=== PATIENT | female | born 1940 | race Caucasian/White ===

== ENCOUNTER 2016-07-09 16:21 | Inpatient (IN) | payer OTHER, MEDICAID, MEDICARE ==
[2016-07-09] VITALS (10 sets, daily range): BP systolic 85–102; BP diastolic 47–55; PULSE 48–91; RESP 24–36; TEMP 97.9; O2SAT 91–100
[~2016-07-09] VITALS: Ht 152.4 cm; Wt 65.4 kg
[~2016-07-09 16:21] MED LIST: ALLO100T PO; ALPR.5 PO; ASPI81 PO; AUGM875T PO; CLON.1 PO; CYCL1PAK PO; CYMB30CA PO; FOLI1 PO; FURO8SOL TUBE; KLOR20TA6 PO; LIDO5T TD; LISI-363 PO; MAGN30S PO; METH2.5 PO; METO50TA PO; OXYC5 PO; REQU2TAB3 PO; TAZT300C2 PO; TYLE650T9 PO; [UNRECOGNIZED DRUG - CODE] NASAL
[2016-07-09] MEDS ORDERED: SODIUM CHLORIDE 0.9% FLUSH 5 ML FLUSH IVF PRN (16:30)
[2016-07-09] MEDS ORDERED: FUROSEMIDE 20 MG/2 ML VIAL IVP ONE (16:30)
[2016-07-09] MEDS ORDERED: LISI-515 PO (16:37)
[2016-07-09] MEDS ORDERED: ALLO100T PO (16:37)
[2016-07-09] MEDS ORDERED: PRAV20TA2 PO (16:37)
[2016-07-09] MEDS ORDERED: FURO40TA PO (16:37)
[2016-07-09] MEDS ORDERED: DILT300C3 PO (16:37)
[2016-07-09] MEDS ORDERED: CLON0.1T PO (16:37)
[2016-07-09] MEDS ORDERED: DULO1CAP2 PO (16:37)
[2016-07-09] MEDS ORDERED: METO50TA PO (16:37)
[2016-07-09] MEDS ORDERED: ASPI1TAB73 (16:37)
[2016-07-09] MEDS ORDERED: CLOP75TA PO (16:37)
--- NOTE | 2016-07-09 16:58 | PD ---
HPI Chief Complaint: Respiratory Distress Time Seen by Provider: 16:27 Travel History International Travel<30 days: No Contact w/Intl Traveler<30days: No Traveled to known affect area: No History of Present Illness HPI Patient is a 75-year-old female who presents to emergency room for evaluation of acute respiratory distress. As per EMS, patient has history of CHF, reports an hour before arriving to the emergency room, patient became acutely short of breath. As per EMS, patient was hypoxic with a pulse ox in the 80s, patient with also labile blood pressure with systolic blood pressures in the low 100. No meds were given to patient prior to coming to the emergency room as patient' s blood pressure was low. PFSH Past Medical History Hx Anticoagulant Therapy: Yes (PLAVIX) Arthritis: Yes Asthma: No Autoimmune Disease: Yes (FIBROMYALGIA) Blood Disorders: No Anxiety: Yes Depression: Yes (MILD DEPRESSION) Heart Rhythm Problems: Yes (TACHYCARDIA) Cancer: No Cardiac Catheterization: Yes (1989) Cardiovascular Problems: Yes (CHF, AFIB ) High Cholesterol: Yes Chemotherapy: No Congestive Heart Failure: No COPD: No Cerebrovascular Accident: Yes Diabetes: Yes Patient Takes Glucophage: No Diminished Hearing: Yes (DIMINISHED) Endocrine: Yes Fibromyalgia: Yes Gastrointestinal Disorders: Yes (GERD, HX OF ABDOMINAL PAIN) GERD: Yes (GERD) Genitourinary: No Heparin Induced Thrombocytopen: No Hypertension: Yes Immune Disorder: Yes (fibromyalgia ) Implanted Vascular Access Dvce: No Musculoskeletal: Yes ("TORN MUSCLE L.KNEE", FRACTURED L3 L4 L5 06/15., arthritis,) Neurologic: Yes (FIBROMYALGIA, ENCEPHALOPATHY, CVA) Psychiatric: Yes (PANIC ATTACKS) Reproductive: Yes (HYSTERECTOMY DUE TO BLEEDING INTO PERITONEAL CAVITY) Respiratory: Yes (PNEUMONIA) Immunizations Current: No Pancreatitis: Yes Sleep Apnea: No Thyroid Disease: No Menopausal: Yes : 3 Para: 2 Miscarriage: 1 Past Surgical History Abdominal Surgery: No AICD: No Appendectomy: Yes (1975) Arteriovenous Shunt: No Cardiac Surgery: Yes (L ENDARECTOMY ) Coronary Artery Bypass Graft: No Ear Surgery: No Endocrine Surgery: No Eye Surgery: Yes (BL CATARACT REMOVAL) Genitourinary Surgery: No Gynecologic Surgery: Yes (HYSTERECTOMY 1975) Hysterectomy: Yes Insulin Pump: No Oral Surgery: No Pacemaker: No Thoracic Surgery: No Other Surgery: Yes (HYSTERECTOMY, LEFT & RIG CAROTID ARTERY REPAIR) Family History Family Myocardial Infarction: Yes (DAD) Social History Alcohol Use: Yes (OCCAS.) Tobacco Use: Yes Substance Use: No Allergies-Medications (Allergen,Severity, Reaction): Coded Allergies: Contrast Media (Verified Allergy, Severe, "throat closes up", 07/09/16) states that reaction used to occur but no longer does Keflex (Verified Adverse Reaction, Severe, "burning sensation,body red", ) *MDRO Multi-Drug Resistant Organism (Verified Adverse Reaction, Unknown, ) 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 (urine-01/30/16) Reported Meds & Prescriptions Reported Meds & Active Scripts Active Reported Allopurinol 100 Mg Tab 100 Mg PO DAILY Furosemide 40 Mg Tab 40 Mg PO DAILY Lisinopril 20 Mg Tab 20 Mg PO DAILY Clopidogrel (Clopidogrel Bisulfate) 75 Mg Tab 75 Mg PO DAILY Pravastatin 20 Mg Tab 20 Mg PO DAILY Alexandra Aspirin EC Low Dose (Aspirin) 81 Mg Tabdr Diltiazem CD 24 HR 300 Mg Caper 300 Mg PO DAILY Metoprolol Tartrate 50 Mg Tab 50 Mg PO Q8HR Duloxetine DR (Duloxetine HCl) 30 Mg Capdr 30 Mg PO DAILY Clonidine (Clonidine HCl) 0.1 Mg Tab 0.1 Mg PO Q8HR Review of Systems General / Constitutional: No: Fever, Chills Eyes: No: Visual changes HENT: No: Headaches Cardiovascular: No: Chest Pain or Discomfort Respiratory: Positive: Cough, Shortness of Breath, Wheezing Gastrointestinal: No: Abdominal Pain Genitourinary: No: Dysuria Musculoskeletal: No: Pain Skin: No Rash Neurologic: No: Weakness Psychiatric: No: Depression Endocrine: No: Polydipsia Hematologic/Lymphatic: No: Easy Bruising Physical Exam Narrative GENERAL: Patient in moderate respiratory distress SKIN: Warm and dry. HEAD: Atraumatic. Normocephalic. EYES: Pupils equal and round. No scleral icterus. No injection or drainage. ENT: No nasal bleeding or discharge. Mucous membranes pink and moist. NECK: Trachea midline. No JVD. CARDIOVASCULAR: Regular rate and rhythm. No murmur appreciated. RESPIRATORY: Patient with positive accessory muscle use. Patient with will see bases of lungs GASTROINTESTINAL: Abdomen soft, non-tender, nondistended. Hepatic and splenic margins not palpable. MUSCULOSKELETAL: No obvious deformities. No clubbing. No cyanosis. +2 edema bilaterally NEUROLOGICAL: Awake and alert. No obvious cranial nerve deficits. Motor grossly within normal limits. Normal speech. PSYCHIATRIC: Appropriate mood and affect; insight and judgment normal. Data Data Last Documented VS Vital Signs Date Time Temp Pulse Resp B/P Pulse Ox O2 Delivery O2 Flow Rate FiO2 07/09/16 16:32 91 CPAP 07/09/16 16:29 26 07/09/16 16:26 97.9 91 102/55 Orders Complete Blood Count With Diff (07/09/16 16:27) Comprehensive Metabolic Panel (07/09/16 16:27) B-Type Natriuretic Peptide (07/09/16 16:27) D-Dimer (07/09/16 16:27) Act Partial Throm Time (Ptt) (07/09/16 16:27) Prothrombin Time / Inr (Pt) (07/09/16 16:27) Magnesium (Mg) (07/09/16 16:27) Ckmb (Isoenzyme) Profile (07/09/16 16:27) Troponin I (07/09/16 16:27) Urinalysis - C+S If Indicated (07/09/16 16:27) Influenzae A/B Antigen (07/09/16 16:27) Blood Culture (07/09/16 16:27) Iv Access Insert/Monitor (07/09/16 16:27) Electrocardiogram (07/09/16 16:27) Ecg Monitoring (07/09/16 16:27) Oximetry (07/09/16 16:27) Oxygen Administration (07/09/16 16:27) Chest, Single Ap (07/09/16 16:27) Sodium Chloride 0.9% Flush (Ns Flush) (07/09/16 16:30) Furosemide Inj (Lasix Inj) (07/09/16 16:30) Lactic Acid Sepsis Protocol (07/09/16 16:29) Arterial Blood Gas (Abg) (07/09/16 ) Resp Bipap / Cpap Non Invas Vt (07/09/16 ) Nitroglycerin 2% Oint (Nitroglycerin 2% (07/09/16 17:00) Levofloxacin 750 Mg Premix Inj (Levaquin (07/09/16 17:15) MDM Medical Decision Making Medical Screen Exam Complete: Yes Emergency Medical Condition: Yes Interpretation(s) Vital Signs Date Time Temp Pulse Resp B/P Pulse Ox O2 Delivery O2 Flow Rate FiO2 07/09/16 16:32 91 CPAP 07/09/16 16:32 92 CPAP 07/09/16 16:29 26 07/09/16 16:26 97.9 91 26 102/55 91 Differential Diagnosis CHF exacerbation, acute coronary syndrome, arrhythmia, electrolyte abnormality Narrative Course Patient is a 75-year-old female who presents to emergency room with acute CHF exacerbation. Upon arrival to the emergency room, patient, the patient was placed on BiPAP. Patient given 20mg of iv lasix EKG, cbc, bmp, ce ordered as well as chest xray pt signed out to care of dr reynolds at shift change Sera Morrell DO Jul 09, 2016 16:57
--- NOTE | 2016-07-09 16:59 | RADRPT ---
EXAM DATE/TIME: 07/09/2016 16:34 [facility] COMPARISON: No previous studies available for comparison. INDICATIONS : Shortness of breath. MEDICAL HISTORY : Cardiovascular disease. Hypertension. Diabetes mellitus type 2. SURGICAL HISTORY : Hysterectomy. Appendectomy. ENCOUNTER: Initial ACUITY: 1 day PAIN SCORE: 6/10 LOCATION: Bilateral chest FINDINGS: Mild bibasilar consolidation and/or edema noted. No large effusion. No pneumothorax. Heart size stabl e Upper limits of normal. CONCLUSION: Mild bibasilar consolidation. Barrett Brown MD on July 09, 2016 at 16:57 Board Certified Radiologist. This report was verified electronically.
[2016-07-09] MEDS ORDERED: NITROGLYCERIN 2% OINT 1 GM PACKET TOP ONE (17:00)
[2016-07-09] MEDS ORDERED: LEVOFLOXACIN 750 MG PREMIX INJ 150 ML IV ONE (17:15)
[2016-07-09 17:18] LABS: BASOPHIL # 0.1 TH/MM3 (0-0.2); BASOPHIL % 0.9 % (0.0-2.0); EOSINOPHIL % 0.4 % (0.0-4.0); HEMATOCRIT 37.3 % (35.0-46.0); HEMO FLAGS DIFF FINAL; LYMPH % 28.9 % (9.0-44.0); LYMPHOCYTE # 2.3 TH/MM3 (1.0-4.8); MEAN CORPUSCULAR HEMOGLOBIN 27.8 PG (27.0-34.0); MEAN CORPUSCULAR HGB CONC 33.4 % (32.0-36.0); MONO % 7.2 % (0.0-8.0); NEUT % 62.6 % (16.0-70.0); PLATELET COUNT 292 TH/MM3 (150-450); RED CELL DISTRIBUTION WIDTH 17.1 % (11.6-17.2)
--- NOTE | 2016-07-09 17:33 | PD ---
Physical Exam Narrative Received sign out from previous team to follow up labs and continue treatment and disposition. This is a 75yo F with PMH of CHF here with sob for 2 hours. Pt was placed on BIPAP and given lasix by previous team. Pt evaluated at bedside and states she feels better with the BIPAP. Pt denies any chest pain, fever, cough, n/v, abdominal pain, weakness or numbness. Pt denies being on oxygen at home and does not have BIPAP machine at home. She is AAOx3 and blood pressure is on the lower side so nitro was held. On examination, pt has crackles on bibasilar lungs and edema in lower extremity. CXR showed mild bibasilar consolidation or edema and pt empirically given levaquin. ABG showed pH 7.35 with pCO2 of 49.4 and pO2 293. HCO3 26.8. Labs reviewed, no leukocytosis. BNP 471. Lactic acid 0.7. D-dimer elevated at 9.50. UA showed positive leukocyte and pt had received levaquin which will cover UTI as well. BMP was pending for hours. There was a problem and recollection was done. BMP result was back at 10:25pm. Potassium was found to be 6.8 and it was not hemolyzed. Calcium gluconate, albuterol neb, regular insulin and dextrose as well as kaexylate ordered. Troponin 0.06. BUN/creatinine is 22/1.27. EKG showed TWI V4-V5. Narrow QRS. Sinus bradycardia at 56bpm. Pt's blood pressure improved with NS IVF 500cc. BP is now 94/54. Pt is allergic to contrast media and had what sounds like anaphylactic reaction years ago but had contrast last year that had reaction to. VQ scan was completed instead and showed low probability for PE. Pt was off bipap but became more hypoxic with increased work of breathing so placed back on BIPAP and doing much better. Discussed with ICU attending and accepted to ICU for acute hypoxemic and hypercapnic respiratory failure on BIPAP and hyperkalemia. Data Data Last Documented VS Vital Signs Date Time Temp Pulse Resp B/P Pulse Ox O2 Delivery O2 Flow Rate FiO2 07/09/16 22:53 54 26 94/54 93 BiPAP 07/09/16 22:43 35 07/09/16 19:40 12.00 07/09/16 16:26 97.9 Orders Complete Blood Count With Diff (07/09/16 16:27) Comprehensive Metabolic Panel (07/09/16 16:27) B-Type Natriuretic Peptide (07/09/16 16:27) D-Dimer (07/09/16 16:27) Act Partial Throm Time (Ptt) (07/09/16 16:27) Prothrombin Time / Inr (Pt) (07/09/16 16:27) Magnesium (Mg) (07/09/16 16:27) Ckmb (Isoenzyme) Profile (07/09/16 16:27) Troponin I (07/09/16 16:27) Urinalysis - C+S If Indicated (07/09/16 16:27) Influenzae A/B Antigen (07/09/16 16:27) Blood Culture (07/09/16 16:27) Iv Access Insert/Monitor (07/09/16 16:27) Electrocardiogram (07/09/16 16:27) Ecg Monitoring (07/09/16 16:27) Oximetry (07/09/16 16:27) Oxygen Administration (07/09/16 16:27) Chest, Single Ap (07/09/16 16:27) Furosemide Inj (Lasix Inj) (07/09/16 16:30) Lactic Acid Sepsis Protocol (07/09/16 16:29) Arterial Blood Gas (Abg) (07/09/16 ) Resp Bipap / Cpap Non Invas Vt (07/09/16 ) Nitroglycerin 2% Oint (Nitroglycerin 2% (07/09/16 17:00) Levofloxacin 750 Mg Premix Inj (Levaquin (07/09/16 17:15) Ventilation & Perfusion Scan (07/09/16 ) Urine Culture (07/09/16 19:02) Ed Poc Ultrasound (07/09/16 ) Electrocardiogram (07/09/16 19:30) Calcium Gluconate Inj (Calcium Gluconate (07/09/16 23:00) Insulin Human Regular Inj (Novolin R Inj (07/09/16 23:00) Dextrose 50% In Brant (Vial) Inj (D50w (Vi (07/09/16 23:00) Albuterol Concentrated Neb (Albuterol Co (07/09/16 23:00) Sodium Polysty Sulfate Liq (Kayexalate L (07/09/16 23:00) Us Leg Venous Doppler Bilat (07/09/16 ) Urinary Catheter Management BHAVANA.Q8H (07/09/16 23:11) Admit Order (Ed Use Only) (07/09/16 23:12) Labs Laboratory Tests Test 07/09/16 07/09/16 07/09/16 07/09/16 16:32 16:36 17:50 19:02 White Blood Count 8.0 TH/MM3 Red Blood Count 4.50 MIL/MM3 Hemoglobin 12.5 GM/DL Hematocrit 37.3 % Mean Corpuscular Volume 83.0 FL Mean Corpuscular Hemoglobin 27.8 PG Mean Corpuscular Hemoglobin 33.4 % Concent Red Cell Distribution Width 17.1 % Platelet Count 292 TH/MM3 Mean Platelet Volume 8.4 FL Neutrophils (%) (Auto) 62.6 % Lymphocytes (%) (Auto) 28.9 % Monocytes (%) (Auto) 7.2 % Eosinophils (%) (Auto) 0.4 % Basophils (%) (Auto) 0.9 % Neutrophils # (Auto) 5.0 TH/MM3 Lymphocytes # (Auto) 2.3 TH/MM3 Monocytes # (Auto) 0.6 TH/MM3 Eosinophils # (Auto) 0.0 TH/MM3 Basophils # (Auto) 0.1 TH/MM3 CBC Comment DIFF FINAL Differential Comment Prothrombin Time 10.7 SEC Prothromb Time International 1.0 RATIO Ratio Activated Partial 27.9 SEC Thromboplast Time D-Dimer Quantitative (PE/DVT) 9.50 MG/L FEU B-Type Natriuretic Peptide 471 PG/ML Lactic Acid Level 0.7 mmol/L Blood Gas Puncture Site RT RADIAL Blood Gas Patient Temperature 98.6 Blood Gas HCO3 27 mmol/L Blood Gas Base Excess 1.8 mmol/L Blood Gas Oxygen Saturation 95 % Arterial Blood pH 7.35 Arterial Blood Partial 49 mmHg Pressure CO2 Arterial Blood Partial 293 mmHG Pressure O2 Arterial Blood Oxygen Content 15.7 Vol % Arterial Blood 3.3 % Carboxyhemoglobin Arterial Blood Methemoglobin 1.9 % Blood Gas Hemoglobin 11.3 G/DL Oxygen Delivery Device BIPAP Blood Gas Ventilator Setting CPAP 5/PS 12 Blood Gas Inspired Oxygen 75 % Urine Color YELLOW Urine Turbidity HAZY Urine pH 5.5 Urine Specific Bolton 1.010 Urine Protein TRACE mg/dL Urine Glucose (UA) NEG mg/dL Urine Ketones NEG mg/dL Urine Occult Blood SMALL Urine Nitrite NEG Urine Bilirubin NEG Urine Urobilinogen LESS THAN 2.0 MG/DL Urine Leukocyte Esterase LARGE Urine RBC 5 /hpf Urine WBC 23 /hpf Urine Squamous Epithelial 17 /hpf Cells Urine Bacteria RARE /hpf Urine Hyaline Casts 1 /lpf Urine Mucus FEW /lpf Microscopic Urinalysis Comment CULTURE INDICATED Test 07/09/16 21:30 Sodium Level 127 MEQ/L Potassium Level 6.8 MEQ/L Chloride Level 98 MEQ/L Carbon Dioxide Level 22.2 MEQ/L Anion Gap 7 MEQ/L Blood Urea Nitrogen 22 MG/DL Creatinine 1.27 MG/DL Estimat Glomerular Filtration 41 ML/MIN Rate Random Glucose 122 MG/DL Calcium Level 8.3 MG/DL Magnesium Level 1.8 MG/DL Total Bilirubin 0.4 MG/DL Aspartate Amino Transf 34 U/L (AST/SGOT) Alanine Aminotransferase 13 U/L (ALT/SGPT) Alkaline Phosphatase 128 U/L Total Creatine Kinase 95 U/L Troponin I 0.06 NG/ML Total Protein 7.4 GM/DL Albumin 3.0 GM/DL MDM Supervised Visit with NYDIA: No Interpretation(s) EKG: Sinus bradycardia. Normal axis. TWI V4, V5. Critical Care Narrative Aggregate critical care time was 45 minutes. Time to perform other separately billable procedures was not included in the critical care time. My time did not include minutes spent treating any other patients simultaneously or on activities that did not directly contribute to the patient's treatment. The services I provided to this patient were to treat and/or prevent clinically significant deterioration that could result in: cardiovascular collapse or . I provided critical care services requiring my management, as noted below: Chart data review, documentation time, medication orders and management, vital sign assessments/reviewing monitor data, ordering and reviewing lab tests, ordering and interpreting/reviewing x-rays and diagnostic studies, care of the patient and discussion of the patient with the admitting physicians. Diagnosis Primary Impression: Acute hypoxemic respiratory failure Additional Impression: Hyperkalemia Ilana Reeves DO Jul 09, 2016 17:32
[2016-07-09 17:47] LABS: APTT (PATIENT) 27.9 SEC (24.3-30.1); PROTHROMBIN TIME - PATIENT 10.7 SEC (9.8-11.6)
[2016-07-09 19:14] LABS: BACTERIA, URINE RARE /hpf; BLOOD, URINE SMALL (NEG); COMMENT (UR) CULTURE INDICATED; CULTURE IF INDICATED CULTURE INDICATED; GLUCOSE,URINE NEG (NEG); HYALINE CAST, URINE 1 /lpf (RARE); KETONE, URINE NEG (NEG); MUCUS URINE FEW /lpf (OCC); NITRITE,URINE NEG (NEG); PH, URINE 5.5 (5.0-8.5); SQUAMOUS EPITHELIAL CELL URINE 17 /hpf (0-5); URINE COLOR YELLOW (YELLW/STRAW)
[2016-07-09 20:01] LABS: BLOOD GAS BASE EXCESS 1.8 mmol/L (-2-2); BLOOD GAS CARBOXYHEMOGLOBIN 3.3 % (0-4); BLOOD GAS HCO3 27 mmol/L (22-26); BLOOD GAS METHEMOGLOBIN 1.9 % (0-2); BLOOD GAS O2 HGB SATURATION 95 % (90-100); BLOOD GAS OXYGEN CONTENT 15.7 Vol % (12.0-20.0); BLOOD GAS PCO2 49 mmHg (38-42); BLOOD GAS PO2 293 mmHG (61-120); BLOOD GAS TOTAL HGB 11.3 G/DL (12.0-16.0); CRITICAL VALUE NO; DRAW SITE RT RADIAL; FIO2 75 %; NUMBER OF ARTERIAL PUNCTURES 1; OXYGEN DEVICE BIPAP; STAT YES; TEMP CORR TO 98.6; ULNAR PULSE PRESENT; VENT SETTINGS CPAP 5/PS 12
--- NOTE | 2016-07-09 21:16 | RADRPT ---
EXAM DATE/TIME: 07/09/2016 20:10 [facility] COMPARISON: No previous studies available for comparison. INDICATIONS : Shortness of breath. Pulmonary edema. Congestive heart failure. DOSE: 8.2 mCi Tc99m MAA IV 0.83 mCi Tc99m DTPA aerosol MEDICAL HISTORY : Congestive hearrt failure. Hypercholesterolemia. Hypertension. Cerebrovascular accident, diabetes gavino litus, gastroesophageal reflux and fibromyalgia. SURGICAL HISTORY : Hysterectomy. Bilateral carotid endarterectomy and cataract. ENCOUNTER: Initial ACUITY: 1 day PAIN SCALE: 0/10 LOCATION: upper chest TECHNIQUE: Following five minutes of tidal breathing of DTPA aerosol, planar images of the lungs were performed in eight projections. The patient was then injected with MAA, and eight-view perfusion scan was perf ormed. FINDINGS: The comparison chest radiograph shows mild bibasilar consolidation. Ventilation is mildly heterogeneo us on both sides. Perfusion is homogeneous. CONCLUSION: Homogeneous perfusion. Study is low probability for pulmonary embolus. Barrett Brown MD on July 09, 2016 at 21:13 Board Certified Radiologist. This report was verified electronically.
[2016-07-09 22:10] LABS: ALKALINE PHOSPHATASE 128 U/L (45-117); ALT (GPT) 13 U/L (10-53); ANION GAP 7 MEQ/L (5-15); AST (GOT) 34 U/L (15-37); BICARBONATE 22.2 MEQ/L (21.0-32.0); BLOOD UREA NITROGEN 22 MG/DL (7-18); CHLORIDE 98 MEQ/L (98-107); GLOMERULAR FILTRATION RATE 41 ML/MIN (>89); MAGNESIUM 1.8 MG/DL (1.5-2.5); SODIUM (NA) 127 MEQ/L (136-145); TOTAL BILIRUBIN ADULT 0.4 MG/DL (0.2-1.0)
[2016-07-09 22:18] LABS: CREATINE KINASE 95 U/L (26-192)
[2016-07-09 22:22] LABS: POTASSIUM 6.8 MEQ/L (3.5-5.1)
[2016-07-09] MEDS ORDERED: SODIUM POLYSTYRENE SULFONATE SUSP 15 GM/60 ML CUP PO ONE (23:00)
[2016-07-09] MEDS ORDERED: RESP: ALBUTEROL CONC 2.5 MG/0.5 ML NEB INH ONE (23:00)
[2016-07-09] MEDS ORDERED: CALCIUM GLUCONATE 10% 1 GM/10 ML VIAL SLOW IVP ONE (23:00)
[2016-07-09] MEDS ORDERED: INSULIN HUMAN REGULAR 1,000 UNITS/10 ML VIAL IV PUSH ONE (23:00)
[2016-07-09] MEDS ORDERED: DEXTROSE 50% IN WATER 50 ML VIAL(D50) IV PUSH ONE (23:00)
--- NOTE | 2016-07-09 23:32 | HHI.HP ---
[facility] Service Critical Care Medicine Primary Care Physician Karis Roblero MD Admission Diagnosis SOB Diagnosis: Travel History International Travel<30 Days: No Contact w/Intl Traveler <30 Da: No Traveled to Known Affected Are: No History of Present Illness 75 yo WF with PMH of hypertension, hyperlipidemia, prior stroke, depression, rheumatoid arthritis (previously on methotrexate), chronic pain, tobacco abuse. She previously had prolonged admission to [facility] [place]-12/15/15 following a fall at rehab facility which resulted in right temporal contusion. Her hospital course was complicated by pseudomembranous colitis and recurrent episodes of aspiration pneumonia resulting in respiratory failure, intubation x2 and ultimate trach/PEG. She was discharged to a rehab facility and then eventually has returned to her home following trach decannulation. She states she has been feeling well until today when she was sitting on her couch and developed sudden onset of shortness of breath while at rest. She has chest discomfort which she describes as tightness "like something's sitting there", nonpleuritic , moderate severity, nonradiatting. She states that she has this often and that it "feels like indigestion" and goes away when she drinks water. Today it did not go away so she summoned [facility] and her sats were in the 80s upon their arrival. She is not on home O2. She was placed on Bipap / upon arrival to the ED and was administered NTG and Lasix 20 mg IV. ABG demonstrated pH of 7.35 /PA CO2 of 49/PA O2 of 293 on 75% FiO2. She denies cough/fever/chills/ hemoptysis. Her ddimer was 9.5. She had a VQ scan that is low probability for PE. Denies leg swelling. Denies history of venous thromboembolic disease. No recent travel.She states she has had prior stress test and cardiac cath " several years ago" by Dr. Ornoa that she says were normal. She states she has no pain now and reports she feels "so much better than when she came in". She has been taken off Bipap to receive a neb and her she appears comfortable on 4 L NC with sats 97%. 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 Jackson) Bilateral carotid endarterectomy (right carotid endarterectomy was performed by Dr. Moreau) Hysterectomy Reported Medications Lisinopril 20 mg by mouth daily Duloxetine 30 g by mouth daily Allopurinol 100 g by mouth daily Metoprolol 50 g by mouth every 8 hours Cardizem 30 mg by mouth daily Clonidine 0.1 mill grams by mouth by mouth every 8 hours Pravastatin 20 mill grams by mouth daily Lasix 40 g by mouth daily Aspirin 81 mill grams by mouth daily Plavix 75 mg by mouth daily Family History Father had a myocardial infarction at age 51 She has 4 brothers which had myocardial infarctions in their 50s She had a brother who at age 42. He had a renal transplant for hypertensive nephropathy. Social History She previously smoked about 15 years then quit for about 25 years and then started back again 2 years ago. She smokes 3-4 cigarettes per day Drinks wine occasionally. Denies use of illicit drugs She lives with a female friend of hers Physical Exam Vital Signs Vital Signs Date Time Temp Pulse Resp B/P Pulse Ox O2 Delivery O2 Flow Rate FiO2 07/09/16 22:53 54 26 94/54 93 BiPAP 07/09/16 22:43 93 BiPAP 35 07/09/16 22:00 98 35 07/09/16 19:56 56 24 85/47 99 BiPAP 07/09/16 19:40 98 Non-Rebreather 12.00 07/09/16 19:20 98 60 07/09/16 17:17 48 36 91/52 100 BiPAP 07/09/16 16:41 100 75 07/09/16 16:32 91 CPAP 07/09/16 16:32 92 CPAP 07/09/16 16:29 26 07/09/16 16:26 97.9 91 26 102/55 91 Physical Exam Blood pressure 94/54 pulse 95 with sinus rhythm on the monitor BiPAP 12 over 5 with FiO2 35% GENERAL: Well-nourished, well-developed patient sitting up in ED gurney, conversant getting nebulizer treatment SKIN: Warm and dry. HEAD: Atraumatic. Normocephalic. EYES: Pupils equal and round. No scleral icterus. No injection or drainage. ENT: No nasal bleeding or discharge. Mucous membranes pink and moist. NECK: Trachea midline. No JVD appreciated. CARDIOVASCULAR: Bradycardic, regular. 2/6 systolic murmur left sternal border. RESPIRATORY: Bibasilar Rales, breathing comfortably without accessory muscle use. GASTROINTESTINAL: Abdomen soft, obese, non-tender, nondistended. Bowel sounds present MUSCULOSKELETAL: Extremities without clubbing, cyanosis, or edema. NEUROLOGICAL: Awake and alert. No obvious cranial nerve deficits. Motor grossly within normal limits. Normal speech. Laboratory Laboratory Tests Test 07/09/16 07/09/16 07/09/16 07/09/16 16:32 16:36 17:50 19:02 White Blood Count 8.0 Red Blood Count 4.50 Hemoglobin 12.5 Hematocrit 37.3 Mean Corpuscular Volume 83.0 Mean Corpuscular Hemoglobin 27.8 Mean Corpuscular Hemoglobin 33.4 Concent Red Cell Distribution Width 17.1 Platelet Count 292 Mean Platelet Volume 8.4 Neutrophils (%) (Auto) 62.6 Lymphocytes (%) (Auto) 28.9 Monocytes (%) (Auto) 7.2 Eosinophils (%) (Auto) 0.4 Basophils (%) (Auto) 0.9 Neutrophils # (Auto) 5.0 Lymphocytes # (Auto) 2.3 Monocytes # (Auto) 0.6 Eosinophils # (Auto) 0.0 Basophils # (Auto) 0.1 CBC Comment DIFF FINAL Differential Comment Prothrombin Time 10.7 Prothromb Time International 1.0 Ratio Activated Partial 27.9 Thromboplast Time D-Dimer Quantitative (PE/DVT) 9.50 B-Type Natriuretic Peptide 471 Lactic Acid Level 0.7 Blood Gas Puncture Site RT RADIAL Blood Gas Patient Temperature 98.6 Blood Gas HCO3 27 Blood Gas Base Excess 1.8 Blood Gas Oxygen Saturation 95 Arterial Blood pH 7.35 Arterial Blood Partial 49 Pressure CO2 Arterial Blood Partial 293 Pressure O2 Arterial Blood Oxygen Content 15.7 Arterial Blood 3.3 Carboxyhemoglobin Arterial Blood Methemoglobin 1.9 Blood Gas Hemoglobin 11.3 Oxygen Delivery Device BIPAP Blood Gas Ventilator Setting CPAP 5/PS 12 Blood Gas Inspired Oxygen 75 Urine Color YELLOW Urine Turbidity HAZY Urine pH 5.5 Urine Specific Morton 1.010 Urine Protein TRACE Urine Glucose (UA) NEG Urine Ketones NEG Urine Occult Blood SMALL Urine Nitrite NEG Urine Bilirubin NEG Urine Urobilinogen LESS THAN 2.0 Urine Leukocyte Esterase LARGE Urine RBC 5 Urine WBC 23 Urine Squamous Epithelial 17 Cells Urine Bacteria RARE Urine Hyaline Casts 1 Urine Mucus FEW Microscopic Urinalysis Comment CULTURE INDICATED Test 07/09/16 21:30 Sodium Level 127 Potassium Level 6.8 Chloride Level 98 Carbon Dioxide Level 22.2 Anion Gap 7 Blood Urea Nitrogen 22 Creatinine 1.27 Estimat Glomerular Filtration 41 Rate Random Glucose 122 Calcium Level 8.3 Magnesium Level 1.8 Total Bilirubin 0.4 Aspartate Amino Transf 34 (AST/SGOT) Alanine Aminotransferase 13 (ALT/SGPT) Alkaline Phosphatase 128 Total Creatine Kinase 95 Troponin I 0.06 Total Protein 7.4 Albumin 3.0 Date/Time Procedure Status Source Growth 07/09/16 19:02 Urine Culture Received Urine Random Urine Pending 07/09/16 16:36 Influenza Types A,B Antigen (MATTIE) - Final Complete Nasal Aspirate NEGATIVE FOR FLU A AND B ANTIGEN.... 07/09/16 16:30 Aerobic Blood Culture Received Blood Peripheral Pending 07/09/16 16:30 Anaerobic Blood Culture Received Blood Peripheral Pending Result Diagram: 07/09/16 1632 07/09/16 2130 Assessment and Plan Assessment and Plan NEURO: Fibromyalgia History of stroke History of TBI with right temporal contusion. Frequent falls Depression Continue duloxetine 30 mils grams by mouth daily Continue on aspirin and Plavix as per below for history of stroke RESP: Acute hypercapnic and hypoxemic respiratory failure, on BiPAP Tobacco abuse Now improved following Lasix/NTG/Nebs. Placed on NC, wean as tolerated. Use Bipap prn VQ scan low probability PE 1/ (h/o IV contrast allergy) CXR shows bibasilar opacities. This could be edema versus pneumonia but both presentation and rapid symptomatic improvement would argue for pulmonary edema. COPD component also a possibility given her history, though she is not currently wheezing upon my evaluation. Provided smoking cessation counseling Duoneb q6 hours. Albuterol every 2 hours as needed. CV: Hypertension Hyperlipidemia Sinus bradycardia EKG - sinus bradycardia. T wave inversion V4-V5. Check serial EKGs and cardiac markers. Check 2-D echo. Minimal troponin elevation in setting of renal insufficiency. However, chest discomfort and SOB may represent unstable angina in this patient with multiple risk factors. Will ask cardiology to see on routine basis. Hold lisinopril due to hyperkalemia. Hold cardizem for now due to bradycardia. Hold clonidine. Metoprolol 25 mg po q 8 hours with hold orders for hypotension/heart rate <60. NTG prn chest pain. Continue pravastatin 20 g by mouth daily Continue aspirin 81 mill grams by mouth daily Continue Plavix 75 mill grams by mouth daily Lasix 20 mg IV daily Most recent 2-D echo 11/04/15EF 55-60%. Normal wall motion without all motion abnormality. Mild aortic regurgitation Had Holter monitor 10/16/15inus rhythm Lexiscan 11/03/12no evidence of ischemia. GI: Obesity Heart healthy diet FEN/RENAL: DUC overlying CKD Stage III Acute Hyperkalemia Hyperkalemia without EKG changes. Received calcium gluconate 1 gram IV, kayexalate 15 gram, Insulin 5 units IV, 1/2 amp D50 given in the ED. Unusual to see this degree of hyperkalemia without significant creatinine change from baseline, no EKG changes. No reported hemolysis. Will repeat potassium. Check cortisol per discussion below. Hold lisinopril. ID: [email or web address] She was given Levaquin empirically in the emergency department 07/09/16 for possible pneumonia. Will continue with renal dosing to cover possible CAP and UTI and followup cultures. Calculated creatinine clearance 42 so will dose Levaquin 750 mg po q48 hours. Microbiology: 07/09/16blood culture 2 setspending 07/09/16influenza negative 07/09/16urine culturepending 07/09/16urine Legionella and pneumococcal antigen pending HEME: Elevated d-dimer VQ scanlow probability Ordered Bilateral lower extremity which is negative. Monitor CBC ENDO: Previously diabetes mellitus Now off therapy, glucose 122. Adrenal insufficiency is a consideration give hyponatremia, hyperkalemia, "relative hypoglycemia", transient hypotension. Will check cortisol level and then cosyntropin stim if low. Low dose insulin sliding scale if needed. Check TSH MSK Osteoporosis Rheumatoid arthritis Gout Continue allopurinol 100 g by mouth daily PROPH: SCDs and Lovenox 30 mg subcutaneous for DVT prophylaxis. Protonix 40 mg IV daily for stress ulcer prophylaxis. ACCESS: Peripheral IV providing adequate access at this time. Level III Radha Ramirez MD Jul 09, 2016 23:32
[2016-07-09] MEDS ORDERED: ACETAMINOPHEN 325 MG TAB PO PRN (23:45)
[2016-07-09] MEDS ORDERED: MISCELLANEOUS NURSING INFORMATION XX SCH (23:45)
[2016-07-09] MEDS ORDERED: SODIUM CHLORIDE 0.9% FLUSH 5 ML FLUSH IV FLUSH PRN (23:45)
[2016-07-09] MEDS ORDERED: RESP: ALBUTEROL 2.5 MG/3 ML NEB (PRN) INH (23:45)
[2016-07-09] MEDS ORDERED: ONDANSETRON HCL 4 MG/2 ML VIAL IV PRN (23:45)
[2016-07-09] MEDS ORDERED: CHLORHEXIDINE GLUCONATE 2 % 1 PACK (2 CLOTHS) TOP PRN (23:45)
[2016-07-10] VITALS (12 sets, daily range): BP systolic 104–151; BP diastolic 51–67; PULSE 56–96; RESP 16–20; O2SAT 95–99
--- NOTE | 2016-07-10 00:36 | RADRPT ---
EXAM DATE/TIME: 07/10/2016 00:12 [place] COMPARISON: No previous studies available for comparison. INDICATIONS : Bilateral leg pain. MEDICAL HISTORY : Pancreatitis. Encephalopathy. CVA. Congestive heart failure. Atrial fibrillation. Anticoaugulant th erapy. GERD. SURGICAL HISTORY : Hysterectomy. Carotid endarterectomy. ENCOUNTER: Initial ACUITY: 1 day PAIN SCORE: 1/10 LOCATION: Bilateral legs. TECHNIQUE: Venous ultrasound of the left and right leg was performed from the inguinal ligament to the proximal calf. Real-time, color Doppler and spectral tracing, compression and augmentation techniques were us ed. FINDINGS: RIGHT LEG: There is normal compressibility of the deep venous system from the inguinal region to the proximal ca lf. No echogenic clot is seen in the lumen of the common femoral, femoral, popliteal, and posterior tibial veins. There is a normal response of the venous system to proximal and distal augmentation an d respiration. LEFT LEG: There is normal compressibility of the deep venous system from the inguinal region to the proximal ca lf. No echogenic clot is seen in the lumen of the common femoral, femoral, popliteal, and posterior tibial veins. There is a normal response of the venous system to proximal and distal augmentation an d respiration. CONCLUSION: Normal examination. Loi Richards Jr., MD on July 10, 2016 at 0:34 Board Certified Radiologist. This report was verified electronically.
[2016-07-10] MEDS: ENOXAPARIN SODIUM 30 MG/0.3 ML SYRINGE SQ SCH ×2 (00:41→21:54)
[2016-07-10] MEDS: ASPIRIN 81 MG CHEW TAB CHEW SCH ×2 (01:50→09:40)
[2016-07-10] MEDS ORDERED: DEXTROSE 50% IN WATER 50 ML VIAL(D50) IV PUSH PRN (02:15)
[2016-07-10] MEDS ORDERED: NITROGLYCERIN 0.4 MG SL 25 TABS/BTL SL PRN (02:15)
[2016-07-10] MEDS ORDERED: GLUCAGON 1 MG/ML VIAL OTHER PRN (02:15)
[2016-07-10] MEDS: RESP: ALBUTEROL 2.5 MG/IPRATROPIUM 0.5 MG NEB (SCH) INH ×4 (02:54→20:18)
[2016-07-10 03:31] LABS: BICARBONATE 29.5 MEQ/L (21.0-32.0); MAGNESIUM 1.8 MG/DL (1.5-2.5); POTASSIUM 4.2 MEQ/L (3.5-5.1)
[2016-07-10] MEDS: CHLORHEXIDINE GLUCONATE 2 % 1 PACK (2 CLOTHS) TOP SCH (03:57)
[2016-07-10] MEDS ORDERED: COSYNTROPIN 0.25 MG VIAL IV PUSH ONE (04:15)
[2016-07-10 05:09] LABS: AUTOMATED NEUTROPHIL # 4.3 TH/MM3 (1.8-7.7); BASOPHIL # 0.1 TH/MM3 (0-0.2); BASOPHIL % 0.7 % (0.0-2.0); EOSINOPHIL % 0.2 % (0.0-4.0); HEMO FLAGS DIFF FINAL; LYMPH % 36.2 % (9.0-44.0); LYMPHOCYTE # 2.9 TH/MM3 (1.0-4.8); MEAN CELL VOLUME 82.6 FL (80.0-100.0); MEAN CORPUSCULAR HEMOGLOBIN 26.9 PG (27.0-34.0); MEAN CORPUSCULAR HGB CONC 32.6 % (32.0-36.0); MONO % 9.3 % (0.0-8.0); NEUT % 53.6 % (16.0-70.0); PLATELET COUNT 194 TH/MM3 (150-450); RED BLOOD COUNT 3.87 MIL/MM3 (4.00-5.30); WHITE BLOOD COUNT 8.1 TH/MM3 (4.0-11.0)
[2016-07-10] MEDS: METOPROLOL TARTRATE 25 MG TAB PO SCH ×3 (05:52→21:54)
[2016-07-10] MEDS: INSULIN ASPART SUPPLEMENTAL SCALE SQ SCH ×4 (06:56→22:36)
[2016-07-10] MEDS ORDERED: SODIUM CHLORIDE 0.9% FLUSH 5 ML FLUSH IV FLUSH SCH (09:00)
[2016-07-10] MEDS: CLOPIDOGREL 75 MG TAB PO SCH (09:39)
[2016-07-10] MEDS: PRAVASTATIN SOD 20 MG TAB PO SCH (09:39)
[2016-07-10] MEDS: ALLOPURINOL 100 MG TAB PO SCH (09:39)
[2016-07-10] MEDS: PANTOPRAZOLE SODIUM 40 MG VIAL IV SCH (09:39)
[2016-07-10] MEDS: DULoxetine HCl DR 30 MG CAP PO SCH (09:39)
--- NOTE | 2016-07-10 09:54 | MB ---
cc: KARIS ROBLES. LELAND HERMAN M.D., DO DATE OF CONSULTATION 07/10/2016 PRIMARY CARE PHYSICIAN Karis Robles MD REASON FOR CONSULTATION Chest pain with shortness of breath. HISTORY OF PRESENT ILLNESS Kanchan Roque is a pleasant 75-year-old female who presents to [facility] Emergency Room on July 10, 2016, due to shortness of breath with chest pain. She had a long hospitalization earlier this year and was discharged to a rehab facility. She states that she has been doing all of her physical therapy and has no chest pain or shortness of breath during these times but yesterday she was sitting on the couch and suddenly developed shortness of breath while at rest. She started panicking and then had chest discomfort which she described as a tightness. She has had that feeling of tightness in her chest a few times which she says feels like indigestion and she drinks a glass of water and it goes away. She attempted to drink a glass of water but it did not go away so she called [facility]. Upon their arrival she was found to have sats in the 80s. She was placed on BiPap on 06/11 until arrival at the ED and was given nitroglycerin and Lasix. She had an elevated D-dimer and she was worked up for a PE which showed a VQ scan of low probability and negative ultrasound of the lower extremities. In seeing her this morning she states that she feels so much better and no longer has chest pain or shortness of breath. Of note, she had a prior stress test and cardiac catheterization by Dr. Orona several years ago which, per the patient, were normal. PAST MEDICAL HISTORY 1. Hypertension. 2. Hyperlipidemia. 3. History of stroke. 4. Depression. 5. Rheumatoid arthritis. 6. Osteoporosis. 7. Fibromyalgia. 8. Traumatic brain injury with temporal lobe contusion following a fall. 9. Frequent falls. 10. Obesity. 11. Tobacco abuse. PAST SURGICAL HISTORY 1. Previous cardiac catheterization per the patient a few years ago which was normal. 2. Percutaneous tracheostomy (November 24, 2015). 3. Bilateral carotid endarterectomy (right carotid endarterectomy was performed February 17, 2015). 4. Hysterectomy. ALLERGIES HISTORY OF IV DYE ALLERGY for which she had anaphylaxis but states that the reaction no longer occurs. KEFLEX. FAMILY HISTORY Father had a myocardial infarction at the age of 51. She has four brothers which had myocardial infarctions in their 50s. She had a brother who at the age of 42; he had a renal transplant for hypertensive nephropathy. SOCIAL HISTORY She previously smoked about 15 years and quit for about 25 years and then started back again two years ago. She currently smokes three to four cigarettes per day. She drinks wine occasionally. Denies use of illicit drugs. REVIEW OF SYSTEMS Fourteen systems were reviewed including osteopathic pertinent positives and negatives above, otherwise negative. PHYSICAL EXAMINATION Vital Signs: Temperature 97.9, heart rate 69, blood pressure 107/50, respirations 18, pulse ox 98% on 4 liters. In General: The patient appears well, in no acute distress. Alert, awake and oriented x 3. Extraocular muscles intact. Mucous membranes moist. Neck: Neck is supple. No JVD noted. Carotid upstroke is brisk in nature bilaterally. Heart: Regular rate and rhythm. Positive first and second heart sounds with a 1/6 systolic murmur to the right sternal border. Lungs: Decreased breath sounds bilateral with minimal rales at the bases. Breathing comfortably without accessory muscle use. Abdomen: Soft, nontender, nondistended. No organomegaly noted. Extremities: No clubbing, cyanosis or edema. Skin: Skin is warm, dry and intact. Neurologically: No focal deficits. Osteopathic Exam: Mild kyphoscoliosis. No lordosis or paraspinal tender points. LABORATORY FINDINGS White blood cells 8.1, hemoglobin 10.4, hematocrit 32.0, platelets 194. Potassium 4.2, BUN 23, creatinine 1.53. Troponin 0.06, increasing to 0.07. ELECTROCARDIOGRAM (July 10, 2016 at 02:41) Sinus rhythm at 63 beats per minute, biphasic T-wave with T-wave inversions anterior laterally concerning for ischemia. IMPRESSION 1. Minimally elevated troponin plus possibly Type 2 due to hypoxemia. Cannot rule out underlying coronary artery disease. 2. Hypoxemia, possibly due from pulmonary edema. 3. Elevated D-dimer of unknown cause. 4. History of hypertension. 5. History of hyperlipidemia. 6. History of prior stroke. 7. History of bilateral carotid endarterectomy. 8. History rheumatoid arthritis. 9. History of osteoporosis. 10. History of fibromyalgia. 11. History of traumatic brain injury with temporal lobe contusion following a fall. 12. Tobacco abuse. 13. Acute kidney injury. RECOMMENDATIONS 1. Kanchan Roque came in with acute shortness of breath of unknown cause, possibly due to pulmonary edema. 2. Her troponin elevation may be due to her hypoxemia with a pulse ox in the 80s per [facility]. 3. Although we cannot rule out underlying coronary artery disease with her acute kidney injury and low level of troponins, I think consideration could be made for doing a pharmacologic nuclear stress test. 4. We will check a 2-D echo to for what sounds like mild to moderate aortic stenosis along with her LV function. 5. Continue on aspirin and Plavix. 6. Further recommendations will be made based on hospital course. Thank you for allowing me to see Kanchan Roque. If there are any questions, please do not hesitate to call. Leland Pop DO VGP/SSB /9:16 AM /9:35 AM
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
[2016-07-10] MEDS ORDERED: ONDANSETRON HCL 4 MG/2 ML VIAL IV PRN (13:15)
[2016-07-10] MEDS ORDERED: ACETAMINOPHEN 325 MG TAB PO PRN (13:15)
[2016-07-10] MEDS ORDERED: SODIUM CHLORIDE 0.9% FLUSH 5 ML FLUSH IV FLUSH PRN (13:15)
[2016-07-10] MEDS ORDERED: SENNOSIDES 8.6 MG TAB PO PRN (13:15)
[2016-07-10] MEDS ORDERED: CHLORHEXIDINE GLUCONATE 2 % 1 PACK (2 CLOTHS) TOP PRN (13:15)
[2016-07-10] MEDS: MORPHINE SULFATE 4 MG/ML INJ IV PRN ×2 (13:25→20:51)
[2016-07-10] MEDS ORDERED: MISCELLANEOUS NURSING INFORMATION XX SCH (14:00)
[2016-07-10] MEDS: methylPREDNISolone SOD SUCC 40 MG/1 ML VIAL IV PUSH SCH ×2 (14:15→21:54)
[2016-07-10] MEDS ORDERED: RESP: ALBUTEROL 2.5 MG/IPRATROPIUM 0.5 MG NEB (SCH) INH (16:00)
--- NOTE | 2016-07-10 19:02 | EC ---
Study Study Date:07/10/2016 STUDY CONCLUSIONS SUMMARY - Left ventricle: Systolic function was normal. The estimated ejection fraction was in the range of 55% to 60%. - Aortic valve: There was mild stenosis. Moderate regurgitation. Valve area: 1.67cm^2(VTI). Valve area: 1.67cm^2 (Vmax). - Tricuspid valve: Mild regurgitation. - Pulmonary arteries: PA peak pressure: 51mm Hg (S). If LV function is below 40, please consider prescribing an ACEI or ARB or document rationale for non-use. PROCEDURE DATA STUDY STATUS: Elective. Procedure: Transthoracic echocardiography. Image quality was good. Scanning was performed from the parasternal, apical, and subcostal acoustic windows. Study completion: The patient tolerated the procedure well. Transthoracic echocardiography. M-mode, complete 2D, complete spectral Doppler, and color Doppler. Patient status: Inpatient. CARDIAC ANATOMY LEFT VENTRICLE: Systolic function was normal. The estimated ejection fraction was in the range of 55% to 60%. AORTIC VALVE: Moderately calcified leaflets. Doppler: There was mild stenosis. Moderate regurgitation. Valve area: 1.67cm^2(VTI). Valve area: 1.67cm^2 (Vmax). Mean gradient: 22mm Hg (S). Peak gradient: 43mm Hg (S). MITRAL VALVE: The valve appears to be grossly normal. Doppler: There was no evidence for stenosis. No significant regurgitation. Valve area by pressure half-time: 2.91cm^2. Valve area by continuity equation (using LVOT flow): 2.7cm^2. Mean gradient: 3mm Hg (D). Peak gradient: 5mm Hg (D). LEFT ATRIUM: The atrium was normal in size. PULMONIC VALVE: The valve appears to be grossly normal. Doppler: There was no evidence for stenosis. No significant regurgitation. TRICUSPID VALVE: The valve appears to be grossly normal. Doppler: There was no evidence for stenosis. Mild regurgitation. BASIC MEASUREMENTS ADULT NORMAL Left ventricle LV internal dimension, ED, chordal 51.8 mm 43-52 level, PLAX LV posterior wall thickness, ED 7.72 mm IVS/LVPW ratio, ED *1.31 <1.3 Ventricular septum Septal thickness, ED 10.1 mm Left atrium Anterior-posterior dimension 29 mm Right ventricle RV internal dimension, ED, PLAX 20.7 mm 19-38 DOPPLER MEASUREMENTS ADULT NORMAL Main pulmonary artery Pressure, S *51 mm Hg =30 Aortic valve Peak velocity, S 328 cm/s Mean velocity, S 217 cm/s VTI, S 44 cm Mean gradient, S 22 mm Hg Peak gradient, S 43 mm Hg Valve area, VTI 1.67 cm^2 Valve area, Vmax 1.67 cm^2 Mitral valve Peak E-wave velocity 152.03 cm/s Peak A-wave velocity 112 cm/s Mean velocity, D 75.1 cm/s Deceleration slope 583.46 cm/s^2 Deceleration time *261 ms 150-230 Pressure half-time 76 ms Mean gradient, D 3 mm Hg Peak gradient, D 5 mm Hg Peak E/A ratio 1.36 Valve area, pressure half-time 2.91 cm^2 Valve area, LVOT continuity 2.7 cm^2 Tricuspid valve Regurgitant peak velocity 311 cm/s Peak RV-RA gradient, S 39 mm Hg Maximal regurgitant velocity 311 cm/s Systemic veins Estimated CVP 10 mm Hg Right ventricle RV pressure, S *51 mm Hg <30 LEGEND: Mean values are shown as u=mean value. Asterisk (*) hernandez values outside specified normal range. Prepared and signed by Leland Pop [id number]
[2016-07-10] MEDS: SODIUM CHLORIDE 0.9% FLUSH 5 ML FLUSH IV FLUSH SCH (20:51)
[2016-07-10] MEDS: DOCUSATE SODIUM 100 MG CAP PO SCH (21:54)
--- NOTE | 2016-07-10 23:35 | EKG ---
Date Performed: 07/10/2016 Time Performed: 09:12:37 PTAGE: 75 years EKG: Sinus rhythm MODERATE T-WAVE ABNORMALITY, CONSIDER ANTEROLATERAL ISCHEMIA ABNORMAL ECG PREVIOUS TRACING : 07/10/2016 02.41 DOCTOR: Xenia Charles Interpretating Date/Time 07/10/2016 23:34:30
--- NOTE | 2016-07-10 23:44 | EKG ---
Date Performed: 07/10/2016 Time Performed: 02:41:35 PTAGE: 75 years EKG: Sinus rhythm MODERATE T-WAVE ABNORMALITY, CONSIDER ANTEROLATERAL ISCHEMIA ABNORMAL ECG PREVIOUS TRACING : 07/09/2016 19.30 DOCTOR: Xenia Charles Interpretating Date/Time 07/10/2016 23:41:00
--- NOTE | 2016-07-10 23:52 | EKG ---
Date Performed: 07/09/2016 Time Performed: 19:30:07 PTAGE: 75 years EKG: SINUS BRADYCARDIA NONSPECIFIC T-WAVE ABNORMALITY BORDERLINE ECG INTERPRETATION BASED ON Shereen Hoover EFAULT AGE OF 40 YEARS PREVIOUS TRACING : 07/09/2016 16.38 DOCTOR: Xenia Charles Interpretating Date/Time 07/10/2016 23:46:19
--- NOTE | 2016-07-10 23:56 | EKG ---
Date Performed: 07/09/2016 Time Performed: 16:38:23 PTAGE: 75 years EKG: SINUS BRADYCARDIA MODERATE T-WAVE ABNORMALITY, CONSIDER ANTEROLATERAL ISCHEMIA ABNORMAL ECG PREVIOUS TRACING : 11/13/2015 02.14 DOCTOR: Xenia Charles Interpretating Date/Time 07/10/2016 23:48:46
[2016-07-11] VITALS (13 sets, daily range): BP systolic 122–138; BP diastolic 58–65; PULSE 77–92; RESP 16–21; TEMP 96–98.1; O2SAT 93–99
[2016-07-11] MEDS: MORPHINE SULFATE 4 MG/ML INJ IV PRN ×3 (00:51→16:23)
[2016-07-11] MEDS: CHLORHEXIDINE GLUCONATE 2 % 1 PACK (2 CLOTHS) TOP SCH (03:39)
[2016-07-11] MEDS: ACETAMINOPHEN/HYDROcodone 325 MG/5 MG TAB PO PRN ×3 (03:39→21:15)
[2016-07-11] MEDS ORDERED: CHLORHEXIDINE GLUCONATE 2 % 1 PACK (2 CLOTHS) TOP SCH (04:00)
[2016-07-11] MEDS: INSULIN ASPART SUPPLEMENTAL SCALE SQ SCH ×4 (06:01→21:15)
[2016-07-11 06:07] LABS: AUTOMATED NEUTROPHIL # 8.6 TH/MM3 (1.8-7.7); BASOPHIL % 0.2 % (0.0-2.0); HEMATOCRIT 32.4 % (35.0-46.0); HEMO FLAGS DIFF FINAL; LYMPH % 10.1 % (9.0-44.0); MEAN CELL VOLUME 83.4 FL (80.0-100.0); MEAN CORPUSCULAR HEMOGLOBIN 26.8 PG (27.0-34.0); MEAN CORPUSCULAR HGB CONC 32.2 % (32.0-36.0); MONO % 1.7 % (0.0-8.0); PLATELET COUNT 229 TH/MM3 (150-450); RED BLOOD COUNT 3.89 MIL/MM3 (4.00-5.30); RED CELL DISTRIBUTION WIDTH 17.2 % (11.6-17.2); WHITE BLOOD COUNT 9.8 TH/MM3 (4.0-11.0)
[2016-07-11] MEDS: METOPROLOL TARTRATE 25 MG TAB PO SCH ×3 (06:12→21:15)
[2016-07-11] MEDS: methylPREDNISolone SOD SUCC 40 MG/1 ML VIAL IV PUSH SCH ×3 (06:12→21:16)
[2016-07-11 06:37] LABS: ALKALINE PHOSPHATASE 100 U/L (45-117); ALT (GPT) 10 U/L (10-53); ANION GAP 6 MEQ/L (5-15); AST (GOT) 8 U/L (15-37); BICARBONATE 29.9 MEQ/L (21.0-32.0); BLOOD UREA NITROGEN 23 MG/DL (7-18); CHLORIDE 100 MEQ/L (98-107); GLOMERULAR FILTRATION RATE 53 ML/MIN (>89); MAGNESIUM 1.9 MG/DL (1.5-2.5); SODIUM (NA) 136 MEQ/L (136-145); TOTAL BILIRUBIN ADULT 0.2 MG/DL (0.2-1.0)
[2016-07-11 06:38] LABS: FREE T4 0.85 NG/DL (0.76-1.46); LDL CHOLESTEROL 86 MG/DL (0-99)
--- NOTE | 2016-07-11 06:38 | RADRPT ---
EXAM DATE/TIME: 07/11/2016 06:19 [facility] COMPARISON: CHEST SINGLE AP, July 09, 2016, 16:34. INDICATIONS : Short of breath. MEDICAL HISTORY : CVA. Congestive heart failure. Atrial fibrillation. SURGICAL HISTORY : Carotid endarterectomy. ENCOUNTER: Initial ACUITY: 2 days PAIN SCORE: Non-responsive. LOCATION: Bilateral chest FINDINGS: A single view of the chest demonstrates the lungs to be symmetrically aerated without evidence of mas s, infiltrate or effusion. The cardiomediastinal contours are unremarkable. Osseous structures are intact. CONCLUSION: No acute disease. Loi Richards Jr., MD on July 11, 2016 at 6:36 Board Certified Radiologist. This report was verified electronically.
[2016-07-11 06:45] LABS: CREATINE KINASE 21 U/L (26-192)
[2016-07-11 06:49] LABS: APTT (PATIENT) 28.9 SEC (24.3-30.1); PROTHROMBIN TIME - PATIENT 10.6 SEC (9.8-11.6)
[2016-07-11] MEDS: RESP: ALBUTEROL 2.5 MG/IPRATROPIUM 0.5 MG NEB (SCH) INH ×3 (07:31→23:08)
[2016-07-11] MEDS: PANTOPRAZOLE SODIUM 40 MG VIAL IV SCH (09:00)
[2016-07-11] MEDS: DOCUSATE SODIUM 100 MG CAP PO SCH ×2 (09:00→21:15)
[2016-07-11] MEDS: DULoxetine HCl DR 30 MG CAP PO SCH (09:01)
[2016-07-11] MEDS: PRAVASTATIN SOD 20 MG TAB PO SCH (09:01)
[2016-07-11] MEDS: FAMOTIDINE 20 MG TAB PO SCH (09:01)
[2016-07-11] MEDS: ALLOPURINOL 100 MG TAB PO SCH (09:01)
[2016-07-11] MEDS: SODIUM CHLORIDE 0.9% FLUSH 5 ML FLUSH IV FLUSH SCH ×2 (09:02→21:16)
[2016-07-11] MEDS: ASPIRIN 81 MG CHEW TAB CHEW SCH (09:17)
[2016-07-11] MEDS: CLOPIDOGREL 75 MG TAB PO SCH (09:17)
--- NOTE | 2016-07-11 10:51 | PD.CARD.PN ---
Subjective Subjective Remarks One episode of anxiety this morning with some chest pain associated with it, no SOB Objective Medications Current Medications Medications (Trade) Dose Ordered Sig/Hill Route Start Time Stop Time Status Last Admin (Plavix) 75 mg DAILY PO 07/10/16 09:00 07/11/16 09:17 (Cymbalta Dr) 30 mg DAILY PO 07/10/16 09:00 07/11/16 09:01 (Pravachol) 20 mg DAILY PO 07/10/16 09:00 07/11/16 09:01 (Tylenol) 650 mg Q6H PRN PO 07/09/16 23:45 (Protonix Inj) 40 mg DAILY IV 07/10/16 09:00 07/11/16 09:00 (Zofran Inj) 4 mg Q6H PRN IV 07/09/16 23:45 07/10/16 13:25 (Lovenox Inj) 30 mg DAILY@23 SQ 07/09/16 23:45 07/10/16 21:54 Miscellaneous Information 1 Q361D XX 07/09/16 23:45 (Chlorhexidine 2% Cloth) 3 pack Taper DAILY@04 TOP 07/10/16 04:00 07/06/17 03:59 (Chlorhexidine 2% Cloth) 3 pack UNSCH PRN TOP 07/09/16 23:45 (Aspirin Chew) 81 mg DAILY CHEW 07/10/16 01:15 07/11/16 09:17 (Zyloprim) 100 mg DAILY PO 07/10/16 09:00 07/11/16 09:01 (D50w (Vial) Inj) 25 ml UNSCH PRN IV PUSH 07/10/16 02:15 (Glucagon Inj) 1 mg UNSCH PRN OTHER 07/10/16 02:15 (Nitrostat Sl) 0.4 mg Q5M PRN SL 07/10/16 02:15 (Lopressor) 25 mg Q8HR PO 07/10/16 06:00 07/11/16 06:12 (Levaquin) 750 mg Q48H PO 07/11/16 17:00 (NS Flush) 2 ml UNSCH PRN IV FLUSH 07/10/16 13:15 (NS Flush) 2 ml BID IV FLUSH 07/10/16 21:00 07/11/16 09:02 ([place] 5-325 Mg) 1 tab Q4H PRN PO 07/10/16 13:15 07/11/16 03:39 (Morphine Inj) 2 mg Q2H PRN IV 07/10/16 13:15 07/11/16 08:53 (Pepcid) 20 mg DAILY PO 07/11/16 09:00 07/11/16 09:01 (Colace) 100 mg BID PO 07/10/16 21:00 07/11/16 09:00 (Senokot) 17.2 mg Q12H PRN PO 07/10/16 13:15 (SoluMEDROL INJ) 40 mg Q8HR IV PUSH 07/10/16 14:00 07/11/16 06:12 Vital Signs / I&O Vital Signs Date Time Temp Pulse Resp B/P Pulse Ox O2 Delivery O2 Flow Rate FiO2 07/11/16 08:58 18 07/11/16 08:22 98 Nasal Cannula 2.00 07/11/16 08:00 96.0 89 21 135/64 97 07/11/16 04:00 97.5 88 18 138/63 97 07/11/16 01:25 97 Nasal Cannula 2.00 07/11/16 01:25 97.8 89 17 122/58 97 07/10/16 23:00 94 16 122/58 99 Nasal Cannula 2 07/10/16 21:00 95 16 139/62 98 Nasal Cannula 2 07/10/16 20:20 99 Nasal Cannula 2.00 07/10/16 19:00 96 18 97 Nasal Cannula 3 07/10/16 19:00 96 18 134/63 97 Nasal Cannula 2 07/10/16 14:16 91 20 122/56 07/10/16 13:26 90 20 151/67 07/10/16 12:18 86 20 114/55 I/O 07/10/16 07/10/16 07/10/16 07/11/16 07/11/16 07/11/16 06:59 14:59 22:59 06:59 14:59 22:59 Intake Total 0 ml Output Total 2300 ml Balance -2300 ml Intake Oral 0 ml Output Urine Total 2300 ml # Bowel Movements 0 Physical Exam GENERAL: NAD SKIN: Warm and dry. HEAD: Atraumatic. Normocephalic. EYES: Pupils equal and round. No scleral icterus. No injection or drainage. ENT: No nasal bleeding or discharge. Mucous membranes pink and moist. NECK: Trachea midline. No JVD. CARDIOVASCULAR: Regular rate and rhythm. 2/6 Crescendo-Decrescendo RESPIRATORY: No accessory muscle use. Decreased breath sounds at the bases, no rales noted GASTROINTESTINAL: Abdomen soft, non-tender, nondistended. Hepatic and splenic margins not palpable. MUSCULOSKELETAL: Extremities without clubbing, cyanosis, or edema. No obvious deformities. NEUROLOGICAL: Awake and alert. No obvious cranial nerve deficits. Motor grossly within normal limits. Five out of 5 muscle strength in the arms and legs. Normal speech. PSYCHIATRIC: Appropriate mood and affect; insight and judgment normal. Laboratory Laboratory Tests Test 07/10/16 07/10/16 07/11/16 15:33 18:30 05:50 Uric Acid 3.2 MG/DL Urine Eosinophils NONE SEEN /HPF Urine Random Creatinine 48.0 MG/DL Urine Random Sodium 23 MEQ/L White Blood Count 9.8 TH/MM3 Red Blood Count 3.89 MIL/MM3 Hemoglobin 10.4 GM/DL Hematocrit 32.4 % Mean Corpuscular Volume 83.4 FL Mean Corpuscular Hemoglobin 26.8 PG Mean Corpuscular Hemoglobin 32.2 % Concent Red Cell Distribution Width 17.2 % Platelet Count 229 TH/MM3 Mean Platelet Volume 8.2 FL Neutrophils (%) (Auto) 88.0 % Lymphocytes (%) (Auto) 10.1 % Monocytes (%) (Auto) 1.7 % Eosinophils (%) (Auto) 0.0 % Basophils (%) (Auto) 0.2 % Neutrophils # (Auto) 8.6 TH/MM3 Lymphocytes # (Auto) 1.0 TH/MM3 Monocytes # (Auto) 0.2 TH/MM3 Eosinophils # (Auto) 0.0 TH/MM3 Basophils # (Auto) 0.0 TH/MM3 CBC Comment DIFF FINAL Differential Comment Prothrombin Time 10.6 SEC Prothromb Time International 1.0 RATIO Ratio Activated Partial 28.9 SEC Thromboplast Time Fibrinogen 377 mg/dL Sodium Level 136 MEQ/L Potassium Level 5.0 MEQ/L Chloride Level 100 MEQ/L Carbon Dioxide Level 29.9 MEQ/L Anion Gap 6 MEQ/L Blood Urea Nitrogen 23 MG/DL Creatinine 1.01 MG/DL Estimat Glomerular Filtration 53 ML/MIN Rate Random Glucose 156 MG/DL Lactic Acid Level 1.6 mmol/L Calcium Level 8.4 MG/DL Phosphorus Level 3.5 MG/DL Magnesium Level 1.9 MG/DL Total Bilirubin 0.2 MG/DL Aspartate Amino Transf 8 U/L (AST/SGOT) Alanine Aminotransferase 10 U/L (ALT/SGPT) Alkaline Phosphatase 100 U/L Total Creatine Kinase 21 U/L Troponin I 0.05 NG/ML Total Protein 6.7 GM/DL Albumin 2.8 GM/DL Triglycerides Level 104 MG/DL Cholesterol Level 163 MG/DL LDL Cholesterol 86 MG/DL HDL Cholesterol 56.0 MG/DL Cholesterol/HDL Ratio 2.91 RATIO Free Thyroxine 0.85 NG/DL Assessment and Plan Problem List: (1) Acute hypoxemic respiratory failure (2) DUC (acute kidney injury) (3) HTN (hypertension) (4) Elevated troponin (5) CHF due to valvular disease Assessment and Plan 1) Minimal spill of troponin, possibly due to hypoxemia, can't rule out Type 1 2) Will plan on stress test today, if positive then cardiac cath in the morning , if negative then continue medical management 3) CHF may be due to moderate AI/mild 4) Diuresed well, DUC resolving 5) Continue ASA/Plavix Leland Pop DO Jul 11, 2016 10:51
--- NOTE | 2016-07-11 12:25 | EKG ---
Date Performed: 07/11/2016 Time Performed: 08:54:58 PTAGE: 75 years EKG: Sinus rhythm WITH SINUS ARRHYTHMIA NORMAL ECG NO PREVIOUS TRACING DOCTOR: Víctor Mckeon Interpretating Date/Time 07/11/2016 12:21:31
[2016-07-11] MEDS ORDERED: REGADENOSON INJ 0.4 MG/5 ML SYR ONE (15:15)
[2016-07-11] MEDS: LEVOFLOXACIN 750 MG TAB PO SCH (16:24)
--- NOTE | 2016-07-11 16:39 | RADRPT ---
EXAM DATE/TIME: 07/11/2016 14:47 [facility] COMPARISON: No previous studies available for comparison. INDICATIONS : Substernal chest pain with dyspnea. Angina. DOSE: 26.3 mCi Tc99m Myoview at stress. 8.1 mCi Tc99m Myoview at rest. 0.4 mg Lexiscan STRESS SYMPTOMS: Nausea, chest pain and dyspnea. EJECTION FRACTION: 70% MEDICAL HISTORY : Hypertension. Stroke Rheumatoid arthritis. Traumatic brain injury. SURGICAL HISTORY : Carotid endarterectomy. Hysterectomy. Tracheostomy. ENCOUNTER: Initial ACUITY: 2 days PAIN SCALE: 6/10 LOCATION: Substernal chest TECHNIQUE: The patient underwent pharmacologic stress with infusion of prescribed dose. Continuous ECG tracing was monitored during stress. Gated SPECT imaging was performed after stress and conventional SPECT i maging was performed at rest. The examination was performed on a SPECT/CT scanner, both attenuation and non-corrected datasets were reviewed. FINDINGS: DISTRIBUTION: The maximum perfused segment at stress is in the inferior wall. PERFUSION STUDY: The pattern of perfusion at stress is within normal limits. GATED STUDY: There is intact wall motion and thickening without hypokinetic or dyskinetic segments. CONCLUSION: 1. No significant reversibility to suggest ischemia. 2. Normal wall motion with ejection fraction 70%. RISK CATEGORY: Low (<1% Annual Mortality Rate) Delvin Arauz MD on July 11, 2016 at 16:32 Board Certified Radiologist. This report was verified electronically.
--- NOTE | 2016-07-11 17:36 | HHI.PR ---
Subjective Remarks feels great denies any chest pains or shortness of breath- Objective Vitals Vital Signs Date Time Temp Pulse Resp B/P Pulse Ox O2 Delivery O2 Flow Rate FiO2 07/11/16 16:30 18 07/11/16 16:23 18 07/11/16 16:00 92 07/11/16 16:00 97.4 81 16 130/65 96 07/11/16 14:00 77 07/11/16 14:00 97.3 83 18 131/63 93 07/11/16 13:30 80 07/11/16 12:00 96.8 77 20 124/60 99 07/11/16 08:30 Nasal Cannula 2.00 07/11/16 08:22 98 Nasal Cannula 2.00 07/11/16 08:08 80 07/11/16 08:00 96.0 89 21 135/64 97 07/11/16 04:00 97.5 88 18 138/63 97 07/11/16 01:25 97 Nasal Cannula 2.00 07/11/16 01:25 97.8 89 17 122/58 97 07/10/16 23:00 94 16 122/58 99 Nasal Cannula 2 07/10/16 21:00 95 16 139/62 98 Nasal Cannula 2 07/10/16 20:20 99 Nasal Cannula 2.00 07/10/16 19:00 96 18 97 Nasal Cannula 3 07/10/16 19:00 96 18 134/63 97 Nasal Cannula 2 I/O 07/10/16 07/10/16 07/10/16 07/11/16 07/11/16 07/11/16 07:00 15:00 23:00 07:00 15:00 23:00 Intake Total 0 ml 480 ml Output Total 2300 ml 550 ml Balance -2300 ml -550 ml 480 ml Intake Oral 0 ml 480 ml Output Urine Total 2300 ml 550 ml # Voids 2 # Bowel Movements 0 0 Result Diagram: 07/11/16 0550 07/11/16 0550 Imaging Last Impressions Chest X-Ray 07/11/16 0600 Signed Impressions: Service Date/Time: Monday, July 11, 2016 06:19 - CONCLUSION: No acute disease. Loi Richards Jr., MD Lung Scan- Nuclear Medicine 07/09/16 0000 Signed Impressions: Service Date/Time: Saturday, July 09, 2016 20:10 - CONCLUSION: Homogeneous perfusion. Study is low probability for pulmonary embolus. Barrett Brown MD Lower Extremity Ultrasound 07/09/16 0000 Signed Impressions: Service Date/Time: Sunday, July 10, 2016 00:12 - CONCLUSION: Normal examination. 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 Placed on NC, wean as tolerated. Use Bipap prn VQ scan low probability PE 1/2 (h/o IV contrast allergy) CXR shows bibasilar opacities. This could be edema versus pneumonia but both presentation and rapid symptomatic improvement would argue for pulmonary edema. COPD component also a possibility given her history, though she is not currently wheezing upon my evaluation. Provided smoking cessation counseling Duoneb q6 hours. Albuterol every 2 hours as needed. Noted cosyntropin test completed. Probable dry aldosterone/ACTH and renal levels. Then will start on Solu-Medrol 40 every 8/pulmonary dose. CV: Elevated troponin possibly type II versus hypoxia Hypertension Hyperlipidemia Sinus bradycardia currently normal sinus rhythm History of bilateral carotid endarterectomies CHF- on Echo EKG - sinus bradycardia. T wave inversion V3-V5. Check cardiac markers. Check 2-D echo routine. Evaluated by Dr. Pop/cardiology. Recommended cardiac markers as 2-D echocardiogram. Hold lisinopril 20 mg daily due to hyperkalemia and borderline blood pressures.. Hold diltiazem CD 3 mg daily for now due to bradycardia. Hold clonidine 0.1 mg 3 times a day. Metoprolol 25 mg po q 8 hours with hold orders for hypotension/heart rate <60. Route on 50 mg 3 times a day at home NTG prn chest pain. Continue pravastatin 20 mg by mouth daily for dyslipidemia. Continue aspirin 81 milligrams by mouth daily Continue Plavix 75 milligrams by mouth daily Lasix 20 mg IV daily. Patient is on Lasix 40 mg by mouth daily at home. Most recent 2-D echo 11/04/15EF 55-60%. Normal wall motion without all motion abnormality. Mild aortic regurgitation Had Holter monitor 10/16/15inus rhythm Myocardial perfusion study done today negative for ischemia- medical management Cardiology ff GI: Obesity History of gastroesophageal reflux disease Heart healthy diet Placed on Pepcid for GI prophylaxis Colace/as needed Senokot for bowel regimen RENAL: DUC overlying CKD Stage III Check cortisol per discussion below. Hold lisinopril in light of acute kidney injury. Creatinine is currently 1.5. Recheck in a.m. Accurate I's and O's FEN: Acute Hyperkalemia - resolved Hyponatremia Hyperkalemia without EKG changes. Received calcium gluconate 1 gram IV, kayexalate 15 gram, Insulin 5 units IV, 1/2 amp D50 given in the ED. Potassium currently 4.3. Sodium is normalized. See below for hyponatremia workup ID: UTI Levaquin empirically in the emergency department 07/09/16 for possible pneumonia. Will continue with renal dosing to cover possible CAP and UTI and followup cultures. Renal dose Levaquin 750 mg po q48 hours. Pertinent cultures 07/09/16blood culture 2 setspending 07/09/16influenza negative 07/09/16urine culturepending 07/09/16urine Legionella and pneumococcal antigen pending Mycoplasma/chlamydia pending HEME: Elevated d-dimer Normocytic anemia VQ scanlow probability Bilateral lower extremity which is negative. Monitor CBC ENDO: Previously diabetes mellitus History of prior chronic steroid use for rheumatoid arthritis Now off therapy, glucose 122. Adrenal insufficiency is a consideration give hyponatremia, hyperkalemia, "relative hypoglycemia", transient hypotension. Cortisol level 5.5. Primary adrenal insufficiency and likely is greater than 5 mcg/dL. Cosyntropin testing increased only to 11.9.. We'll check aldosterone, ACTH and renin levels to differentiate adrenal versus pituitary failure.. Low dose insulin sliding scale if needed. Normal TSH MSK Osteoporosis/osteoarthritis Rheumatoid arthritis Gout Continue allopurinol 100 mg by mouth daily for gout. Check uric acid with low sodium. Noted patient on intermittent prednisone in past. ET/OT evaluate and treat PROPH: SCDs and Lovenox 30 mg subcutaneous for DVT prophylaxis. Pepcid 20 mg renally dosed once a day for stress ulcer prophylaxis. ACCESS: Peripheral IV providing adequate access at this time. Level 2 CM for DC planning- home with home health care Andrés Amador MD Jul 11, 2016 17:36
--- NOTE | 2016-07-11 20:11 | EKG ---
Date Performed: 07/11/2016 Time Performed: 16:17:00 PTAGE: 75 years EKG: Sinus rhythm . Normal ECG NO SIGNIFICANT CHANGE FROM PRIOR ELECTROCARDIOGRAM. PREVIOUS TRACING : 07/11/2016 08.54 DOCTOR: Rubén Orona Interpretating Date/Time 07/11/2016 20:10:26
[2016-07-11] MEDS: ENOXAPARIN SODIUM 30 MG/0.3 ML SYRINGE SQ SCH (23:58)
[2016-07-12] VITALS (21 sets, daily range): BP systolic 136–157; BP diastolic 62–81; PULSE 69–97; RESP 14–24; TEMP 98–98.3; O2SAT 96–99
[2016-07-12] MEDS: MORPHINE SULFATE 4 MG/ML INJ IV PRN ×4 (00:19→23:55)
[2016-07-12] MEDS: CHLORHEXIDINE GLUCONATE 2 % 1 PACK (2 CLOTHS) TOP SCH (01:50)
[2016-07-12] MEDS: RESP: ALBUTEROL 2.5 MG/IPRATROPIUM 0.5 MG NEB (SCH) INH ×4 (05:20→22:47)
[2016-07-12 06:19] LABS: POTASSIUM 4.7 MEQ/L (3.5-5.1)
[2016-07-12] MEDS: INSULIN ASPART SUPPLEMENTAL SCALE SQ SCH ×4 (06:25→20:39)
[2016-07-12] MEDS: METOPROLOL TARTRATE 25 MG TAB PO SCH ×3 (06:38→23:15)
[2016-07-12] MEDS: DOCUSATE SODIUM 100 MG CAP PO SCH ×2 (08:10→20:31)
[2016-07-12] MEDS: ASPIRIN 81 MG CHEW TAB CHEW SCH (08:10)
[2016-07-12] MEDS: DULoxetine HCl DR 30 MG CAP PO SCH (08:10)
[2016-07-12] MEDS: PANTOPRAZOLE SODIUM 40 MG VIAL IV SCH (08:10)
[2016-07-12] MEDS: SODIUM CHLORIDE 0.9% FLUSH 5 ML FLUSH IV FLUSH SCH ×2 (08:10→20:32)
[2016-07-12] MEDS: ALLOPURINOL 100 MG TAB PO SCH (08:10)
[2016-07-12] MEDS: FAMOTIDINE 20 MG TAB PO SCH (08:10)
[2016-07-12] MEDS: PRAVASTATIN SOD 20 MG TAB PO SCH (08:10)
[2016-07-12] MEDS: CLOPIDOGREL 75 MG TAB PO SCH (08:11)
[2016-07-12] MEDS: ACETAMINOPHEN/HYDROcodone 325 MG/5 MG TAB PO PRN ×3 (08:11→23:16)
[2016-07-12] MEDS: methylPREDNISolone SOD SUCC 40 MG/1 ML VIAL IV PUSH SCH (08:11)
--- NOTE | 2016-07-12 08:54 | PD.CARD.PN ---
Subjective Subjective Remarks No chest pain, no shortness of breath Objective Medications Current Medications Medications (Trade) Dose Ordered Sig/Hill Route Start Time Stop Time Status Last Admin (Plavix) 75 mg DAILY PO 07/10/16 09:00 07/12/16 08:11 (Cymbalta Dr) 30 mg DAILY PO 07/10/16 09:00 07/12/16 08:10 (Pravachol) 20 mg DAILY PO 07/10/16 09:00 07/12/16 08:10 (Tylenol) 650 mg Q6H PRN PO 07/09/16 23:45 (Protonix Inj) 40 mg DAILY IV 07/10/16 09:00 07/12/16 08:10 (Zofran Inj) 4 mg Q6H PRN IV 07/09/16 23:45 07/10/16 13:25 (Lovenox Inj) 30 mg DAILY@23 SQ 07/09/16 23:45 07/11/16 23:58 Miscellaneous Information 1 Q361D XX 07/09/16 23:45 (Chlorhexidine 2% Cloth) 3 pack Taper DAILY@04 TOP 07/10/16 04:00 07/06/17 03:59 (Chlorhexidine 2% Cloth) 3 pack UNSCH PRN TOP 07/09/16 23:45 (Aspirin Chew) 81 mg DAILY CHEW 07/10/16 01:15 07/12/16 08:10 (Zyloprim) 100 mg DAILY PO 07/10/16 09:00 07/12/16 08:10 (D50w (Vial) Inj) 25 ml UNSCH PRN IV PUSH 07/10/16 02:15 (Glucagon Inj) 1 mg UNSCH PRN OTHER 07/10/16 02:15 (Nitrostat Sl) 0.4 mg Q5M PRN SL 07/10/16 02:15 07/11/16 16:18 (Lopressor) 25 mg Q8HR PO 07/10/16 06:00 07/12/16 06:38 (Levaquin) 750 mg Q48H PO 07/11/16 17:00 07/11/16 16:24 (NS Flush) 2 ml UNSCH PRN IV FLUSH 07/10/16 13:15 (NS Flush) 2 ml BID IV FLUSH 07/10/16 21:00 07/12/16 08:10 ([place] 5-325 Mg) 1 tab Q4H PRN PO 07/10/16 13:15 07/12/16 08:11 (Morphine Inj) 2 mg Q2H PRN IV 07/10/16 13:15 07/12/16 08:17 (Pepcid) 20 mg DAILY PO 07/11/16 09:00 07/12/16 08:10 (Colace) 100 mg BID PO 07/10/16 21:00 07/12/16 08:10 (Senokot) 17.2 mg Q12H PRN PO 07/10/16 13:15 (SoluMEDROL INJ) 40 mg Q12HR IV PUSH 07/11/16 21:00 07/12/16 08:11 Vital Signs / I&O Vital Signs Date Time Temp Pulse Resp B/P Pulse Ox O2 Delivery O2 Flow Rate FiO2 07/12/16 08:25 16 07/12/16 08:00 78 07/12/16 08:00 98.2 69 18 147/69 97 07/12/16 07:18 Nasal Cannula 2.00 35 07/12/16 04:00 79 07/12/16 04:00 98.0 74 24 141/68 99 07/12/16 00:00 98.2 87 22 136/62 98 07/12/16 00:00 87 07/12/16 00:00 87 07/11/16 23:08 97 Nasal Cannula 2.00 07/11/16 20:00 83 07/11/16 20:00 97 Nasal Cannula 2.00 07/11/16 20:00 98.1 83 20 127/58 97 07/11/16 18:00 88 07/11/16 17:24 16 07/11/16 17:00 89 07/11/16 16:23 18 07/11/16 16:00 92 07/11/16 16:00 97.4 81 16 130/65 96 07/11/16 14:00 77 07/11/16 14:00 97.3 83 18 131/63 93 07/11/16 13:30 80 07/11/16 12:00 96.8 77 20 124/60 99 I/O 07/11/16 07/11/16 07/11/16 07/12/16 07/12/16 07/12/16 07:00 15:00 23:00 07:00 15:00 23:00 Intake Total 0 ml 480 ml 240 ml Output Total 2300 ml 550 ml 850 ml Balance -2300 ml -550 ml 480 ml -610 ml Intake Oral 0 ml 480 ml 240 ml IV Total 0 ml Output Urine Total 2300 ml 550 ml 850 ml # Voids 2 # Bowel Movements 0 0 0 Physical Exam GENERAL: NAD SKIN: Warm and dry. HEAD: Atraumatic. Normocephalic. EYES: Pupils equal and round. No scleral icterus. No injection or drainage. ENT: No nasal bleeding or discharge. Mucous membranes pink and moist. NECK: Trachea midline. No JVD. CARDIOVASCULAR: Regular rate and rhythm. / Crescendo-Decrescendo RESPIRATORY: No accessory muscle use. Decreased breath sounds at the bases, no rales noted GASTROINTESTINAL: Abdomen soft, non-tender, nondistended. Hepatic and splenic margins not palpable. MUSCULOSKELETAL: Extremities without clubbing, cyanosis, or edema. No obvious deformities. NEUROLOGICAL: Awake and alert. No obvious cranial nerve deficits. Motor grossly within normal limits. Five out of 5 muscle strength in the arms and legs. Normal speech. PSYCHIATRIC: Appropriate mood and affect; insight and judgment normal. Laboratory Laboratory Tests Test 07/12/16 05:45 Sodium Level 136 MEQ/L Potassium Level 4.7 MEQ/L Chloride Level 101 MEQ/L Carbon Dioxide Level 31.0 MEQ/L Anion Gap 4 MEQ/L Blood Urea Nitrogen 33 MG/DL Creatinine 1.04 MG/DL Estimat Glomerular Filtration 52 ML/MIN Rate Random Glucose 117 MG/DL Calcium Level 8.8 MG/DL Assessment and Plan Problem List: (1) Acute hypoxemic respiratory failure (2) DUC (acute kidney injury) (3) HTN (hypertension) (4) Elevated troponin (5) CHF due to valvular disease Assessment and Plan 1) Minimal spill of troponin, possibly due to hypoxemia, stress test yesterday with no ischemia, TID normal 2) CHF may be due to moderate AI/mild 3) Diuresed well, DUC resolved 4) Continue ASA/Plavix/BB 5) May need low dose Lasix daily at home Leland Pop DO Jul 12, 2016 08:54
--- NOTE | 2016-07-12 18:30 | HHI.PR ---
Subjective Remarks no chest pain or shortness of breath very feisty Objective Vitals Vital Signs Date Time Temp Pulse Resp B/P Pulse Ox O2 Delivery O2 Flow Rate FiO2 07/12/16 16:00 98.0 76 16 137/68 99 07/12/16 16:00 89 07/12/16 15:00 85 07/12/16 14:00 97 07/12/16 13:00 77 07/12/16 12:46 16 07/12/16 12:00 87 07/12/16 12:00 98.1 76 16 142/62 98 07/12/16 11:00 90 07/12/16 10:00 78 07/12/16 09:11 96 Nasal Cannula 2.00 07/12/16 09:00 71 07/12/16 08:25 16 07/12/16 08:00 78 07/12/16 08:00 98.2 69 18 147/69 97 07/12/16 07:18 Nasal Cannula 2.00 35 07/12/16 07:00 72 07/12/16 04:00 79 07/12/16 04:00 98.0 74 24 141/68 99 07/12/16 00:00 98.2 87 22 136/62 98 07/12/16 00:00 87 07/12/16 00:00 87 07/11/16 23:08 97 Nasal Cannula 2.00 07/11/16 20:00 83 07/11/16 20:00 97 Nasal Cannula 2.00 07/11/16 20:00 98.1 83 20 127/58 97 I/O 07/11/16 07/11/16 07/11/16 07/12/16 07/12/16 07/12/16 07:00 15:00 23:00 07:00 15:00 23:00 Intake Total 0 ml 480 ml 240 ml 480 ml Output Total 2300 ml 550 ml 850 ml 600 ml Balance -2300 ml -550 ml 480 ml -610 ml -120 ml Intake Oral 0 ml 480 ml 240 ml 480 ml IV Total 0 ml Output Urine Total 2300 ml 550 ml 850 ml 600 ml # Voids 2 # Bowel Movements 0 0 0 1 Result Diagram: 07/11/16 0550 07/12/16 0545 Imaging Last Impressions Chest X-Ray 07/11/16 0600 Signed Impressions: Service Date/Time: Monday, July 11, 2016 06:19 - CONCLUSION: No acute disease. Loi Richards Jr., MD Myocardial Perfusion Scan Nuc Med 07/11/16 0000 Signed Impressions: Service Date/Time: Monday, July 11, 2016 14:47 - CONCLUSION: 1. No significant reversibility to suggest ischemia. 2. Normal wall motion with ejection fraction 70%%. RISK CATEGORY: Low (<1%% Annual Mortality Rate) Delvin Arauz MD Lung Scan-VQ Nuclear Medicine 07/09/16 0000 Signed Impressions: Service Date/Time: Saturday, July 09, 2016 20:10 - CONCLUSION: Homogeneous perfusion. Study is low probability for pulmonary embolus. Barrett Brown MD Lower Extremity Ultrasound 07/09/16 0000 Signed Impressions: Service Date/Time: Sunday, July 10, 2016 00:12 - CONCLUSION: Normal examination. Loi Richards Jr., MD Objective Remarks awake and alert anicteric bilateral carotid bruit regular rhythm,+ 3/6 systolic murmur left sternal border abdomen soft, nontender extremities no edema Urinary Catheter: Yes Assessment to: Remove Date of Removal: Jul 13, 2016 A/P Assessment and Plan NEURO/PSYCH: Fibromyalgia Prior history of CVA History of TBI with right temporal contusion. Gait/balance disorder Depression/anxiety History of bilateral cataract removal [place] History of upper bridge Continue Cymbalta 30 mg by mouth daily Continue on aspirin 81 mg daily and Plavix 75 mg daily as per below for history of stroke Acetaminophen for fevers [place]/as needed morphine for pain management RESP: Acute hypercapnic and hypoxemic respiratory failure, previously on BiPAP/now on 2 L nasal cannula Tobacco abuse Now improved following Lasix/NTG/Nebs. Placed on NC, wean as tolerated. Use Bipap prn VQ scan low probability PE 1/2 (h/o IV contrast allergy) CXR shows bibasilar opacities. This could be edema versus pneumonia but both presentation and rapid symptomatic improvement would argue for pulmonary edema. COPD component also a possibility given her history, though she is not Provided smoking cessation counseling Duoneb q6 hours. Albuterol every 2 hours as needed. Noted cosyntropin test completed. Probable dry aldosterone/ACTH and renal levels. change to po prednisone CV: Elevated troponin possibly type II versus hypoxia Hypertension Hyperlipidemia Sinus bradycardia currently normal sinus rhythm History of bilateral carotid endarterectomies CHF- on Echo EKG - sinus bradycardia. T wave inversion V3-V5. Check cardiac markers. Check 2-D echo routine. Evaluated by Dr. Pop/cardiology. Recommended cardiac markers as 2-D echocardiogram. Hold lisinopril 20 mg daily due to hyperkalemia and borderline blood pressures.. Hold diltiazem CD 3 mg daily for now due to bradycardia. Hold clonidine 0.1 mg 3 times a day. Metoprolol 25 mg po q 8 hours with hold orders for hypotension/heart rate <60. Route on 50 mg 3 times a day at home NTG prn chest pain. Continue pravastatin 20 mg by mouth daily for dyslipidemia. Continue aspirin 81 milligrams by mouth daily Continue Plavix 75 milligrams by mouth daily Lasix 20 mg IV daily. Patient is on Lasix 40 mg by mouth daily at home. Most recent 2-D echo 11/04/15EF 55-60%. Normal wall motion without all motion abnormality. Mild aortic regurgitation Had Holter monitor 10/16/15inus rhythm Myocardial perfusion study done today negative for ischemia- medical management Cardiology ff GI: Obesity History of gastroesophageal reflux disease Heart healthy diet Placed on Pepcid for GI prophylaxis Colace/as needed Senokot for bowel regimen RENAL: DUC overlying CKD Stage III Check cortisol per discussion below. Hold lisinopril in light of acute kidney injury. Creatinine is currently 1.5. Recheck in a.m. Accurate I's and O's FEN: Acute Hyperkalemia - resolved Hyponatremia Hyperkalemia without EKG changes. Received calcium gluconate 1 gram IV, kayexalate 15 gram, Insulin 5 units IV, 1/2 amp D50 given in the ED. Potassium currently 4.3. Sodium is normalized. See below for hyponatremia workup ID: UTI Levaquin empirically in the emergency department 07/09/16 for possible pneumonia. Will continue with renal dosing to cover possible CAP and UTI and followup cultures. Renal dose Levaquin 750 mg po q48 hours. Pertinent cultures 07/09/16blood culture 2 setspending 07/09/16influenza negative 07/09/16urine culturepending 07/09/16urine Legionella and pneumococcal antigen pending Mycoplasma/chlamydia pending HEME: Elevated d-dimer Normocytic anemia VQ scanlow probability Bilateral lower extremity which is negative. Monitor CBC ENDO: Previously diabetes mellitus History of prior chronic steroid use for rheumatoid arthritis Now off therapy, glucose 122. Adrenal insufficiency is a consideration give hyponatremia, hyperkalemia, "relative hypoglycemia", transient hypotension. Cortisol level 5.5. Primary adrenal insufficiency and likely is greater than 5 mcg/dL. Cosyntropin testing increased only to 11.9.. We'll check aldosterone, ACTH and renin levels to differentiate adrenal versus pituitary failure.. Low dose insulin sliding scale if needed. Normal TSH MSK Osteoporosis/osteoarthritis Rheumatoid arthritis Gout Continue allopurinol 100 mg by mouth daily for gout. Check uric acid with low sodium. Noted patient on intermittent prednisone in past. ET/OT evaluate and treat PROPH: SCDs and Lovenox 30 mg subcutaneous for DVT prophylaxis. Pepcid 20 mg renally dosed once a day for stress ulcer prophylaxis. ACCESS: Peripheral IV providing adequate access at this time. Level 2 CM for DC planning- home with home health care Andrés Amador MD Jul 12, 2016 18:30
[2016-07-12] MEDS ORDERED: PILL SPLITTER OTHER PRN (18:45)
[2016-07-12] MEDS: predniSONE 20 MG TAB PO SCH (20:31)
[2016-07-12] MEDS: ENOXAPARIN SODIUM 30 MG/0.3 ML SYRINGE SQ SCH (23:16)
[2016-07-12] MEDS: ALPRAZolam 0.25 MG TAB PO PRN (23:16)
[2016-07-13] VITALS (26 sets, daily range): BP systolic 153–179; BP diastolic 75–85; PULSE 69–85; RESP 18; TEMP 97.5–98.5; O2SAT 92–98
[2016-07-13] MEDS: CHLORHEXIDINE GLUCONATE 2 % 1 PACK (2 CLOTHS) TOP SCH (04:00)
[2016-07-13] MEDS: METOPROLOL TARTRATE 25 MG TAB PO SCH ×3 (05:12→21:06)
[2016-07-13] MEDS: ACETAMINOPHEN/HYDROcodone 325 MG/5 MG TAB PO PRN ×3 (05:13→16:53)
[2016-07-13] MEDS: RESP: ALBUTEROL 2.5 MG/IPRATROPIUM 0.5 MG NEB (SCH) INH ×4 (05:43→20:17)
[2016-07-13] MEDS: INSULIN ASPART SUPPLEMENTAL SCALE SQ SCH ×4 (06:12→21:00)
[2016-07-13] MEDS: SODIUM CHLORIDE 0.9% FLUSH 5 ML FLUSH IV FLUSH SCH ×2 (09:48→21:07)
[2016-07-13] MEDS: predniSONE 20 MG TAB PO SCH ×2 (09:48→21:06)
[2016-07-13] MEDS: DULoxetine HCl DR 30 MG CAP PO SCH (09:48)
[2016-07-13] MEDS: PANTOPRAZOLE SOD 40 MG DELAYED RELEASE TAB PO SCH (09:48)
[2016-07-13] MEDS: ALLOPURINOL 100 MG TAB PO SCH (09:48)
[2016-07-13] MEDS: PRAVASTATIN SOD 20 MG TAB PO SCH (09:48)
[2016-07-13] MEDS: DOCUSATE SODIUM 100 MG CAP PO SCH ×2 (09:49→21:06)
[2016-07-13] MEDS: CLOPIDOGREL 75 MG TAB PO SCH (09:49)
[2016-07-13] MEDS: ASPIRIN 81 MG CHEW TAB CHEW SCH (09:49)
[2016-07-13] MEDS: FAMOTIDINE 20 MG TAB PO SCH (09:49)
[2016-07-13] MEDS: ALPRAZolam 0.25 MG TAB PO PRN (13:45)
--- NOTE | 2016-07-13 14:39 | PD.CARD.PN ---
Subjective Subjective Remarks No chest pain, decreased shortness of breath Objective Medications Current Medications Medications (Trade) Dose Ordered Sig/Hill Route Start Time Stop Time Status Last Admin (Plavix) 75 mg DAILY PO 07/10/16 09:00 07/13/16 09:49 (Cymbalta Dr) 30 mg DAILY PO 07/10/16 09:00 07/13/16 09:48 (Pravachol) 20 mg DAILY PO 07/10/16 09:00 07/13/16 09:48 (Tylenol) 650 mg Q6H PRN PO 07/09/16 23:45 (Zofran Inj) 4 mg Q6H PRN IV 07/09/16 23:45 07/10/16 13:25 (Lovenox Inj) 30 mg DAILY@23 SQ 07/09/16 23:45 07/12/16 23:16 Miscellaneous Information 1 Q361D XX 07/09/16 23:45 (Chlorhexidine 2% Cloth) 3 pack Taper DAILY@04 TOP 07/10/16 04:00 07/06/17 03:59 (Chlorhexidine 2% Cloth) 3 pack UNSCH PRN TOP 07/09/16 23:45 (Aspirin Chew) 81 mg DAILY CHEW 07/10/16 01:15 07/13/16 09:49 (Zyloprim) 100 mg DAILY PO 07/10/16 09:00 07/13/16 09:48 (D50w (Vial) Inj) 25 ml UNSCH PRN IV PUSH 07/10/16 02:15 (Glucagon Inj) 1 mg UNSCH PRN OTHER 07/10/16 02:15 (Nitrostat Sl) 0.4 mg Q5M PRN SL 07/10/16 02:15 07/11/16 16:18 (Lopressor) 25 mg Q8HR PO 07/10/16 06:00 07/13/16 14:34 (Levaquin) 750 mg Q48H PO 07/11/16 17:00 07/11/16 16:24 ([place] 5-325 Mg) 1 tab Q4H PRN PO 07/10/16 13:15 07/13/16 10:19 (Morphine Inj) 2 mg Q2H PRN IV 07/10/16 13:15 07/12/16 23:55 (Pepcid) 20 mg DAILY PO 07/11/16 09:00 07/13/16 09:49 (Colace) 100 mg BID PO 07/10/16 21:00 07/13/16 09:49 (Senokot) 17.2 mg Q12H PRN PO 07/10/16 13:15 (Protonix) 40 mg DAILY PO 07/13/16 09:00 07/13/16 09:48 (Deltasone) 20 mg BID PO 07/12/16 21:00 07/13/16 09:48 (Xanax) 0.125 mg Q12HR PRN PO 07/12/16 19:00 07/13/16 13:45 (Pill Splitter) 1 ea UNSCH PRN OTHER 07/12/16 18:45 Vital Signs / I&O Vital Signs Date Time Temp Pulse Resp B/P Pulse Ox O2 Delivery O2 Flow Rate FiO2 07/13/16 14:00 81 07/13/16 13:00 75 07/13/16 12:00 75 07/13/16 12:00 98.5 80 18 163/80 95 07/13/16 11:00 76 07/13/16 10:25 96 Nasal Cannula 3.00 07/13/16 10:00 77 07/13/16 09:00 74 07/13/16 08:00 96 Nasal Cannula 3.00 07/13/16 08:00 97.5 75 18 153/80 96 07/13/16 08:00 79 07/13/16 07:00 69 07/13/16 06:00 74 07/13/16 05:00 72 07/13/16 04:00 97.8 69 18 164/77 97 07/13/16 04:00 71 07/13/16 03:00 75 07/13/16 02:00 77 07/13/16 01:00 85 07/13/16 00:00 78 07/13/16 00:00 98.2 82 18 161/75 92 07/12/16 23:00 81 07/12/16 22:47 99 Nasal Cannula 3.00 07/12/16 22:00 80 07/12/16 21:00 82 07/12/16 20:00 83 07/12/16 20:00 98.3 79 14 157/81 98 07/12/16 19:00 98 Nasal Cannula 2.00 07/12/16 19:00 87 07/12/16 18:00 93 07/12/16 17:00 76 07/12/16 16:00 98.0 76 16 137/68 99 07/12/16 16:00 89 07/12/16 15:00 85 I/O 07/12/16 07/12/16 07/12/16 07/13/16 07/13/16 07/13/16 07:00 15:00 23:00 07:00 15:00 23:00 Intake Total 240 ml 480 ml 480 ml Output Total 850 ml 600 ml 1050 ml Balance -610 ml -120 ml -570 ml Intake Oral 240 ml 480 ml 480 ml IV Total 0 ml Output Urine Total 850 ml 600 ml 1050 ml # Bowel Movements 0 1 Physical Exam GENERAL: NAD SKIN: Warm and dry. HEAD: Atraumatic. Normocephalic. EYES: Pupils equal and round. No scleral icterus. No injection or drainage. ENT: No nasal bleeding or discharge. Mucous membranes pink and moist. NECK: Trachea midline. No JVD. CARDIOVASCULAR: Regular rate and rhythm. 08/13 Crescendo-Decrescendo RESPIRATORY: No accessory muscle use. Decreased breath sounds at the bases, no rales noted GASTROINTESTINAL: Abdomen soft, non-tender, nondistended. Hepatic and splenic margins not palpable. MUSCULOSKELETAL: Extremities without clubbing, cyanosis, or edema. No obvious deformities. NEUROLOGICAL: Awake and alert. No obvious cranial nerve deficits. Motor grossly within normal limits. Five out of 5 muscle strength in the arms and legs. Normal speech. PSYCHIATRIC: Appropriate mood and affect; insight and judgment normal. Laboratory Laboratory Tests Test 07/10/16 07/10/16 07/11/16 07/12/16 15:33 18:30 05:50 05:45 Uric Acid 3.2 MG/DL (2.6-6.0) Urine Eosinophils NONE SEEN /HPF (NONE SEEN) Urine Random Creatinine 48.0 MG/DL Urine Random Sodium 23 MEQ/L White Blood Count 9.8 TH/MM3 (4.0-11.0) Red Blood Count 3.89 MIL/MM3 (4.00-5.30) Hemoglobin 10.4 GM/DL (11.6-15.3) Hematocrit 32.4 % (35.0-46.0) Mean Corpuscular Volume 83.4 FL (80.0-100.0) Mean Corpuscular Hemoglobin 26.8 PG (27.0-34.0) Mean Corpuscular Hemoglobin 32.2 % Concent (32.0-36.0) Red Cell Distribution Width 17.2 % (11.6-17.2) Platelet Count 229 TH/MM3 (150-450) Mean Platelet Volume 8.2 FL (7.0-11.0) Neutrophils (%) (Auto) 88.0 % (16.0-70.0) Lymphocytes (%) (Auto) 10.1 % (9.0-44.0) Monocytes (%) (Auto) 1.7 % (0.0-8.0) Eosinophils (%) (Auto) 0.0 % (0.0-4.0) Basophils (%) (Auto) 0.2 % (0.0-2.0) Neutrophils # (Auto) 8.6 TH/MM3 (1.8-7.7) Lymphocytes # (Auto) 1.0 TH/MM3 (1.0-4.8) Monocytes # (Auto) 0.2 TH/MM3 (0-0.9) Eosinophils # (Auto) 0.0 TH/MM3 (0-0.4) Basophils # (Auto) 0.0 TH/MM3 (0-0.2) CBC Comment DIFF FINAL Differential Comment Prothrombin Time 10.6 SEC (9.8-11.6) Prothromb Time International 1.0 RATIO Ratio Activated Partial 28.9 SEC Thromboplast Time (24.3-30.1) Fibrinogen 377 mg/dL (227-377) Sodium Level 136 MEQ/L 136 MEQ/L (136-145) (136-145) Potassium Level 5.0 MEQ/L 4.7 MEQ/L (3.5-5.1) (3.5-5.1) Chloride Level 100 MEQ/L 101 MEQ/L (98-107) (98-107) Carbon Dioxide Level 29.9 MEQ/L 31.0 MEQ/L (21.0-32.0) (21.0-32.0) Anion Gap 6 MEQ/L (5-15) 4 MEQ/L (5-15) Blood Urea Nitrogen 23 MG/DL (7-18) 33 MG/DL (7-18) Creatinine 1.01 MG/DL 1.04 MG/DL (0.50-1.00) (0.50-1.00) Estimat Glomerular Filtration 53 ML/MIN (>89) 52 ML/MIN (>89) Rate Random Glucose 156 MG/DL 117 MG/DL (74-106) (74-106) Lactic Acid Level 1.6 mmol/L (0.4-2.0) Calcium Level 8.4 MG/DL 8.8 MG/DL (8.5-10.1) (8.5-10.1) Phosphorus Level 3.5 MG/DL (2.5-4.9) Magnesium Level 1.9 MG/DL (1.5-2.5) Total Bilirubin 0.2 MG/DL (0.2-1.0) Aspartate Amino Transf 8 U/L (15-37) (AST/SGOT) Alanine Aminotransferase 10 U/L (10-53) (ALT/SGPT) Alkaline Phosphatase 100 U/L (45-117) Total Creatine Kinase 21 U/L (26-192) Troponin I 0.05 NG/ML (0.02-0.05) Total Protein 6.7 GM/DL (6.4-8.2) Albumin 2.8 GM/DL (3.4-5.0) Triglycerides Level 104 MG/DL (42-150) Cholesterol Level 163 MG/DL (120-200) LDL Cholesterol 86 MG/DL (0-99) HDL Cholesterol 56.0 MG/DL (40.0-60.0) Cholesterol/HDL Ratio 2.91 RATIO Free Thyroxine 0.85 NG/DL (0.76-1.46) Assessment and Plan Problem List: (1) Acute hypoxemic respiratory failure (2) DUC (acute kidney injury) (3) HTN (hypertension) (4) Elevated troponin (5) CHF due to valvular disease Assessment and Plan 1) Minimal spill of troponin, possibly due to hypoxemia, stress test no ischemia , TID normal 2) CHF may be due to moderate AI/mild 3) Diuresed well, DUC resolved 4) Continue ASA/Plavix/BB 5) Still on 3L oxygen, home walk test 6) Lasix IV today x1 Leland Pop DO Jul 13, 2016 14:39
[2016-07-13] MEDS ORDERED: FUROSEMIDE 20 MG/2 ML VIAL IV PUSH ONE (15:00)
[2016-07-13 15:04] LABS: MYCOPLASMA PNEUMONIAE S BY IFA Negative (Negative)
[2016-07-13] MEDS: LEVOFLOXACIN 750 MG TAB PO SCH (16:57)
--- NOTE | 2016-07-13 17:08 | HHI.PR ---
Subjective Remarks no complains no leg swelling Objective Vitals Vital Signs Date Time Temp Pulse Resp B/P Pulse Ox O2 Delivery O2 Flow Rate FiO2 07/13/16 14:00 81 07/13/16 13:00 75 07/13/16 12:00 75 07/13/16 12:00 98.5 80 18 163/80 95 07/13/16 11:00 76 07/13/16 10:25 96 Nasal Cannula 3.00 07/13/16 10:00 77 07/13/16 09:00 74 07/13/16 08:00 96 Nasal Cannula 3.00 07/13/16 08:00 97.5 75 18 153/80 96 07/13/16 08:00 79 07/13/16 07:00 69 07/13/16 06:00 74 07/13/16 05:00 72 07/13/16 04:00 97.8 69 18 164/77 97 07/13/16 04:00 71 07/13/16 03:00 75 07/13/16 02:00 77 07/13/16 01:00 85 07/13/16 00:00 78 07/13/16 00:00 98.2 82 18 161/75 92 07/12/16 23:00 81 07/12/16 22:47 99 Nasal Cannula 3.00 07/12/16 22:00 80 07/12/16 21:00 82 07/12/16 20:00 83 07/12/16 20:00 98.3 79 14 157/81 98 07/12/16 19:00 98 Nasal Cannula 2.00 07/12/16 19:00 87 07/12/16 18:00 93 I/O 07/12/16 07/12/16 07/12/16 07/13/16 07/13/16 07/13/16 07:00 15:00 23:00 07:00 15:00 23:00 Intake Total 240 ml 480 ml 480 ml Output Total 850 ml 600 ml 1050 ml Balance -610 ml -120 ml -570 ml Intake Oral 240 ml 480 ml 480 ml IV Total 0 ml Output Urine Total 850 ml 600 ml 1050 ml # Bowel Movements 0 1 Result Diagram: 07/11/16 0550 07/12/16 0545 Imaging Last Impressions Chest X-Ray 07/11/16 0600 Signed Impressions: Service Date/Time: Monday, July 11, 2016 06:19 - CONCLUSION: No acute disease. Loi Richards Jr., MD Myocardial Perfusion Scan Nuc Med 07/11/16 0000 Signed Impressions: Service Date/Time: Monday, July 11, 2016 14:47 - CONCLUSION: 1. No significant reversibility to suggest ischemia. 2. Normal wall motion with ejection fraction 70%%. RISK CATEGORY: Low (<1%% Annual Mortality Rate) Delvin Arauz MD Lung Scan-VQ Nuclear Medicine 07/09/16 0000 Signed Impressions: Service Date/Time: Saturday, July 09, 2016 20:10 - CONCLUSION: Homogeneous perfusion. Study is low probability for pulmonary embolus. Barrett Brown MD Lower Extremity Ultrasound 07/09/16 0000 Signed Impressions: Service Date/Time: Sunday, July 10, 2016 00:12 - CONCLUSION: Normal examination. 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 Placed on NC, wean as tolerated. Use Bipap prn VQ scan low probability PE 1/2 (h/o IV contrast allergy) CXR shows bibasilar opacities. This could be edema versus pneumonia but both presentation and rapid symptomatic improvement would argue for pulmonary edema. COPD component also a possibility given her history, though she is not Provided smoking cessation counseling Duoneb q6 hours. Albuterol every 2 hours as needed. Noted cosyntropin test completed. Probable dry aldosterone/ACTH and renal levels. change to po prednisone CV: Elevated troponin possibly type II versus hypoxia Hypertension Hyperlipidemia Sinus bradycardia currently normal sinus rhythm History of bilateral carotid endarterectomies CHF- on Echo EKG - sinus bradycardia. T wave inversion V3-V5. Evaluated by Dr. Pop/cardiology. Hold lisinopril 20 mg daily due to hyperkalemia and borderline blood pressures.. Hold diltiazem CD 3 mg daily for now due to bradycardia. Hold clonidine 0.1 mg 3 times a day. Metoprolol 25 mg po q 8 hours with hold orders for hypotension/heart rate <60. Route on 50 mg 3 times a day at home NTG prn chest pain. Continue pravastatin 20 mg by mouth daily for dyslipidemia. Continue aspirin 81 milligrams by mouth daily Continue Plavix 75 milligrams by mouth daily Lasix 20 mg IV daily. Patient is on Lasix 40 mg by mouth daily at home. Most recent 2-D echo 11/04/15EF 55-60%. Normal wall motion without all motion abnormality. Mild aortic regurgitation Had Holter monitor 10/16/15inus rhythm Myocardial perfusion study done today negative for ischemia- medical management Cardiology ff- x1 IV Lasix GI: Obesity History of gastroesophageal reflux disease Heart healthy diet Placed on Pepcid for GI prophylaxis Colace/as needed Senokot for bowel regimen RENAL: DUC overlying CKD Stage III Check cortisol per discussion below. Hold lisinopril in light of acute kidney injury. Creatinine is currently 1.5. Recheck in a.m. Accurate I's and O's FEN: Acute Hyperkalemia - resolved Hyponatremia Hyperkalemia without EKG changes. Received calcium gluconate 1 gram IV, kayexalate 15 gram, Insulin 5 units IV, 1/2 amp D50 given in the ED. Potassium currently 4.3. Sodium is normalized. See below for hyponatremia workup ID: UTI Levaquin empirically in the emergency department 07/09/16 for possible pneumonia. Will continue with renal dosing to cover possible CAP and UTI and followup cultures. Renal dose Levaquin 750 mg po q48 hours. Pertinent cultures 07/09/16blood culture 2 setspending 07/09/16influenza negative 07/09/16urine culturepending 07/09/16urine Legionella and pneumococcal antigen pending Mycoplasma/chlamydia pending HEME: Elevated d-dimer Normocytic anemia VQ scanlow probability Bilateral lower extremity which is negative. Monitor CBC ENDO: Previously diabetes mellitus History of prior chronic steroid use for rheumatoid arthritis Now off therapy, glucose 122. Adrenal insufficiency is a consideration give hyponatremia, hyperkalemia, "relative hypoglycemia", transient hypotension. Cortisol level 5.5. Primary adrenal insufficiency and likely is greater than 5 mcg/dL. Cosyntropin testing increased only to 11.9.. We'll check aldosterone, ACTH and renin levels to differentiate adrenal versus pituitary failure.. Low dose insulin sliding scale if needed. Normal TSH MSK Osteoporosis/osteoarthritis Rheumatoid arthritis Gout Continue allopurinol 100 mg by mouth daily for gout. Check uric acid with low sodium. Noted patient on intermittent prednisone in past. ET/OT evaluate and treat PROPH: SCDs and Lovenox 30 mg subcutaneous for DVT prophylaxis. Pepcid 20 mg renally dosed once a day for stress ulcer prophylaxis. ACCESS: Peripheral IV providing adequate access at this time. Level 2 CM for DC planning- home with home health care Andrés Amador MD Jul 13, 2016 17:08 Andrés Amador MD Jul 13, 2016 17:08
[2016-07-13] MEDS: MORPHINE SULFATE 4 MG/ML INJ IV PRN (21:06)
[2016-07-14] VITALS (24 sets, daily range): BP systolic 123–190; BP diastolic 62–92; PULSE 68–110; RESP 14–18; TEMP 97.8–98.1; O2SAT 93–98
[2016-07-14] MEDS: ACETAMINOPHEN/HYDROcodone 325 MG/5 MG TAB PO PRN ×2 (00:17→23:30)
[2016-07-14] MEDS: ALPRAZolam 0.25 MG TAB PO PRN ×2 (00:17→21:12)
[2016-07-14] MEDS: ENOXAPARIN SODIUM 30 MG/0.3 ML SYRINGE SQ SCH ×2 (00:18→23:00)
[2016-07-14] MEDS: cloNIDine HCL 0.1 MG TAB PO PRN ×2 (01:02→23:30)
[2016-07-14] MEDS ORDERED: hydrALAZINE HCL 20 MG/ML VIAL IV PUSH ONE (02:30)
[2016-07-14] MEDS: RESP: ALBUTEROL 2.5 MG/IPRATROPIUM 0.5 MG NEB (SCH) INH (03:34)
[2016-07-14] MEDS: CHLORHEXIDINE GLUCONATE 2 % 1 PACK (2 CLOTHS) TOP SCH (04:00)
[2016-07-14 04:03] LABS: C PNEUMO IGM <1:10 (())
[2016-07-14] MEDS: MORPHINE SULFATE 4 MG/ML INJ IV PRN (05:20)
[2016-07-14] MEDS: METOPROLOL TARTRATE 25 MG TAB PO SCH ×2 (05:34→21:12)
[2016-07-14] MEDS: INSULIN ASPART SUPPLEMENTAL SCALE SQ SCH ×4 (07:00→21:00)
[2016-07-14] MEDS: PANTOPRAZOLE SOD 40 MG DELAYED RELEASE TAB PO SCH (09:52)
[2016-07-14] MEDS: ALLOPURINOL 100 MG TAB PO SCH (09:52)
[2016-07-14] MEDS: FAMOTIDINE 20 MG TAB PO SCH (09:52)
[2016-07-14] MEDS: SODIUM CHLORIDE 0.9% FLUSH 5 ML FLUSH IV FLUSH SCH ×2 (09:52→21:17)
[2016-07-14] MEDS: DULoxetine HCl DR 30 MG CAP PO SCH (09:53)
[2016-07-14] MEDS: DOCUSATE SODIUM 100 MG CAP PO SCH ×2 (09:53→21:10)
[2016-07-14] MEDS: predniSONE 20 MG TAB PO SCH (09:53)
[2016-07-14] MEDS: CLOPIDOGREL 75 MG TAB PO SCH (09:53)
[2016-07-14] MEDS: ASPIRIN 81 MG CHEW TAB CHEW SCH (09:53)
[2016-07-14] MEDS: PRAVASTATIN SOD 20 MG TAB PO SCH (09:53)
--- NOTE | 2016-07-14 09:53 | HHI.PR ---
Subjective Remarks generalized weakness, had a good BM shortness of breath- "slight"- can be near baseline for her BP up last evening- given IV Hydralazine Objective Vitals Vital Signs Date Time Temp Pulse Resp B/P Pulse Ox O2 Delivery O2 Flow Rate FiO2 07/14/16 08:00 82 07/14/16 08:00 98.1 89 18 143/92 96 07/14/16 07:15 84 07/14/16 07:15 96 Nasal Cannula 3.00 07/14/16 06:00 81 07/14/16 05:00 89 07/14/16 04:00 98.0 83 18 123/62 97 07/14/16 04:00 83 07/14/16 03:00 75 07/14/16 02:00 68 07/14/16 02:00 190/91 07/14/16 01:00 79 07/14/16 00:00 97.8 80 14 185/87 98 07/14/16 00:00 82 07/13/16 23:00 80 07/13/16 22:00 83 07/13/16 21:00 81 07/13/16 20:18 98 Nasal Cannula 1.00 07/13/16 20:00 79 07/13/16 20:00 98.0 82 18 159/85 97 07/13/16 19:00 82 07/13/16 19:00 97 Nasal Cannula 2.00 07/13/16 18:00 83 07/13/16 17:00 81 07/13/16 16:00 98.0 83 18 179/84 97 07/13/16 16:00 79 07/13/16 15:00 81 07/13/16 14:00 81 07/13/16 13:00 75 07/13/16 12:00 75 07/13/16 12:00 98.5 80 18 163/80 95 07/13/16 11:00 76 07/13/16 10:25 96 Nasal Cannula 3.00 07/13/16 10:00 77 I/O 07/13/16 07/13/16 07/13/16 07/14/16 07/14/16 07/14/16 07:00 15:00 23:00 07:00 15:00 23:00 Intake Total 480 ml 1200 ml 960 ml Output Total 1050 ml 1150 ml 2130 ml Balance -570 ml 50 ml -1170 ml Intake Oral 480 ml 1200 ml 960 ml Output Urine Total 1050 ml 1150 ml 2130 ml # Bowel Movements 0 Result Diagram: 07/11/16 0550 07/12/16 0545 Imaging Last Impressions Chest X-Ray 07/11/16 0600 Signed Impressions: Service Date/Time: Monday, July 11, 2016 06:19 - CONCLUSION: No acute disease. Loi Richards Jr., MD Myocardial Perfusion Scan Nuc Med 07/11/16 0000 Signed Impressions: Service Date/Time: Monday, July 11, 2016 14:47 - CONCLUSION: 1. No significant reversibility to suggest ischemia. 2. Normal wall motion with ejection fraction 70%%. RISK CATEGORY: Low (<1%% Annual Mortality Rate) Delvin Arauz MD Lung Scan-VQ Nuclear Medicine 07/09/16 0000 Signed Impressions: Service Date/Time: Saturday, July 09, 2016 20:10 - CONCLUSION: Homogeneous perfusion. Study is low probability for pulmonary embolus. Barrett Brown MD Lower Extremity Ultrasound 07/09/16 0000 Signed Impressions: Service Date/Time: Sunday, July 10, 2016 00:12 - CONCLUSION: Normal examination. Loi Richadrs Jr., MD Objective Remarks awake and alert anicteric bilateral carotid bruit regular rhythm,+ 3/6 systolic murmur left sternal border no rales, no wheezes abdomen soft, nontender extremities no edema Date of Removal: Jul 14, 2016 A/P Assessment and Plan NEURO/PSYCH: Fibromyalgia Prior history of CVA History of TBI with right temporal contusion. Gait/balance disorder Depression/anxiety History of bilateral cataract removal Continue Cymbalta 30 mg by mouth daily Continue on aspirin 81 mg daily and Plavix 75 mg daily as per below for history of stroke Acetaminophen for fevers [place]/as needed morphine for pain management RESP: Acute hypercapnic and hypoxemic respiratory failure, previously on BiPAP/now on 2 L nasal cannula Tobacco abuse on NC, wean as tolerated. Use Bipap prn VQ scan low probability PE 1/2 (h/o IV contrast allergy) CXR shows bibasilar opacities. This could be edema versus pneumonia but both presentation and rapid symptomatic improvement would argue for pulmonary edema. COPD component also a possibility given her history, though she is not Provided smoking cessation counseling Duoneb q6 hours. Albuterol every 2 hours as needed. Noted cosyntropin test completed. Probable dry aldosterone/ACTH and renal levels. change to po prednisone- gradual taper to 10 mg po bid 07/14 CV: Elevated troponin possibly type II versus hypoxia Hypertension- elevated readings Hyperlipidemia Sinus bradycardia currently normal sinus rhythm History of bilateral carotid endarterectomies CHF- on Echo EKG - sinus bradycardia. T wave inversion V3-V5. elevated BPs last evening 07/[address] Pop/cardiology. Hold lisinopril 20 mg daily due to hyperkalemia and borderline blood pressures.. Hold diltiazem CD 3 mg daily for now due to bradycardia. Hold clonidine 0.1 mg 3 times a day. NTG prn chest pain. Continue pravastatin 20 mg by mouth daily for dyslipidemia. Continue aspirin 81 milligrams by mouth daily Continue Plavix 75 milligrams by mouth daily Most recent 2-D echo 11/04/15EF 55-60%. Normal wall motion without all motion abnormality. Mild aortic regurgitation Had Holter monitor 10/16/15inus rhythm Myocardial perfusion study done today negative for ischemia- medical management On Metoprolol 25 mg po q 8 hours with hold orders for hypotension/heart rate < 60. (50 mg po q 8 at home) - increase gradually if needed for additional BP control - HR 80 restart her Lasix at 20 mg daily (40 mg home regimen)- Dr. Gonzalez ff GI: Obesity History of gastroesophageal reflux disease Heart healthy diet Placed on Pepcid for GI prophylaxis Colace/as needed Senokot for bowel regimen RENAL: DUC overlying CKD Stage III Hold lisinopril in light of acute kidney injury. Creatinine is currently 1.5. Accurate I's and O's FEN: Acute Hyperkalemia - resolved Hyponatremia Hyperkalemia without EKG changes. Received calcium gluconate 1 gram IV, kayexalate 15 gram, Insulin 5 units IV, 1/2 amp D50 given in the ED. Potassium currently 4.3. Sodium is normalized. See below for hyponatremia workup ID: UTI Levaquin empirically in the emergency department 07/09/16 for possible pneumonia. Will continue with renal dosing to cover possible CAP and UTI and followup cultures. Renal dose Levaquin 750 mg po q48 hours. Pertinent cultures 07/09/16blood culture 2 setspending 07/09/16influenza negative 07/09/16urine culturepending 07/09/16urine Legionella and pneumococcal antigen pending Mycoplasma/chlamydia pending HEME: Elevated d-dimer Normocytic anemia VQ scanlow probability Bilateral lower extremity which is negative. Monitor CBC ENDO: Previously diabetes mellitus History of prior chronic steroid use for rheumatoid arthritis Now off therapy, glucose 122. Adrenal insufficiency is a consideration give hyponatremia, hyperkalemia, "relative hypoglycemia", transient hypotension. Cortisol level 5.5. Primary adrenal insufficiency and likely is greater than 5 mcg/dL. Cosyntropin testing increased only to 11.9.. We'll check aldosterone, ACTH and renin levels to differentiate adrenal versus pituitary failure.. Low dose insulin sliding scale if needed. Normal TSH MSK Osteoporosis/osteoarthritis Rheumatoid arthritis Gout Continue allopurinol 100 mg by mouth daily for gout. Check uric acid with low sodium. Noted patient on intermittent prednisone in past. ET/OT evaluate and treat PROPH: SCDs and Lovenox 30 mg subcutaneous for DVT prophylaxis. Pepcid 20 mg renally dosed once a day for stress ulcer prophylaxis. ACCESS: Peripheral IV providing adequate access at this time. Level 2 CM for DC planning- home with home health care Andrés Amador MD Jul 14, 2016 09:53
--- NOTE | 2016-07-14 10:34 | PD.CARD.PN ---
Subjective Subjective Remarks No chest pain, no shortness of breath, up to the chair Objective Medications Current Medications Medications (Trade) Dose Ordered Sig/Hill Route Start Time Stop Time Status Last Admin (Plavix) 75 mg DAILY PO 07/10/16 09:00 07/14/16 09:53 (Cymbalta Dr) 30 mg DAILY PO 07/10/16 09:00 07/14/16 09:53 (Pravachol) 20 mg DAILY PO 07/10/16 09:00 07/14/16 09:53 (Tylenol) 650 mg Q6H PRN PO 07/09/16 23:45 (Zofran Inj) 4 mg Q6H PRN IV 07/09/16 23:45 07/10/16 13:25 (Lovenox Inj) 30 mg DAILY@23 SQ 07/09/16 23:45 07/14/16 00:18 Miscellaneous Information 1 Q361D XX 07/09/16 23:45 (Chlorhexidine 2% Cloth) 3 pack Taper DAILY@04 TOP 07/10/16 04:00 07/06/17 03:59 (Chlorhexidine 2% Cloth) 3 pack UNSCH PRN TOP 07/09/16 23:45 (Aspirin Chew) 81 mg DAILY CHEW 07/10/16 01:15 07/14/16 09:53 (Zyloprim) 100 mg DAILY PO 07/10/16 09:00 07/14/16 09:52 (D50w (Vial) Inj) 25 ml UNSCH PRN IV PUSH 07/10/16 02:15 (Glucagon Inj) 1 mg UNSCH PRN OTHER 07/10/16 02:15 (Nitrostat Sl) 0.4 mg Q5M PRN SL 07/10/16 02:15 07/11/16 16:18 (Lopressor) 25 mg Q8HR PO 07/10/16 06:00 07/14/16 05:34 (Levaquin) 750 mg Q48H PO 07/11/16 17:00 07/13/16 16:57 ([place] 5-325 Mg) 1 tab Q4H PRN PO 07/10/16 13:15 07/14/16 00:17 (Pepcid) 20 mg DAILY PO 07/11/16 09:00 07/14/16 09:52 (Colace) 100 mg BID PO 07/10/16 21:00 07/14/16 09:53 (Senokot) 17.2 mg Q12H PRN PO 07/10/16 13:15 (Protonix) 40 mg DAILY PO 07/13/16 09:00 07/14/16 09:52 (Xanax) 0.125 mg Q12HR PRN PO 07/12/16 19:00 07/14/16 00:17 (Pill Splitter) 1 ea UNSCH PRN OTHER 07/12/16 18:45 (Catapres) 0.1 mg Q6H PRN PO 07/14/16 01:00 07/14/16 01:02 (Deltasone) 10 mg BID PO 07/14/16 21:00 (Morphine Inj) 1 mg Q4HR PRN IV 07/14/16 12:00 (Lasix) 20 mg DAILY PO 07/14/16 10:00 Vital Signs / I&O Vital Signs Date Time Temp Pulse Resp B/P Pulse Ox O2 Delivery O2 Flow Rate FiO2 07/14/16 08:00 82 07/14/16 08:00 98.1 89 18 143/92 96 07/14/16 07:15 84 07/14/16 07:15 96 Nasal Cannula 3.00 07/14/16 06:00 81 07/14/16 05:00 89 07/14/16 04:00 98.0 83 18 123/62 97 07/14/16 04:00 83 07/14/16 03:00 75 07/14/16 02:00 68 07/14/16 02:00 190/91 07/14/16 01:00 79 07/14/16 00:00 97.8 80 14 185/87 98 07/14/16 00:00 82 07/13/16 23:00 80 07/13/16 22:00 83 07/13/16 21:00 81 07/13/16 20:18 98 Nasal Cannula 1.00 07/13/16 20:00 79 07/13/16 20:00 98.0 82 18 159/85 97 07/13/16 19:00 82 07/13/16 19:00 97 Nasal Cannula 2.00 07/13/16 18:00 83 07/13/16 17:00 81 07/13/16 16:00 98.0 83 18 179/84 97 07/13/16 16:00 79 07/13/16 15:00 81 07/13/16 14:00 81 07/13/16 13:00 75 07/13/16 12:00 75 07/13/16 12:00 98.5 80 18 163/80 95 07/13/16 11:00 76 I/O 07/13/16 07/13/16 07/13/16 07/14/16 07/14/16 07/14/16 07:00 15:00 23:00 07:00 15:00 23:00 Intake Total 480 ml 1200 ml 960 ml Output Total 1050 ml 1150 ml 2130 ml Balance -570 ml 50 ml -1170 ml Intake Oral 480 ml 1200 ml 960 ml Output Urine Total 1050 ml 1150 ml 2130 ml # Bowel Movements 0 Physical Exam GENERAL: NAD SKIN: Warm and dry. HEAD: Atraumatic. Normocephalic. EYES: Pupils equal and round. No scleral icterus. No injection or drainage. ENT: No nasal bleeding or discharge. Mucous membranes pink and moist. NECK: Trachea midline. No JVD. CARDIOVASCULAR: Regular rate and rhythm. 08/13 Crescendo-Decrescendo RESPIRATORY: No accessory muscle use. CTA B/L GASTROINTESTINAL: Abdomen soft, non-tender, nondistended. Hepatic and splenic margins not palpable. MUSCULOSKELETAL: Extremities without clubbing, cyanosis, or edema. No obvious deformities. NEUROLOGICAL: Awake and alert. No obvious cranial nerve deficits. Motor grossly within normal limits. Five out of 5 muscle strength in the arms and legs. Normal speech. PSYCHIATRIC: Appropriate mood and affect; insight and judgment normal. Laboratory Laboratory Tests Test 07/12/16 05:45 Sodium Level 136 MEQ/L (136-145) Potassium Level 4.7 MEQ/L (3.5-5.1) Chloride Level 101 MEQ/L (98-107) Carbon Dioxide Level 31.0 MEQ/L (21.0-32.0) Anion Gap 4 MEQ/L (5-15) Blood Urea Nitrogen 33 MG/DL (7-18) Creatinine 1.04 MG/DL (0.50-1.00) Estimat Glomerular Filtration 52 ML/MIN (>89) Rate Random Glucose 117 MG/DL (74-106) Calcium Level 8.8 MG/DL (8.5-10.1) Assessment and Plan Problem List: (1) Acute hypoxemic respiratory failure (2) DUC (acute kidney injury) (3) HTN (hypertension) (4) Elevated troponin (5) CHF due to valvular disease Assessment and Plan 1) Minimal spill of troponin, possibly due to hypoxemia, stress test no ischemia , TID normal 2) CHF may be due to moderate AI/mild 3) Diuresed well, DUC resolved 4) Continue ASA/Plavix/BB/Lasix at home 5) Increase Lopressor to 50mg BID 6) HTN episode over night, may need CCB like Norvasc if still elevated Leland Pop DO Jul 14, 2016 10:34
[2016-07-14] MEDS ORDERED: MORPHINE SULFATE 4 MG/ML INJ IV PRN (12:00)
[2016-07-14] MEDS: FUROSEMIDE 20 MG TAB PO SCH (12:32)
[2016-07-14] MEDS: predniSONE 10 MG TAB PO SCH (21:11)
[2016-07-15] VITALS (19 sets, daily range): BP systolic 106–184; BP diastolic 59–90; PULSE 72–102; RESP 16–19; TEMP 97.4–98.1; O2SAT 95–97
[2016-07-15] MEDS ORDERED: hydrALAZINE HCL 20 MG/ML VIAL IV PUSH ONE (00:30)
[2016-07-15 04:35] LABS: PROTHROMBIN TIME - PATIENT 10.7 SEC (9.8-11.6)
[2016-07-15 05:01] LABS: BICARBONATE 28.9 MEQ/L (21.0-32.0); POTASSIUM 3.9 MEQ/L (3.5-5.1)
[2016-07-15] MEDS: ACETAMINOPHEN/HYDROcodone 325 MG/5 MG TAB PO PRN (06:11)
[2016-07-15] MEDS: INSULIN ASPART SUPPLEMENTAL SCALE SQ SCH ×2 (06:19→11:00)
[2016-07-15] MEDS: PANTOPRAZOLE SOD 40 MG DELAYED RELEASE TAB PO SCH (09:06)
[2016-07-15] MEDS: PRAVASTATIN SOD 20 MG TAB PO SCH (09:06)
[2016-07-15] MEDS: FAMOTIDINE 20 MG TAB PO SCH (09:06)
[2016-07-15] MEDS: CLOPIDOGREL 75 MG TAB PO SCH (09:06)
[2016-07-15] MEDS: predniSONE 10 MG TAB PO SCH (09:06)
[2016-07-15] MEDS: DULoxetine HCl DR 30 MG CAP PO SCH (09:06)
[2016-07-15] MEDS: METOPROLOL TARTRATE 25 MG TAB PO SCH (09:07)
[2016-07-15] MEDS: ASPIRIN 81 MG CHEW TAB CHEW SCH (09:07)
[2016-07-15] MEDS: DOCUSATE SODIUM 100 MG CAP PO SCH (09:07)
[2016-07-15] MEDS: ALLOPURINOL 100 MG TAB PO SCH (09:07)
[2016-07-15] MEDS: ALPRAZolam 0.25 MG TAB PO PRN (09:08)
[2016-07-15] MEDS: FUROSEMIDE 20 MG TAB PO SCH (09:09)
[2016-07-15] MEDS: SODIUM CHLORIDE 0.9% FLUSH 5 ML FLUSH IV FLUSH SCH (09:09)
--- NOTE | 2016-07-15 09:19 | PD.CARD.PN ---
Subjective Subjective Remarks No CP/SOB Objective Medications Current Medications Medications (Trade) Dose Ordered Sig/Hill Route Start Time Stop Time Status Last Admin (Plavix) 75 mg DAILY PO 07/10/16 09:00 07/15/16 09:06 (Cymbalta Dr) 30 mg DAILY PO 07/10/16 09:00 07/15/16 09:06 (Pravachol) 20 mg DAILY PO 07/10/16 09:00 07/15/16 09:06 (Tylenol) 650 mg Q6H PRN PO 07/09/16 23:45 (Zofran Inj) 4 mg Q6H PRN IV 07/09/16 23:45 07/10/16 13:25 (Lovenox Inj) 30 mg DAILY@23 SQ 07/09/16 23:45 07/14/16 00:18 Miscellaneous Information 1 Q361D XX 07/09/16 23:45 (Chlorhexidine 2% Cloth) Taper DAILY@04 TOP 07/10/16 04:00 07/06/17 03:59 (Chlorhexidine 2% Cloth) 3 pack UNSCH PRN TOP 07/09/16 23:45 (Aspirin Chew) 81 mg DAILY CHEW 07/10/16 01:15 07/15/16 09:07 (Zyloprim) 100 mg DAILY PO 07/10/16 09:00 07/15/16 09:07 (D50w (Vial) Inj) 25 ml UNSCH PRN IV PUSH 07/10/16 02:15 (Glucagon Inj) 1 mg UNSCH PRN OTHER 07/10/16 02:15 (Nitrostat Sl) 0.4 mg Q5M PRN SL 07/10/16 02:15 07/11/16 16:18 (Levaquin) 750 mg Q48H PO 07/11/16 17:00 07/13/16 16:57 (NS Flush) 2 ml UNSCH PRN IV FLUSH 07/10/16 13:15 (NS Flush) 2 ml BID IV FLUSH 07/10/16 21:00 07/15/16 09:09 ([place] 5-325 Mg) 1 tab Q4H PRN PO 07/10/16 13:15 07/15/16 06:11 (Pepcid) 20 mg DAILY PO 07/11/16 09:00 07/15/16 09:06 (Colace) 100 mg BID PO 07/10/16 21:00 07/15/16 09:07 (Senokot) 17.2 mg Q12H PRN PO 07/10/16 13:15 (Protonix) 40 mg DAILY PO 07/13/16 09:00 07/15/16 09:06 (Xanax) 0.125 mg Q12HR PRN PO 07/12/16 19:00 07/15/16 09:08 (Pill Splitter) 1 ea UNSCH PRN OTHER 07/12/16 18:45 (Catapres) 0.1 mg Q6H PRN PO 07/14/16 01:00 07/14/16 23:30 (Deltasone) 10 mg BID PO 07/14/16 21:00 07/15/16 09:06 (Morphine Inj) 1 mg Q4HR PRN IV 07/14/16 12:00 (Lasix) 20 mg DAILY PO 07/14/16 10:00 07/15/16 09:09 (Lopressor) 50 mg Q12HR PO 07/14/16 21:00 07/15/16 09:07 Vital Signs / I&O Vital Signs Date Time Temp Pulse Resp B/P Pulse Ox O2 Delivery O2 Flow Rate FiO2 07/15/16 04:00 97.5 85 16 145/74 96 07/15/16 00:00 98.0 88 18 184/90 95 07/14/16 20:00 98.1 104 16 168/80 96 07/14/16 19:00 96 Room Air 07/14/16 18:00 92 07/14/16 17:00 93 07/14/16 16:00 100 07/14/16 16:00 98.0 92 18 150/75 94 07/14/16 15:00 100 07/14/16 14:00 89 07/14/16 13:00 95 07/14/16 12:00 98.1 75 18 147/77 94 07/14/16 12:00 90 07/14/16 11:00 87 07/14/16 11:00 93 21 07/14/16 10:00 75 I/O 07/14/16 07/14/16 07/14/16 07/15/16 07/15/16 07/15/16 07:00 15:00 23:00 07:00 15:00 23:00 Intake Total 960 ml 720 ml 240 ml Output Total 2130 ml 1600 ml 800 ml Balance -1170 ml -880 ml -560 ml Intake Oral 960 ml 720 ml 240 ml Output Urine Total 2130 ml 1600 ml 800 ml # Bowel Movements 1 1 Physical Exam GENERAL: NAD SKIN: Warm and dry. HEAD: Atraumatic. Normocephalic. EYES: Pupils equal and round. No scleral icterus. No injection or drainage. ENT: No nasal bleeding or discharge. Mucous membranes pink and moist. NECK: Trachea midline. No JVD. CARDIOVASCULAR: Regular rate and rhythm. 08/13 Crescendo-Decrescendo RESPIRATORY: No accessory muscle use. CTA B/L GASTROINTESTINAL: Abdomen soft, non-tender, nondistended. Hepatic and splenic margins not palpable. MUSCULOSKELETAL: Extremities without clubbing, cyanosis, or edema. No obvious deformities. NEUROLOGICAL: Awake and alert. No obvious cranial nerve deficits. Motor grossly within normal limits. Five out of 5 muscle strength in the arms and legs. Normal speech. PSYCHIATRIC: Appropriate mood and affect; insight and judgment normal. Laboratory Laboratory Tests Test 07/15/16 03:55 Prothrombin Time 10.7 SEC Prothromb Time International 1.0 RATIO Ratio Sodium Level 136 MEQ/L Potassium Level 3.9 MEQ/L Chloride Level 97 MEQ/L Carbon Dioxide Level 28.9 MEQ/L Anion Gap 10 MEQ/L Blood Urea Nitrogen 34 MG/DL Creatinine 0.76 MG/DL Estimat Glomerular Filtration 74 ML/MIN Rate Random Glucose 106 MG/DL Calcium Level 8.5 MG/DL Assessment and Plan Problem List: (1) Acute hypoxemic respiratory failure (2) DUC (acute kidney injury) (3) HTN (hypertension) (4) Elevated troponin (5) CHF due to valvular disease Assessment and Plan 1) Minimal spill of troponin, possibly due to hypoxemia, stress test no ischemia , TID normal 2) CHF may be due to moderate AI/mild 3) Diuresed well, DUC resolved 4) Continue ASA/Plavix/BB/Lasix at home 5) Doing well off oxygen 6) Still with episodes of hypertension, will add Norvasc 5mg daily Leland Pop DO Jul 15, 2016 09:19
[2016-07-15] MEDS: amLODIPine BESYLATE 5 MG TAB PO SCH ×2 (10:00→14:57)
--- NOTE | 2016-07-15 15:00 | HHI.PR ---
Subjective Remarks feels great no chest pain or shortness of breath feels stronger Objective Vitals Vital Signs Date Time Temp Pulse Resp B/P Pulse Ox O2 Delivery O2 Flow Rate FiO2 07/15/16 11:15 98.1 83 17 113/59 95 07/15/16 10:30 97 07/15/16 10:00 106/60 07/15/16 07:00 97.4 79 19 151/69 97 07/15/16 07:00 97 Room Air 07/15/16 06:00 91 07/15/16 05:00 90 07/15/16 04:00 97.5 85 16 145/74 96 07/15/16 04:00 83 07/15/16 03:00 88 07/15/16 02:00 90 07/15/16 01:00 89 07/15/16 00:00 89 07/15/16 00:00 98.0 88 18 184/90 95 07/14/16 23:00 89 07/14/16 22:00 94 07/14/16 21:00 105 07/14/16 20:00 98.1 104 16 168/80 96 07/14/16 20:00 110 07/14/16 19:00 109 07/14/16 19:00 96 Room Air 07/14/16 18:00 92 07/14/16 17:00 93 07/14/16 16:00 100 07/14/16 16:00 98.0 92 18 150/75 94 07/14/16 15:00 100 I/O 07/14/16 07/14/16 07/14/16 07/15/16 07/15/16 07/15/16 07:00 15:00 23:00 07:00 15:00 23:00 Intake Total 960 ml 720 ml 240 ml Output Total 2130 ml 1600 ml 800 ml Balance -1170 ml -880 ml -560 ml Intake Oral 960 ml 720 ml 240 ml Output Urine Total 2130 ml 1600 ml 800 ml # Bowel Movements 1 1 Result Diagram: 07/11/16 0550 07/15/16 0355 Imaging Last Impressions Chest X-Ray 07/11/16 0600 Signed Impressions: Service Date/Time: Monday, July 11, 2016 06:19 - CONCLUSION: No acute disease. Loi Richards Jr., MD Myocardial Perfusion Scan Nuc Med 07/11/16 0000 Signed Impressions: Service Date/Time: Monday, July 11, 2016 14:47 - CONCLUSION: 1. No significant reversibility to suggest ischemia. 2. Normal wall motion with ejection fraction 70%%. RISK CATEGORY: Low (<1%% Annual Mortality Rate) Delvin Arauz MD Lung Scan-VQ Nuclear Medicine 07/09/16 0000 Signed Impressions: Service Date/Time: Saturday, July 09, 2016 20:10 - CONCLUSION: Homogeneous perfusion. Study is low probability for pulmonary embolus. Barrett Brown MD Lower Extremity Ultrasound 07/09/16 0000 Signed Impressions: Service Date/Time: Sunday, July 10, 2016 00:12 - CONCLUSION: Normal examination. 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 Use Bipap prn VQ scan low probability PE 1/2 (h/o IV contrast allergy) CXR shows bibasilar opacities. This could be edema versus pneumonia but both presentation and rapid symptomatic improvement would argue for pulmonary edema. COPD component also a possibility given her history, though she is not Provided smoking cessation counseling Duoneb q6 hours. Albuterol every 2 hours as needed. Noted cosyntropin test completed. Probable dry aldosterone/ACTH and renal levels. change to po prednisone- gradual taper to 10 mg po bid 07/14 CV: Elevated troponin possibly type II versus hypoxia Hypertension- elevated readings Hyperlipidemia Sinus bradycardia currently normal sinus rhythm- HR improved 70s History of bilateral carotid endarterectomies CHF- on Echo EKG - sinus bradycardia. T wave inversion V3-V5. elevated BPs last evening 1/[address] Pop/cardiology. Hold lisinopril 20 mg daily due to hyperkalemia and borderline blood pressures.. Hold diltiazem CD 3 mg daily for now due to bradycardia. Hold clonidine 0.1 mg 3 times a day. NTG prn chest pain. Continue pravastatin 20 mg by mouth daily for dyslipidemia. Continue aspirin 81 milligrams by mouth daily Continue Plavix 75 milligrams by mouth daily Most recent 2-D echo 11/04/15EF 55-60%. Normal wall motion without all motion abnormality. Mild aortic regurgitation Had Holter monitor 10/16/15inus rhythm Myocardial perfusion study done today negative for ischemia- medical management On Metoprolol 25 mg po q 8 hours with hold orders for hypotension/heart rate < 60. (50 mg po q 8 at home) - increase gradually if needed for additional BP control - HR 80 restart her Lasix at 20 mg daily (40 mg home regimen)- Norvasc [address] Gonzalez ff GI: Obesity History of gastroesophageal reflux disease Heart healthy diet Placed on Pepcid for GI prophylaxis Colace/as needed Senokot for bowel regimen RENAL: DUC overlying CKD Stage III Hold lisinopril in light of acute kidney injury. Creatinine is currently 1.5. Accurate I's and O's FEN: Acute Hyperkalemia - resolved Hyponatremia Hyperkalemia without EKG changes. Received calcium gluconate 1 gram IV, kayexalate 15 gram, Insulin 5 units IV, 1/2 amp D50 given in the ED. Potassium currently 4.3. Sodium is normalized. See below for hyponatremia workup ID: [id number] Levaquin empirically in the emergency department 07/09/16 for possible pneumonia. Will continue with renal dosing to cover possible CAP and UTI and followup cultures. Renal dose Levaquin 750 mg po q48 hours. Pertinent cultures 07/09/16blood culture 2 setspending 07/09/16influenza negative 07/09/16urine culturepending 07/09/16urine Legionella and pneumococcal antigen pending Mycoplasma/chlamydia pending HEME: Elevated d-dimer Normocytic anemia VQ scanlow probability Bilateral lower extremity which is negative. Monitor CBC ENDO: Previously diabetes mellitus History of prior chronic steroid use for rheumatoid arthritis Now off therapy, glucose 122. Adrenal insufficiency is a consideration give hyponatremia, hyperkalemia, "relative hypoglycemia", transient hypotension. Cortisol level 5.5. Primary adrenal insufficiency and likely is greater than 5 mcg/dL. Cosyntropin testing increased only to 11.9.. We'll check aldosterone, ACTH and renin levels to differentiate adrenal versus pituitary failure.. Low dose insulin sliding scale if needed. Normal TSH MSK Osteoporosis/osteoarthritis Rheumatoid arthritis Gout Continue allopurinol 100 mg by mouth daily for gout. Check uric acid with low sodium. Noted patient on intermittent prednisone in past. ET/OT evaluate and treat PROPH: SCDs and Lovenox 30 mg subcutaneous for DVT prophylaxis. Pepcid 20 mg renally dosed once a day for stress ulcer prophylaxis. ACCESS: Peripheral IV providing adequate access at this time. Level 2 CM for DC planning- home with home health care today if arranged Andrés Amador MD Jul 15, 2016 15:00
[2016-07-15] MEDS ORDERED: ALPR.25 PO (15:15)
[2016-07-15] MEDS ORDERED: LEVA500T PO (15:15)
[2016-07-15] MEDS ORDERED: FURO20TA PO (15:15)
[2016-07-15] MEDS ORDERED: PANT40TA3 PO (15:15)
[2016-07-15] MEDS ORDERED: METO25TA3 PO (15:15)
[2016-07-15] MEDS ORDERED: AMLO5 PO (15:15)
[2016-07-15] MEDS ORDERED: LEVOFLOXACIN 500 MG TAB PO SCH (15:15)
[2016-07-15] MEDS ORDERED: PRED5TAB PO (15:24)
[2016-07-15] MEDS ORDERED: HYDR-3516 PO (15:25)
--- NOTE | 2016-07-15 15:28 | HHI.DS ---
Discharge Summary Admission Date Jul 09, 2016 at 23:14 Discharge Date: Jul 15, 2016 Admitting Diagnosis SOB (1) Hypertension ICD Code: I10 Diagnosis: Principal (2) Acute on chronic kidney disease, stage 3 ICD Code: N18.3 Diagnosis: Principal (3) Hypoxia ICD Code: R09.02 Diagnosis: Secondary (4) DM (diabetes mellitus) ICD Code: E11.9 Diagnosis: Secondary (5) Fibromyalgia ICD Code: M79.7 Diagnosis: Secondary Procedures none Brief History - From Admission 75 yo WF with PMH of hypertension, hyperlipidemia, prior stroke, depression, rheumatoid arthritis (previously on methotrexate), chronic pain, tobacco abuse. She previously had prolonged admission to [facility] 10/30/15-12/15/15 following a fall at rehab facility which resulted in right temporal contusion. Her hospital course was complicated by pseudomembranous colitis and recurrent episodes of aspiration pneumonia resulting in respiratory failure, intubation x2 and ultimate trach/PEG. She was discharged to a rehab facility and then eventually has returned to her home following trach decannulation. She states she has been feeling well until today when she was sitting on her couch and developed sudden onset of shortness of breath while at rest. She has chest discomfort which she describes as tightness "like something's sitting there", nonpleuritic , moderate severity, nonradiatting. She states that she has this often and that it "feels like indigestion" and goes away when she drinks water. Today it did not go away so she summoned [facility] and her sats were in the 80s upon their arrival. She is not on home O2. She was placed on Bipap 12/5 upon arrival to the ED and was administered NTG and Lasix 20 mg IV. ABG demonstrated pH of 7.35 /PA CO2 of 49/PA O2 of 293 on 75% FiO2. She denies cough/fever/chills/ hemoptysis. Her ddimer was 9.5. She had a VQ scan that is low probability for PE. Denies leg swelling. Denies history of venous thromboembolic disease. No recent travel.She states she has had prior stress test and cardiac cath " several years ago" by Dr. Orona that she says were normal. She states she has no pain now and reports she feels "so much better than when she came in". She has been taken off Bipap to receive a neb and her she appears comfortable on 4 L NC with sats 97%. CBC/BMP: 07/11/16 0550 07/15/16 0355 Significant Findings Laboratory Tests Test 07/15/16 03:55 Chloride Level 97 MEQ/L (98-107) Blood Urea Nitrogen 34 MG/DL (7-18) Estimat Glomerular Filtration 74 ML/MIN (>89) Rate Imaging Last Impressions Chest X-Ray 07/11/16 0600 Signed Impressions: Service Date/Time: Monday, July 11, 2016 06:19 - CONCLUSION: No acute disease. Loi Richards Jr., MD Myocardial Perfusion Scan Nuc Med 07/11/16 0000 Signed Impressions: Service Date/Time: Monday, July 11, 2016 14:47 - CONCLUSION: 1. No significant reversibility to suggest ischemia. 2. Normal wall motion with ejection fraction 70%%. RISK CATEGORY: Low (<1%% Annual Mortality Rate) Delvin Arauz MD Lung Scan-VQ Nuclear Medicine 07/09/16 0000 Signed Impressions: Service Date/Time: Saturday, July 09, 2016 20:10 - CONCLUSION: Homogeneous perfusion. Study is low probability for pulmonary embolus. Barrett Brown MD Lower Extremity Ultrasound 07/09/16 0000 Signed Impressions: Service Date/Time: Sunday, July 10, 2016 00:12 - CONCLUSION: Normal examination. Loi Richards Jr., MD PE at Discharge awake and alert anicteric bilateral carotid bruit regular rhythm,+ 3/6 systolic murmur left sternal border no rales, no wheezes abdomen soft, nontender extremities no edema Pt update on day of discharge awake and alert no wheezes, no edema, no rales Hospital Course Fibromyalgia Prior history of CVA History of TBI with right temporal contusion. Gait/balance disorder Depression/anxiety History of bilateral cataract removal Continue Cymbalta 30 mg by mouth daily Continue on aspirin 81 mg daily and Plavix 75 mg daily as per below for history of stroke Acetaminophen for fevers [place]/as needed morphine for pain management RESP: Acute hypercapnic and hypoxemic respiratory failure, previously on BiPAP/now on 2 L nasal cannula Tobacco abuse on NC, wean as tolerated. Use Bipap prn VQ scan low probability PE 1/ (h/o IV contrast allergy) CXR shows bibasilar opacities. This could be edema versus pneumonia but both presentation and rapid symptomatic improvement would argue for pulmonary edema. COPD component also a possibility given her history, though she is not Provided smoking cessation counseling Duoneb q6 hours. Albuterol every 2 hours as needed. Noted cosyntropin test completed. Probable dry aldosterone/ACTH and renal levels. change to po prednisone- gradual taper to 10 mg po bid 07/14 CV: Elevated troponin possibly type II versus hypoxia Hypertension- elevated readings Hyperlipidemia Sinus bradycardia currently normal sinus rhythm- HR improved 70s History of bilateral carotid endarterectomies CHF- on Echo EKG - sinus bradycardia. T wave inversion V3-V5. elevated BPs last evening 07/[address] Pop/cardiology. Hold lisinopril 20 mg daily due to hyperkalemia and borderline blood pressures.. Hold diltiazem CD 3 mg daily for now due to bradycardia. Hold clonidine 0.1 mg 3 times a day. NTG prn chest pain. Continue pravastatin 20 mg by mouth daily for dyslipidemia. Continue aspirin 81 milligrams by mouth daily Continue Plavix 75 milligrams by mouth daily Most recent 2-D echo 11/04/15EF 55-60%. Normal wall motion without all motion abnormality. Mild aortic regurgitation Had Holter monitor 10/16/15inus rhythm Myocardial perfusion study done today negative for ischemia- medical management On Metoprolol 25 mg po q 8 hours with hold orders for hypotension/heart rate < 60. (50 mg po q 8 at home) - increase gradually if needed for additional BP control - HR 80 restart her Lasix at 20 mg daily (40 mg home regimen)- Norvasc [address] Gonzalez ff GI: Obesity History of gastroesophageal reflux disease Heart healthy diet Placed on Pepcid for GI prophylaxis Colace/as needed Senokot for bowel regimen RENAL: DUC overlying CKD Stage III Hold lisinopril in light of acute kidney injury. Creatinine is currently 1.5. Accurate I's and O's FEN: Acute Hyperkalemia - resolved Hyponatremia Hyperkalemia without EKG changes. Received calcium gluconate 1 gram IV, kayexalate 15 gram, Insulin 5 units IV, 1/ amp D50 given in the ED. Potassium currently 4.3. Sodium is normalized. See below for hyponatremia workup ID: UTI Levaquin empirically in the emergency department 07/09/16 for possible pneumonia. Will continue with renal dosing to cover possible CAP and UTI and followup cultures. Renal dose Levaquin 750 mg po q48 hours. Pertinent cultures 07/09/16blood culture 2 setspending 07/09/16influenza negative 07/09/16urine culturepending 07/09/16urine Legionella and pneumococcal antigen pending Mycoplasma/chlamydia pending HEME: Elevated d-dimer Normocytic anemia VQ scanlow probability Bilateral lower extremity which is negative. Monitor CBC ENDO: Previously diabetes mellitus History of prior chronic steroid use for rheumatoid arthritis Now off therapy, glucose 122. Adrenal insufficiency is a consideration give hyponatremia, hyperkalemia, "relative hypoglycemia", transient hypotension. Cortisol level 5.5. Primary adrenal insufficiency and likely is greater than 5 mcg/dL. Cosyntropin testing increased only to 11.9.. We'll check aldosterone, ACTH and renin levels to differentiate adrenal versus pituitary failure.. Low dose insulin sliding scale if needed. Normal TSH MSK Osteoporosis/osteoarthritis Rheumatoid arthritis Gout Continue allopurinol 100 mg by mouth daily for gout. Check uric acid with low sodium. Noted patient on intermittent prednisone in past. ET/OT evaluate and treat PROPH: SCDs and Lovenox 30 mg subcutaneous for DVT prophylaxis. Pepcid 20 mg renally dosed once a day for stress ulcer prophylaxis. ACCESS: Peripheral IV providing adequate access at this time. Level 2 CM for DC planning- home with home health care Pt Condition on Discharge: Stable Discharge Disposition: Disch w/ Home Health Serv Discharge Time: <= 30 minutes Discharge Instructions DIET: Follow Instructions for: Heart Healthy Diet Speech Therapy-Diet Recommends: Regular Activities you can perform: Weight Bearing as Tigist Activities to Avoid: Prolonged Standing, Strenuous Activity Follow up Referrals: Cardiology - 07/19/16 with RINKU PCP Follow-up - 07/18/16 with James New Medications: Prednisone (Prednisone) 5 Mg Tab 5 MG PO BID 2 tabs bid x 2 days, 1 tab po bid x 2 days then 1 tab po daily x 3 days then DC ResFAI #15 Ref 0 TAB Alprazolam (Xanax) 0.25 Mg Tab 0.125 MG PO Q12HR PRN ANXIETY #15 TAB Amlodipine (Norvasc) 5 Mg Tab 5 MG PO DAILY CARd #30 TAB Furosemide (Furosemide) 20 Mg Tab 20 MG PO DAILY CARD #30 TAB Hydrocodone-Acetaminophen (Hydrocodone-Acetaminophen) 5-325 mg Tab 1 TAB PO Q8HR PRN pain #20 TAB Levofloxacin (Levaquin) 500 Mg Tab 500 MG PO DAILY Infection #5 TAB Metoprolol Tartrate (Metoprolol Tartrate) 25 Mg Tab 50 MG PO Q12HR CARD #60 TAB Pantoprazole (Pantoprazole) 40 Mg Tab 40 MG PO DAILY GI #30 TAB Continued Medications: Allopurinol (Allopurinol) 100 Mg Tab 100 MG PO DAILY Gout #[address] (bitmovin Aspirin EC Low Dose) 81 Mg Tabdr Clopidogrel (Clopidogrel) 75 Mg Tab 75 MG PO DAILY Blood Clot Prevention #[address] Ref [address] (Dul[address]etine [address]) 30 Mg Capdr 30 MG PO DAILY #30 Ref 0 CAP Pravastatin (Pravastatin) 20 Mg Tab 20 MG PO DAILY Cholesterol Management #30 Ref 0 TAB Discontinued Medications: Clonidine (Clonidine) 0.1 Mg Tab 0.1 MG PO Q8HR Blood Pressure Management #60 Ref 0 TAB Diltiazem CD 24 HR (Diltiazem CD 24 HR) 300 Mg Caper 300 MG PO DAILY #30 Ref 0 CAP Furosemide (Furosemide) 40 Mg Tab 40 MG PO DAILY #30 Ref 0 TAB Lisinopril (Lisinopril) 20 Mg Tab 20 MG PO DAILY #30 Ref 0 TAB Metoprolol Tartrate (Metoprolol Tartrate) 50 Mg Tab 50 MG PO Q8HR #60 Ref 0 TAB Andrés Amador MD Jul 15, 2016 15:27
== END 2016-07-15 16:55 | disposition home health service (06) | DRG 291 ==
LOC: NEPA 16:21 → NEDA 23:14 → NEDH 07-10 03:39 → HCIS 07-11 13:35
PROVIDERS: ADMIT Internal Medicine; ATTEND Internal Medicine
PROC: 5A09357 Assistance with Respiratory Ventilation, Less than 24 Consecutive Hours, Continuous Positive Airway Pressure (ICD-10-PCS; principal; 2016-07-09)
DX: I13.0 Hypertensive heart and chronic kidney disease with heart failure and stage 1 through stage 4 chronic kidney disease, or unspecified chronic kidney disease (principal); J96.01 Acute respiratory failure with hypoxia; J96.02 Acute respiratory failure with hypercapnia; N17.9 Acute kidney failure, unspecified; E27.1 Primary adrenocortical insufficiency; I50.1 Left ventricular failure, unspecified; N39.0 Urinary tract infection, site not specified; E87.1 Hypo-osmolality and hyponatremia; I50.9 Heart failure, unspecified; R00.1 Bradycardia, unspecified; E87.5 Hyperkalemia; J44.9 Chronic obstructive pulmonary disease, unspecified; E78.5 Hyperlipidemia, unspecified; N18.3 Chronic kidney disease, stage 3 (moderate); M06.9 Rheumatoid arthritis, unspecified; M81.0 Age-related osteoporosis without current pathological fracture; M79.7 Fibromyalgia; E66.9 Obesity, unspecified; D64.9 Anemia, unspecified; R74.8 Abnormal levels of other serum enzymes; M10.9 Gout, unspecified; F32.9 Major depressive disorder, single episode, unspecified; M19.90 Unspecified osteoarthritis, unspecified site; H91.90 Unspecified hearing loss, unspecified ear; K21.9 Gastro-esophageal reflux disease without esophagitis; F17.210 Nicotine dependence, cigarettes, uncomplicated; R29.6 Repeated falls; I35.1 Nonrheumatic aortic (valve) insufficiency; Z68.30 Body mass index [BMI] 30.0-30.9, adult; Z82.49 Family history of ischemic heart disease and other diseases of the circulatory system; Z86.73 Personal history of transient ischemic attack (TIA), and cerebral infarction without residual deficits; Z87.820 Personal history of traumatic brain injury; Z88.1 Allergy status to other antibiotic agents; Z91.041 Radiographic dye allergy status
CPT/HCPCS: 36600; 71010; 76937; 78452; 78582; 80048; 80053; 80061; 81001; 82024; 82088; 82533; 82550; 82570; 82805; 82948; 83605; 83735; 83880; 84100; 84132; 84244; 84300; 84439; 84443; 84484; 84550; 85025; 85379; 85384; 85610; 85730; 86631; 86632; 86738; 87040; 87086; 87205; 87449; 87804; 93005; 93017; 93306; 93970; 94002; 94620; 94640; 94664; 96374; A9502; A9540; A9567; C9113; J0360; J0610; J0834; J1650; J1815; J1940; J1956; J2270; J2405; J2785; J2920; J7512; J7611

== ENCOUNTER 2016-08-23 13:49 | Inpatient (IN) | payer OTHER, MEDICAID, MEDICARE ==
[2016-08-22 20:45] VITALS: O2SAT 100
[~2016-08-23] VITALS: Ht 152.4 cm; Wt 65.9 kg
[2016-08-23] VITALS (22 sets, daily range): BP systolic 86–173; BP diastolic 40–90; PULSE 60–88; RESP 10–16; TEMP 95.7–98.6; O2SAT 0–100
[~2016-08-23 13:49] MED LIST changes: +ALPR.25 PO; -ALPR.5 PO; +AMLO5 PO; +ASPI1TAB73; -ASPI81 PO; -AUGM875T PO; -CLON.1 PO; +CLOP75TA PO; -CYCL1PAK PO; -CYMB30CA PO; +DULO1CAP2 PO; -FOLI1 PO; +FURO20TA PO; -FURO8SOL TUBE; +HYDR-3516 PO; -KLOR20TA6 PO; +LEVA500T PO; -LIDO5T TD; -LISI-363 PO; -MAGN30S PO; -METH2.5 PO; +METO25TA3 PO; -METO50TA PO; -OXYC5 PO; +PANT40TA3 PO; +PRAV20TA2 PO; +PRED5TAB PO; -REQU2TAB3 PO; -TAZT300C2 PO; -TYLE650T9 PO; -[UNRECOGNIZED DRUG - CODE] NASAL
[2016-08-23] MEDS ORDERED: SODIUM CHLORIDE 0.9% FLUSH 5 ML FLUSH IVF PRN (14:00)
--- NOTE | 2016-08-23 14:08 | PD ---
HPI Chief Complaint: altered mental status Time Seen by Provider: 13:58 Travel History International Travel<30 days: No Contact w/Intl Traveler<30days: No Traveled to known affect area: No History of Present Illness HPI 75-year-old female with history of hypertension, diabetes, previous stroke, fibromyalgia, presents to the ER brought in by EMS because patient had fallen yesterday, and had refused to come in by EMS yesterday, but today was found lethargic, unresponsive according to patient's roommate. She was last seen normal at 9 PM last night apparently. She had no complaints prior to that. When EMS got to the scene, they found that she was to, breathing at 40 breaths per minute, and disoriented, not protecting her airway, and she was intubated for airway protection. Modifying Factors: None Associated Signs & Symptoms: Altered mental status, tachypnea, fall last night Risk Factors: None PFSH Past Medical History Hx Anticoagulant Therapy: Yes (PLAVIX) Arthritis: Yes Asthma: No Autoimmune Disease: Yes (FIBROMYALGIA) Blood Disorders: No Anxiety: Yes Depression: Yes (MILD DEPRESSION) Heart Rhythm Problems: Yes (TACHYCARDIA/AFIB) Cancer: No Cardiac Catheterization: Yes (1989) Cardiovascular Problems: Yes (CHF, AFIB ) High Cholesterol: Yes Chemotherapy: No Chest Pain: No Congestive Heart Failure: Yes COPD: No Cerebrovascular Accident: Yes Diabetes: Yes Diminished Hearing: Yes (DIMINISHED) Endocrine: Yes Fibromyalgia: Yes Gastrointestinal Disorders: Yes (GERD, HX OF ABDOMINAL PAIN) GERD: Yes (GERD) Genitourinary: No Hiatal Hernia: No Heparin Induced Thrombocytopen: No Hypertension: Yes Immune Disorder: Yes Implanted Vascular Access Dvce: No Musculoskeletal: Yes ("TORN MUSCLE L.KNEE", FRACTURED L3 L4 L5 06/15., arthritis,) Neurologic: Yes (FIBROMYALGIA, ENCEPHALOPATHY, CVA) Psychiatric: Yes (PANIC ATTACKS) Reproductive: Yes (HYSTERECTOMY DUE TO BLEEDING INTO PERITONEAL CAVITY) Respiratory: Yes (PNEUMONIA) Immunizations Current: No Migraines: No Pancreatitis: Yes Seizures: No Sickle Cell Disease: No Sleep Apnea: No Thyroid Disease: No Ulcer: No Menopausal: Yes : 3 Para: 2 Miscarriage: 1 Past Surgical History Abdominal Surgery: No AICD: No Appendectomy: Yes (1975) Arteriovenous Shunt: No Cardiac Surgery: Yes (L ENDARDECTOMY ) Coronary Artery Bypass Graft: No Ear Surgery: No Endocrine Surgery: No Eye Surgery: Yes (BL CATARACT REMOVAL) Genitourinary Surgery: No Gynecologic Surgery: Yes (HYSTERECTOMY 1975) Hysterectomy: Yes Insulin Pump: No Oral Surgery: No Pacemaker: No Thoracic Surgery: No Other Surgery: Yes (HYSTERECTOMY, LEFT & RIG CAROTID ARTERY REPAIR) Social History Alcohol Use: Yes (OCCAS.) Tobacco Use: Yes Substance Use: No Allergies-Medications (Allergen,Severity, Reaction): Coded Allergies: Contrast Media (Verified Allergy, Severe, "throat closes up", 08/23/16) states that reaction used to occur but no longer does Keflex (Verified Adverse Reaction, Severe, "burning sensation,body red", ) *MDRO Multi-Drug Resistant Organism (Verified Adverse Reaction, Unknown, VRE, ESBL, 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 (urine-01/30/16) Reported Meds & Prescriptions Reported Meds & Active Scripts Active Hydrocodone-Acetaminophen 5-325 mg Tab 1 Tab PO Q8HR PRN Prednisone 5 Mg Tab 5 Mg PO BID 2 tabs bid x 2 days, 1 tab po bid x 2 days then 1 tab po daily x 3 days then DC Pantoprazole (Pantoprazole Sodium) 40 Mg Tab 40 Mg PO DAILY Metoprolol Tartrate 25 Mg Tab 50 Mg PO Q12HR Levaquin (Levofloxacin) 500 Mg Tab 500 Mg PO DAILY Furosemide 20 Mg Tab 20 Mg PO DAILY Norvasc (Amlodipine Besylate) 5 Mg Tab 5 Mg PO DAILY Xanax (Alprazolam) 0.25 Mg Tab 0.125 Mg PO Q12HR PRN Reported Allopurinol 100 Mg Tab 100 Mg PO DAILY Clopidogrel (Clopidogrel Bisulfate) 75 Mg Tab 75 Mg PO DAILY Pravastatin 20 Mg Tab 20 Mg PO DAILY Alexandra Aspirin EC Low Dose (Aspirin) [address] (Duloxetine HCl) 30 Mg Capdr 30 Mg PO DAILY Review of Systems ROS Limitations: Intubated, Altered Mental Status Physical Exam Narrative GENERAL: Well-nourished, well-developed elderly white female patient who is intubated, not responsive. SKIN: Warm and dry. HEAD: Normocephalic. EYES: No scleral icterus. No injection or drainage. NECK: trachea midline. CARDIOVASCULAR: Regular rate and rhythm without murmurs, gallops, or rubs. RESPIRATORY: Breath sounds equal bilaterally, intubated. No accessory muscle use. GASTROINTESTINAL: Abdomen soft, non-tender, nondistended. MUSCULOSKELETAL: No cyanosis, or edema. BACK: Nontender without obvious deformity. No CVA tenderness. NEUROLOGICAL: Intubated, sedated. Able to move all 4 extremities, withdraws to pain. Pupils are equal, round, reactive to light bilaterally. Face is symmetrical. Data Data Last Documented VS Vital Signs Date Time Temp Pulse Resp B/P Pulse Ox O2 Delivery O2 Flow Rate FiO2 08/23/16 15:39 66 14 108/60 100 Ventilator 100 08/23/16 14:44 96.9 Orders Electrocardiogram (08/23/16 13:58) Ammonia (08/23/16 13:58) Complete Blood Count With Diff (08/23/16 13:58) Comprehensive Metabolic Panel (08/23/16 13:58) Creatine Kinase (Cpk) (08/23/16 13:58) Prothrombin Time / Inr (Pt) (08/23/16 13:58) Act Partial Throm Time (Ptt) (08/23/16 13:58) Troponin I (08/23/16 13:58) Thyroid Stimulating Hormone (08/23/16 13:58) Lactic Acid Sepsis Protocol (08/23/16 13:58) Urinalysis - C+S If Indicated (08/23/16 13:58) Arterial Blood Gas (Abg) (08/23/16 13:58) Blood Culture (08/23/16 13:58) Chest, Single Ap (08/23/16 13:58) Ct Brain W/O Iv Contrast(Rout) (08/23/16 13:58) Blood Glucose (08/23/16 13:58) Ecg Monitoring (08/23/16 13:58) Iv Access Insert/Monitor (08/23/16 13:58) Oximetry (08/23/16 13:58) Urinary Catheter Insert/Apply (08/23/16 13:58) Sodium Chloride 0.9% Flush (Ns Flush) (08/23/16 14:00) Propofol 1000 Mg/100 Ml Inj (Diprivan 10 (08/23/16 14:15) Sodium Chlorid 0.9% 500 Ml Inj (Ns 500 M (08/23/16 14:15) Piperacil-Tazo 4.5 Gm Premix (Zosyn 4.5 (08/23/16 14:27) Sodium Chlor 0.9% 1000 Ml Inj (Ns 1000 M (08/23/16 14:30) Urine Culture (08/23/16 14:00) Admit Order (Ed Use Only) (08/23/16 15:38) Potassium, Serum (K) (08/23/16 18:40) Calcium Gluconate Inj (Calcium Gluconate (08/23/16 15:45) Insulin Human Regular Inj (Novolin R Inj (08/23/16 15:45) Sodium Bicarbonate 8.4% Inj (Sodium Bica (08/23/16 15:45) Labs Laboratory Tests Test 08/23/16 08/23/16 08/23/16 14:00 14:05 15:00 Urine Color YELLOW Urine Turbidity HAZY Urine pH 5.0 Urine Specific [place] 1.015 Urine Protein 30 mg/dL Urine Glucose (UA) NEG mg/dL Urine Ketones NEG mg/dL Urine Occult Blood NEG Urine Nitrite NEG Urine Bilirubin NEG Urine Urobilinogen LESS THAN 2.0 MG/DL Urine Leukocyte Esterase LARGE Urine RBC LESS THAN 1 /hpf Urine WBC 52 /hpf Urine WBC Clumps MOD Urine Bacteria FEW /hpf Urine Hyaline Casts 2 /lpf Urine Mucus FEW /lpf Microscopic Urinalysis Comment CATH-CULTURE IND Lactic Acid Level 4.2 mmol/L Ammonia 19 MCMOL/L Sodium Level 134 MEQ/L Potassium Level 6.5 MEQ/L Chloride Level 101 MEQ/L Carbon Dioxide Level 26.6 MEQ/L Anion Gap 6 MEQ/L Blood Urea Nitrogen 42 MG/DL Creatinine 1.91 MG/DL Estimat Glomerular Filtration 26 ML/MIN Rate Random Glucose 145 MG/DL Calcium Level 8.0 MG/DL Total Bilirubin 0.3 MG/DL Aspartate Amino Transf 107 U/L (AST/SGOT) Alanine Aminotransferase 67 U/L (ALT/SGPT) Alkaline Phosphatase 118 U/L Total Creatine Kinase 59 U/L Troponin I 0.03 NG/ML Total Protein 6.5 GM/DL Albumin 2.7 GM/DL Thyroid Stimulating Hormone 1.040 uIU/ML 3rd Gen White Blood Count 13.4 TH/MM3 Red Blood Count 2.95 MIL/MM3 Hemoglobin 7.3 GM/DL Hematocrit 23.8 % Mean Corpuscular Volume 80.7 FL Mean Corpuscular Hemoglobin 24.9 PG Mean Corpuscular Hemoglobin 30.8 % Concent Red Cell Distribution Width 17.5 % Platelet Count 202 TH/MM3 Mean Platelet Volume 8.1 FL Neutrophils (%) (Auto) 81.8 % Lymphocytes (%) (Auto) 10.0 % Monocytes (%) (Auto) 7.9 % Eosinophils (%) (Auto) 0.0 % Basophils (%) (Auto) 0.3 % Neutrophils # (Auto) 10.9 TH/MM3 Lymphocytes # (Auto) 1.3 TH/MM3 Monocytes # (Auto) 1.1 TH/MM3 Eosinophils # (Auto) 0.0 TH/MM3 Basophils # (Auto) 0.0 TH/MM3 CBC Comment AUTO DIFF Differential Comment AUTO DIFF CONFIRMED Platelet Estimate NORMAL Platelet Morphology Comment NORMAL Target Cells 1+ MDM Medical Decision Making Medical Screen Exam Complete: Yes Emergency Medical Condition: Yes Medical Record Reviewed: Yes Interpretation(s) Laboratory Tests Test 08/23/16 08/23/16 08/23/16 14:00 14:05 15:00 Urine Turbidity HAZY (CLEAR) Urine Protein 30 mg/dL (NEG-TRACE) Urine Leukocyte Esterase LARGE (NEG) Urine WBC 52 /hpf (0-5) Urine WBC Clumps MOD (NONE) Urine Bacteria FEW /hpf (NONE) Urine Mucus FEW /lpf (OCC) Lactic Acid Level 4.2 mmol/L (0.4-2.0) Sodium Level 134 MEQ/L (136-145) Potassium Level 6.5 MEQ/L (3.5-5.1) Blood Urea Nitrogen 42 MG/DL (7-18) Creatinine 1.91 MG/DL (0.50-1.00) Estimat Glomerular Filtration 26 ML/MIN (>89) Rate Random Glucose 145 MG/DL (74-106) Calcium Level 8.0 MG/DL (8.5-10.1) Aspartate Amino Transf 107 U/L (15-37) (AST/SGOT) Alanine Aminotransferase 67 U/L (10-53) (ALT/SGPT) Alkaline Phosphatase 118 U/L (45-117) Albumin 2.7 GM/DL (3.4-5.0) White Blood Count 13.4 TH/MM3 (4.0-11.0) Red Blood Count 2.95 MIL/MM3 (4.00-5.30) Hemoglobin 7.3 GM/DL (11.6-15.3) Hematocrit 23.8 % (35.0-46.0) Mean Corpuscular Hemoglobin 24.9 PG (27.0-34.0) Mean Corpuscular Hemoglobin 30.8 % Concent (32.0-36.0) Red Cell Distribution Width 17.5 % (11.6-17.2) Neutrophils (%) (Auto) 81.8 % (16.0-70.0) Neutrophils # (Auto) 10.9 TH/MM3 (1.8-7.7) Monocytes # (Auto) 1.1 TH/MM3 (0-0.9) Target Cells 1+ (NORMAL) Last [address] 08/23/16 1358 Signed Impressions: Service Date/Time: August 16:01 - CONCLUSION: 1. No acute intracranial abnormalities. Delvin Arauz MD Chest X-Ray 08/23/16 [id number] Signed Impressions: Service Date/Time: August 14:47 - CONCLUSION: 1. Chronic appearing interstitial changes. 2. ET tube and NG tube in good position. Roc Lyons MD Differential Diagnosis Altered mental status, intubated, tachypnea fall,pneumonia versus CHF versus COPD versus acute intracranial injuries versus dehydration versus metabolic issues versus sepsis Narrative Course Patient had been intubated by EMS. She is quite hypertensive in the ER and additional IV fluid boluses were given. Considering history, IV antibiotics were given after cultures are drawn. Lab work shows significant dehydration, acute renal failure, severe anemia, and elevated white blood cell count concerning for sepsis. 2 units of blood were given in the ER. Her potassium is fairly elevated although I did not see some concerning EKG changes. She was treated for hyperkalemia with calcium, bicarbonate, insulin and glucose, and Lasix. At this point, case was discussed with residential gas heat technician, Dr. Agarwal, and she would like me to place central line and she will be accepting the case. She states that he may be some time before she is able to see the patient. Aggregate critical care time was 40 minutes. Time to perform other separately billable procedures was not included in the critical care time. My time did not include minutes spent treating any other patients simultaneously or on activities that did not directly contribute to the patient's treatment. The services I provided to this patient were to treat and/or prevent clinically significant deterioration that could result in: Severe sepsis, septic shock, cardiopulmonary arrest, I provided critical care services requiring my management, as noted below: Chart data review, documentation time, medication orders and management, vital sign assessments/reviewing monitor data, ordering and reviewing lab tests, ordering and interpreting/reviewing x-rays and diagnostic studies, care of the patient and discussion of the patient with the admitting physicians. Procedures Procedure Narrative the following procedure was performed with pt in critical condition, d/w residential gas heat technician: CENTRAL VENOUS LINE: The site was prepped with Betadine and sterilely draped. It was infiltrated with 1% lidocaine plain. The deep vein was cannulated using normal Seldinger technique. A central line was placed in the right femoral site and secured with simple interrupted suture. The site was sterilely dressed. The patient tolerated the procedure well. Sepsis Criteria SIRS Criteria (2 or more): RR > 20 or PaCO2 < 32, WBC > 98767, < 4000 or > 10 % bands Sepsis Criteria (SIRS+source): Infect source susp/known Severe Sepsis (+one): Hypotension, Lactate >2 Septic Shock Criteria: Lactic acid >=4 Criteria Outcome: Meets septic shock criteria Diagnosis Primary Impression: UTI (urinary tract infection) Additional Impressions: Endotracheally intubated SEVERE SEPSIS WITH SEPTIC SHOCK Admitting Information Admitting Physician Requests: Admit Chio Bauer MD Aug 23, 2016 14:08
[2016-08-23] MEDS ORDERED: PROPOFOL 1000 MG/100 ML INJ 100 ML IV SCH (14:15)
[2016-08-23] MEDS ORDERED: SODIUM CHLORID 0.9% 500 ML INJ 500 ML IV ONE (14:15)
[2016-08-23] MEDS ORDERED: PIPERACIL-TAZO 4.5 GM PREMIX 100 ML IV STA (14:27)
[2016-08-23] MEDS ORDERED: SODIUM CHLOR 0.9% 1000 ML INJ 1,000 ML IV ONE ×2 (14:30→16:30)
[2016-08-23 14:56] LABS: ALT (GPT) 67 U/L (10-53); ANION GAP 6 MEQ/L (5-15); AST (GOT) 107 U/L (15-37); BICARBONATE 26.6 MEQ/L (21.0-32.0); BLOOD UREA NITROGEN 42 MG/DL (7-18); CHLORIDE 101 MEQ/L (98-107); GLOMERULAR FILTRATION RATE 26 ML/MIN (>89); POTASSIUM 6.5 MEQ/L (3.5-5.1); SODIUM (NA) 134 MEQ/L (136-145)
[2016-08-23 15:05] LABS: ALKALINE PHOSPHATASE 118 U/L (45-117); TOTAL BILIRUBIN ADULT 0.3 MG/DL (0.2-1.0)
[2016-08-23 15:06] LABS: CREATINE KINASE 59 U/L (26-192)
[2016-08-23 15:14] LABS: AUTOMATED NEUTROPHIL # 10.9 TH/MM3 (1.8-7.7); BASOPHIL % 0.3 % (0.0-2.0); HEMATOCRIT 23.8 % (35.0-46.0); LYMPHOCYTE # 1.3 TH/MM3 (1.0-4.8); MEAN CELL VOLUME 80.7 FL (80.0-100.0); MEAN CORPUSCULAR HEMOGLOBIN 24.9 PG (27.0-34.0); MEAN CORPUSCULAR HGB CONC 30.8 % (32.0-36.0); MONO % 7.9 % (0.0-8.0); NEUT % 81.8 % (16.0-70.0); PLATELET COUNT 202 TH/MM3 (150-450); RED BLOOD COUNT 2.95 MIL/MM3 (4.00-5.30); RED CELL DISTRIBUTION WIDTH 17.5 % (11.6-17.2); WHITE BLOOD COUNT 13.4 TH/MM3 (4.0-11.0)
[2016-08-23 15:17] LABS: BACTERIA, URINE FEW /hpf; BLOOD, URINE NEG (NEG); GLUCOSE,URINE NEG (NEG); HYALINE CAST, URINE 2 /lpf (RARE); KETONE, URINE NEG (NEG); MUCUS URINE FEW /lpf (OCC); NITRITE,URINE NEG (NEG); URINE COLOR YELLOW (YELLW/STRAW)
[2016-08-23 15:19] LABS: COMMENT (UR) CATH-CULTURE IND; CULTURE IF INDICATED CATH CULTURE IND
[2016-08-23 15:24] LABS: HEMO FLAGS AUTO DIFF
--- NOTE | 2016-08-23 15:25 | RADRPT ---
EXAM DATE/TIME: 08/23/2016 14:47 [facility] COMPARISON: CHEST SINGLE AP, July 11, 2016, 6:19. INDICATIONS : Post intubation. MEDICAL HISTORY : Pancreatitis. Encephalopathy. CVA. Congestive heart failure. Atrial fibrillation. Anticoaugulant ther apy. GERD. SURGICAL HISTORY : Hysterectomy. Carotid endarterectomy. ENCOUNTER: Initial ACUITY: 1 day PAIN SCORE: Non-responsive. LOCATION: Bilateral chest FINDINGS: The examination demonstrates endotracheal tube and nasogastric tube in good position. The heart is enlarged. There is diffuse interstitial prominence which appears stable compared to prev ious dated 07/11/16. No pleural effusion is evident. The bony structures are intact. CONCLUSION: 1. Chronic appearing interstitial changes. 2. ET tube and NG tube in good position. Roc Lyons MD on August 23, 2016 at 15:23 Board Certified Radiologist. This report was verified electronically.
[2016-08-23] MEDS ORDERED: DEXTROSE 50% IN WATER 50 ML VIAL(D50) IV PUSH ONE (15:45)
[2016-08-23] MEDS ORDERED: SODIUM BICARBONATE 8.4% SOLN 50 MEQ/50 ML VIAL SLOW IVP ONE (15:45)
[2016-08-23] MEDS ORDERED: INSULIN HUMAN REGULAR 1,000 UNITS/10 ML VIAL IV PUSH ONE (15:45)
[2016-08-23] MEDS ORDERED: CALCIUM GLUCONATE 10% 1 GM/10 ML VIAL SLOW IVP ONE (15:45)
[2016-08-23 16:01] LABS: PLATELET ESTIMATE SMEAR NORMAL (NORMAL); PLATELET MORPHOLOGY NORMAL (NORMAL); SCAN/DIFF AUTO DIFF CONFIRMED; TARGET CELLS 1+ (NORMAL)
[2016-08-23 16:30] LABS: LACTIC ACID GHOST NOT REPORTABLE
[2016-08-23] MEDS ORDERED: FUROSEMIDE 20 MG/2 ML VIAL IV PUSH ONE (16:30)
[2016-08-23] MEDS ORDERED: SODIUM CHLOR 0.9% 250 ML INJ 250 ML IV ONE (16:30)
--- NOTE | 2016-08-23 16:41 | RADRPT ---
EXAM DATE/TIME: 08/23/2016 16:01 [facility] COMPARISON: No previous studies available for comparison. INDICATIONS : Altered mental status,fall yesterday. RADIATION DOSE: 56.35 CTDIvol (mGy) MEDICAL HISTORY : Cardiovascular disease. Hypertension. Diabetes mellitus type 2.CVA. Fibromyalgia. SURGICAL HISTORY : Left endarterectomy. ENCOUNTER: Initial ACUITY: 1 day PAIN SCALE: Non-responsive LOCATION: cranial TECHNIQUE: Multiple contiguous axial images were obtained of the head. Using automated exposure control and adj ustment of the mA and/or kV according to patient size, radiation dose was kept as low as reasonably a chievable to obtain optimal diagnostic quality images. FINDINGS: CEREBRUM: The ventricles are normal for age. No evidence of midline shift, mass lesion, hemorrhage or acute in farction. No extra-axial fluid collections are seen. POSTERIOR FOSSA: The cerebellum and brainstem are intact. The 4th ventricle is midline. The cerebellopontine angle i s unremarkable. EXTRACRANIAL: The visualized portion of the orbits is intact. SKULL: The calvaria is intact. No evidence of skull fracture. CONCLUSION: 1. No acute intracranial abnormalities. Delvin Arauz MD on August 23, 2016 at 16:37 Board Certified Radiologist. This report was verified electronically.
[2016-08-23 18:04] LABS: BLOOD GAS BASE EXCESS -0.3 mmol/L (-2-2); BLOOD GAS CARBOXYHEMOGLOBIN 2.2 % (0-4); BLOOD GAS HCO3 24 mmol/L (22-26); BLOOD GAS METHEMOGLOBIN 1.9 % (0-2); BLOOD GAS O2 HGB SATURATION 95 % (90-100); BLOOD GAS OXYGEN CONTENT 11.5 Vol % (12.0-20.0); BLOOD GAS PCO2 40 mmHg (38-42); BLOOD GAS PO2 145 mmHG (61-120); BLOOD GAS TOTAL HGB 8.4 G/DL (12.0-16.0); CRITICAL VALUE NO; DRAW SITE RT FEMORAL; FIO2 80 %; NUMBER OF ARTERIAL PUNCTURES 3; OXYGEN DEVICE VENTILATOR; STAT YES; TEMP CORR TO 98.6; ULNAR PULSE PRESENT; VENT SETTINGS AC/24/500/PEEP10
[2016-08-23] MEDS ORDERED: POTASSIUM PHOSPHATE MONOBASIC 500 MG TAB PO PRN (18:15)
[2016-08-23] MEDS ORDERED: SENNOSIDES SYRUP 8.8 MG/5 ML CUP G-TUBE PRN (18:15)
[2016-08-23] MEDS ORDERED: MAGNESIUM OXIDE 400 MG TAB PO PRN (18:15)
[2016-08-23] MEDS ORDERED: POTASSIUM PHOSPHATE INJ 30 MMOL in SODIUM CHLOR 0.9% 250 ML INJ 250 ML IV PRN (18:15)
[2016-08-23] MEDS ORDERED: ONDANSETRON HCL 4 MG/2 ML VIAL IV PRN (18:15)
[2016-08-23] MEDS ORDERED: MISCELLANEOUS NURSING INFORMATION XX SCH ×2 (18:15→18:30)
[2016-08-23] MEDS ORDERED: POTASSIUM CL 40 MEQ/30 ML LIQ UDC PO/TUBE PRN ×2 (18:15)
[2016-08-23] MEDS ORDERED: POTASSIUM PHOSPHATE MONOBASIC 500 MG TAB PO/TUBE PRN (18:15)
[2016-08-23] MEDS ORDERED: MAGNESIUM SULFATE INJ 4 GM in SODIUM CHLORIDE 0.9% INJ 92 ML IV PRN (18:15)
[2016-08-23] MEDS ORDERED: DEXTROSE 50% IN WATER 50 ML VIAL(D50) IV PUSH PRN (18:15)
[2016-08-23] MEDS ORDERED: CHLORHEXIDINE GLUCONATE 2 % 1 PACK (2 CLOTHS) TOP PRN ×2 (18:15→18:30)
[2016-08-23] MEDS ORDERED: SODIUM CHLORIDE 0.9% FLUSH 5 ML FLUSH IV FLUSH PRN (18:15)
[2016-08-23] MEDS ORDERED: RESP: ALBUTEROL 2.5 MG/IPRATROPIUM 0.5 MG NEB (PRN) INH (18:15)
[2016-08-23] MEDS ORDERED: POTASSIUM CHLOR 40 MEQ PREMIX 100 ML IV PRN ×2 (18:15)
[2016-08-23] MEDS ORDERED: MAGNESIUM SULFATE INJ 2 GM in SODIUM CHLORIDE 0.9% INJ 96 ML IV PRN (18:15)
[2016-08-23] MEDS ORDERED: POTASSIUM CHLOR 20 MEQ PREMIX 100 ML IV PRN ×2 (18:15)
[2016-08-23] MEDS ORDERED: SODIUM PHOSPHATE INJ 30 MMOL in SODIUM CHLOR 0.9% 250 ML INJ 240 ML IV PRN (18:15)
[2016-08-23] MEDS ORDERED: GLUCAGON 1 MG/ML VIAL OTHER PRN (18:15)
[2016-08-23] MEDS ORDERED: Vancomycin Consult Pharmacy 1 EA OTHER SCH (18:45)
[2016-08-23] MEDS ORDERED: VANCOMYCIN 1,000 MG/NS 250 ML IV ONE ×2 (19:00)
[2016-08-23] MEDS: SODIUM CHLOR 0.9% 1000 ML INJ 1,000 ML IV SCH (19:25)
--- NOTE | 2016-08-23 19:38 | HHI.HP ---
HPI Service Critical Care Medicine Primary Care Physician Karis Roblero MD Admission Diagnosis intubated/severe sepsis/UTI Diagnosis: Travel History International Travel<30 Days: No Contact w/Intl Traveler <30 Da: No Traveled to Known Affected Are: No Sepsis Criteria SIRS Criteria (2 or more): RR > 20 or PaCO2 < 32 Severe Sepsis (+one): Lactate >2 Septic Shock Criteria: Lactic acid >=4 History of Present Illness 75-year-old female well-known to [facility] recently discharged in Jul 2016, with a PMH of TBI with right temporal contusion, HTN, S/P CVA, Gout, fibromyalgia,acute hyperkalemia, frequent falls that presented to the ED brought in by EMS because patient had fallen yesterday.The patient was found lethargic, unresponsive according to patient's roommate. She was last seen normal at 9 PM the evening before. When EMS arrived, she was noted to be tachypneic, and disoriented, not protecting her airway, and she was intubated for airway protection. Upon arrival to the ED, the patient's systolic blood pressure was noted to be in the 80's. Laboratory and imaging studies were performed. CT scan revealed no acute abnormality, the patient was noted to be hyperkalemic, with a lactate 4.0. Cultures were obtained suggestive of UTI. Local care medicine was consulted for treatment and management. History PFSH Past Medical History Hx Anticoagulant Therapy: Yes (PLAVIX) Arthritis: Yes Asthma: No Autoimmune Disease: Yes (FIBROMYALGIA) Blood Disorders: No Anxiety: Yes Depression: Yes (MILD DEPRESSION) Heart Rhythm Problems: Yes (TACHYCARDIA/AFIB) Cancer: No Cardiac Catheterization: Yes (1989) Cardiovascular Problems: Yes (CHF, AFIB ) High Cholesterol: Yes Chemotherapy: No Chest Pain: No Congestive Heart Failure: Yes COPD: No Cerebrovascular Accident: Yes Diabetes: Yes Diminished Hearing: Yes (DIMINISHED) Endocrine: Yes Fibromyalgia: Yes Gastrointestinal Disorders: Yes (GERD, HX OF ABDOMINAL PAIN) GERD: Yes (GERD) Genitourinary: No Hiatal Hernia: No Heparin Induced Thrombocytopen: No Hypertension: Yes Immune Disorder: Yes Implanted Vascular Access Dvce: No Musculoskeletal: Yes ("TORN MUSCLE L.KNEE", FRACTURED L3 L4 L5 06/15., arthritis,) Neurologic: Yes (FIBROMYALGIA, ENCEPHALOPATHY, CVA) Psychiatric: Yes (PANIC ATTACKS) Reproductive: Yes (HYSTERECTOMY DUE TO BLEEDING INTO PERITONEAL CAVITY) Respiratory: Yes (PNEUMONIA) Immunizations Current: No Migraines: No Pancreatitis: Yes Seizures: No Sickle Cell Disease: No Sleep Apnea: No Thyroid Disease: No Ulcer: No Menopausal: Yes : 3 Para: 2 Miscarriage: 1 Past Surgical History Abdominal Surgery: No AICD: No Appendectomy: Yes (1975) Arteriovenous Shunt: No Cardiac Surgery: Yes (L ENDARDECTOMY ) Coronary Artery Bypass Graft: No Ear Surgery: No Endocrine Surgery: No Eye Surgery: Yes (BL CATARACT REMOVAL) Genitourinary Surgery: No Gynecologic Surgery: Yes (HYSTERECTOMY 1975) Hysterectomy: Yes Insulin Pump: No Oral Surgery: No Pacemaker: No Thoracic Surgery: No Other Surgery: Yes (HYSTERECTOMY, LEFT & RIG CAROTID ARTERY REPAIR) Social History Alcohol Use: Yes (OCCAS.) Tobacco Use: Yes Substance Use: No Allergies-Medications Allergies-Medications (Allergen,Severity, Reaction): Coded Allergies: Contrast Media (Verified Allergy, Severe, "throat closes up", 08/23/16) states that reaction used to occur but no longer does Keflex (Verified Adverse Reaction, Severe, "burning sensation,body red", ) *MDRO Multi-Drug Resistant Organism (Verified Adverse Reaction, Unknown, VRE, ESBL, 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 (urine-01/30/16) Reported Meds & Prescriptions Reported Meds & Active Scripts Active Hydrocodone-Acetaminophen 5-325 mg Tab 1 Tab PO Q8HR PRN Prednisone 5 Mg Tab 5 Mg PO BID 2 tabs bid x 2 days, 1 tab po bid x 2 days then 1 tab po daily x 3 days then DC Pantoprazole (Pantoprazole Sodium) 40 Mg Tab 40 Mg PO DAILY Metoprolol Tartrate 25 Mg Tab 50 Mg PO Q12HR Levaquin (Levofloxacin) 500 Mg Tab 500 Mg PO DAILY Furosemide 20 Mg Tab 20 Mg PO DAILY Norvasc (Amlodipine Besylate) 5 Mg Tab 5 Mg PO DAILY Xanax (Alprazolam) 0.25 Mg Tab 0.125 Mg PO Q12HR PRN Reported Allopurinol 100 Mg Tab 100 Mg PO DAILY Clopidogrel (Clopidogrel Bisulfate) 75 Mg Tab 75 Mg PO DAILY Pravastatin 20 Mg Tab 20 Mg PO DAILY Alexandra Aspirin EC Low Dose (Aspirin) [address] (Duloxetine HCl) 30 Mg Capdr 30 Mg PO TENZIN Physical Exam Vital Signs Vital Signs Date Time Temp Pulse Resp B/P Pulse Ox O2 Delivery O2 Flow Rate FiO2 08/23/16 18:36 100 50 08/23/16 18:10 97.4 76 14 153/70 99 Ventilator 100 08/23/16 17:11 76 14 154/67 100 Ventilator 100 08/23/16 16:47 76 14 149/66 100 Ventilator 100 08/23/16 16:17 100 100 08/23/16 16:13 69 14 121/60 100 Ventilator 100 08/23/16 15:39 66 14 108/60 100 Ventilator 100 08/23/16 15:18 66 14 112/52 98 Ventilator 100 08/23/16 15:12 65 14 118/51 97 Ventilator 100 08/23/16 14:44 96.9 66 14 98/55 Ventilator 100 08/23/16 14:27 60 14 86/40 08/23/16 14:04 0 100 08/23/16 14:00 68 9 Ventilator 100 08/23/16 13:59 14 Ventilator 100 08/23/16 13:52 100 08/23/16 13:52 95.7 76 10 118/90 Physical Exam GENERAL: Elderly female lying semi-recumbent in bed. GCS11T on propofol infusion, following commands, denies pain. SKIN: Warm and dry. HEAD: Atraumatic. Normocephalic. EYES: Pupils equal and round. No scleral icterus. No injection or drainage. ENT: No nasal bleeding or discharge. Mucous membranes pink and moist. NECK: Trachea midline. No JVD. CARDIOVASCULAR: Normal rate, regular rhythm. RESPIRATORY: Mechanical ventilation Clear to auscultation. Breath sounds equal bilaterally. GASTROINTESTINAL: Abdomen soft, protuberant non-tender, nondistended. No guarding. Normal active bowel sounds MUSCULOSKELETAL: Extremities without clubbing, cyanosis, or edema. No obvious deformities. NEUROLOGICAL: Awake. RASS -1. Follows commands in all 4 extremities. Laboratory Laboratory Tests Test 08/23/16 08/23/16 08/23/16 08/23/16 14:00 14:05 15:00 16:30 Urine Color YELLOW Urine Turbidity HAZY Urine pH 5.0 Urine Specific [place] 1.015 Urine Protein 30 Urine Glucose (UA) NEG Urine Ketones NEG Urine Occult Blood NEG Urine Nitrite NEG Urine Bilirubin NEG Urine Urobilinogen LESS THAN 2.0 Urine Leukocyte Esterase LARGE Urine RBC LESS THAN 1 Urine WBC 52 Urine WBC Clumps MOD Urine Bacteria FEW Urine Hyaline Casts 2 Urine Mucus FEW Microscopic Urinalysis Comment CATH-CULTURE IND Lactic Acid Level 4.2 2.3 Ammonia 19 Sodium Level 134 Potassium Level 6.5 Chloride Level 101 Carbon Dioxide Level 26.6 Anion Gap 6 Blood Urea Nitrogen 42 Creatinine 1.91 Estimat Glomerular Filtration 26 Rate Random Glucose 145 Calcium Level 8.0 Total Bilirubin 0.3 Aspartate Amino Transf 107 (AST/SGOT) Alanine Aminotransferase 67 (ALT/SGPT) Alkaline Phosphatase 118 Total Creatine Kinase 59 Troponin I 0.03 Total Protein 6.5 Albumin 2.7 Thyroid Stimulating Hormone 1.040 3rd Gen White Blood Count 13.4 Red Blood Count 2.95 Hemoglobin 7.3 Hematocrit 23.8 Mean Corpuscular Volume 80.7 Mean Corpuscular Hemoglobin 24.9 Mean Corpuscular Hemoglobin 30.8 Concent Red Cell Distribution Width 17.5 Platelet Count 202 Mean Platelet Volume 8.1 Neutrophils (%) (Auto) 81.8 Lymphocytes (%) (Auto) 10.0 Monocytes (%) (Auto) 7.9 Eosinophils (%) (Auto) 0.0 Basophils (%) (Auto) 0.3 Neutrophils # (Auto) 10.9 Lymphocytes # (Auto) 1.3 Monocytes # (Auto) 1.1 Eosinophils # (Auto) 0.0 Basophils # (Auto) 0.0 CBC Comment AUTO DIFF Differential Comment AUTO DIFF CONFIRMED Platelet Estimate NORMAL Platelet Morphology Comment NORMAL Target Cells 1+ Test 08/23/16 08/23/16 16:40 17:50 Blood Type O POSITIVE Antibody Screen NEGATIVE Crossmatch Leukocyte-Reduced Red Blood Cells Blood Bank Comment Blood Gas Puncture Site RT FEMORAL Blood Gas Patient Temperature 98.6 Blood Gas HCO3 24 Blood Gas Base Excess -0.3 Blood Gas Oxygen Saturation 95 Arterial Blood pH 7.39 Arterial Blood Partial 40 Pressure CO2 Arterial Blood Partial 145 Pressure O2 Arterial Blood Oxygen Content 11.5 Arterial Blood 2.2 Carboxyhemoglobin Arterial Blood Methemoglobin 1.9 Blood Gas Hemoglobin 8.4 Oxygen Delivery Device VENTILATOR Blood Gas Ventilator Setting AC/24/500/PEEP10 Blood Gas Inspired Oxygen 80 Date/Time Procedure Status Source Growth 08/23/16 14:05 Aerobic Blood Culture Received Blood Peripheral Pending 08/23/16 14:05 Anaerobic Blood Culture Received Blood Peripheral Pending 08/23/16 14:00 Urine Culture Received Urine Catheterized Urine Pending Result Diagram: 08/23/16 1500 08/23/16 1405 Imaging Last Impressions Head CT 08/23/16 1358 Signed Impressions: Service Date/Time: August 16:01 - CONCLUSION: 1. No acute intracranial abnormalities. Delvin Arauz MD Chest X-Ray 08/23/16 1358 Signed Impressions: Service Date/Time: August 14:47 - CONCLUSION: 1. Chronic appearing interstitial changes. 2. ET tube and NG tube in good position. Roc Lyons MD Septic Shock Reassessment Heart: Regular rate and rhythm Lungs: Clear Skin: Warm Peripheral Pulses: Bounding Right Radial Bounding Left Radial Bounding Right Dorsalis Pedis Bounding Left Dorsalis Pedis Capillary Refill: Brisk Assessment and Plan Assessment and Plan Neurologic: Metabolic Encephalopathy H/O TBI with right temporal contusion Frequent falls Fibromyalgia Depression S/P CVA Chronic pain syndrome Fibromyalgia -Neurochecks per ICU protocol -Continue ASA and Plavix -Continue Duloxetine -Propofol infusion for ventilator synchrony -Maintain RASS-2 Respiratory: Respiratory insufficiency H/O tobacco abuse -Maintain O2 sat greater than 92% -Bronchodilators every 6 hours, and every 2 hours when necessary -Begin CPAP trials -Daily sedation vacation -CXR 08/23 chronic appearing interstitial changes Cardiovascular: Dyslipidemia Hypertension H/O CHF -Resume home antihypertensive medications, Norvasc, Metoprolol when clinically indicated -Continue pravastatin -ECHO 11/04/15-EF 55-60%, no RWMA, mild aortic regurgitation. Holter monitor -SR Renal: Chronic kidney disease -- Strict I/Os -Maintain Jones -Monitor hourly urine output FEN/GI: Acute hyperkalemia -Received in the ED calcium gluconate 1 g, Lasix 20 mg, 1 amp of D50, insulin 4 units, calcium gluconate 1gm -Repeat BMP pending. Patient recently admitted with hyperkalemia 07/2016 Heme/ID: Anemia of chronic disease Presumed urosepsis Leukocytosis -Bolused with 3 L normal saline in the ED -Transfuse for hemoglobin less than 8, attempted to contact family , but unsuccessful. Patient requires blood transfusion -Follow-up urine blood and sputum cultures -Levaquin and vancomycin initiated -Flu, Pneumococcal, Legionella antigen pending Endocrine: Diabetes mellitus Glucose monitoring per ICU protocol, low dose regimen -TSH 1.040 -- SSI MSK: Osteoporosis Gout Rheumatoid arthritis -Continue allopurinol Prophylaxis: GI Prophylaxis Protonix DVT Prophylaxis -- SCDs Heparin 5000 SQ BID Lines: Peripheral IVs 2 . Central line if indicated Dispo: This patient remains critically ill with one or more organ systems which are or may become a threat to life. I have spent in excess of 55 minutes discontinuously in the care and management of this patient. This time is exclusive of procedures, and includes, but is not limited to, evaluation of the patient, review of the medical record, discussions with family, consultants, nursing staff, or respiratory therapy, and documentation in the medical record. Code Status Full Discussed Condition With ED RN at bedside Divina Agarwal MD Aug 23, 2016 19:38
[2016-08-23] MEDS: RESP: ALBUTEROL 2.5 MG/IPRATROPIUM 0.5 MG NEB (SCH) INH (19:54)
[2016-08-23] MEDS ORDERED: LEVOFLOXACIN 500 MG PREMIX INJ 100 ML IV ONE (20:00)
[2016-08-23 20:21] LABS: BLOOD GAS BASE EXCESS 1.4 mmol/L (-2-2); BLOOD GAS CARBOXYHEMOGLOBIN 2.1 % (0-4); BLOOD GAS HCO3 26 mmol/L (22-26); BLOOD GAS O2 HGB SATURATION 94 % (90-100); BLOOD GAS OXYGEN CONTENT 10.5 Vol % (12.0-20.0); BLOOD GAS PCO2 45 mmHg (38-42); BLOOD GAS PO2 88 mmHG (61-120); BLOOD GAS TOTAL HGB 7.9 G/DL (12.0-16.0); CRITICAL VALUE NO; DRAW SITE RT BRACHIAL; FIO2 50 %; NUMBER OF ARTERIAL PUNCTURES 1; OXYGEN DEVICE VENTILATOR; STAT YES; TEMP CORR TO 98.6; VENT SETTINGS AC12/500/5PEEP
[2016-08-23 20:49] LABS: BICARBONATE 24.5 MEQ/L (21.0-32.0)
[2016-08-23 20:50] LABS: POTASSIUM 4.6 MEQ/L (3.5-5.1)
[2016-08-23] MEDS: DOCUSATE SODIUM 100 MG/10 ML UDC G-TUBE SCH (21:00)
[2016-08-23] MEDS: HEPARIN SODIUM - SQ 10,000 UNITS/ML VIAL SQ SCH (21:00)
[2016-08-23] MEDS: INSULIN NovoLIN REGULAR SUPPLEMENTAL SCALE SQ SCH (21:00)
[2016-08-23] MEDS: CHLORHEXIDINE 0.12% (ORAL KIT) 15 ML CUP MT SCH (21:36)
[2016-08-23] MEDS: SODIUM CHLORIDE 0.9% FLUSH 5 ML FLUSH IV FLUSH SCH (21:37)
[2016-08-24] VITALS (24 sets, daily range): BP systolic 133–175; BP diastolic 58–78; PULSE 77–97; RESP 12–20; TEMP 98.2–99; O2SAT 95–100
[2016-08-24] MEDS: CHLORHEXIDINE GLUCONATE 2 % 1 PACK (2 CLOTHS) TOP SCH (01:00)
[2016-08-24] MEDS: RESP: ALBUTEROL 2.5 MG/IPRATROPIUM 0.5 MG NEB (SCH) INH ×4 (03:36→20:20)
[2016-08-24 03:46] LABS: HEMATOCRIT 30.3 % (35.0-46.0); REVIEW FLAG FINAL
[2016-08-24 03:54] LABS: APTT (PATIENT) 28.3 SEC (24.3-30.1); INTERNATIONAL NORMALIZED RATIO 1.1 RATIO
[2016-08-24] MEDS ORDERED: CHLORHEXIDINE GLUCONATE 2 % 1 PACK (2 CLOTHS) TOP SCH (04:00)
[2016-08-24] MEDS: PROPOFOL 1000 MG/100 ML INJ 100 ML IV SCH ×4 (04:51→22:12)
[2016-08-24] MEDS: INSULIN NovoLIN REGULAR SUPPLEMENTAL SCALE SQ SCH ×3 (06:43→19:00)
[2016-08-24] MEDS: SODIUM CHLOR 0.9% 1000 ML INJ 1,000 ML IV SCH ×2 (07:43→20:59)
[2016-08-24] MEDS: ASPIRIN 81 MG CHEW TAB TUBE SCH (07:44)
[2016-08-24] MEDS: DOCUSATE SODIUM 100 MG/10 ML UDC G-TUBE SCH ×2 (07:44→21:08)
[2016-08-24] MEDS: CLOPIDOGREL 75 MG TAB PO SCH (07:44)
[2016-08-24] MEDS: PANTOPRAZOLE SODIUM 40 MG VIAL IV SCH (07:44)
[2016-08-24] MEDS: HEPARIN SODIUM - SQ 10,000 UNITS/ML VIAL SQ SCH ×2 (07:44→21:09)
[2016-08-24] MEDS: ALLOPURINOL 100 MG TAB PO SCH (07:44)
[2016-08-24] MEDS: CHLORHEXIDINE 0.12% (ORAL KIT) 15 ML CUP MT SCH ×2 (07:45→21:08)
[2016-08-24] MEDS: SODIUM CHLORIDE 0.9% FLUSH 5 ML FLUSH IV FLUSH SCH ×2 (07:45→21:00)
[2016-08-24] MEDS: DULoxetine HCl DR 30 MG CAP PO SCH (07:45)
[2016-08-24] MEDS: PRAVASTATIN SOD 20 MG TAB PO SCH (07:57)
[2016-08-24] MEDS: ARTIFICIAL TEARS OPTH SOLN 15 ML BTL EACH EYE SCH ×3 (09:00→16:57)
--- NOTE | 2016-08-24 09:18 | HHI.CCPN ---
Subjective Remarks/Hospital Course 75-year-old female well-known to [facility] recently discharged in Jul 2016, with a PMH of TBI with right temporal contusion, HTN, S/P CVA, Gout, fibromyalgia,acute hyperkalemia, frequent falls that presented to the ED brought in by EMS because patient had fallen yesterday.The patient was found lethargic, unresponsive according to patient's roommate. She was last seen normal at 9 PM the evening before. When EMS arrived, she was noted to be tachypneic, and disoriented, not protecting her airway, and she was intubated for airway protection. Upon arrival to the ED, the patient's systolic blood pressure was noted to be in the 80's. Laboratory and imaging studies were performed. CT scan revealed no acute abnormality, the patient was noted to be hyperkalemic, with a lactate 4.0. Cultures were obtained suggestive of UTI. Local care medicine was consulted for treatment and management. 08/24 Patient is sedated with Diprivan and intubated. s/p transfusion 2u PRBC with Hgb 10.0 from 7.3. Afebrile. Objective Vital Signs Date Time Temp Pulse Resp B/P Pulse Ox O2 Delivery O2 Flow Rate FiO2 08/24/16 08:00 89 08/24/16 07:59 99 40 08/24/16 07:00 98.3 12 133/58 08/23/16 20:34 Ventilator Intake and Output 08/23/16 08/23/16 08/24/16 08:00 16:00 00:00 Intake Total 968 ml Output Total 1375 ml Balance -407 ml Result Diagram: 08/24/16 0300 08/23/169 Other Results Laboratory Tests Test 08/23/16 08/23/16 08/23/16 08/23/16 14:00 14:05 15:00 16:30 Urine Color YELLOW Urine Turbidity HAZY Urine pH 5.0 Urine Specific [place] 1.015 Urine Protein 30 mg/dL Urine Glucose (UA) NEG mg/dL Urine Ketones NEG mg/dL Urine Occult Blood NEG Urine Nitrite NEG Urine Bilirubin NEG Urine Urobilinogen LESS THAN 2.0 MG/DL Urine Leukocyte Esterase LARGE Urine RBC LESS THAN 1 /hpf Urine WBC 52 /hpf Urine WBC Clumps MOD Urine Bacteria FEW /hpf Urine Hyaline Casts 2 /lpf Urine Mucus FEW /lpf Microscopic Urinalysis Comment CATH-CULTURE IND Lactic Acid Level 4.2 mmol/L 2.3 mmol/L Ammonia 19 MCMOL/L Sodium Level 134 MEQ/L Potassium Level 6.5 MEQ/L Chloride Level 101 MEQ/L Carbon Dioxide Level 26.6 MEQ/L Anion Gap 6 MEQ/L Blood Urea Nitrogen 42 MG/DL Creatinine 1.91 MG/DL Estimat Glomerular Filtration 26 ML/MIN Rate Random Glucose 145 MG/DL Calcium Level 8.0 MG/DL Total Bilirubin 0.3 MG/DL Aspartate Amino Transf 107 U/L (AST/SGOT) Alanine Aminotransferase 67 U/L (ALT/SGPT) Alkaline Phosphatase 118 U/L Total Creatine Kinase 59 U/L Troponin I 0.03 NG/ML Total Protein 6.5 GM/DL Albumin 2.7 GM/DL Thyroid Stimulating Hormone 1.040 uIU/ML 3rd Gen White Blood Count 13.4 TH/MM3 Red Blood Count 2.95 MIL/MM3 Hemoglobin 7.3 GM/DL Hematocrit 23.8 % Mean Corpuscular Volume 80.7 FL Mean Corpuscular Hemoglobin 24.9 PG Mean Corpuscular Hemoglobin 30.8 % Concent Red Cell Distribution Width 17.5 % Platelet Count 202 TH/MM3 Mean Platelet Volume 8.1 FL Neutrophils (%) (Auto) 81.8 % Lymphocytes (%) (Auto) 10.0 % Monocytes (%) (Auto) 7.9 % Eosinophils (%) (Auto) 0.0 % Basophils (%) (Auto) 0.3 % Neutrophils # (Auto) 10.9 TH/MM3 Lymphocytes # (Auto) 1.3 TH/MM3 Monocytes # (Auto) 1.1 TH/MM3 Eosinophils # (Auto) 0.0 TH/MM3 Basophils # (Auto) 0.0 TH/MM3 CBC Comment AUTO DIFF Differential Comment AUTO DIFF CONFIRMED Platelet Estimate NORMAL Platelet Morphology Comment NORMAL Target Cells 1+ Test 08/23/16 08/23/16 08/23/16 08/23/16 16:40 17:50 18:40 19:55 Blood Type O POSITIVE Antibody Screen NEGATIVE Crossmatch Leukocyte-Reduced Red Blood Cells Blood Bank Comment Blood Gas Puncture Site RT FEMORAL RT BRACHIAL Blood Gas Patient Temperature 98.6 98.6 Blood Gas HCO3 24 mmol/L 26 mmol/L Blood Gas Base Excess -0.3 mmol/L 1.4 mmol/L Blood Gas Oxygen Saturation 95 % 94 % Arterial Blood pH 7.39 7.38 Arterial Blood Partial 40 mmHg 45 mmHg Pressure CO2 Arterial Blood Partial 145 mmHG 88 mmHG Pressure O2 Arterial Blood Oxygen Content 11.5 Vol % 10.5 Vol % Arterial Blood 2.2 % 2.1 % Carboxyhemoglobin Arterial Blood Methemoglobin 1.9 % 2.0 % Blood Gas Hemoglobin 8.4 G/DL 7.9 G/DL Oxygen Delivery Device VENTILATOR VENTILATOR Blood Gas Ventilator Setting AC/24/500/PEEP10 AC12/500/5PEEP Blood Gas Inspired Oxygen 80 % 50 % Sodium Level 139 MEQ/L Potassium Level 4.6 MEQ/L Chloride Level 104 MEQ/L Carbon Dioxide Level 24.5 MEQ/L Anion Gap 11 MEQ/L Blood Urea Nitrogen 36 MG/DL Creatinine 1.64 MG/DL Estimat Glomerular Filtration 31 ML/MIN Rate Random Glucose 173 MG/DL Calcium Level 7.6 MG/DL Phosphorus Level 2.8 MG/DL Ammonia 30 MCMOL/L Total Creatine Kinase 60 U/L Test 08/23/16 08/23/16 08/24/16 21:03 21:29 03:00 Nasal Screen MRSA (PCR) NEGATIVE Potassium Level 4.1 MEQ/L Lactic Acid Level 2.4 mmol/L Hemoglobin 10.0 GM/DL Hematocrit 30.3 % Prothrombin Time 12.0 SEC Prothromb Time International 1.1 RATIO Ratio Activated Partial 28.3 SEC Thromboplast Time Imaging Last Impressions Head CT 08/23/16 1351 Signed Impressions: Service Date/Time: August 16:01 - CONCLUSION: 1. No acute intracranial abnormalities. Delvin Arauz MD Chest X-Ray 08/23/16 2602 Signed Impressions: Service Date/Time: August 14:47 - CONCLUSION: 1. Chronic appearing interstitial changes. 2. ET tube and NG tube in good position. Roc Lyons MD Objective Remarks GENERAL: Elderly female lying semi-recumbent in bed. GCS11T on propofol infusion, following commands, denies pain. SKIN: Warm and dry. HEAD: Atraumatic. Normocephalic. EYES: Pupils equal and round. No scleral icterus. No injection or drainage. ENT: No nasal bleeding or discharge. Mucous membranes pink and moist. NECK: Trachea midline. No JVD. CARDIOVASCULAR: Normal rate, regular rhythm. RESPIRATORY: Mechanical ventilation Clear to auscultation. Breath sounds equal bilaterally. GASTROINTESTINAL: Abdomen soft, protuberant non-tender, nondistended. No guarding. Normal active bowel sounds MUSCULOSKELETAL: Extremities without clubbing, cyanosis, or edema. No obvious deformities. NEUROLOGICAL: Awake. RASS -1. Follows commands in all 4 extremities. A/P Assessment and Plan Neurologic: Metabolic Encephalopathy H/O TBI with right temporal contusion Frequent falls Fibromyalgia Depression S/P CVA Chronic pain syndrome Fibromyalgia -Neurochecks per ICU protocol -Continue ASA and Plavix -Continue Duloxetine -Propofol infusion for ventilator synchrony -Maintain RASS-2. Daily sedation vacation Respiratory: Respiratory insufficiency H/O tobacco abuse -Continue with vent support and maintain O2 > 92% -Bronchodilators every 6 hours, and every 2 hours when necessary -CPAP trials as godfrey -CXR 08/23 chronic appearing interstitial changes Cardiovascular: Dyslipidemia Hypertension H/O CHF -Start Lopressor 25mg [id number] HR and BP keep MAP>65mmHg -Continue pravastatin, ASA, Plavix -ECHO 11/04/15-EF 55-60%, no RWMA, mild aortic regurgitation. Renal: Chronic kidney disease -- Monitor renal function, I/O's, electrolytes replacement per protocol. _Renal function improving with Cr: 1.64 on 08/23 from 1.91 -Check BMP. On NS@75ml/hr GI: Start TF-Glucerna 1.5with goal rate 45ml/hr. Protonix for GI prophylaxis Heme Anemia of chronic disease Presumed urosepsis Leukocytosis -s/p transfusion 2u PRBC Hgb 10 from 7.3 -Monitor CBC ID: Leukocytosis UTI -Continue with abx (Levaquin and vancomycin ) monitor for signs of infections ( Fever, WBC) -Follow up on cxs -Pneumococcal, Legionella antigen pending -Negative for influenza Endocrine: Diabetes mellitus Glucose monitoring per ICU protocol, low dose regimen -TSH 1.040 -- SSI MSK: Osteoporosis Gout Rheumatoid arthritis -Continue allopurinol Prophylaxis: GI Prophylaxis Protonix DVT Prophylaxis -- SCDs Heparin 5000 SQ BID Lines: Peripheral IVs 2 . Central line if indicated Check labs today CCT 30 mins Colin Babcock MD Aug 24, 2016 09:18
[2016-08-24 10:12] LABS: AUTOMATED NEUTROPHIL # 6.5 TH/MM3 (1.8-7.7); BASOPHIL # 0.1 TH/MM3 (0-0.2); BASOPHIL % 0.6 % (0.0-2.0); HEMATOCRIT 32.1 % (35.0-46.0); HEMO FLAGS DIFF FINAL; LYMPH % 17.7 % (9.0-44.0); LYMPHOCYTE # 1.6 TH/MM3 (1.0-4.8); MEAN CELL VOLUME 78.1 FL (80.0-100.0); MONO % 8.9 % (0.0-8.0); NEUT % 72.8 % (16.0-70.0); PLATELET COUNT 171 TH/MM3 (150-450); RED CELL DISTRIBUTION WIDTH 16.6 % (11.6-17.2); WHITE BLOOD COUNT 8.9 TH/MM3 (4.0-11.0)
[2016-08-24 10:34] LABS: ANION GAP 8 MEQ/L (5-15); AST (GOT) 194 U/L (15-37); BICARBONATE 26.3 MEQ/L (21.0-32.0); BLOOD UREA NITROGEN 32 MG/DL (7-18); CHLORIDE 108 MEQ/L (98-107); GLOMERULAR FILTRATION RATE 37 ML/MIN (>89); SODIUM (NA) 142 MEQ/L (136-145)
[2016-08-24] MEDS: METOPROLOL TARTRATE 25 MG TAB PO SCH ×2 (10:38→21:08)
[2016-08-24 10:41] LABS: ALKALINE PHOSPHATASE 99 U/L (45-117); ALT (GPT) 187 U/L (10-53); TOTAL BILIRUBIN ADULT 0.3 MG/DL (0.2-1.0)
--- NOTE | 2016-08-24 16:45 | RADRPT ---
EXAM DATE/TIME: 08/24/2016 13:39 [facility] COMPARISON: No previous studies available for comparison. INDICATIONS : Abnormal labs. MEDICAL HISTORY : Methicillin-resistant Staphylococcus aureus. Hypercholesterolemia. Gastroesophageal reflux disease. F ibromyalgia. CHF. Hypertension. Pancreatitis. Arthritis. SURGICAL HISTORY : Carotid endarterectomy. Appendectomy. Hysterectomy. ENCOUNTER: Initial ACUITY: 1 day PAIN SCORE: Nonresponsive. LOCATION: Right upper quadrant MEASUREMENTS: LIVER: 16.3 cm length COMMON DUCT: 3 mm RIGHT KIDNEY: 8.9 x 4.1 x 4.6 cm SPLEEN: 11.8 cm length FINDINGS: The study is suboptimal secondary to overlying bowel gas. The patient could not move and was on a sierra tilator. LIVER: Normal echotexture without focal lesion or ductal dilatation. COMMON DUCT: No intraluminal mass or stone visualized. GALLBLADDER: The gallbladder wall is at the upper limits of normal in size measuring 3-4 mm with no pericholecysti c fluid or evidence of cholelithiasis. There is a small amount of sludge present. PANCREAS: The visualized portions are within normal limits. RIGHT KIDNEY: No hydronephrosis, stone or mass. SPLEEN: No focal lesion. CONCLUSION: 1. The gallbladder wall is at the upper limits of normal in size and there is a small amount of sludg e. 2. Suboptimal study. Mark Chavis MD on August 24, 2016 at 16:41 Board Certified Radiologist. This report was verified electronically.
--- NOTE | 2016-08-24 17:01 | EKG ---
Date Performed: 08/23/2016 Time Performed: 14:09:46 PTAGE: 75 years EKG: Sinus rhythm WITH SINUS ARRHYTHMIA Compared to prior tracing no significant change NORMAL ECG NO PREVIOUS TRACING DOCTOR: Trey Hoffman Interpretating Date/Time 08/24/2016 16:55:58
[2016-08-24] MEDS: LEVOFLOXACIN/DEXTROSE 250 MG/50 ML IV SCH (21:07)
[2016-08-25] VITALS (18 sets, daily range): BP systolic 136–177; BP diastolic 65–82; PULSE 92–118; RESP 18–25; TEMP 98–100.4; O2SAT 95–100
[2016-08-25] MEDS: INSULIN NovoLIN REGULAR SUPPLEMENTAL SCALE SQ SCH ×4 (01:00→18:16)
[2016-08-25] MEDS: RESP: ALBUTEROL 2.5 MG/IPRATROPIUM 0.5 MG NEB (SCH) INH ×4 (03:28→20:47)
[2016-08-25] MEDS: CHLORHEXIDINE GLUCONATE 2 % 1 PACK (2 CLOTHS) TOP SCH (04:00)
[2016-08-25] MEDS ORDERED: LABETALOL HCL 100 MG/20 ML VIAL IV PUSH PRN (04:30)
[2016-08-25] MEDS: amLODIPine BESYLATE 5 MG TAB TUBE SCH ×2 (05:33→08:01)
[2016-08-25] MEDS: PROPOFOL 1000 MG/100 ML INJ 100 ML IV SCH ×2 (06:49→08:07)
[2016-08-25 07:52] LABS: AUTOMATED NEUTROPHIL # 4.3 TH/MM3 (1.8-7.7); BASOPHIL % 0.5 % (0.0-2.0); EOSINOPHIL % 0.1 % (0.0-4.0); HEMATOCRIT 31.6 % (35.0-46.0); HEMO FLAGS DIFF FINAL; LYMPH % 27.4 % (9.0-44.0); LYMPHOCYTE # 1.9 TH/MM3 (1.0-4.8); MEAN CELL VOLUME 78.3 FL (80.0-100.0); MEAN CORPUSCULAR HEMOGLOBIN 25.2 PG (27.0-34.0); MEAN CORPUSCULAR HGB CONC 32.2 % (32.0-36.0); MONO % 11.3 % (0.0-8.0); NEUT % 60.7 % (16.0-70.0); PLATELET COUNT 161 TH/MM3 (150-450); RED BLOOD COUNT 4.04 MIL/MM3 (4.00-5.30); RED CELL DISTRIBUTION WIDTH 16.6 % (11.6-17.2); WHITE BLOOD COUNT 7.1 TH/MM3 (4.0-11.0)
[2016-08-25] MEDS: CHLORHEXIDINE 0.12% (ORAL KIT) 15 ML CUP MT SCH ×2 (07:58→19:15)
[2016-08-25] MEDS: PANTOPRAZOLE SODIUM 40 MG VIAL IV SCH (07:58)
[2016-08-25] MEDS: DOCUSATE SODIUM 100 MG/10 ML UDC G-TUBE SCH ×2 (08:00→19:15)
[2016-08-25] MEDS ORDERED: VANCOMYCIN 1,000 MG/NS 250 ML IV SCH ×2 (08:00)
[2016-08-25] MEDS: METOPROLOL TARTRATE 25 MG TAB PO SCH ×3 (08:00→20:26)
[2016-08-25] MEDS: ARTIFICIAL TEARS OPTH SOLN 15 ML BTL EACH EYE SCH ×3 (08:00→18:00)
[2016-08-25] MEDS: SODIUM CHLORIDE 0.9% FLUSH 5 ML FLUSH IV FLUSH SCH ×2 (08:00→20:27)
[2016-08-25 08:01] LABS: ALKALINE PHOSPHATASE 100 U/L (45-117); ALT (GPT) 207 U/L (10-53); ANION GAP 8 MEQ/L (5-15); AST (GOT) 138 U/L (15-37); BICARBONATE 24.8 MEQ/L (21.0-32.0); BLOOD UREA NITROGEN 21 MG/DL (7-18); CHLORIDE 107 MEQ/L (98-107); GLOMERULAR FILTRATION RATE 60 ML/MIN (>89); MAGNESIUM 2.1 MG/DL (1.5-2.5); POTASSIUM 3.9 MEQ/L (3.5-5.1); SODIUM (NA) 140 MEQ/L (136-145); TOTAL BILIRUBIN ADULT 0.3 MG/DL (0.2-1.0)
[2016-08-25] MEDS: ALLOPURINOL 100 MG TAB PO SCH (08:01)
[2016-08-25] MEDS: ASPIRIN 81 MG CHEW TAB TUBE SCH (08:01)
[2016-08-25] MEDS: PRAVASTATIN SOD 20 MG TAB PO SCH (08:01)
[2016-08-25] MEDS: CLOPIDOGREL 75 MG TAB PO SCH (08:01)
[2016-08-25] MEDS: DULoxetine HCl DR 30 MG CAP PO SCH (08:01)
[2016-08-25] MEDS: HEPARIN SODIUM - SQ 10,000 UNITS/ML VIAL SQ SCH ×2 (08:01→20:27)
--- NOTE | 2016-08-25 08:24 | HHI.CCPN ---
Subjective Remarks/Hospital Course 75-year-old female well-known to [facility] recently discharged in Jul 2016, with a PMH of TBI with right temporal contusion, HTN, S/P CVA, Gout, fibromyalgia,acute hyperkalemia, frequent falls that presented to the ED brought in by EMS because patient had fallen yesterday.The patient was found lethargic, unresponsive according to patient's roommate. She was last seen normal at 9 PM the evening before. When EMS arrived, she was noted to be tachypneic, and disoriented, not protecting her airway, and she was intubated for airway protection. Upon arrival to the ED, the patient's systolic blood pressure was noted to be in the 80's. Laboratory and imaging studies were performed. CT scan revealed no acute abnormality, the patient was noted to be hyperkalemic, with a lactate 4.0. Cultures were obtained suggestive of UTI. Local care medicine was consulted for treatment and management. 08/24 Patient is sedated with Diprivan and intubated. s/p transfusion 2u PRBC with Hgb 10.0 from 7.3. Afebrile. 08/25 No acute events overnight. Sedated and intubated. Patient tolerated CPAP x 3 hrs yesterday then became tachypneic. T:100.4 Objective Vital Signs Date Time Temp Pulse Resp B/P Pulse Ox O2 Delivery O2 Flow Rate FiO2 08/25/16 06:00 101 08/25/16 04:06 100 35 08/25/16 04:00 100.4 18 177/79 08/23/16 20:34 Ventilator Intake and Output 08/24/16 08/24/16 08/25/16 08:00 16:00 00:00 Intake Total 1161 ml 832 ml 990 ml Output Total 1420 ml 425 ml 625 ml Balance -259 ml 407 ml 365 ml Result Diagram: 08/25/16 0716 08/25/16 0716 Other Results Laboratory Tests Test 08/24/16 08/25/16 09:35 07:16 White Blood Count 8.9 TH/MM3 7.1 TH/MM3 Red Blood Count 4.10 MIL/MM3 4.04 MIL/MM3 Hemoglobin 10.3 GM/DL 10.2 GM/DL Hematocrit 32.1 % 31.6 % Mean Corpuscular Volume 78.1 FL 78.3 FL Mean Corpuscular Hemoglobin 25.0 PG 25.2 PG Mean Corpuscular Hemoglobin 32.0 % 32.2 % Concent Red Cell Distribution Width 16.6 % 16.6 % Platelet Count 171 TH/MM3 161 TH/MM3 Mean Platelet Volume 8.3 FL 8.3 FL Neutrophils (%) (Auto) 72.8 % 60.7 % Lymphocytes (%) (Auto) 17.7 % 27.4 % Monocytes (%) (Auto) 8.9 % 11.3 % Eosinophils (%) (Auto) 0.0 % 0.1 % Basophils (%) (Auto) 0.6 % 0.5 % Neutrophils # (Auto) 6.5 TH/MM3 4.3 TH/MM3 Lymphocytes # (Auto) 1.6 TH/MM3 1.9 TH/MM3 Monocytes # (Auto) 0.8 TH/MM3 0.8 TH/MM3 Eosinophils # (Auto) 0.0 TH/MM3 0.0 TH/MM3 Basophils # (Auto) 0.1 TH/MM3 0.0 TH/MM3 CBC Comment DIFF FINAL DIFF FINAL Differential Comment Sodium Level 142 MEQ/L 140 MEQ/L Potassium Level 4.0 MEQ/L 3.9 MEQ/L Chloride Level 108 MEQ/L 107 MEQ/L Carbon Dioxide Level 26.3 MEQ/L 24.8 MEQ/L Anion Gap 8 MEQ/L 8 MEQ/L Blood Urea Nitrogen 32 MG/DL 21 MG/DL Creatinine 1.40 MG/DL 0.91 MG/DL Estimat Glomerular Filtration 37 ML/MIN 60 ML/MIN Rate Random Glucose 96 MG/DL 102 MG/DL Lactic Acid Level 2.4 mmol/L Calcium Level 7.9 MG/DL 7.6 MG/DL Total Bilirubin 0.3 MG/DL 0.3 MG/DL Aspartate Amino Transf 194 U/L 138 U/L (AST/SGOT) Alanine Aminotransferase 187 U/L 207 U/L (ALT/SGPT) Alkaline Phosphatase 99 U/L 100 U/L Total Protein 5.6 GM/DL 5.8 GM/DL Albumin 2.4 GM/DL 2.2 GM/DL Magnesium Level 2.1 MG/DL Imaging Last Impressions Liver Ultrasound 08/24/16 0000 Signed Impressions: Service Date/Time: Wednesday, August 24, 2016 13:39 - CONCLUSION: 1. The gallbladder wall is at the upper limits of normal in size and there is a small amount of sludge. 2. Suboptimal study. Mark Chavis MD Head CT 08/23/16 [id number] Signed Impressions: Service Date/Time: August 16:01 - CONCLUSION: 1. No acute intracranial abnormalities. Delvin Arauz MD Chest X-Ray 08/23/16 1358 Signed Impressions: Service Date/Time: August 14:47 - CONCLUSION: 1. Chronic appearing interstitial changes. 2. ET tube and NG tube in good position. Roc Lyons MD Objective Remarks GENERAL: Patient is 75yo F sedated and intubated SKIN: Warm and dry. HEAD: Normocephalic. EYES: No scleral icterus. No injection or drainage. NECK: Supple, trachea midline. No JVD or lymphadenopathy. CARDIOVASCULAR: Regular rate and rhythm without murmurs, gallops, or rubs. RESPIRATORY: Breath sounds equal bilaterally. No accessory muscle use. GASTROINTESTINAL: Abdomen soft, non-tender, nondistended. MUSCULOSKELETAL: No cyanosis, or edema. Neuro: Sedated. A/P Assessment and Plan Neurologic: Metabolic Encephalopathy H/O TBI with right temporal contusion Frequent falls Fibromyalgia Depression S/P CVA Chronic pain syndrome Fibromyalgia -Neurochecks per ICU protocol -Continue ASA and Plavix -Continue Duloxetine -Propofol/Fentanyl infusion for ventilator synchrony -Maintain RASS-2. Daily sedation vacation Respiratory: Respiratory insufficiency H/O tobacco abuse -Continue with vent support and maintain O2 > 92% -Bronchodilators every 6 hours, and every 2 hours when necessary -CPAP trials as godfrey -CXR 08/23 chronic appearing interstitial changes Cardiovascular: Dyslipidemia Hypertension H/O CHF -Increase Lopressor 50mg Q12, On Norvasc 5mg daily-Monitor HR and BP keep MAP> 65mmHg -Continue pravastatin, ASA, Plavix -ECHO 11/04/15-EF 55-60%, no RWMA, mild aortic regurgitation. Renal: Chronic kidney disease -- Monitor renal function, I/O's, electrolytes replacement per protocol. _Renal function improving with Cr: 0.91 from 1.4 -d/c IVF GI: Elevated LFT;s US liver: The gallbladder wall is at the upper limits of normal in size and there is a small amount of sludge. 2. Suboptimal study. Monitor LFT's, check Hepatitis profile. On TF-Glucerna 1.5@45ml/hr. Protonix for GI prophylaxis Heme Anemia of chronic disease Presumed urosepsis Leukocytosis- Resolved -s/p transfusion 2u PRBC 08/24 -Monitor CBC ID: Leukocytosis UTI- urine cx: GNR -Continue with abx (Levaquin and vancomycin ) monitor for signs of infections ( Fever, WBC) -Follow up on cxs -Pneumococcal, Legionella antigen negative -Negative for influenza Endocrine: Diabetes mellitus Glucose monitoring per ICU protocol, low dose regimen -TSH 1.040 -- SSI MSK: Osteoporosis Gout Rheumatoid arthritis -Continue allopurinol Prophylaxis: GI Prophylaxis Protonix DVT Prophylaxis -- SCDs Heparin 5000 SQ BID Lines: Peripheral IVs 2 . CCT 30 mins Colin Babcock MD Aug 25, 2016 08:24
[2016-08-25 11:44] LABS: BLOOD GAS BASE EXCESS 1.4 mmol/L (-2-2); BLOOD GAS CARBOXYHEMOGLOBIN 1.6 % (0-4); BLOOD GAS HCO3 25 mmol/L (22-26); BLOOD GAS METHEMOGLOBIN 1.2 % (0-2); BLOOD GAS O2 HGB SATURATION 94 % (90-100); BLOOD GAS OXYGEN CONTENT 14.2 Vol % (12.0-20.0); BLOOD GAS PCO2 39 mmHg (38-42); BLOOD GAS PO2 86 mmHg (61-120); BLOOD GAS TOTAL HGB 10.7 G/DL (12.0-16.0); CRITICAL VALUE NO; DRAW SITE RT RADIAL; FIO2 35 %; NUMBER OF ARTERIAL PUNCTURES 1; OXYGEN DEVICE VENTILATOR; STAT NO; TEMP CORR TO 98.6; ULNAR PULSE PRESENT; VENT SETTINGS CPAP+5/PS+10
[2016-08-25] MEDS: VANCOMYCIN INJ 1,250 MG in SODIUM CHLOR 0.9% 250 ML INJ 250 ML IV SCH (13:49)
[2016-08-25] MEDS: hydrALAZINE HCL 20 MG/ML VIAL IV PUSH PRN (18:34)
[2016-08-25] MEDS: ACETAMINOPHEN 325 MG TAB PO PRN (20:26)
[2016-08-25] MEDS: LEVOFLOXACIN/DEXTROSE 250 MG/50 ML IV SCH (20:27)
[2016-08-26] VITALS (14 sets, daily range): BP systolic 122–158; BP diastolic 59–70; PULSE 84–107; RESP 18–22; TEMP 98–98.8; O2SAT 95–99
[2016-08-26] MEDS: INSULIN NovoLIN REGULAR SUPPLEMENTAL SCALE SQ SCH ×4 (01:00→19:00)
[2016-08-26] MEDS: RESP: ALBUTEROL 2.5 MG/IPRATROPIUM 0.5 MG NEB (SCH) INH ×4 (03:48→21:19)
[2016-08-26] MEDS: CHLORHEXIDINE GLUCONATE 2 % 1 PACK (2 CLOTHS) TOP SCH (04:00)
[2016-08-26 07:39] LABS: AUTOMATED NEUTROPHIL # 5.3 TH/MM3 (1.8-7.7); BASOPHIL # 0.1 TH/MM3 (0-0.2); BASOPHIL % 0.7 % (0.0-2.0); EOSINOPHIL % 0.2 % (0.0-4.0); HEMATOCRIT 30.9 % (35.0-46.0); HEMO FLAGS DIFF FINAL; LYMPH % 20.6 % (9.0-44.0); LYMPHOCYTE # 1.6 TH/MM3 (1.0-4.8); MEAN CELL VOLUME 78.1 FL (80.0-100.0); MEAN CORPUSCULAR HEMOGLOBIN 25.1 PG (27.0-34.0); MEAN CORPUSCULAR HGB CONC 32.1 % (32.0-36.0); NEUT % 69.5 % (16.0-70.0); PLATELET COUNT 149 TH/MM3 (150-450); RED BLOOD COUNT 3.95 MIL/MM3 (4.00-5.30); RED CELL DISTRIBUTION WIDTH 16.3 % (11.6-17.2); WHITE BLOOD COUNT 7.7 TH/MM3 (4.0-11.0)
[2016-08-26] MEDS: CHLORHEXIDINE 0.12% (ORAL KIT) 15 ML CUP MT SCH (08:00)
[2016-08-26 08:21] LABS: ALT (GPT) 198 U/L (10-53); ANION GAP 9 MEQ/L (5-15); AST (GOT) 100 U/L (15-37); BICARBONATE 28.8 MEQ/L (21.0-32.0); BLOOD UREA NITROGEN 11 MG/DL (7-18); CHLORIDE 105 MEQ/L (98-107); GLOMERULAR FILTRATION RATE 89 ML/MIN (>89); MAGNESIUM 2.1 MG/DL (1.5-2.5); POTASSIUM 3.3 MEQ/L (3.5-5.1); SODIUM (NA) 143 MEQ/L (136-145)
[2016-08-26 08:23] LABS: ALKALINE PHOSPHATASE 93 U/L (45-117); TOTAL BILIRUBIN ADULT 0.5 MG/DL (0.2-1.0)
[2016-08-26] MEDS: DOCUSATE SODIUM 100 MG/10 ML UDC G-TUBE SCH (09:00)
[2016-08-26] MEDS: METOPROLOL TARTRATE 25 MG TAB PO SCH (10:35)
[2016-08-26] MEDS: DULoxetine HCl DR 30 MG CAP PO SCH (10:35)
[2016-08-26] MEDS: HEPARIN SODIUM - SQ 10,000 UNITS/ML VIAL SQ SCH (10:36)
[2016-08-26] MEDS: amLODIPine BESYLATE 5 MG TAB TUBE SCH (10:36)
[2016-08-26] MEDS: PRAVASTATIN SOD 20 MG TAB PO SCH (10:36)
[2016-08-26] MEDS: ASPIRIN 81 MG CHEW TAB TUBE SCH (10:36)
[2016-08-26] MEDS: CLOPIDOGREL 75 MG TAB PO SCH (10:36)
[2016-08-26] MEDS: PANTOPRAZOLE SODIUM 40 MG VIAL IV SCH (10:36)
[2016-08-26] MEDS: ALLOPURINOL 100 MG TAB PO SCH (10:36)
[2016-08-26] MEDS: ARTIFICIAL TEARS OPTH SOLN 15 ML BTL EACH EYE SCH ×3 (10:37→18:00)
[2016-08-26] MEDS: SODIUM CHLORIDE 0.9% FLUSH 5 ML FLUSH IV FLUSH SCH (10:37)
[2016-08-26] MEDS: VANCOMYCIN INJ 1,250 MG in SODIUM CHLOR 0.9% 250 ML INJ 250 ML IV SCH (14:00)
[2016-08-26] MEDS: LEVOFLOXACIN/DEXTROSE 250 MG/50 ML IV SCH (20:00)
[2016-08-27] VITALS (10 sets, daily range): BP systolic 140–188; BP diastolic 63–80; PULSE 3–121; RESP 18–24; TEMP 98.2–99; O2SAT 93–97
[2016-08-27] MEDS: INSULIN NovoLIN REGULAR SUPPLEMENTAL SCALE SQ SCH ×4 (01:00→18:10)
[2016-08-27] MEDS: RESP: ALBUTEROL 2.5 MG/IPRATROPIUM 0.5 MG NEB (SCH) INH ×4 (03:30→21:06)
[2016-08-27] MEDS: CHLORHEXIDINE GLUCONATE 2 % 1 PACK (2 CLOTHS) TOP SCH (04:00)
[2016-08-27] MEDS: ARTIFICIAL TEARS OPTH SOLN 15 ML BTL EACH EYE SCH ×3 (07:52→18:10)
[2016-08-27] MEDS: METOPROLOL TARTRATE 25 MG TAB PO SCH ×2 (07:54→22:34)
[2016-08-27] MEDS: PRAVASTATIN SOD 20 MG TAB PO SCH (07:54)
[2016-08-27] MEDS: amLODIPine BESYLATE 5 MG TAB TUBE SCH (07:54)
[2016-08-27] MEDS: ALLOPURINOL 100 MG TAB PO SCH (07:54)
[2016-08-27] MEDS: DULoxetine HCl DR 30 MG CAP PO SCH (07:54)
[2016-08-27] MEDS: ASPIRIN 81 MG CHEW TAB TUBE SCH (07:54)
[2016-08-27] MEDS: CLOPIDOGREL 75 MG TAB PO SCH (07:54)
[2016-08-27] MEDS: DOCUSATE SODIUM 100 MG/10 ML UDC G-TUBE SCH ×2 (07:55→21:00)
[2016-08-27] MEDS: CHLORHEXIDINE 0.12% (ORAL KIT) 15 ML CUP MT SCH ×2 (07:56→20:00)
[2016-08-27] MEDS: SODIUM CHLORIDE 0.9% FLUSH 5 ML FLUSH IV FLUSH SCH ×2 (07:57→22:34)
[2016-08-27] MEDS: PANTOPRAZOLE SODIUM 40 MG VIAL IV SCH (07:57)
[2016-08-27] MEDS: HEPARIN SODIUM - SQ 10,000 UNITS/ML VIAL SQ SCH ×2 (09:00→22:35)
--- NOTE | 2016-08-27 10:30 | HHI.CCPN ---
Subjective Remarks/Hospital Course 75-year-old female well-known to [facility] recently discharged in Jul 2016, with a PMH of TBI with right temporal contusion, HTN, S/P CVA, Gout, fibromyalgia,acute hyperkalemia, frequent falls that presented to the ED brought in by EMS because patient had fallen yesterday.The patient was found lethargic, unresponsive according to patient's roommate. She was last seen normal at 9 PM the evening before. When EMS arrived, she was noted to be tachypneic, and disoriented, not protecting her airway, and she was intubated for airway protection. Upon arrival to the ED, the patient's systolic blood pressure was noted to be in the 80's. Laboratory and imaging studies were performed. CT scan revealed no acute abnormality, the patient was noted to be hyperkalemic, with a lactate 4.0. Cultures were obtained suggestive of UTI. Local care medicine was consulted for treatment and management. 08/24 Patient is sedated with Diprivan and intubated. s/p transfusion 2u PRBC with Hgb 10.0 from 7.3. Afebrile. 08/25 No acute events overnight. Sedated and intubated. Patient tolerated CPAP x 3 hrs yesterday then became tachypneic. T:100.4 08/27 No acute events overnight. Patient is lying in be din NAD. Afebrile. Objective Vital Signs Date Time Temp Pulse Resp B/P Pulse Ox O2 Delivery O2 Flow Rate FiO2 08/27/16 09:39 Nasal Cannula 2.00 08/27/16 06:00 93 08/27/16 04:00 98.2 18 172/77 95 08/25/16 12:38 36 Intake and Output 08/26/16 08/26/16 08/27/16 08:00 16:00 00:00 Intake Total 240 ml 450 ml Output Total 650 ml 650 ml 350 ml Balance -650 ml -410 ml 100 ml Result Diagram: 08/26/16 0650 08/26/16 0650 Imaging Last Impressions Liver Ultrasound 08/24/16 0000 Signed Impressions: Service Date/Time: Wednesday, August 24, 2016 13:39 - CONCLUSION: 1. The gallbladder wall is at the upper limits of normal in size and there is a small amount of sludge. 2. Suboptimal study. Mark Chavis MD Head CT 08/23/16 1358 Signed Impressions: Service Date/Time: August 16:01 - CONCLUSION: 1. No acute intracranial abnormalities. Delvin Arauz MD Chest X-Ray 08/23/16 [id number] Signed Impressions: Service Date/Time: , August 23, 2016 14:47 - CONCLUSION: 1. Chronic appearing interstitial changes. 2. ET tube and NG tube in good position. Roc Lyons MD Objective Remarks GENERAL: Patient is lying in bed in NAD SKIN: Warm and dry. HEAD: Normocephalic. EYES: No scleral icterus. No injection or drainage. NECK: Supple, trachea midline. No JVD or lymphadenopathy. CARDIOVASCULAR: Regular rate and rhythm without murmurs, gallops, or rubs. RESPIRATORY: Breath sounds equal bilaterally. No accessory muscle use. GASTROINTESTINAL: Abdomen soft, non-tender, nondistended. MUSCULOSKELETAL: No cyanosis, or edema. Neuro: Awake and alert A/P Assessment and Plan Neurologic: Metabolic Encephalopathy- improved H/O TBI with right temporal contusion Frequent falls Fibromyalgia Depression S/P CVA Chronic pain syndrome Fibromyalgia -Neurochecks per ICU protocol -Continue ASA and Plavix -Continue Duloxetine -Awake and alert Respiratory: Respiratory insufficiency H/O tobacco abuse -Continue with oxygen keep sat > 92% -Bronchodilators every 6 hours, and every 2 hours when necessary -CXR 08/23 chronic appearing interstitial changes Cardiovascular: Dyslipidemia Hypertension H/O CHF -On Lopressor 50mg Q12, Norvasc 5mg daily-Monitor HR and BP keep MAP>65mmHg -Continue pravastatin, ASA, Plavix -ECHO 11/04/15-EF 55-60%, no RWMA, mild aortic regurgitation. Renal: Chronic kidney disease -- Monitor renal function, I/O's, electrolytes replacement per protocol. GI: Elevated LFT;s..trending down US liver: The gallbladder wall is at the upper limits of normal in size and there is a small amount of sludge. 2. Suboptimal study. Monitor LFT's, check Hepatitis profile. On PO diet Protonix for GI prophylaxis Heme Anemia of chronic disease Presumed urosepsis Leukocytosis- Resolved -s/p transfusion 2u PRBC 08/24 -Monitor CBC ID: Leukocytosis UTI- urine cx: Kleb ESBL d/c (Levaquin and vanco, place on Merrem 1 gram IV Q8, ID eval- monitor for signs of infections ( Fever, WBC) -Pneumococcal, Legionella antigen negative -Negative for influenza Endocrine: Diabetes mellitus Glucose monitoring per ICU protocol, low dose regimen -TSH 1.040 -- SSI MSK: Osteoporosis Gout Rheumatoid arthritis -Continue allopurinol Prophylaxis: GI Prophylaxis Protonix DVT Prophylaxis -- SCDs Heparin 5000 SQ BID Lines: Peripheral IVs 2 . Will sign off and transfer care to [facility] Level 3 Colin Babcock MD Aug 27, 2016 10:30
[2016-08-27] MEDS ORDERED: ASP: ID consult, note reason in consult order XX PRN (11:00)
[2016-08-27] MEDS ORDERED: ASP: Documented ESBL, MDR A baumannii or P. aeruginosa XX PRN ×2 (11:00→17:15)
[2016-08-27 11:38] LABS: AUTOMATED NEUTROPHIL # 4.9 TH/MM3 (1.8-7.7); BASOPHIL % 0.4 % (0.0-2.0); EOSINOPHIL % 0.1 % (0.0-4.0); HEMATOCRIT 31.8 % (35.0-46.0); HEMO FLAGS DIFF FINAL; LYMPH % 17.6 % (9.0-44.0); LYMPHOCYTE # 1.2 TH/MM3 (1.0-4.8); MEAN CELL VOLUME 76.5 FL (80.0-100.0); MEAN CORPUSCULAR HEMOGLOBIN 25.2 PG (27.0-34.0); MEAN CORPUSCULAR HGB CONC 32.9 % (32.0-36.0); MONO % 10.8 % (0.0-8.0); NEUT % 71.1 % (16.0-70.0); PLATELET COUNT 146 TH/MM3 (150-450); RED BLOOD COUNT 4.15 MIL/MM3 (4.00-5.30); RED CELL DISTRIBUTION WIDTH 16.5 % (11.6-17.2); WHITE BLOOD COUNT 6.8 TH/MM3 (4.0-11.0)
[2016-08-27 11:54] LABS: ANION GAP 7 MEQ/L (5-15); AST (GOT) 52 U/L (15-37); BICARBONATE 31.9 MEQ/L (21.0-32.0); BLOOD UREA NITROGEN 13 MG/DL (7-18); CHLORIDE 101 MEQ/L (98-107); GLOMERULAR FILTRATION RATE 77 ML/MIN (>89); MAGNESIUM 2.1 MG/DL (1.5-2.5); POTASSIUM 3.6 MEQ/L (3.5-5.1); SODIUM (NA) 140 MEQ/L (136-145)
[2016-08-27 11:58] LABS: ALKALINE PHOSPHATASE 95 U/L (45-117); ALT (GPT) 155 U/L (10-53); TOTAL BILIRUBIN ADULT 0.3 MG/DL (0.2-1.0)
[2016-08-27] MEDS ORDERED: MEROPENEM 1,000 MG/NS 100 ML IV SCH ×2 (12:00)
[2016-08-27] MEDS: ALPRAZolam 0.25 MG TAB PO PRN ×2 (12:15→22:54)
[2016-08-27] MEDS: guaiFENesin/CODEINE SYRUP 200 MG/20 MG/10 ML CUP PO PRN (14:37)
[2016-08-27] MEDS: ACETAMINOPHEN 325 MG TAB PO PRN (17:01)
--- NOTE | 2016-08-27 17:13 | PD.CONS ---
History of Present Illness Service Infectious disease Consult Requested By Dr Shereen Babcock Reason for Consult Evaluate patient with UTI, Klebsiella ESBL positive Primary Care Physician Karis Roblero MD Diagnoses: History of Present Illness Patient seen and examined. Records reviewed. Patient is a 75-year-old female, brought to the hospital, apparently had fallen in her home, and she was found very lethargic and unresponsive. EMS found her to be tachypneic and disoriented, and not protecting her airway. She was intubated for airway protection. Evaluation in the emergency room showed a leukocytosis of 13,000. Chest x-ray showed some chronic interstitial changes. CT of the head did not show any acute abnormality. Lactic acid was elevated. Urinalysis showed UTI. Patient was successfully extubated this weekend. Patient currently is awake and alert. She denies any problem. She was told back in July that she had a bladder infection. Her urinalysis showed some pyuria, urine culture has Klebsiella ESBL positive. Patient has not been febrile. Her WBC is down to normal. Infectious disease consultation is requested to evaluate the patient. Review of Systems Constitutional: DENIES: Fever, Chills Eyes: DENIES: Eye pain Ears, nose, mouth, throat: DENIES: Nasal discharge, Oral lesions, Throat pain, Ear Pain, Toothache Respiratory: DENIES: Cough, Shortness of breath Cardiovascular: DENIES: Chest pain, Palpitations Gastrointestinal: DENIES: Abdominal pain, Diarrhea, Nausea, Vomiting Genitourinary: DENIES: Urinary frequency, Hematuria, Dysuria Musculoskeletal: DENIES: Joint pain, Joint Swelling Integumentary: DENIES: Rash Immunologic/allergic: DENIES: Urticaria Neurologic: DENIES: Headache Psychiatric: DENIES: Anxiety, Hallucinations Past Family Social History Allergies: Coded Allergies: Contrast Media (Verified Allergy, Severe, "throat closes up", 08/23/16) states that reaction used to occur but no longer does Keflex (Verified Adverse Reaction, Severe, "burning sensation,body red", ) *MDRO Multi-Drug Resistant Organism (Verified Adverse Reaction, Unknown, VRE, ESBL, 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 Jackson) Bilateral carotid endarterectomy (right carotid endarterectomy was performed by Dr. Moreau) Hysterectomy Active Ordered Medications Tylenol Albuterol Allopurinol Xanax Norvasc Aspirin Plavix Colace Cymbalta Robitussin-AC Heparin Hydralazine Insulin Labetalol Magnesium Meropenem Lopressor Zofran Protonix Potassium Pravachol Senna Social History Smokes less than 1/2 ppd Occasional wine No drug use Physical Exam Vital Signs Vital Signs Date Time Temp Pulse Resp B/P Pulse Ox O2 Delivery O2 Flow Rate FiO2 08/27/16 09:39 Nasal Cannula 2.00 08/27/16 06:00 93 08/27/16 04:00 95 08/27/16 04:00 98.2 95 18 172/77 95 08/27/16 02:00 3 08/27/16 00:00 98.8 96 22 151/68 97 08/27/16 00:00 92 08/26/16 22:00 107 08/26/16 20:00 97 08/26/16 20:00 98.8 97 18 149/65 96 08/26/16 19:33 96 Nasal Cannula 3.00 08/26/16 18:00 95 Physical Exam GENERAL: This is a well-nourished, well-developed female, awake and alert, not in any respiratory distress. SKIN: Cool and dry. No generalized rash. She has some ecchymosis on her anterior abdominal wall, as well as on her right foot. HEAD: Atraumatic. Normocephalic. No temporal or scalp tenderness. EYES: Slightly pale conjunctivae, no petechia or hemorrhage. Pupils equal round and reactive. Extraocular motions intact. No scleral icterus. No injection or drainage. ENT: Nose without bleeding, or purulent drainage. Moist oral mucosa. Throat without erythema, or exudate. Uvula midline. Airway patent. NECK: Trachea midline. No JVD or lymphadenopathy. Supple, nontender, no meningeal signs. CARDIOVASCULAR: Regular rate and rhythm without murmurs, gallops, or rubs. RESPIRATORY: Clear to auscultation. Breath sounds equal bilaterally. No wheezes , rales, or rhonchi. Decreased breath sounds at the bases. GASTROINTESTINAL: Abdomen soft, slightly globular, non-tender, nondistended. Bowel sounds are present and normoactive. No hepato-splenomegaly, or palpable masses. No guarding. MUSCULOSKELETAL: Extremities without clubbing, cyanosis, or edema. No joint tenderness, or effusion. No calf tenderness. Negative Homans sign bilaterally. Has some ecchymoses on the R ist MTP joint, not swelling or tenderness NEUROLOGICAL: Awake and alert. Cranial nerves II through XII intact. Motor and sensory grossly within normal limits. Five out of 5 muscle strength in all muscle groups. Normal speech. PSYCH: Normal affect, calm and cooperative. LINE: PIV with no evidence of infection Laboratory Laboratory Tests Test 08/27/16 11:03 White Blood Count 6.8 Red Blood Count 4.15 Hemoglobin 10.4 Hematocrit 31.8 Mean Corpuscular Volume 76.5 Mean Corpuscular Hemoglobin 25.2 Mean Corpuscular Hemoglobin 32.9 Concent Red Cell Distribution Width 16.5 Platelet Count 146 Mean Platelet Volume 8.1 Neutrophils (%) (Auto) 71.1 Lymphocytes (%) (Auto) 17.6 Monocytes (%) (Auto) 10.8 Eosinophils (%) (Auto) 0.1 Basophils (%) (Auto) 0.4 Neutrophils # (Auto) 4.9 Lymphocytes # (Auto) 1.2 Monocytes # (Auto) 0.7 Eosinophils # (Auto) 0.0 Basophils # (Auto) 0.0 CBC Comment DIFF FINAL Differential Comment Sodium Level 140 Potassium Level 3.6 Chloride Level 101 Carbon Dioxide Level 31.9 Anion Gap 7 Blood Urea Nitrogen 13 Creatinine 0.74 Estimat Glomerular Filtration 77 Rate Random Glucose 143 Calcium Level 8.5 Phosphorus Level 2.7 Magnesium Level 2.1 Total Bilirubin 0.3 Aspartate Amino Transf 52 (AST/SGOT) Alanine Aminotransferase 155 (ALT/SGPT) Alkaline Phosphatase 95 Total Protein 6.2 Albumin 2.5 Date/Time Procedure Status Source Growth 08/24/16 01:55 Influenza Types A,B Antigen (MATTIE) - Final Complete Nasal Washing NEGATIVE FOR FLU A AND B ANTIGEN.... 08/24/16 01:43 Gram Stain - Final Complete Sputum Endotracheal 08/24/16 01:43 Sputum Culture - Final Complete Sputum Endotracheal HEAVY GROWTH NORMAL RESPIRATORY ANNETTE 08/23/16 21:50 Legionella Antigen - Final Complete Urine Catheterized Urine PRESUMPTIVE NEGATIVE FOR LEGIONELLA P... 08/23/16 21:50 Streptococcus pneumoniae Antigen (M - Final Complete Urine Catheterized Urine PRESUMPTIVE NEGATIVE FOR STREPTOCOCCU... 08/23/16 14:05 Aerobic Blood Culture - Preliminary Resulted Blood Peripheral NO GROWTH IN 4 DAYS 08/23/16 14:05 Anaerobic Blood Culture - Preliminary Resulted Blood Peripheral NO GROWTH IN 4 DAYS 08/23/16 14:00 Urine Culture - Final Complete Urine Catheterized Urine Klebsiella Pneumoniae Esbl Pos Result Diagram: 08/27/16 1103 08/27/16 1103 Imaging RADIOLOGY STUDIES/FILMS REVIEWED Liver Ultrasound 08/24/16 0000 Signed Impressions: Service Date/Time: Wednesday, August 24, 2016 13:39 - CONCLUSION: 1. The gallbladder wall is at the upper limits of normal in size and there is a small amount of sludge. 2. Suboptimal study. Mark Chavis MD Head CT 08/23/16 [id number] Signed Impressions: Service Date/Time: August 16:01 - CONCLUSION: 1. No acute intracranial abnormalities. Delvin Arauz MD Chest X-Ray 08/23/16 [id number] Signed Impressions: Service Date/Time: August 14:47 - CONCLUSION: 1. Chronic appearing interstitial changes. 2. ET tube and NG tube in good position. Roc Lyons MD Assessment and Plan Assessment and Plan IMPRESSION Klebsiella UTI, on admission Respiratory failure, S/P extubation Etiology of initial decreased LOC unclear, better RECOMMENDATION IV Invanz Follow C/S Monitor temps Repeat UA and C/S in few days D/C Meropenem I will follow along with you Thank you for this consultation Discussed Condition With D/W Mariela Del Real MD Aug 27, 2016 17:13
[2016-08-27] MEDS ORDERED: MISCELLANEOUS PHARMACY INFORMATION XX PRN (17:15)
[2016-08-27] MEDS ORDERED: hydrALAZINE HCL 20 MG/ML VIAL IV PUSH PRN (17:45)
[2016-08-27] MEDS: hydrALAZINE HCL 20 MG/ML VIAL IV PUSH PRN ×2 (18:09→22:36)
[2016-08-27] MEDS: ERTAPENEM INJ 1,000 MG in SODIUM CHLORIDE 0.9% INJ 100 ML IV SCH (22:54)
[2016-08-28] VITALS (11 sets, daily range): BP systolic 122–163; BP diastolic 55–74; PULSE 85–110; RESP 20–26; TEMP 98–98.6; O2SAT 93–100
[2016-08-28] MEDS: INSULIN NovoLIN REGULAR SUPPLEMENTAL SCALE SQ SCH ×2 (01:00→06:48)
[2016-08-28] MEDS: CHLORHEXIDINE GLUCONATE 2 % 1 PACK (2 CLOTHS) TOP SCH (04:00)
[2016-08-28 06:24] LABS: AUTOMATED NEUTROPHIL # 4.2 TH/MM3 (1.8-7.7); BASOPHIL % 0.4 % (0.0-2.0); EOSINOPHIL % 0.1 % (0.0-4.0); HEMATOCRIT 34.5 % (35.0-46.0); HEMO FLAGS DIFF FINAL; LYMPH % 19.6 % (9.0-44.0); LYMPHOCYTE # 1.2 TH/MM3 (1.0-4.8); MEAN CELL VOLUME 77.4 FL (80.0-100.0); MEAN CORPUSCULAR HGB CONC 32.3 % (32.0-36.0); MONO % 10.6 % (0.0-8.0); NEUT % 69.3 % (16.0-70.0); PLATELET COUNT 154 TH/MM3 (150-450); RED BLOOD COUNT 4.46 MIL/MM3 (4.00-5.30); RED CELL DISTRIBUTION WIDTH 16.8 % (11.6-17.2); WHITE BLOOD COUNT 6.1 TH/MM3 (4.0-11.0)
[2016-08-28] MEDS: hydrALAZINE HCL 20 MG/ML VIAL IV PUSH PRN ×2 (06:50→22:09)
[2016-08-28 06:54] LABS: ALKALINE PHOSPHATASE 93 U/L (45-117); ALT (GPT) 113 U/L (10-53); ANION GAP 8 MEQ/L (5-15); AST (GOT) 33 U/L (15-37); BLOOD UREA NITROGEN 11 MG/DL (7-18); CHLORIDE 98 MEQ/L (98-107); GLOMERULAR FILTRATION RATE 96 ML/MIN (>89); POTASSIUM 3.5 MEQ/L (3.5-5.1); SODIUM (NA) 138 MEQ/L (136-145); TOTAL BILIRUBIN ADULT 0.4 MG/DL (0.2-1.0)
[2016-08-28] MEDS: CHLORHEXIDINE 0.12% (ORAL KIT) 15 ML CUP MT SCH ×2 (08:00→20:00)
[2016-08-28] MEDS: DOCUSATE SODIUM 100 MG/10 ML UDC G-TUBE SCH ×2 (09:00→20:29)
[2016-08-28] MEDS: HEPARIN SODIUM - SQ 10,000 UNITS/ML VIAL SQ SCH ×2 (09:06→20:31)
[2016-08-28] MEDS: CLOPIDOGREL 75 MG TAB PO SCH (09:06)
[2016-08-28] MEDS: PANTOPRAZOLE SODIUM 40 MG VIAL IV SCH (09:06)
[2016-08-28] MEDS: PRAVASTATIN SOD 20 MG TAB PO SCH (09:06)
[2016-08-28] MEDS: ASPIRIN 81 MG CHEW TAB TUBE SCH (09:06)
[2016-08-28] MEDS: METOPROLOL TARTRATE 25 MG TAB PO SCH ×2 (09:06→20:30)
[2016-08-28] MEDS: amLODIPine BESYLATE 5 MG TAB TUBE SCH (09:06)
[2016-08-28] MEDS: ARTIFICIAL TEARS OPTH SOLN 15 ML BTL EACH EYE SCH ×3 (09:07→18:00)
[2016-08-28] MEDS: SODIUM CHLORIDE 0.9% FLUSH 5 ML FLUSH IV FLUSH SCH ×2 (09:07→20:30)
[2016-08-28] MEDS: ALLOPURINOL 100 MG TAB PO SCH (09:07)
[2016-08-28] MEDS: DULoxetine HCl DR 30 MG CAP PO SCH (09:07)
--- NOTE | 2016-08-28 09:07 | HHI.PR ---
Subjective Remarks f/u; encephalopathy/ UTI resting comfortably with no distress. afebrile. had some diarrhea over night. complaining of palpitations. noted that her BP was on high side over night. d/w the RN and no other acute issues over night. Objective Vitals Vital Signs Date Time Temp Pulse Resp B/P Pulse Ox O2 Delivery O2 Flow Rate FiO2 08/28/16 08:45 100 Nasal Cannula 3.00 08/28/16 06:00 110 08/28/16 04:00 105 08/28/16 04:00 98.6 105 22 163/74 94 08/28/16 02:00 100 08/28/16 00:00 98.4 103 26 157/69 94 08/28/16 00:00 103 08/27/16 22:00 121 08/27/16 21:06 96 Nasal Cannula 2.00 08/27/16 20:00 98.3 107 24 140/63 95 08/27/16 20:00 107 08/27/16 16:00 99.0 101 18 146/64 93 08/27/16 12:00 99.0 93 18 175/77 93 08/27/16 09:39 Nasal Cannula 2.00 I/O 08/27/16 08/27/16 08/27/16 08/28/16 08/28/16 08/28/16 07:00 15:00 23:00 07:00 15:00 23:00 Intake Total 200 ml 720 ml 240 ml 93 ml Output Total 750 ml 1350 ml 650 ml 350 ml Balance -550 ml -630 ml -410 ml -257 ml Intake Oral 200 ml 600 ml 240 ml IV Total 120 ml 93 ml Output Urine Total 750 ml 1350 ml 650 ml 350 ml # Voids 2 1 # Bowel Movements 2 Result Diagram: 08/28/16 0537 08/28/16 0537 Imaging Last Impressions Liver Ultrasound 08/24/16 0000 Signed Impressions: Service Date/Time: Wednesday, August 24, 2016 13:39 - CONCLUSION: 1. The gallbladder wall is at the upper limits of normal in size and there is a small amount of sludge. 2. Suboptimal study. Mark Chavis MD Head CT 08/23/16 1358 Signed Impressions: Service Date/Time: August 16:01 - CONCLUSION: 1. No acute intracranial abnormalities. Delvin Arauz MD Chest X-Ray 08/23/16 2785 Signed Impressions: Service Date/Time: August 14:47 - CONCLUSION: 1. Chronic appearing interstitial changes. 2. ET tube and NG tube in good position. Roc Lyons MD Objective Remarks GENERAL: This is a well-nourished, well-developed patient, in no apparent distress. CARDIOVASCULAR: tachycardic RESPIRATORY: Clear to auscultation. Breath sounds equal bilaterally. No wheezes , rales, or rhonchi. GASTROINTESTINAL: Abdomen soft, non-tender, nondistended. Normal, active bowel sounds MUSCULOSKELETAL: Extremities without clubbing, cyanosis, or edema. NEURO: Alert & Oriented x4 to person, place, time, situation. Moves all ext x4 Procedures endotracheal intubation Medications and IVs Current Medications IV Flush 2 ml 2 ml UNSCH PRN IVF FLUSH AFTER USING IV ACCESS Last administered on 08/23/16 17:50; Start 08/23/16 at 14:00; Stop 08/23/16 at 18:51; Status DC Propofol 100 ml @ 0 mls/hr TITRATE IV Last administered on 08/23/16 14:26; Start 08/23/16 at 14:15; Stop 08/23/16 at 18:51; Status DC Sodium Chloride 500 ml @ 500 mls/hr BOLUS ONCE IV Last administered on 14:26; Start 08/23/16 at 14:15; Stop 08/23/16 at 15:14; Status DC Piperacillin Sod/ Tazobactam Sod 100 ml @ 200 mls/hr ONCE STAT IV Last administered on 08/23/16 14:36; Start 08/23/16 at 14:27; Stop 08/23/16 at 14:56 ; Status DC Sodium Chloride (NS 1000 ml Inj) 1,000 ml @ 999 mls/hr BOLUS ONCE IV Last administered on 08/23/16 14:36; Start 08/23/16 at 14:30; Stop 08/23/16 at 15:30 ; Status DC Calcium Gluconate (Calcium Gluconate Inj) 1 gm ONCE ONCE SLOW IVP Last administered on 08/23/16 15:52; Start 08/23/16 at 15:45; Stop 08/23/16 at 15:46 ; Status DC Insulin Human Regular (NovoLIN R INJ) 4 units ONCE ONCE IV PUSH Last administered on 08/23/16 15:51; Start 08/23/16 at 15:45; Stop 08/23/16 at 15:46 ; Status DC Sodium Bicarbonate (Sodium Bicarbonate 8.4% Inj) 50 meq ONCE ONCE SLOW IVP Last administered on 08/23/16 15:51; Start 08/23/16 at 15:45; Stop 08/23/16 at 15:46; Status DC Dextrose 50 ml 50 ml ONCE ONCE IV PUSH Last administered on 08/23/16 15:51; Start 08/23/16 at 15:45; Stop 08/23/16 at 15:46; Status DC Sodium Chloride 250 ml @ 15 mls/hr ONCE ONCE IV Last administered on 16:30; Start 08/23/16 at 16:30; Stop 08/24/16 at 09:09; Status DC Sodium Chloride (NS 1000 ml Inj) 1,000 ml @ 999 mls/hr BOLUS ONCE IV Last administered on 08/23/16 16:41; Start 08/23/16 at 16:30; Stop 08/23/16 at 17:30 ; Status DC Furosemide (Lasix Inj) 20 mg ONCE ONCE IV PUSH Last administered on 08/23/16 16:41; Start 08/23/16 at 16:30; Stop 08/23/16 at 16:31; Status DC IV Flush (NS Flush) 2 ml UNSCH PRN IV FLUSH FLUSH AFTER USING IV ACCESS; Start 08/23/16 at 18:15 IV Flush (NS Flush) 2 ml BID IV FLUSH Last administered on 08/27/16 22:34; Start 08/23/16 at 21:00 Acetaminophen (Tylenol) 650 mg Q6H PRN PO PAIN 1-10 AND/OR FEVER >101F Last administered on 08/27/16 17:01; Start 08/23/16 at 18:15 Pantoprazole Sodium (Protonix Inj) 40 mg DAILY IV Last administered on 07:57; Start 08/24/16 at 09:00 Artificial Tears (Tears Naturale Opth Soln) 1 drop TID EACH EYE Last administered on 2/20/17at 18:10; Start 08/24/16 at 09:00 Ondansetron HCl (Zofran Inj) 4 mg Q6H PRN IV NAUSEA OR VOMITING; Start at 18:15 Docusate Sodium (Colace Liq) 100 mg Q12H G-TUBE Last administered on 08/25/16t 08:00; Start 08/23/16 at 21:00 Sennosides (Senna Liq) 17.6 mg Q12H PRN G-TUBE CONSTIPATION; Start 08/23/16 at 18:15 Albuterol/ Ipratropium (Duoneb Neb) 1 ampule Q6HR NEB INH Last administered on 08/27/16 21:06; Start 08/23/16 at 22:00; Stop 08/27/16 at 22:00; Status DC Albuterol/ Ipratropium (Duoneb Neb) 1 ampule Q2HR NEB PRN INH WHEEZING Last administered on 08/28/16 08:45; Start 08/23/16 at 18:15 Miscellaneous Information 1 Q361D XX ; Start 08/23/16 at 18:15; Stop 08/23/16 at 18:51; Status DC Chlorhexidine Gluconate (Chlorhexidine 2% Cloth) 3 pack Taper DAILY@04 TOP ; Start 08/24/16 at 04:00; Stop 08/24/16 at 04:00; Status DC Chlorhexidine Gluconate 3 pack 3 pack UNSCH PRN TOP HYGIENIC CARE; Start at 18:15; Stop 08/23/16 at 18:51; Status DC Potassium Chloride 100 ml @ 50 mls/hr Q2H PRN IV For Potassium 2.8 - 3.2 mEq/L ; Start 08/23/16 at 18:15 Potassium Chloride (KCl 20 Meq Premix Inj) 100 ml @ 50 mls/hr Q2H PRN IV For Potassium 2.8 - 3.2 mEq/L; Start 08/23/16 at 18:15 Potassium Chloride 40 meq 40 meq UNSCH PRN PO/TUBE For Potassium 3.3 - 3.5 mEq/ L; Start 08/23/16 at 18:15 Potassium Chloride 100 ml @ 25 mls/hr UNSCH PRN IV For Potassium 3.3 - 3.5 mEq /L; Start 08/23/16 at 18:15 Potassium Chloride 100 ml @ 50 mls/hr Q2H PRN IV For Potassium 3.3 - 3.5 mEq/L ; Start 08/23/16 at 18:15 Magnesium Sulfate/ Sodium Chloride (Magnesium Sulfate Inj/NS Inj) 100 ml @ 50 mls/hr UNSCH PRN IV For Magnesium 0.9 - 1.1 mg/dL; Start 08/23/16 at 18:15 Magnesium Oxide 800 mg 800 mg UNSCH PRN PO For Magnesium 1.2 - 1.6 mg/dL; Start 08/23/16 at 18:15 Magnesium Sulfate/ Sodium Chloride (Magnesium Sulfate Inj/NS Inj) 100 ml @ 50 mls/hr UNSCH PRN IV For Magnesium 1.2 - 1.6 mg/dL; Start 08/23/16 at 18:15 Potassium Phosphate 2000 mg 2,000 mg Q4H PRN PO For Phosphorus < 2.5 mg/dL; Start 08/23/16 at 18:15 Sodium Phosphate/ Sodium Chloride (Sodium Phosphate Inj/NS 250 ml Inj) 250 ml @ 42 mls/hr UNSCH PRN IV For Phosphorus < 2.5 mg/dL; Start 08/23/16 at 18:15 Potassium Chloride (KCl 40 Meq/30 ml Liq) 40 meq UNSCH PRN PO/TUBE SEE LABEL COMMENTS; Start 08/23/16 at 18:15 Potassium Phosphate 2000 mg 2,000 mg UNSCH PRN PO/TUBE SEE LABEL COMMENTS; Start 08/23/16 at 18:15 Potassium Phosphate/Sodium Chloride (Potassium Phosphate Inj/NS 250 ml Inj) 260 ml @ 42 mls/hr UNSCH PRN IV SEE LABEL COMMENTS; Start 08/23/16 at 18:15 Chlorhexidine Gluconate (Peridex 0.12% Liq) 15 ml BID@08,20 MT Last administered on 08/25/16t 07:58; Start 08/23/16 at 20:00 Dextrose (D50w (Vial) Inj) 25 ml UNSCH PRN IV PUSH HYPOGLYCEMIA-SEE COMMENTS; Start 08/23/16 at 18:15 Glucagon (Glucagon Inj) 1 mg UNSCH PRN OTHER HYPOGLYCEMIA-SEE COMMENTS; Start 08/23/16 at 18:15 Insulin Human Regular 1 1 ACHS SLIDING SCALE SQ ; Start 08/23/16 at 21:00; Stop 08/24/16 at 09:18; Status DC Sodium Chloride (NS 1000 ml Inj) 1,000 ml @ 75 mls/hr [id number] IV Last administered on 08/24/16 20:59; Start 08/23/16 at 18:19; Stop 08/25/16 at 08:23 ; Status DC Heparin Sodium (Porcine) (Heparin Inj) 5,000 units Q12H SQ Last administered on 08/27/16 22:35; Start 08/23/16 at 21:00 Miscellaneous Information 1 Q361D XX ; Start 08/23/16 at 18:30 Chlorhexidine Gluconate (Chlorhexidine 2% Cloth) 3 pack Taper DAILY@04 TOP Last administered on 08/28/16 04:00; Start 08/24/16 at 04:00; Stop 08/20/17 at 03:59 Chlorhexidine Gluconate 3 pack 3 pack UNSCH PRN TOP HYGIENIC CARE; Start at 18:30 Propofol 100 ml @ 0 mls/hr TITRATE IV Last administered on 08/25/16 08:07; Start 08/23/16 at 18:30; Stop 08/25/16 at 12:31; Status DC Pharmacy Profile Note 0 ml @ 0 mls/hr UNSCH OTHER ; Start 08/23/16 at 18:45; Stop 08/27/16 at 17:39; Status DC Levofloxacin/ Dextrose 100 ml @ 100 mls/hr ONCE ONCE IV Last administered on 08/23/16 21:36; Start 08/23/16 at 20:00; Stop 08/23/16 at 20:59; Status DC Levofloxacin/ Dextrose 50 ml @ 50 mls/hr Q24H IV Last administered on 20:27; Start 08/24/16 at 20:00; Stop 08/27/16 at 10:32; Status DC Vancomycin HCl/ Sodium Chloride (Vancomycin Inj/ NS 250 ml Inj) 250 ml @ 250 mls/hr NOW ONCE IV Last administered on 08/23/16 19:25; Start 08/23/16 at 19: 00; Stop 08/23/16 at 19:59; Status DC Allopurinol (Zyloprim) 100 mg DAILY PO Last administered on 08/27/16 07:54; Start 08/24/16 at 09:00 Clopidogrel Bisulfate (Plavix) 75 mg DAILY PO Last administered on 08/27/16 07 :54; Start 08/24/16 at 09:00 Duloxetine HCl (Cymbalta Dr) 30 mg DAILY PO Last administered on 08/27/16 07: 54; Start 08/24/16 at 09:00 Pravastatin Sodium (Pravachol) 20 mg DAILY PO Last administered on 08/27/16 07 :54; Start 08/24/16 at 09:00 Aspirin 81 mg 81 mg DAILY TUBE Last administered on 08/27/16 07:54; Start at 09:00 Vancomycin HCl/ Sodium Chloride (Vancomycin Inj/ NS 250 ml Inj) 250 ml @ 250 mls/hr ONCE IV Last administered on 08/25/16 07:58; Start 08/25/16 at 08:00; Stop 08/25/16 at 09:59; Status DC Insulin Human Regular (NovoLIN R SUPPLEMENTAL SCALE) 1 Q6H SQ ; Start 08/24/16 at 13:00 Metoprolol Tartrate (Lopressor) 25 mg Q12HR PO Last administered on 08/25/16 08:00; Start 08/24/16 at 10:00; Stop 08/25/16 at 08:24; Status DC Amlodipine Besylate (Norvasc) 5 mg DAILY TUBE Last administered on 08/27/16 07 :54; Start 08/25/16 at 04:30 Labetalol HCl (Trandate Inj) 10 mg Q6H PRN IV PUSH SBP >165 Last administered on 08/26/16 03:40; Start 08/25/16 at 04:30 Hydralazine HCl (Apresoline Inj) 20 mg Q4H PRN IV PUSH SBP >165 Last administered on 08/28/16 06:50; Start 08/25/16 at 04:30 Metoprolol Tartrate 50 mg 50 mg Q12HR PO Last administered on 08/27/16 22:34; Start 08/25/16 at 09:00 Vancomycin HCl/ Sodium Chloride (Vancomycin Inj/ NS 250 ml Inj) 262.5 ml @ 262.5 mls/ hr Q24H IV Last administered on 08/25/16 13:49; Start 08/25/16 at 14:00; Stop 08/27/16 at 10:32; Status DC Miscellaneous Information SPECIFIC LAB TO BE .. ONCE ONCE XX ; Start at 13:45; Stop 08/28/16 at 13:45; Status DC Alprazolam 0.125 mg 0.125 mg Q12H PRN PO agitation Last administered on 22:54; Start 08/27/16 at 10:45 Meropenem/Sodium Chloride (Merrem Inj/NS Inj) 100 ml @ 200 mls/hr Q8H IV Last administered on 08/27/16 12:15; Start 08/27/16 at 12:00; Stop 08/27/16 at 17:15 ; Status DC Miscellaneous Medication (ASP Crit: Doc ESBL, MDR A baumannii or P aer) 1 UNSCH PRN XX PHARMACY DOCUMENTATION; Start 08/27/16 at 11:00 Miscellaneous Medication (ASP Crit: Infectious disease consult) 1 UNSCH PRN XX PHARMACY DOCUMENTATION; Start 08/27/16 at 11:00 Guaifenesin/ Codeine Phosphate (Robitussin Ac 200-20 Mg/10 ml Liq) 10 ml Q6H PRN PO cough Last administered on 08/27/16 14:37; Start 08/27/16 at 13:15 Miscellaneous Medication (ASP Crit: Doc ESBL, MDR A baumannii or P aer) 1 UNSCH X1 PRN XX PHARMACY DOCUMENTATION; Start 08/27/16 at 17:15; Stop 08/28/16 at 17: 14 Miscellaneous Medication 1 1 UNSCH X1 PRN XX PHARMACY DOCUMENTATION; Start at 17:15; Stop 08/28/16 at 17:14 Ertapenem/Sodium Chloride (INVanz INJ/NS Inj) 100 ml @ 200 mls/hr Q24H IV Last administered on 08/27/16 22:54; Start 08/27/16 at 20:00 Hydralazine HCl (Apresoline Inj) 10 mg Q6H PRN IV PUSH SYS BP GREATER THAN 160 MMHG; Start 08/27/16 at 17:45 A/P Assessment and Plan A/P Metabolic Encephalopathy- improved H/O TBI with right temporal contusion Frequent falls Fibromyalgia Depression S/P CVA Chronic pain syndrome Fibromyalgia -Neurochecks per ICU protocol -Continue ASA and Plavix -Continue Duloxetine acute Respiratory failure- s/p intubation/ extubation H/O tobacco abuse -Continue with oxygen keep sat > 92% -continue alka treatment -CXR 08/23 chronic appearing interstitial changes Dyslipidemia Hypertension tachycardia H/O CHF -increase lopressor to 75 mg po twice daily, Norvasc 5mg daily-Monitor HR and BP -Continue pravastatin, ASA, Plavix -recent ECHO with EF 55% and mild aortic stenosis Chronic kidney disease -- Monitor renal function, I/O's, electrolytes replacement per protocol. Elevated LFT's- trending down diarrhea US liver: The gallbladder wall is at the upper limits of normal in size and there is a small amount of sludge. Suboptimal study. Monitor LFT's, Hepatitis panel negative check the stool for c-diff On PO diet Protonix for GI prophylaxis Anemia of chronic disease Leukocytosis- Resolved -s/p transfusion 2u PRBC 08/24 -Monitor CBC UTI- urine cx: Kleb ESBL - continue Invanz -follow the repeated blood cultures -ID consult appreciated. Diabetes mellitus Glucose monitoring per ICU protocol, low dose regimen -TSH 1.040 -- SSI Osteoporosis Gout Rheumatoid arthritis -Continue allopurinol Prophylaxis: GI Prophylaxis with Protonix DVT Prophylaxis with SCDs/Heparin 5000 SQ BID transfer to telemetry soon if stable. Roger Basilio MD Aug 28, 2016 09:07
[2016-08-28] MEDS ORDERED: METOPROLOL TARTRATE 25 MG TAB PO ONE (11:00)
--- NOTE | 2016-08-28 11:09 | RADRPT ---
EXAM DATE/TIME: 08/28/2016 10:37 [facility] COMPARISON: No previous studies available for comparison. INDICATIONS : Pain on lateral left ankle MEDICAL HISTORY : Cardiovascular disease. Hypertension. Diabetes mellitus type 2.CVA, CHF SURGICAL HISTORY : Hysterectomy. Carotid endarterectomy ENCOUNTER: Subsequent ACUITY: 4 - 6 days PAIN SCORE: 5/10 LOCATION: Left Ankle FINDINGS: Three view exam was performed of the left ankle. No fracture. Soft tissue swelling. Ankle mortise int act. No radiopaque foreign bodies are seen. Bony mineralization is normal. CONCLUSION: Soft tissue swelling without fracture. Zay Carty MD on August 28, 2016 at 11:06 Board Certified Radiologist. This report was verified electronically.
[2016-08-28] MEDS: guaiFENesin/CODEINE SYRUP 200 MG/20 MG/10 ML CUP PO PRN ×2 (13:44→22:08)
[2016-08-28] MEDS ORDERED: PHARMACY ORDERED LAB XX ONE (13:45)
[2016-08-28] MEDS: ERTAPENEM INJ 1,000 MG in SODIUM CHLORIDE 0.9% INJ 100 ML IV SCH (20:26)
[2016-08-28] MEDS: ALPRAZolam 0.25 MG TAB PO PRN (22:08)
[2016-08-28] MEDS: ACETAMINOPHEN 325 MG TAB PO PRN (22:08)
[2016-08-29] VITALS (12 sets, daily range): BP systolic 123–164; BP diastolic 59–71; PULSE 82–94; RESP 17–24; TEMP 97.9–98.5; O2SAT 95–98
[2016-08-29] MEDS: CHLORHEXIDINE GLUCONATE 2 % 1 PACK (2 CLOTHS) TOP SCH (04:00)
[2016-08-29] MEDS: CHLORHEXIDINE 0.12% (ORAL KIT) 15 ML CUP MT SCH ×2 (07:23→19:55)
[2016-08-29] MEDS: PANTOPRAZOLE SODIUM 40 MG VIAL IV SCH (08:58)
[2016-08-29] MEDS: DULoxetine HCl DR 30 MG CAP PO SCH (08:58)
[2016-08-29] MEDS: PRAVASTATIN SOD 20 MG TAB PO SCH (08:58)
[2016-08-29] MEDS: ALLOPURINOL 100 MG TAB PO SCH (08:58)
[2016-08-29] MEDS: METOPROLOL TARTRATE 25 MG TAB PO SCH ×2 (08:58→20:13)
[2016-08-29] MEDS: ASPIRIN 81 MG CHEW TAB TUBE SCH (08:58)
[2016-08-29] MEDS: CLOPIDOGREL 75 MG TAB PO SCH (08:58)
[2016-08-29] MEDS: amLODIPine BESYLATE 5 MG TAB TUBE SCH (08:58)
[2016-08-29] MEDS: ARTIFICIAL TEARS OPTH SOLN 15 ML BTL EACH EYE SCH ×3 (08:59→15:54)
[2016-08-29] MEDS: SODIUM CHLORIDE 0.9% FLUSH 5 ML FLUSH IV FLUSH SCH ×2 (08:59→20:13)
[2016-08-29] MEDS: DOCUSATE SODIUM 100 MG/10 ML UDC G-TUBE SCH ×2 (08:59→20:12)
[2016-08-29] MEDS: HEPARIN SODIUM - SQ 10,000 UNITS/ML VIAL SQ SCH ×2 (08:59→20:13)
--- NOTE | 2016-08-29 09:06 | HHI.IDPN ---
Subjective Subjective Remarks Notes reviewed Temps ok Not SOB Good sats on nasal O2 Good UO WBC normal Voiding ok Antibiotics Invanz Lines PIV Past Medical History Hypertension Hyperlipidemia Prior stroke Depression Rheumatoid arthritis Osteoporosis Fibromyalgia TBI with temporal lobe contusion following a fall Frequent falls Obesity Tobacco abuse Past Surgical History Percutaneous tracheostomy 11/24/15 (Dr. Jackson) Bilateral carotid endarterectomy (right carotid endarterectomy was performed by Dr. 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 Vital Signs Date Time Temp Pulse Resp B/P Pulse Ox O2 Delivery O2 Flow Rate FiO2 08/29/16 08:00 92 08/29/16 08:00 98.0 92 18 131/63 95 08/29/16 06:00 90 08/29/16 04:00 94 08/29/16 04:00 98.3 94 20 164/70 96 08/29/16 02:00 84 08/29/16 00:00 85 08/29/16 00:00 98.3 85 24 123/59 98 08/28/16 23:51 24 08/28/16 22:00 91 08/28/16 21:54 96 Nasal Cannula 2.00 08/28/16 20:00 99 08/28/16 20:00 98.5 101 23 150/66 96 08/28/16 16:00 98.0 95 20 145/63 96 08/28/16 12:00 98.6 85 20 156/70 96 08/28/16 08/28/16 08/29/16 15:00 23:00 07:00 Intake Total 400 ml 223 ml 60 ml Output Total 300 ml 240 ml 640 ml Balance 100 ml -17 ml -580 ml Intake Oral 400 ml 120 ml 60 ml IV Total 103 ml Output Urine Total 300 ml 240 ml 640 ml # Voids 2 1 1 . Laboratory Tests Test 08/27/16 08/28/16 11:03 05:37 White Blood Count 6.8 TH/MM3 6.1 TH/MM3 Red Blood Count 4.15 MIL/MM3 4.46 MIL/MM3 Hemoglobin 10.4 GM/DL 11.2 GM/DL Hematocrit 31.8 % 34.5 % Mean Corpuscular Volume 76.5 FL 77.4 FL Mean Corpuscular Hemoglobin 25.2 PG 25.0 PG Mean Corpuscular Hemoglobin 32.9 % 32.3 % Concent Red Cell Distribution Width 16.5 % 16.8 % Platelet Count 146 TH/MM3 154 TH/MM3 Mean Platelet Volume 8.1 FL 8.4 FL Neutrophils (%) (Auto) 71.1 % 69.3 % Lymphocytes (%) (Auto) 17.6 % 19.6 % Monocytes (%) (Auto) 10.8 % 10.6 % Eosinophils (%) (Auto) 0.1 % 0.1 % Basophils (%) (Auto) 0.4 % 0.4 % Neutrophils # (Auto) 4.9 TH/MM3 4.2 TH/MM3 Lymphocytes # (Auto) 1.2 TH/MM3 1.2 TH/MM3 Monocytes # (Auto) 0.7 TH/MM3 0.6 TH/MM3 Eosinophils # (Auto) 0.0 TH/MM3 0.0 TH/MM3 Basophils # (Auto) 0.0 TH/MM3 0.0 TH/MM3 CBC Comment DIFF FINAL DIFF FINAL Differential Comment Laboratory Tests Test 08/27/16 08/28/16 11:03 05:37 Sodium Level 140 MEQ/L 138 MEQ/L Potassium Level 3.6 MEQ/L 3.5 MEQ/L Chloride Level 101 MEQ/L 98 MEQ/L Carbon Dioxide Level 31.9 MEQ/L 32.0 MEQ/L Anion Gap 7 MEQ/L 8 MEQ/L Blood Urea Nitrogen 13 MG/DL 11 MG/DL Creatinine 0.74 MG/DL 0.61 MG/DL Estimat Glomerular Filtration 77 ML/MIN 96 ML/MIN Rate Random Glucose 143 MG/DL 108 MG/DL Calcium Level 8.5 MG/DL 8.8 MG/DL Phosphorus Level 2.7 MG/DL Magnesium Level 2.1 MG/DL Total Bilirubin 0.3 MG/DL 0.4 MG/DL Aspartate Amino Transf 52 U/L 33 U/L (AST/SGOT) Alanine Aminotransferase 155 U/L 113 U/L (ALT/SGPT) Alkaline Phosphatase 95 U/L 93 U/L Total Protein 6.2 GM/DL 6.4 GM/DL Albumin 2.5 GM/DL 2.5 GM/DL Microbiology Date/Time Procedure Status Source Growth 08/27/16 22:48 Aerobic Blood Culture - Preliminary Resulted Blood Peripheral NO GROWTH IN 1 DAY 08/27/16 22:48 Anaerobic Blood Culture - Preliminary Resulted Blood Peripheral NO GROWTH IN 1 DAY Imaging Ankle X-Ray 08/28/16 0000 Signed Impressions: Service Date/Time: Sunday, August 28, 2016 10:37 - CONCLUSION: Soft tissue swelling without fracture. Zay Carty MD Liver Ultrasound 08/24/16 0000 Signed Impressions: Service Date/Time: Wednesday, August 24, 2016 13:39 - CONCLUSION: 1. The gallbladder wall is at the upper limits of normal in size and there is a small amount of sludge. 2. Suboptimal study. Mark Chavis MD Head CT 08/23/16 1358 Signed Impressions: Service Date/Time: August 16:01 - CONCLUSION: 1. No acute intracranial abnormalities. Delvin Arauz MD Chest X-Ray 08/23/16 1358 Signed Impressions: Service Date/Time: August 14:47 - CONCLUSION: 1. Chronic appearing interstitial changes. 2. ET tube and NG tube in good position. Roc Lyons MD Physical Exam GENERAL: Awakens easily, NAD SKIN: Cool and dry. No generalized rash. HEENT: pale conjunctivae, no petechia or hemorrhage. No scleral icterus. Moist oral mucosa. NECK: Trachea midline. No JVD or lymphadenopathy. Supple, nontender, no meningeal signs. CARDIOVASCULAR: Regular rate and rhythm without murmurs, gallops, or rubs. RESPIRATORY: Clear to auscultation. Breath sounds equal bilaterally. No wheezes , rales, or rhonchi. Decreased breath sounds at the bases. GASTROINTESTINAL: Abdomen soft, slightly globular, non-tender, nondistended. Bowel sounds are present and normoactive. MUSCULOSKELETAL: Extremities without clubbing, cyanosis, or edema. No joint tenderness, or effusion. No calf tenderness. Has some ecchymoses on the R ist MTP joint, not swelling or tenderness NEUROLOGICAL: Non-focal PSYCH: Normal affect, calm and cooperative. LINE: PIV with no evidence of infection Assessment & Plan Remarks IMPRESSION Klebsiella UTI, on admission Respiratory failure, S/P extubation - doing well Etiology of initial decreased LOC unclear, better RECOMMENDATION Continue IV Invanz Monitor temps Repeat UA Will determine course of Abx once repeat UA done Mariela Barragan MD Aug 29, 2016 09:06
[2016-08-29 11:30] LABS: BLOOD, URINE NEG (NEG); GLUCOSE,URINE NEG (NEG); KETONE, URINE NEG (NEG); NITRITE,URINE NEG (NEG); SQUAMOUS EPITHELIAL CELL URINE 5 /hpf (0-5); TRANSITIONAL EPI CELLS, URINE 1 /hpf; URINE COLOR YELLOW (YELLW/STRAW)
[2016-08-29] MEDS ORDERED: COLCHICINE 0.6 MG TAB PO ONE (11:30)
--- NOTE | 2016-08-29 11:33 | HHI.FF ---
Face to Face Verification Diagnosis: (1) Weakness generalized (2) DM (diabetes mellitus) (3) Sepsis due to Klebsiella (4) Urinary tract infection due to ESBL Klebsiella Physical Therapy Order: Evaluate and Treat Home Health Nursing Order: Medical education Diabetic education Nursing assessment with vital signs IV medication administration I have seen patient aKnchan Roque on 08/29/16. My clinical findings support the need for the requested home health care services because: High risk of falls Infection w/ risk of complications I certify that my clinical findings support that this patient is homebound because: Unsteady gait/balance Need for psychosocial assistance Hortencia Buenrostro MD Aug 29, 2016 11:33
--- NOTE | 2016-08-29 11:57 | HHI.PR ---
Subjective Remarks Patient is doing well today. She does complain of left ankle pain. She has a history of gout. She denies any dyspnea. Denies any confusion. She states she plans to go home when discharged. She has 2 sons one of them who is a nurse at [employer]. Her other son lives with her and is supportive. She denies any recent falls. Objective Vitals Vital Signs Date Time Temp Pulse Resp B/P Pulse Ox O2 Delivery O2 Flow Rate FiO2 08/29/16 10:00 82 08/29/16 08:00 92 08/29/16 08:00 98.0 92 18 131/63 95 08/29/16 06:00 90 08/29/16 04:00 94 08/29/16 04:00 98.3 94 20 164/70 96 08/29/16 02:00 84 08/29/16 00:00 85 08/29/16 00:00 98.3 85 24 123/59 98 08/28/16 23:51 24 08/28/16 22:00 91 08/28/16 21:54 96 Nasal Cannula 2.00 08/28/16 20:00 99 08/28/16 20:00 98.5 101 23 150/66 96 08/28/16 16:00 98.0 95 20 145/63 96 08/28/16 12:00 98.6 85 20 156/70 96 I/O 08/28/16 08/28/16 08/28/16 08/29/16 08/29/16 08/29/16 07:00 15:00 23:00 07:00 15:00 23:00 Intake Total 93 ml 400 ml 223 ml 60 ml Output Total 350 ml 300 ml 240 ml 640 ml Balance -257 ml 100 ml -17 ml -580 ml Intake Oral 400 ml 120 ml 60 ml IV Total 93 ml 103 ml Output Urine Total 350 ml 300 ml 240 ml 640 ml # Voids 1 2 1 1 Result Diagram: 08/28/1637 08/28/16536 Objective Remarks GENERAL: Well-nourished, well-developed pleasant female patient. SKIN: Warm and dry. HEAD: Normocephalic. EYES: No scleral icterus. No injection or drainage. NECK: Supple, trachea midline. No JVD or lymphadenopathy. CARDIOVASCULAR: Regular rate and rhythm without murmurs, gallops, or rubs. RESPIRATORY: Breath sounds equal and clear to auscultation bilaterally. No accessory muscle use. GASTROINTESTINAL: Bowel sounds present. Abdomen soft, non-tender, nondistended. EXTREMITIES: She does have some mild swelling of the left ankle and the left medial malleolus is tender to palpation with some erythema. Normal range of motion in the left ankle. Right ankle without edema. She does have a healing ecchymosis around the right hallux. NEUROLOGICAL: Awake, alert, and oriented x 3. Non-focal. Procedures endotracheal intubation A/P Problem List: (1) Sepsis due to Klebsiella ICD Code: A41.4 Status: Acute (2) Urinary tract infection due to ESBL Klebsiella ICD Code: N39.0 Status: Acute (3) Metabolic encephalopathy ICD Code: G93.41 Status: Resolved (4) Acute hypoxemic respiratory failure ICD Code: J96.01 Status: Resolved (5) Gout of left ankle ICD Code: M10.9 Status: Acute (6) Chronic anemia ICD Code: D64.9 Status: Chronic (7) Diarrhea ICD Code: R19.7 Status: Acute (8) HTN (hypertension) ICD Code: I10 Status: Chronic Assessment and Plan 75-year-old female well-known to [facility] recently discharged in Jul 2016, with a PMH of TBI with right temporal contusion, HTN, S/P CVA, Gout, fibromyalgia,acute hyperkalemia, frequent falls that presented to the ED brought in by EMS because patient had fallen yesterday.The patient was found lethargic, unresponsive according to patient's roommate. She was last seen normal at 9 PM the evening before. When EMS arrived, she was noted to be tachypneic, and disoriented, not protecting her airway, and she was intubated for airway protection. Upon arrival to the ED, the patient's systolic blood pressure was noted to be in the 80's. Laboratory and imaging studies were performed. CT scan revealed no acute abnormality, the patient was noted to be hyperkalemic, with a lactate 4.0. Cultures were obtained suggestive of UTI. Critical care medicine was consulted for treatment and management. -Sepsis due to ESBL positive Klebsiella pneumoniae - clinically much improved with stable blood pressure. She is on ertapenem IV per infectious disease/Dr. Barragan. Repeat UA is pending. Course of antibiotics to be determined per ID pending this UA. Blood cultures are negative. -Acute septic/metabolic encephalopathy, resolved. The patient is alert and oriented 3. -Status post intubation on August 25 this admission for protection of airway due to depressed mental status, extubated August 25. 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 difficile colitis with pseudomembranes. Eventually discharged to custodial facility. -History of frequent falls. The patient denies any recent falls. Will obtain PT evaluation today. -Hypertension - continue metoprolol and Norvasc. -Chronic diastolic CHF with preserved ejection fraction seen on echo this admission, mild aortic stenosis. Continue metoprolol. Resume Lasix tomorrow. -Gout with acute involvement of the left medial ankle. X-ray was negative for fracture. Will give colchicine, continue allopurinol. -History of CVA. Continue Plavix and aspirin. -Depression and fibromyalgia - continue duloxetine -Chronic kidney disease stage II. Monitor pending. -Mild elevation of LFTs. Likely due to mild shock liver. Trending down. Gall bladder ultrasound negative other than sludge. -Diarrhea. Mild. Stool for C. difficile was ordered. -Anemia of chronic disease, status post transfusion 2 units packed red blood cells on August 24. Hemoglobin now stable. Monitor CBC. -Osteoporosis. -Prophylaxis: GI Prophylaxis with Protonix DVT Prophylaxis with SCDs/Heparin 5000 SQ BID Discharge Planning Home health care versus neck depending on how she does with PT and pending antibiotic recommendations from ID. Patient prefers home health care. Hortencia Buenrostro MD Aug 29, 2016 11:57
[2016-08-29] MEDS: ACETAMINOPHEN/HYDROcodone 325 MG/5 MG TAB PO PRN ×3 (12:50→20:36)
[2016-08-29] MEDS: ERTAPENEM INJ 1,000 MG in SODIUM CHLORIDE 0.9% INJ 100 ML IV SCH (20:12)
[2016-08-29] MEDS: ALPRAZolam 0.25 MG TAB PO PRN (20:36)
[2016-08-30] VITALS (9 sets, daily range): BP systolic 141–198; BP diastolic 65–86; PULSE 73–100; RESP 17–18; TEMP 96.9–98.3; O2SAT 95–98
[2016-08-30] MEDS: CHLORHEXIDINE GLUCONATE 2 % 1 PACK (2 CLOTHS) TOP SCH (04:00)
[2016-08-30] MEDS: CHLORHEXIDINE 0.12% (ORAL KIT) 15 ML CUP MT SCH ×2 (07:18→20:00)
[2016-08-30] MEDS: ARTIFICIAL TEARS OPTH SOLN 15 ML BTL EACH EYE SCH ×3 (07:21→14:53)
[2016-08-30] MEDS: DULoxetine HCl DR 30 MG CAP PO SCH (08:53)
[2016-08-30] MEDS: COLCHICINE 0.6 MG TAB PO SCH (08:53)
[2016-08-30] MEDS: FUROSEMIDE 20 MG TAB PO SCH (08:53)
[2016-08-30] MEDS: ASPIRIN 81 MG CHEW TAB TUBE SCH (08:53)
[2016-08-30] MEDS: ACETAMINOPHEN/HYDROcodone 325 MG/5 MG TAB PO PRN ×3 (08:53→22:58)
[2016-08-30] MEDS: CLOPIDOGREL 75 MG TAB PO SCH (08:53)
[2016-08-30] MEDS: ALLOPURINOL 100 MG TAB PO SCH (08:53)
[2016-08-30] MEDS: PRAVASTATIN SOD 20 MG TAB PO SCH (08:53)
[2016-08-30] MEDS: amLODIPine BESYLATE 5 MG TAB TUBE SCH (08:53)
[2016-08-30] MEDS: SODIUM CHLORIDE 0.9% FLUSH 5 ML FLUSH IV FLUSH SCH ×2 (08:54→22:59)
[2016-08-30] MEDS: PANTOPRAZOLE SODIUM 40 MG VIAL IV SCH (08:54)
[2016-08-30] MEDS: HEPARIN SODIUM - SQ 10,000 UNITS/ML VIAL SQ SCH ×2 (08:54→22:58)
[2016-08-30] MEDS: DOCUSATE SODIUM 100 MG/10 ML UDC G-TUBE SCH ×2 (08:54→21:00)
[2016-08-30] MEDS: METOPROLOL TARTRATE 25 MG TAB PO SCH ×2 (08:56→22:58)
[2016-08-30 08:58] LABS: INDIRECT BILIRUBIN 0.1 MG/DL (0.0-0.8); TOTAL BILIRUBIN ADULT 0.2 MG/DL (0.2-1.0)
--- NOTE | 2016-08-30 11:53 | HHI.PR ---
Subjective Remarks Patient denies dyspnea or fever. Ankle feels better with less pain. She ambulated improved distance today with physical therapy. Objective Vitals Vital Signs Date Time Temp Pulse Resp B/P Pulse Ox O2 Delivery O2 Flow Rate FiO2 08/30/16 08:02 98.1 95 18 162/72 98 08/30/16 04:00 96.9 87 17 146/66 95 08/30/16 00:00 97.6 73 17 143/67 96 08/29/16 21:36 97.9 92 18 158/71 98 08/29/16 20:00 98.4 90 19 149/67 95 08/29/16 20:00 90 08/29/16 19:42 97 Nasal Cannula 2.00 08/29/16 16:00 98.1 91 17 150/64 97 08/29/16 16:00 91 08/29/16 14:00 92 08/29/16 12:00 98.5 86 24 132/61 96 08/29/16 12:00 91 I/O 08/29/16 08/29/16 08/29/16 08/30/16 08/30/16 08/30/16 07:00 15:00 23:00 07:00 15:00 23:00 Intake Total 60 ml 420 ml 240 ml Output Total 640 ml 400 ml Balance -580 ml 20 ml 240 ml Intake Oral 60 ml 420 ml 240 ml Output Urine Total 640 ml 400 ml # Voids 1 3 Result Diagram: 08/28/1637 08/28/16536 Objective Remarks GENERAL: Well-nourished, well-developed pleasant female patient. SKIN: Warm and dry. HEAD: Normocephalic. EYES: No scleral icterus. No injection or drainage. NECK: Supple, trachea midline. No JVD or lymphadenopathy. CARDIOVASCULAR: Regular rate and rhythm without murmurs, gallops, or rubs. RESPIRATORY: Breath sounds equal and clear to auscultation bilaterally. No accessory muscle use. GASTROINTESTINAL: Bowel sounds present. Abdomen soft, non-tender, nondistended. EXTREMITIES: She does have some mild swelling of the left ankle and the left medial malleolus is tender to palpation with some erythema. Normal range of motion in the left ankle. Right ankle without edema. She does have a healing ecchymosis around the right hallux. NEUROLOGICAL: Awake, alert, and oriented x 3. Non-focal. Procedures endotracheal intubation A/P Problem List: (1) Sepsis due to Klebsiella ICD Code: A41.4 Status: Acute (2) Urinary tract infection due to ESBL Klebsiella ICD Code: N39.0 Status: Acute (3) Metabolic encephalopathy ICD Code: G93.41 Status: Resolved (4) Acute hypoxemic respiratory failure ICD Code: J96.01 Status: Resolved (5) Gout of left ankle ICD Code: M10.9 Status: Acute (6) Chronic anemia ICD Code: D64.9 Status: Chronic (7) Diarrhea ICD Code: R19.7 Status: Acute (8) HTN (hypertension) ICD Code: I10 Status: Chronic Assessment and Plan 75-year-old female well-known to [facility] recently discharged in Jul 2016, with a PMH of TBI with right temporal contusion, HTN, S/P CVA, Gout, fibromyalgia,acute hyperkalemia, frequent falls that presented to the ED brought in by EMS because patient had fallen yesterday.The patient was found lethargic, unresponsive according to patient's roommate. She was last seen normal at 9 PM the evening before. When EMS arrived, she was noted to be tachypneic, and disoriented, not protecting her airway, and she was intubated for airway protection. Upon arrival to the ED, the patient's systolic blood pressure was noted to be in the 80's. Laboratory and imaging studies were performed. CT scan revealed no acute abnormality, the patient was noted to be hyperkalemic, with a lactate 4.0. Cultures were obtained suggestive of UTI. Critical care medicine was consulted for treatment and management. -Sepsis due to ESBL positive Klebsiella pneumoniae - clinically much improved with stable blood pressure. She is on ertapenem IV per infectious disease/Dr. Barragan. Repeat UA is clean. Course of antibiotics to be determined per ID pending this UA. Blood cultures are negative. -Acute septic/metabolic encephalopathy, resolved. The patient is alert and oriented 3. -Status post intubation on August 25 this admission for protection of airway due to depressed mental status, extubated August 25. 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 difficile colitis with pseudomembranes. Eventually discharged to [facility] facility. -History of frequent falls. The patient denies any recent falls. Ambulated 50 feet with walker today. -Hypertension - continue metoprolol and Norvasc. -Chronic diastolic CHF with preserved ejection fraction seen on echo this admission, mild aortic stenosis. Continue metoprolol. Resume Lasix. -Gout with acute involvement of the left medial ankle. X-ray was negative for fracture. sx improved. cont colchicine, continue allopurinol. -History of CVA. Continue Plavix and aspirin. -Depression and fibromyalgia - continue duloxetine -Chronic kidney disease stage II. Monitor. -Mild elevation of LFTs. Likely due to mild shock liver. Trending down. Gall bladder ultrasound negative other than sludge. -Diarrhea. Mild. Stool for C. difficile was ordered. -Anemia of chronic disease, status post transfusion 2 units packed red blood cells on August 24. Hemoglobin now stable. Monitor CBC. -Osteoporosis. -Prophylaxis: GI Prophylaxis with Protonix DVT Prophylaxis with SCDs/Heparin 5000 SQ BID Discharge Planning Home health care and anticipate tomorrow. Hortencia Buenrostro MD Aug 30, 2016 11:53
--- NOTE | 2016-08-30 12:52 | HHI.IDPN ---
Subjective Subjective Remarks Notes reviewed Temps ok Not SOB Voiding ok Repeat UA normal WBC normal Antibiotics Invanz Lines PIV Past Medical History Hypertension Hyperlipidemia Prior stroke Depression Rheumatoid arthritis Osteoporosis Fibromyalgia TBI with temporal lobe contusion following a fall Frequent falls Obesity Tobacco abuse Past Surgical History Percutaneous tracheostomy 11/24/15 (Dr. Jackson) Bilateral carotid endarterectomy (right carotid endarterectomy was performed by Dr. 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 Vital Signs Date Time Temp Pulse Resp B/P Pulse Ox O2 Delivery O2 Flow Rate FiO2 08/30/16 08:02 98.1 95 18 162/72 98 08/30/16 04:00 96.9 87 17 146/66 95 08/30/16 00:00 97.6 73 17 143/67 96 08/29/16 21:36 97.9 92 18 158/71 98 08/29/16 20:00 98.4 90 19 149/67 95 08/29/16 20:00 90 08/29/16 19:42 97 Nasal Cannula 2.00 08/29/16 16:00 98.1 91 17 150/64 97 08/29/16 16:00 91 08/29/16 14:00 92 08/29/16 08/29/16 08/30/16 15:00 23:00 07:00 Intake Total 420 ml 240 ml Output Total 400 ml Balance 20 ml 240 ml Intake Oral 420 ml 240 ml Output Urine Total 400 ml # Voids 3 . Laboratory Tests Test 08/30/16 03:07 Total Bilirubin 0.2 MG/DL Direct Bilirubin 0.1 MG/DL Indirect Bilirubin 0.1 MG/DL Aspartate Amino Transf 14 U/L (AST/SGOT) Alanine Aminotransferase 55 U/L (ALT/SGPT) Alkaline Phosphatase 83 U/L Total Protein 6.0 GM/DL Albumin 2.3 GM/DL Microbiology Date/Time Procedure Status Source Growth 2/20/17 22:48 Aerobic Blood Culture - Preliminary Resulted Blood Peripheral NO GROWTH IN 3 DAYS 08/27/16 22:48 Anaerobic Blood Culture - Preliminary Resulted Blood Peripheral NO GROWTH IN 3 DAYS Imaging Ankle X-Ray 08/28/16 0000 Signed Impressions: Service Date/Time: Sunday, August 28, 2016 10:37 - CONCLUSION: Soft tissue swelling without fracture. Zay Carty MD Liver Ultrasound 08/24/16 0000 Signed Impressions: Service Date/Time: Wednesday, August 24, 2016 13:39 - CONCLUSION: 1. The gallbladder wall is at the upper limits of normal in size and there is a small amount of sludge. 2. Suboptimal study. Mark Chavis MD Head CT 08/23/16 [id number] Signed Impressions: Service Date/Time: August 16:01 - CONCLUSION: 1. No acute intracranial abnormalities. Delvin Arauz MD Chest X-Ray 08/23/16 [id number] Signed Impressions: Service Date/Time: August 14:47 - CONCLUSION: 1. Chronic appearing interstitial changes. 2. ET tube and NG tube in good position. Roc Lyons MD Physical Exam GENERAL: Awake and alert, NAD SKIN: Cool and dry. No generalized rash. HEENT: pale conjunctivae, no petechia or hemorrhage. No scleral icterus. Moist oral mucosa. NECK: Supple, nontender, no meningeal signs. CARDIOVASCULAR: Regular rate and rhythm without murmurs, gallops, or rubs. RESPIRATORY: Clear to auscultation. Breath sounds equal bilaterally. No wheezes , rales, or rhonchi. Decreased breath sounds at the bases. GASTROINTESTINAL: Abdomen soft, slightly globular, non-tender, nondistended. Bowel sounds are present and normoactive. MUSCULOSKELETAL: Extremities without clubbing, cyanosis, or edema. No joint tenderness, or effusion. No calf tenderness. NEUROLOGICAL: Non-focal PSYCH: Normal affect, calm and cooperative. LINE: PIV with no evidence of infection Assessment & Plan Remarks IMPRESSION Klebsiella UTI, on admission Respiratory failure, S/P extubation - doing well Etiology of initial decreased LOC unclear, better RECOMMENDATION Continue IV Invanz while in hospital When D/C give Bactrim DS 1 po bid until September 09 Clinically doing well from ID standpoint I will be available prn D/W Mariela Meza MD Aug 30, 2016 12:52
[2016-08-30] MEDS: ERTAPENEM INJ 1,000 MG in SODIUM CHLORIDE 0.9% INJ 100 ML IV SCH (23:03)
[2016-08-30] MEDS: ALPRAZolam 0.25 MG TAB PO PRN (23:36)
[2016-08-31] VITALS (14 sets, daily range): BP systolic 93–190; BP diastolic 51–84; PULSE 74–91; RESP 16–20; TEMP 97.8–98.9; O2SAT 92–100
[2016-08-31] MEDS: CHLORHEXIDINE GLUCONATE 2 % 1 PACK (2 CLOTHS) TOP SCH (02:13)
[2016-08-31] MEDS: METOPROLOL TARTRATE 25 MG TAB PO SCH ×2 (08:50→20:50)
[2016-08-31] MEDS: FUROSEMIDE 20 MG TAB PO SCH (08:50)
[2016-08-31] MEDS: CLOPIDOGREL 75 MG TAB PO SCH (08:50)
[2016-08-31] MEDS: amLODIPine BESYLATE 5 MG TAB TUBE SCH (08:51)
[2016-08-31] MEDS: ALLOPURINOL 100 MG TAB PO SCH (08:51)
[2016-08-31] MEDS: COLCHICINE 0.6 MG TAB PO SCH (08:51)
[2016-08-31] MEDS: DULoxetine HCl DR 30 MG CAP PO SCH (08:51)
[2016-08-31] MEDS: PRAVASTATIN SOD 20 MG TAB PO SCH (08:51)
[2016-08-31] MEDS: DOCUSATE SODIUM 100 MG/10 ML UDC G-TUBE SCH ×2 (08:52→20:50)
[2016-08-31] MEDS: ARTIFICIAL TEARS OPTH SOLN 15 ML BTL EACH EYE SCH ×3 (08:52→18:13)
[2016-08-31] MEDS: HEPARIN SODIUM - SQ 10,000 UNITS/ML VIAL SQ SCH ×2 (08:53→20:50)
[2016-08-31] MEDS: PANTOPRAZOLE SODIUM 40 MG VIAL IV SCH (08:53)
[2016-08-31] MEDS: ASPIRIN 81 MG CHEW TAB TUBE SCH (08:53)
[2016-08-31] MEDS: SODIUM CHLORIDE 0.9% FLUSH 5 ML FLUSH IV FLUSH SCH ×2 (08:59→20:51)
[2016-08-31] MEDS ORDERED: FUROSEMIDE 40 MG/4 ML VIAL ONE (09:26)
[2016-08-31] MEDS ORDERED: hydrALAZINE HCL 20 MG/ML VIAL ONE (09:30)
[2016-08-31] MEDS ORDERED: LABETALOL HCL 100 MG/20 ML VIAL ONE (09:30)
[2016-08-31] MEDS ORDERED: MIDAZOLAM HCL 5 MG/ML VIAL (1 ML) ONE (09:55)
[2016-08-31] MEDS ORDERED: ROCURONIUM INJ 50 MG/5 ML VIAL ONE (09:55)
[2016-08-31] MEDS ORDERED: ETOMIDATE 20 MG/10 ML VIAL ONE (09:55)
[2016-08-31] MEDS ORDERED: PROPOFOL 500 MG/50 ML INJ 50 ML ONE (10:03)
[2016-08-31] MEDS ORDERED: ASP: Path resistant to other antimicrobials, culture proven XX PRN (10:30)
[2016-08-31] MEDS ORDERED: MISCELLANEOUS PHARMACY INFORMATION XX PRN (10:30)
--- NOTE | 2016-08-31 10:47 | HHI.CCPN ---
Subjective Remarks/Hospital Course Previous history form admit note on 08/23/16: 75-year-old female well-known to [facility] recently discharged in Jul 2016, with a PMH of TBI with right temporal contusion, HTN, S/P CVA, Gout, fibromyalgia,acute hyperkalemia, frequent falls that presented to the ED brought in by EMS because patient had fallen 08/22/16.The patient was found lethargic, unresponsive according to patient's roommate. She was last seen normal at 9 PM the evening before. When EMS arrived, she was noted to be tachypneic, and disoriented, not protecting her airway, and she was intubated for airway protection. Upon arrival to the ED, the patient's systolic blood pressure was noted to be in the 80's. Laboratory and imaging studies were performed. CT scan revealed no acute abnormality, the patient was noted to be hyperkalemic, with a lactate 4.0. Cultures were obtained suggestive of UTI. Local care medicine was consulted for treatment and management. 08/24 Patient is sedated with Diprivan and intubated. s/p transfusion 2u PRBC with Hgb 10.0 from 7.3. Afebrile. 08/25 No acute events overnight. Sedated and intubated. Patient tolerated CPAP x 3 hrs yesterday then became tachypneic. T:100.4 Was extubated on 08/25/1608/27 No acute events overnight. Patient is lying in bed NAD. Afebrile. Transferred to [facility] on 08/28/16 [facility] RECONSULT NOTE 08/31/16: Patient became acutely hypertensive, hypoxemic today on the floor. Apparently patient was fine in the morning got her meds, later on was found to be in acute respiratory distress with hypoxemia diaphoresis and severe hypertension. Patient received hydralazine for blood pressure and was transferred to the ICU where I immediately available evaluated her. Patient is lethargic, in respiratory extremis. On 100% nonrebreather hardly keeping saturation of 90%, tachypneic 36 breaths per minute. Emergently intubated and placed on mechanical ventilation. Chest x-ray postintubation shows right lower lobe infiltrate which is new indicating possible aspiration. Currently on Invanz for ESBL Klebsiella. I have changed it to meropenem to cover for hospital- acquired pneumonia. Objective Vital Signs Date Time Temp Pulse Resp B/P Pulse Ox O2 Delivery O2 Flow Rate FiO2 08/31/16 10:11 96 100 08/31/16 09:29 Non-Rebreather 15.00 08/31/16 08:00 89 20 190/83 08/31/16 04:00 98.2 Intake and Output 08/30/16 08/30/16 08/31/16 08:00 16:00 00:00 Intake Total 240 ml 480 ml 240 ml Balance 240 ml 480 ml 240 ml Result Diagram: 08/28/16 0537 08/28/16 0537 Imaging Last Impressions Liver Ultrasound 08/24/16 0000 Signed Impressions: Service Date/Time: Wednesday, August 24, 2016 13:39 - CONCLUSION: 1. The gallbladder wall is at the upper limits of normal in size and there is a small amount of sludge. 2. Suboptimal study. Mark Chavis MD Head CT 08/23/16 [id number] Signed Impressions: Service Date/Time: August 16:01 - CONCLUSION: 1. No acute intracranial abnormalities. Delvin Arauz MD Chest X-Ray 08/23/16 [id number] Signed Impressions: Service Date/Time: August 14:47 - CONCLUSION: 1. Chronic appearing interstitial changes. 2. ET tube and NG tube in good position. Roc Lyons MD Objective Remarks GENERAL: Patient is lying in bed in severe respiratory distress encephalopathic SKIN: Warm and dry. HEAD: Normocephalic. EYES: No scleral icterus. No injection or drainage. ENT: Gurgling breath sounds Airway patent NECK: Supple, trachea midline. No JVD or lymphadenopathy. CARDIOVASCULAR: Regular rate and rhythm without murmurs, gallops, or rubs. RESPIRATORY: Breath sounds equal bilaterally, with extensive bilateral coarse and fine crackles. Positive accessory muscle use. In severe respiratory distress GASTROINTESTINAL: Abdomen soft, non-tender, nondistended. MUSCULOSKELETAL: No cyanosis, or edema. Neuro: Encephalopathic. Unable to do detailed exam due to respiratory distress Procedures endotracheal intubation Urinary Catheter: Yes Assessment to: Continue A/P Assessment and Plan Neurologic: Acute toxic metabolic encephalopathy H/O TBI with right temporal contusion Frequent falls Fibromyalgia Depression S/P CVA Chronic pain syndrome Fibromyalgia -Propofol for sedation and ventilator synchrony -Neurochecks per ICU protocol -Continue ASA and Plavix -Continue Duloxetine Respiratory: Acute hypoxemic respiratory failure New right lower lobe infiltrate/aspiration pneumonia H/O tobacco abuse -Emergently intubated and placed on mechanical ventilation, ACV 16/550/10 titrate FiO2 to keep saturation more than 90% -Bronchodilators every 6 hours, and every 2 hours when necessary -Discontinue Invanz start meropenem to cover for hospital-acquired pathogens, discussed with ID -CXR 08/23 chronic appearing interstitial changes, CXR 08/31: New Right lower lobe infiltrate Cardiovascular: Uncontrolled hypertension Dyslipidemia Hypertension H/O CHF -Her uncontrolled hypertension is secondary to her respiratory extremis -Continue current antihypertensives, add hydralazine 20 mg IV every 6 hours when necessary if needed -Continue Lopressor 50mg Q12, Norvasc 5mg daily-Monitor HR and BP keep MAP> 65mmHg -Continue pravastatin, ASA, Plavix -ECHO 11/04/15-EF 55-60%, no RWMA, mild aortic regurgitation. Renal: Chronic kidney disease -- Monitor renal function, I/O's, electrolytes replacement per protocol. GI: Elevated LFT;s..trending down Place NG tube, start tube feeds with Jevity US liver: The gallbladder wall is at the upper limits of normal in size and there is a small amount of sludge. 2. Suboptimal study. Monitor LFT's, Protonix for GI prophylaxis Heme Anemia of chronic disease Leukocytosis -s/p transfusion 2u PRBC 08/24 -Monitor CBC ID: Healthcare associated pneumonia Severe sepsis UTI- urine cx: Kleb ESBL -DC Invanz, place on Merrem 1 gram IV Q8, -ID following- monitor for signs of infections ( Fever, WBC) -Pneumococcal, Legionella antigen negative -Negative for influenza Endocrine: Diabetes mellitus Glucose monitoring per ICU protocol, low dose regimen -TSH 1.040 --SSI MSK: Osteoporosis Gout Rheumatoid arthritis -Continue allopurinol Prophylaxis: GI Prophylaxis Protonix DVT Prophylaxis -- SCDs Heparin 5000 SQ BID Lines: Peripheral IVs 2 . Patient acutely ill with acute hypoxemic respiratory failure, severe sepsis, and severe hospital-acquired pneumonia. Critically ill at this time CCT 55 MIN excluding procedures Cliff Hyde MD Aug 31, 2016 10:47 Cliff Hyde MD Aug 31, 2016 10:47
--- NOTE | 2016-08-31 11:05 | RADRPT ---
EXAM DATE/TIME: 08/31/2016 10:12 [facility] COMPARISON: CHEST SINGLE AP, August 23, 2016, 14:47. INDICATIONS : Respiratory disease. MEDICAL HISTORY : Sepsis. Pancreatitis. Encephalopathy. CVA. Congestive heart failure. Atrial-Fib SURGICAL HISTORY : ENCOUNTER: Subsequent ACUITY: 1 week PAIN SCORE: Non-responsive. LOCATION: chest FINDINGS: Endotracheal tube is present with tip 2 cm above the ebony. There is airspace infiltrate in the medi al right lung base and prominent perihilar interstitial infiltrates bilaterally. CONCLUSION: Bilateral infiltrates. Tube in satisfactory position. Barrett Garcia MD on August 31, 2016 at 11:03 Board Certified Radiologist. This report was verified electronically.
[2016-08-31 11:33] LABS: AUTOMATED NEUTROPHIL # 7.9 TH/MM3 (1.8-7.7); BASOPHIL # 0.1 TH/MM3 (0-0.2); BASOPHIL % 0.7 % (0.0-2.0); HEMATOCRIT 36.4 % (35.0-46.0); LYMPH % 10.5 % (9.0-44.0); MEAN CELL VOLUME 78.6 FL (80.0-100.0); MEAN CORPUSCULAR HEMOGLOBIN 24.8 PG (27.0-34.0); MEAN CORPUSCULAR HGB CONC 31.6 % (32.0-36.0); MONO % 7.7 % (0.0-8.0); NEUT % 81.1 % (16.0-70.0); PLATELET COUNT 261 TH/MM3 (150-450); RED BLOOD COUNT 4.64 MIL/MM3 (4.00-5.30); RED CELL DISTRIBUTION WIDTH 16.6 % (11.6-17.2); WHITE BLOOD COUNT 9.8 TH/MM3 (4.0-11.0)
[2016-08-31 11:37] LABS: HEMO FLAGS AUTO DIFF
[2016-08-31 11:38] LABS: BLOOD GAS BASE EXCESS 5.8 mmol/L (-2-2); BLOOD GAS CARBOXYHEMOGLOBIN 1.7 % (0-4); BLOOD GAS HCO3 31 mmol/L (22-26); BLOOD GAS METHEMOGLOBIN 1.2 % (0-2); BLOOD GAS O2 HGB SATURATION 95 % (90-100); BLOOD GAS PCO2 52 mmHg (38-42); BLOOD GAS PO2 99 mmHg (61-120); BLOOD GAS TOTAL HGB 11.2 G/DL (12.0-16.0); TEMP CORR TO 98.6
[2016-08-31 11:39] LABS: CRITICAL VALUE YES; OXYGEN DEVICE VENTILATOR
[2016-08-31 11:40] LABS: DRAW SITE LT RADIAL; FIO2 60 %; NUMBER OF ARTERIAL PUNCTURES 1; STAT NO; ULNAR PULSE PRESENT; VENT SETTINGS AC 16/550/PEEP10
[2016-08-31 11:52] LABS: ALT (GPT) 43 U/L (10-53); ANION GAP 6 MEQ/L (5-15); AST (GOT) 20 U/L (15-37); BICARBONATE 31.7 MEQ/L (21.0-32.0); BLOOD UREA NITROGEN 15 MG/DL (7-18); CHLORIDE 98 MEQ/L (98-107); GLOMERULAR FILTRATION RATE 73 ML/MIN (>89); MAGNESIUM 1.9 MG/DL (1.5-2.5); POTASSIUM 3.7 MEQ/L (3.5-5.1); SODIUM (NA) 136 MEQ/L (136-145)
[2016-08-31 11:54] LABS: ALKALINE PHOSPHATASE 97 U/L (45-117); TOTAL BILIRUBIN ADULT 0.3 MG/DL (0.2-1.0)
[2016-08-31 12:01] LABS: BLOOD, URINE NEG (NEG); GLUCOSE,URINE NEG (NEG); HYALINE CAST, URINE 1 /lpf (RARE); KETONE, URINE NEG (NEG); MUCUS URINE FEW /lpf (OCC); NITRITE,URINE NEG (NEG); URINE COLOR LIGHT-YELLOW (YELLW/STRAW)
[2016-08-31 12:13] LABS: SCAN/DIFF AUTO DIFF CONFIRMED
[2016-08-31] MEDS: MEROPENEM INJ 1,000 MG in SODIUM CHLORIDE 0.9% INJ 100 ML IV SCH ×2 (12:14→20:49)
[2016-08-31] MEDS: RESP: ALBUTEROL 2.5 MG/IPRATROPIUM 0.5 MG NEB (SCH) NEB ×2 (15:20→19:32)
--- NOTE | 2016-08-31 16:24 | HHI.IDPN ---
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 Jackson) Bilateral carotid endarterectomy (right carotid endarterectomy was performed by Dr. 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 Vital Signs Date Time Temp Pulse Resp B/P Pulse Ox O2 Delivery O2 Flow Rate FiO2 08/31/16 15:21 100 40 08/31/16 10:41 96 60 08/31/16 10:11 96 100 08/31/16 09:29 96 Non-Rebreather 15.00 100 08/31/16 08:00 89 20 190/83 92 08/31/16 08:00 84 08/31/16 04:00 98.2 78 18 161/70 96 08/31/16 00:00 97.8 84 18 154/84 96 08/30/16 22:00 97 08/30/16 20:30 178/80 Automatic Cuff 08/30/16 20:00 98.2 100 18 198/86 95 08/30/16 08/30/16 08/31/16 15:00 23:00 07:00 Intake Total 480 ml 240 ml 120 ml Balance 480 ml 240 ml 120 ml Intake Oral 480 ml 240 ml 120 ml # Voids 4 3 2 # Bowel Movements 1 1 0 . Laboratory Tests Test 08/31/16 10:38 White Blood Count 9.8 TH/MM3 Red Blood Count 4.64 MIL/MM3 Hemoglobin 11.5 GM/DL Hematocrit 36.4 % Mean Corpuscular Volume 78.6 FL Mean Corpuscular Hemoglobin 24.8 PG Mean Corpuscular Hemoglobin 31.6 % Concent Red Cell Distribution Width 16.6 % Platelet Count 261 TH/MM3 Mean Platelet Volume 8.8 FL Neutrophils (%) (Auto) 81.1 % Lymphocytes (%) (Auto) 10.5 % Monocytes (%) (Auto) 7.7 % Eosinophils (%) (Auto) 0.0 % Basophils (%) (Auto) 0.7 % Neutrophils # (Auto) 7.9 TH/MM3 Lymphocytes # (Auto) 1.0 TH/MM3 Monocytes # (Auto) 0.7 TH/MM3 Eosinophils # (Auto) 0.0 TH/MM3 Basophils # (Auto) 0.1 TH/MM3 CBC Comment AUTO DIFF Differential Comment AUTO DIFF CONFIRMED Laboratory Tests Test 08/30/16 08/31/16 03:07 10:38 Total Bilirubin 0.2 MG/DL 0.3 MG/DL Direct Bilirubin 0.1 MG/DL Indirect Bilirubin 0.1 MG/DL Aspartate Amino Transf 14 U/L 20 U/L (AST/SGOT) Alanine Aminotransferase 55 U/L 43 U/L (ALT/SGPT) Alkaline Phosphatase 83 U/L 97 U/L Total Protein 6.0 GM/DL 6.4 GM/DL Albumin 2.3 GM/DL 2.5 GM/DL Sodium Level 136 MEQ/L Potassium Level 3.7 MEQ/L Chloride Level 98 MEQ/L Carbon Dioxide Level 31.7 MEQ/L Anion Gap 6 MEQ/L Blood Urea Nitrogen 15 MG/DL Creatinine 0.77 MG/DL Estimat Glomerular Filtration 73 ML/MIN Rate Random Glucose 189 MG/DL Calcium Level 8.7 MG/DL Magnesium Level 1.9 MG/DL B-Type Natriuretic Peptide 315 PG/ML Microbiology Date/Time Procedure Status Source Growth 08/31/16 12:07 Aerobic Blood Culture Received Blood Other Pending 08/31/16 12:07 Anaerobic Blood Culture Received Blood Other Pending 08/31/16 12:16 Aerobic Blood Culture Received Blood Other Pending 08/31/16 12:16 Anaerobic Blood Culture Received Blood Other Pending Imaging Chest X-Ray 08/31/16 0000 Signed Impressions: Service Date/Time: Wednesday, August 31, 2016 10:12 - CONCLUSION: Bilateral infiltrates. Tube in satisfactory position. Barrett Garcia MD Ankle X-Ray 08/28/16 0000 Signed Impressions: Service Date/Time: Sunday, August 28, 2016 10:37 - CONCLUSION: Soft tissue swelling without fracture. Zay Carty MD Liver Ultrasound 08/24/16 0000 Signed Impressions: Service Date/Time: Wednesday, August 24, 2016 13:39 - CONCLUSION: 1. The gallbladder wall is at the upper limits of normal in size and there is a small amount of sludge. 2. Suboptimal study. Mark Chavis MD Head CT 08/23/16 1358 Signed Impressions: Service Date/Time: August 16:01 - CONCLUSION: 1. No acute intracranial abnormalities. Delvin Arauz MD Physical Exam GENERAL: Sedated on the vent, NAD. OPens eyes when stimulated SKIN: Cool and dry. No generalized rash. HEENT: Pale conjunctivae, no petechia or hemorrhage. No scleral icterus. ET in mouth NECK: Supple, nontender, no meningeal signs. CARDIOVASCULAR: Regular rate and rhythm without murmurs, gallops, or rubs. RESPIRATORY: Coarse BS bilaterally GASTROINTESTINAL: Abdomen soft, slightly globular, non-tender, nondistended. Bowel sounds are present and normoactive. MUSCULOSKELETAL: Extremities without clubbing, cyanosis, or edema. No calf tenderness. NEUROLOGICAL: Non-focal PSYCH: Normal affect, calm and cooperative. LINE: PIV with no evidence of infection Assessment & Plan Remarks IMPRESSION Klebsiella UTI, on admission Respiratory failure, recurrent, reintubated today 08/31 - has new R base infiltrate, likely aspiration Etiology of initial decreased LOC unclear, better RECOMMENDATION Continue Meropenem Follow C/S - adjust Abx once C/s available Give one dose of Vancomycin Monitor progress D/W Dr Hyde earlier today D/W Mariela Del Real MD Aug 31, 2016 16:24
[2016-08-31] MEDS ORDERED: VANCOMYCIN INJ 1,000 MG in SODIUM CHLOR 0.9% 250 ML INJ 250 ML IV ONE (16:45)
[2016-08-31] MEDS: PROPOFOL 1000 MG/100 ML INJ 100 ML IV SCH ×2 (18:13→20:50)
[2016-08-31] MEDS: ALPRAZolam 0.25 MG TAB PO PRN (19:17)
[2016-08-31] MEDS: CHLORHEXIDINE 0.12% (ORAL KIT) 15 ML CUP MT SCH (20:49)
[2016-09-01] VITALS (18 sets, daily range): BP systolic 97–128; BP diastolic 53–60; PULSE 74–99; RESP 16–31; TEMP 98.1–99.7; O2SAT 93–97
[2016-09-01] MEDS: PROPOFOL 1000 MG/100 ML INJ 100 ML IV SCH ×3 (00:11→06:19)
[2016-09-01] MEDS: MEROPENEM INJ 1,000 MG in SODIUM CHLORIDE 0.9% INJ 100 ML IV SCH ×3 (03:08→20:24)
[2016-09-01] MEDS: fentaNYL DRIP 250 ML IV SCH (03:09)
[2016-09-01] MEDS: CHLORHEXIDINE GLUCONATE 2 % 1 PACK (2 CLOTHS) TOP SCH (03:10)
[2016-09-01] MEDS: RESP: ALBUTEROL 2.5 MG/IPRATROPIUM 0.5 MG NEB (SCH) NEB ×4 (03:22→21:42)
--- NOTE | 2016-09-01 08:51 | RADRPT ---
EXAM DATE/TIME: 09/01/2016 08:02 [facility] COMPARISON: CHEST SINGLE AP, August 31, 2016, 10:12. INDICATIONS : Evaluate for respiratory disease. MEDICAL HISTORY : Sepsis. Pancreatitis. Encephalopathy. CVA. Congestive heart failure. Atrial-Fib. SURGICAL HISTORY : None. ENCOUNTER: Subsequent ACUITY: 1 week PAIN SCORE: Non-responsive. LOCATION: chest FINDINGS: Single AP view of the chest. Endotracheal tube is in place with the tip at the ebony. Nasogastric tu be is in place with the tip not visualized as it courses below the field of view of the radiograph. M ild confluent opacity at the left lung base, likely representing atelectasis. Right lung base opacity has decreased. No evidence of pleural effusion or pneumothorax. CONCLUSION: 1. Endotracheal tube tip is at the ebony and could be retracted 2-3 cm. 2. Nasogastric tube now in place with the tip below the field of view of the radiograph. 3. Mild left lung base opacity likely representing atelectasis. 4. Decrease in mild right basilar lung opacity. Nixon Cornejo MD on September 01, 2016 at 8:48 Board Certified Radiologist. This report was verified electronically.
[2016-09-01] MEDS: CLOPIDOGREL 75 MG TAB PO SCH (08:54)
[2016-09-01] MEDS: METOPROLOL TARTRATE 25 MG TAB PO SCH ×2 (08:54→20:25)
[2016-09-01] MEDS: amLODIPine BESYLATE 5 MG TAB TUBE SCH (08:54)
[2016-09-01] MEDS: SODIUM CHLORIDE 0.9% FLUSH 5 ML FLUSH IV FLUSH SCH ×2 (08:54→20:25)
[2016-09-01] MEDS: PRAVASTATIN SOD 20 MG TAB PO SCH (08:54)
[2016-09-01] MEDS: DOCUSATE SODIUM 100 MG/10 ML UDC G-TUBE SCH ×2 (08:54→20:25)
[2016-09-01] MEDS: COLCHICINE 0.6 MG TAB PO SCH (08:54)
[2016-09-01] MEDS: ASPIRIN 81 MG CHEW TAB TUBE SCH (08:54)
[2016-09-01] MEDS: ALLOPURINOL 100 MG TAB PO SCH (08:54)
[2016-09-01] MEDS: DULoxetine HCl DR 30 MG CAP PO SCH (08:54)
[2016-09-01] MEDS: HEPARIN SODIUM - SQ 10,000 UNITS/ML VIAL SQ SCH ×2 (08:55→20:25)
[2016-09-01] MEDS: PANTOPRAZOLE SODIUM 40 MG VIAL IV SCH (08:55)
[2016-09-01] MEDS: ARTIFICIAL TEARS OPTH SOLN 15 ML BTL EACH EYE SCH ×3 (08:57→15:44)
[2016-09-01] MEDS: CHLORHEXIDINE 0.12% (ORAL KIT) 15 ML CUP MT SCH ×2 (08:58→20:00)
[2016-09-01] MEDS ORDERED: POTASSIUM CL 40 MEQ/30 ML LIQ UDC PO ONE (09:45)
[2016-09-01] MEDS ORDERED: BUMETANIDE INJ 1 MG/4 ML VIAL IV PUSH ONE (09:45)
--- NOTE | 2016-09-01 09:51 | HHI.CCPN ---
Subjective Remarks/Hospital Course Previous history form admit note on 08/23/16: 75-year-old female well-known to [facility] recently discharged in Jul 2016, with a PMH of TBI with right temporal contusion, HTN, S/P CVA, Gout, fibromyalgia,acute hyperkalemia, frequent falls that presented to the ED brought in by EMS because patient had fallen 08/22/16.The patient was found lethargic, unresponsive according to patient's roommate. She was last seen normal at 9 PM the evening before. When EMS arrived, she was noted to be tachypneic, and disoriented, not protecting her airway, and she was intubated for airway protection. Upon arrival to the ED, the patient's systolic blood pressure was noted to be in the 80's. Laboratory and imaging studies were performed. CT scan revealed no acute abnormality, the patient was noted to be hyperkalemic, with a lactate 4.0. Cultures were obtained suggestive of UTI. Local care medicine was consulted for treatment and management. 08/24 Patient is sedated with Diprivan and intubated. s/p transfusion 2u PRBC with Hgb 10.0 from 7.3. Afebrile. 08/25 No acute events overnight. Sedated and intubated. Patient tolerated CPAP x 3 hrs yesterday then became tachypneic. T:100.4 Was extubated on 08/25/1608/27 No acute events overnight. Patient is lying in bed NAD. Afebrile. Transferred to [facility] on 08/28/16 [facility] RECONSULT NOTE 08/31/16: Patient became acutely hypertensive, hypoxemic today on the floor. Apparently patient was fine in the morning got her meds, later on was found to be in acute respiratory distress with hypoxemia diaphoresis and severe hypertension. Patient received hydralazine for blood pressure and was transferred to the ICU where I immediately available evaluated her. Patient is lethargic, in respiratory extremis. On 100% nonrebreather hardly keeping saturation of 90%, tachypneic 36 breaths per minute. Emergently intubated and placed on mechanical ventilation. Chest x-ray postintubation shows right lower lobe infiltrate which is new indicating possible aspiration. Currently on Invanz for ESBL Klebsiella. I have changed it to meropenem to cover for hospital- acquired pneumonia. SUBJ 09/01: Remains intubated sedated but wakes up easily and follows commands. Chest x-ray showed interval improvement in bilateral infiltrates. Secretions are minimal. Will initiate CPAP trials Objective Vital Signs Date Time Temp Pulse Resp B/P Pulse Ox O2 Delivery O2 Flow Rate FiO2 09/01/16 08:00 99.6 93 16 111/57 96 09/01/16 04:30 40 08/31/16 09:29 Non-Rebreather 15.00 Intake and Output 08/31/16 08/31/16 09/01/16 08:00 16:00 00:00 Intake Total 120 ml 1152 ml 547 ml Output Total 1350 ml 350 ml Balance 120 ml -198 ml 197 ml Result Diagram: 08/31/16 1038 08/31/16 1038 Other Results Laboratory Tests Test 08/31/16 11:30 Blood Gas Puncture Site LT RADIAL Blood Gas Patient Temperature 98.6 Blood Gas HCO3 31 mmol/L (22-26) Blood Gas Base Excess 5.8 mmol/L (-2-2) Blood Gas Oxygen Saturation 95 % (90-100) Arterial Blood pH 7.39 (7.380-7.420) Arterial Blood Partial 52 mmHg (38-42) Pressure CO2 Arterial Blood Partial 99 mmHg Pressure O2 (61-120) Arterial Blood Oxygen Content 15.0 Vol % (12.0-20.0) Arterial Blood 1.7 % (0-4) Carboxyhemoglobin Arterial Blood Methemoglobin 1.2 % (0-2) Blood Gas Hemoglobin 11.2 G/DL (12.0-16.0) Oxygen Delivery Device VENTILATOR Blood Gas Ventilator Setting AC 16/550/PEEP10 Blood Gas Inspired Oxygen 60 % Imaging Last Impressions Liver Ultrasound 08/24/16 0000 Signed Impressions: Service Date/Time: Wednesday, August 24, 2016 13:39 - CONCLUSION: 1. The gallbladder wall is at the upper limits of normal in size and there is a small amount of sludge. 2. Suboptimal study. Mark Chavis MD Head CT 08/23/16 2120 Signed Impressions: Service Date/Time: August 16:01 - CONCLUSION: 1. No acute intracranial abnormalities. Delvin Arauz MD Chest X-Ray 08/23/16 3069 Signed Impressions: Service Date/Time: August 14:47 - CONCLUSION: 1. Chronic appearing interstitial changes. 2. ET tube and NG tube in good position. Roc Lyons MD Objective Remarks GENERAL: Patient is lying in bed intubated sedated SKIN: Warm and dry. HEAD: Normocephalic. EYES: No scleral icterus. No injection or drainage. ENT: Orotracheally intubated NECK: Supple, trachea midline. No JVD or lymphadenopathy. CARDIOVASCULAR: Regular rate and rhythm without murmurs, gallops, or rubs. RESPIRATORY: Breath sounds equal bilaterally, few bilateral coarse crackles. GASTROINTESTINAL: Abdomen soft, non-tender, nondistended. MUSCULOSKELETAL: No cyanosis, or edema. Neuro: Intubated sedated. On lightening sedation patient is awake follows commands all 4 extremities Procedures endotracheal intubation Urinary Catheter: Yes Assessment to: Continue A/P Assessment and Plan Neurologic: Acute toxic metabolic encephalopathy H/O TBI with right temporal contusion Frequent falls Fibromyalgia Depression S/P CVA Chronic pain syndrome Fibromyalgia -Propofol for sedation and ventilator synchrony -Neurochecks per ICU protocol -Continue ASA and Plavix -Start daily sedation vacation Respiratory: Acute hypoxemic respiratory failure New right lower lobe infiltrate/aspiration pneumonia H/O tobacco abuse -Emergently intubated and placed on mechanical ventilation, ACV 16/550/10 -Chest x-ray shows interval improvement, start spontaneous breathing trials -Bronchodilators every 6 hours, and every 2 hours when necessary -Continue Meropenem to cover for hospital-acquired pathogens, discussed with ID -CXR 08/23 chronic appearing interstitial changes, CXR 08/31: New Right lower lobe infiltrate Cardiovascular: Uncontrolled hypertension Probable CHF Dyslipidemia Hypertension H/O CHF -Her uncontrolled hypertension and pulmonary edema might have contributed to respiratory failure -By mouth Lasix is on hold, will give Bumex 1 mg 1 -Hold Lopressor 50mg Q12, Norvasc 5mg daily -Monitor HR and BP keep MAP>65mmHg -Continue pravastatin, ASA, Plavix -ECHO 11/04/15-EF 55-60%, no RWMA, mild aortic regurgitation. Renal: Chronic kidney disease -- Monitor renal function, I/O's, electrolytes replacement per protocol. GI: -NG tube, start tube feeds with Jevity -US liver: The gallbladder wall is at the upper limits of normal in size and there is a small amount of sludge. 2. Suboptimal study. -Monitor LFT's, -Protonix for GI prophylaxis Heme Anemia of chronic disease Leukocytosis -s/p transfusion 2u PRBC 08/24 -Monitor CBC ID: Healthcare associated pneumonia Severe sepsis UTI- urine cx: Kleb ESBL -Continue Merrem 1 gram IV Q8, received a single dose of vancomycin to 08/31/16 -ID following- monitor for signs of infections ( Fever, WBC) -Pneumococcal, Legionella antigen negative -Negative for influenza Endocrine: Diabetes mellitus -Glucose monitoring per ICU protocol, low dose regimen SSI MSK: Osteoporosis Gout Rheumatoid arthritis -Continue allopurinol Prophylaxis: GI Prophylaxis -Protonix DVT Prophylaxis -SCDs -Heparin 5000 SQ BID Lines: Peripheral IVs 2 . Patient acutely ill with acute hypoxemic respiratory failure, severe sepsis, and severe hospital-acquired pneumonia. Critically ill at this time Level 2 Initial CPAP trial for potential extubation Cliff Hyde MD Sep 01, 2016 09:51
--- NOTE | 2016-09-01 09:52 | HHI.IDPN ---
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 Jackson) Bilateral carotid endarterectomy (right carotid endarterectomy was performed by Dr. 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 Vital Signs Date Time Temp Pulse Resp B/P Pulse Ox O2 Delivery O2 Flow Rate FiO2 09/01/16 08:00 99.6 93 16 111/57 96 09/01/16 06:00 94 09/01/16 04:30 96 40 09/01/16 04:00 92 09/01/16 04:00 99.2 92 17 97/54 97 09/01/16 02:00 89 09/01/16 01:27 96 40 09/01/16 00:00 95 09/01/16 00:00 98.8 95 17 128/60 94 08/31/16 22:00 91 08/31/16 22:00 96 40 08/31/16 20:00 90 08/31/16 20:00 98.7 90 16 130/62 96 08/31/16 19:35 98 40 08/31/16 18:00 91 08/31/16 16:00 98.9 91 16 138/63 100 08/31/16 16:00 85 08/31/16 15:21 100 40 08/31/16 14:00 75 08/31/16 12:00 88 08/31/16 12:00 98.6 74 16 93/51 98 Manual Cuff/Auscultation 08/31/16 10:41 96 60 08/31/16 10:11 96 100 08/31/16 08/31/16 09/01/16 15:00 23:00 07:00 Intake Total 1152 ml 547 ml 526 ml Output Total 1350 ml 350 ml 200 ml Balance -198 ml 197 ml 326 ml Intake Oral 0 ml IV Total 1152 ml 503 ml 375 ml Tube Feeding 44 ml 151 ml Output Urine Total 1350 ml 350 ml 200 ml # Bowel Movements 0 . Laboratory Tests Test 08/31/16 10:38 White Blood Count 9.8 TH/MM3 Red Blood Count 4.64 MIL/MM3 Hemoglobin 11.5 GM/DL Hematocrit 36.4 % Mean Corpuscular Volume 78.6 FL Mean Corpuscular Hemoglobin 24.8 PG Mean Corpuscular Hemoglobin 31.6 % Concent Red Cell Distribution Width 16.6 % Platelet Count 261 TH/MM3 Mean Platelet Volume 8.8 FL Neutrophils (%) (Auto) 81.1 % Lymphocytes (%) (Auto) 10.5 % Monocytes (%) (Auto) 7.7 % Eosinophils (%) (Auto) 0.0 % Basophils (%) (Auto) 0.7 % Neutrophils # (Auto) 7.9 TH/MM3 Lymphocytes # (Auto) 1.0 TH/MM3 Monocytes # (Auto) 0.7 TH/MM3 Eosinophils # (Auto) 0.0 TH/MM3 Basophils # (Auto) 0.1 TH/MM3 CBC Comment AUTO DIFF Differential Comment AUTO DIFF CONFIRMED Laboratory Tests Test 08/31/16 10:38 Sodium Level 136 MEQ/L Potassium Level 3.7 MEQ/L Chloride Level 98 MEQ/L Carbon Dioxide Level 31.7 MEQ/L Anion Gap 6 MEQ/L Blood Urea Nitrogen 15 MG/DL Creatinine 0.77 MG/DL Estimat Glomerular Filtration 73 ML/MIN Rate Random Glucose 189 MG/DL Calcium Level 8.7 MG/DL Magnesium Level 1.9 MG/DL Total Bilirubin 0.3 MG/DL Aspartate Amino Transf 20 U/L (AST/SGOT) Alanine Aminotransferase 43 U/L (ALT/SGPT) Alkaline Phosphatase 97 U/L B-Type Natriuretic Peptide 315 PG/ML Total Protein 6.4 GM/DL Albumin 2.5 GM/DL Microbiology Date/Time Procedure Status Source Growth 08/31/16 12:00 Gram Stain - Final Resulted Sputum Endotracheal 08/31/16 12:00 Sputum Culture Resulted Sputum Endotracheal Pending 08/31/16 12:07 Aerobic Blood Culture Received Blood Other Pending 08/31/16 12:07 Anaerobic Blood Culture Received Blood Other Pending 08/31/16 12:16 Aerobic Blood Culture Received Blood Other Pending 08/31/16 12:16 Anaerobic Blood Culture Received Blood Other Pending Imaging Chest X-Ray 09/01/16 0000 Signed Impressions: Service Date/Time: Thursday, September 01, 2016 08:02 - CONCLUSION: 1. Endotracheal tube tip is at the ebony and could be retracted 2-3 cm. 2. Nasogastric tube now in place with the tip below the field of view of the radiograph. 3. Mild left lung base opacity likely representing atelectasis. 4. Decrease in mild right basilar lung opacity. Nixon Cornejo MD Chest X-Ray 08/31/16 0000 Signed Impressions: Service Date/Time: Wednesday, August 31, 2016 10:12 - CONCLUSION: Bilateral infiltrates. Tube in satisfactory position. Barrett Garcia MD Chest X-Ray 08/31/16 0000 Signed Impressions: Service Date/Time: Wednesday, August 31, 2016 10:12 - CONCLUSION: Bilateral infiltrates. Tube in satisfactory position. Barrett Garcia MD Ankle X-Ray 08/28/16 0000 Signed Impressions: Service Date/Time: Sunday, August 28, 2016 10:37 - CONCLUSION: Soft tissue swelling without fracture. Zay Carty MD Liver Ultrasound 08/24/16 0000 Signed Impressions: Service Date/Time: Wednesday, August 24, 2016 13:39 - CONCLUSION: 1. The gallbladder wall is at the upper limits of normal in size and there is a small amount of sludge. 2. Suboptimal study. Mark Chavis MD Head CT 08/23/16 1358 Signed Impressions: Service Date/Time: August 16:01 - CONCLUSION: 1. No acute intracranial abnormalities. Delvin Arauz MD Physical Exam GENERAL: Awake, responding, looks comfortable on the vent SKIN: Cool and dry. No generalized rash. HEENT: Pale conjunctivae, no petechia or hemorrhage. No scleral icterus. ET in mouth NECK: Supple, nontender, no meningeal signs. Has scar on R side, and also has an old tracheostomy scar CARDIOVASCULAR: Regular rate and rhythm without murmurs, gallops, or rubs. RESPIRATORY: Coarse BS bilaterally GASTROINTESTINAL: Abdomen soft, slightly globular, non-tender, nondistended. Bowel sounds are present and normoactive. MUSCULOSKELETAL: Extremities without clubbing, cyanosis, or edema. No calf tenderness. NEUROLOGICAL: Non-focal PSYCH: Normal affect, calm and cooperative. LINE: PIV with no evidence of infection Assessment & Plan Remarks IMPRESSION Klebsiella UTI, on admission Respiratory failure, recurrent, reintubated today 08/31 - has new R base infiltrate, likely aspiration Etiology of initial decreased LOC unclear, better RECOMMENDATION Continue Meropenem Follow C/S - adjust Abx once C/S available Monitor progress Monitor giana D/W Mariela Del Real MD Sep 01, 2016 09:52
[2016-09-01] MEDS ORDERED: RESP: RACEPINEPHRINE 2.25% 0.5 ML NEB ONE (13:01)
[2016-09-01] MEDS: ACETAMINOPHEN 325 MG TAB PO PRN (14:30)
[2016-09-01] MEDS: ALPRAZolam 0.25 MG TAB PO PRN (20:31)
[2016-09-01] MEDS: ACETAMINOPHEN/HYDROcodone 325 MG/5 MG TAB PO PRN (20:31)
[2016-09-02] VITALS (14 sets, daily range): BP systolic 116–165; BP diastolic 56–74; PULSE 70–92; RESP 18–24; TEMP 98–99.2; O2SAT 92–97
[2016-09-02] MEDS: guaiFENesin/CODEINE SYRUP 200 MG/20 MG/10 ML CUP PO PRN ×2 (02:55→23:44)
[2016-09-02] MEDS: ACETAMINOPHEN/HYDROcodone 325 MG/5 MG TAB PO PRN ×3 (02:55→23:45)
[2016-09-02] MEDS: MEROPENEM INJ 1,000 MG in SODIUM CHLORIDE 0.9% INJ 100 ML IV SCH ×3 (03:39→20:03)
[2016-09-02] MEDS: CHLORHEXIDINE GLUCONATE 2 % 1 PACK (2 CLOTHS) TOP SCH (03:39)
[2016-09-02] MEDS: RESP: ALBUTEROL 2.5 MG/IPRATROPIUM 0.5 MG NEB (SCH) NEB ×4 (04:04→20:53)
--- NOTE | 2016-09-02 05:05 | RADRPT ---
EXAM DATE/TIME: 09/02/2016 03:43 [facility] COMPARISON: CHEST SINGLE AP, September 01, 2016, 8:02. INDICATIONS : Shortness of breath, possible pulmonary disease. MEDICAL HISTORY : Sepsis. Pancreatitis. Congestive heart failure. A-Fib SURGICAL HISTORY : None. ENCOUNTER: Subsequent ACUITY: 1 week PAIN SCORE: Non-responsive. LOCATION: Bilateral chest FINDINGS: Cardiomegaly and left basilar airspace disease. Degenerative changes of the spine. CONCLUSION: No significant change has occurred. Camron Sampson MD on September 02, 2016 at 5:03 Board Certified Radiologist. This report was verified electronically.
[2016-09-02 07:46] LABS: AUTOMATED NEUTROPHIL # 3.5 TH/MM3 (1.8-7.7); BASOPHIL # 0.1 TH/MM3 (0-0.2); BASOPHIL % 1.9 % (0.0-2.0); EOSINOPHIL % 0.4 % (0.0-4.0); HEMATOCRIT 31.1 % (35.0-46.0); LYMPH % 28.7 % (9.0-44.0); LYMPHOCYTE # 1.8 TH/MM3 (1.0-4.8); MEAN CELL VOLUME 78.2 FL (80.0-100.0); MEAN CORPUSCULAR HEMOGLOBIN 24.6 PG (27.0-34.0); MEAN CORPUSCULAR HGB CONC 31.4 % (32.0-36.0); MONO % 13.5 % (0.0-8.0); NEUT % 55.5 % (16.0-70.0); PLATELET COUNT 194 TH/MM3 (150-450); RED BLOOD COUNT 3.97 MIL/MM3 (4.00-5.30); RED CELL DISTRIBUTION WIDTH 17.2 % (11.6-17.2); WHITE BLOOD COUNT 6.4 TH/MM3 (4.0-11.0)
[2016-09-02] MEDS: CHLORHEXIDINE 0.12% (ORAL KIT) 15 ML CUP MT SCH ×2 (08:00→20:00)
[2016-09-02 08:04] LABS: ALKALINE PHOSPHATASE 82 U/L (45-117); ALT (GPT) 27 U/L (10-53); ANION GAP 4 MEQ/L (5-15); AST (GOT) 17 U/L (15-37); BICARBONATE 36.6 MEQ/L (21.0-32.0); BLOOD UREA NITROGEN 14 MG/DL (7-18); CHLORIDE 100 MEQ/L (98-107); GLOMERULAR FILTRATION RATE 79 ML/MIN (>89); MAGNESIUM 1.8 MG/DL (1.5-2.5); POTASSIUM 3.2 MEQ/L (3.5-5.1); SODIUM (NA) 141 MEQ/L (136-145); TOTAL BILIRUBIN ADULT 0.4 MG/DL (0.2-1.0)
[2016-09-02 08:10] LABS: HEMO FLAGS AUTO DIFF
--- NOTE | 2016-09-02 08:51 | HHI.CCPN ---
Subjective Remarks/Hospital Course [facility] PN/TRANSFER SUMMARY: Previous history from admission on 08/23/16: 75-year-old female well-known to [facility] recently discharged in Jul 2016, with a PMH of TBI with right temporal contusion, HTN, S/P CVA, Gout, fibromyalgia,acute hyperkalemia, frequent falls that presented to the ED brought in by EMS because patient had fallen 08/22/16.The patient was found lethargic, unresponsive according to patient's roommate. She was last seen normal at 9 PM the evening before. When EMS arrived, she was noted to be tachypneic, and disoriented, not protecting her airway, and she was intubated for airway protection. Upon arrival to the ED, the patient's systolic blood pressure was noted to be in the 80's. Laboratory and imaging studies were performed. CT scan revealed no acute abnormality, the patient was noted to be hyperkalemic, with a lactate 4.0. Cultures were obtained suggestive of UTI. Local care medicine was consulted for treatment and management. 08/24 Patient is sedated with Diprivan and intubated. s/p transfusion 2u PRBC with Hgb 10.0 from 7.3. Afebrile. 08/25 No acute events overnight. Sedated and intubated. Patient tolerated CPAP x 3 hrs yesterday then became tachypneic. T:100.4 Was extubated on 08/25/1608/27 Transferred to [facility] on 08/28/16 [facility] RECONSULT NOTE 08/31/16: Patient became acutely hypertensive, hypoxemic today on the floor. Apparently patient was fine in the morning got her meds, later on was found to be in acute respiratory distress with hypoxemia diaphoresis and severe hypertension. Patient received hydralazine for blood pressure and was transferred to the ICU where I immediately available evaluated her. Patient is lethargic, in respiratory extremis. On 100% nonrebreather hardly keeping saturation of 90%, tachypneic 36 breaths per minute. Emergently intubated and placed on mechanical ventilation. Chest x-ray postintubation shows right lower lobe infiltrate which is new indicating possible aspiration. Currently on Invanz for ESBL Klebsiella. I have changed it to meropenem to cover for hospital- acquired pneumonia. SUBJ 09/01: Remains intubated sedated but wakes up easily and follows commands. Chest x-ray showed interval improvement in bilateral infiltrates. Secretions are minimal. Will initiate CPAP trials 09/02: Patient extubated yesterday. Tolerating well now on nasal cannula with good oxygen saturation. Sputum cultures negative. Objective Vital Signs Date Time Temp Pulse Resp B/P Pulse Ox O2 Delivery O2 Flow Rate FiO2 09/02/16 06:00 92 09/02/16 04:00 98.6 18 128/62 94 09/01/16 21:45 Nasal Cannula 3.00 09/01/16 13:00 50 Intake and Output 09/01/16 09/01/16 09/02/16 08:00 16:00 00:00 Intake Total 526 ml 712 ml 100 ml Output Total 200 ml 1600 ml 300 ml Balance 326 ml -888 ml -200 ml Result Diagram: 09/02/16 0719 09/02/16 0719 Imaging Last Impressions Liver Ultrasound 08/24/16 0000 Signed Impressions: Service Date/Time: Wednesday, August 24, 2016 13:39 - CONCLUSION: 1. The gallbladder wall is at the upper limits of normal in size and there is a small amount of sludge. 2. Suboptimal study. Mark Chavis MD Head CT 08/23/16 1358 Signed Impressions: Service Date/Time: August 16:01 - CONCLUSION: 1. No acute intracranial abnormalities. Delvin Arauz MD Chest X-Ray 08/23/168 Signed Impressions: Service Date/Time: August 14:47 - CONCLUSION: 1. Chronic appearing interstitial changes. 2. ET tube and NG tube in good position. Roc Lyons MD Objective Remarks GENERAL: Patient is lying in bed alert awake SKIN: Warm and dry. HEAD: Normocephalic. EYES: No scleral icterus. No injection or drainage. ENT: Oral cavity is moist NECK: Supple, trachea midline. No JVD or lymphadenopathy. CARDIOVASCULAR: Regular rate and rhythm without murmurs, gallops, or rubs. RESPIRATORY: Breath sounds equal bilaterally, clear to auscultation GASTROINTESTINAL: Abdomen soft, non-tender, nondistended. MUSCULOSKELETAL: No cyanosis, or edema. NEURO: Alert awake and oriented. Follows commands on all 4 extremities Procedures endotracheal intubation A/P Assessment and Plan Neurologic: Acute toxic metabolic encephalopathy-resolved H/O TBI with right temporal contusion Frequent falls Fibromyalgia Depression S/P CVA Chronic pain syndrome -Discontinue all continuous sedation -Neurochecks per ICU protocol -Continue ASA and Plavix Respiratory: Acute hypoxemic respiratory failure-resolved New right lower lobe infiltrate/aspiration pneumonia H/O tobacco abuse -Emergently intubated and placed on mechanical ventilation, 08/31/16 and extubated 09/01/16 -Chest x-ray shows interval improvement -Bronchodilators every 6 hours, and every 2 hours when necessary -Continue Meropenem to cover for hospital-acquired pathogens, discussed with ID -CXR 08/23 chronic appearing interstitial changes, CXR 08/31: New Right lower lobe infiltrate Cardiovascular: Uncontrolled hypertension Probable CHF Dyslipidemia Hypertension H/O CHF -Resume by mouth Lasix -Resume Lopressor 50mg Q12, hold Norvasc 5mg daily -Monitor HR and BP keep MAP>65mmHg -Continue pravastatin, ASA, Plavix -ECHO 11/04/15-EF 55-60%, no RWMA, mild aortic regurgitation. Renal: Chronic kidney disease -- Monitor renal function, I/O's, electrolytes replacement per protocol. GI: -Diet as tolerated -US liver: The gallbladder wall is at the upper limits of normal in size and there is a small amount of sludge. 2. Suboptimal study. -Monitor LFT's, -Protonix for GI prophylaxis Heme Anemia of chronic disease Leukocytosis -s/p transfusion 2u PRBC 08/24 -Monitor CBC ID: Healthcare associated pneumonia UTI- urine cx: Kleb ESBL -Continue Merrem 1 gram IV Q8, received a single dose of vancomycin to 08/31/16 -ID following- monitor for signs of infections ( Fever, WBC) -Pneumococcal, Legionella antigen negative -Negative for influenza Endocrine: Diabetes mellitus -Glucose monitoring per ICU protocol, low dose regimen SSI MSK: Osteoporosis Gout Rheumatoid arthritis -Continue allopurinol Prophylaxis: GI Prophylaxis -Protonix DVT Prophylaxis -SCDs -Heparin 5000 SQ q8 Lines: Peripheral IVs Level 2 Consult [facility] to assume care in am 09/03/16 Cliff Hyde MD Sep 02, 2016 08:51
[2016-09-02] MEDS: DOCUSATE SODIUM 100 MG/10 ML UDC G-TUBE SCH ×2 (09:00→20:03)
[2016-09-02] MEDS: ASPIRIN 81 MG CHEW TAB TUBE SCH (09:00)
[2016-09-02] MEDS: PRAVASTATIN SOD 20 MG TAB PO SCH (09:01)
[2016-09-02] MEDS: DULoxetine HCl DR 30 MG CAP PO SCH (09:01)
[2016-09-02] MEDS: ALLOPURINOL 100 MG TAB PO SCH (09:01)
[2016-09-02] MEDS: COLCHICINE 0.6 MG TAB PO SCH (09:01)
[2016-09-02] MEDS: amLODIPine BESYLATE 5 MG TAB TUBE SCH (09:01)
[2016-09-02] MEDS: METOPROLOL TARTRATE 25 MG TAB PO SCH ×2 (09:01→20:02)
[2016-09-02] MEDS: CLOPIDOGREL 75 MG TAB PO SCH (09:02)
[2016-09-02] MEDS: SODIUM CHLORIDE 0.9% FLUSH 5 ML FLUSH IV FLUSH SCH ×2 (09:03→20:03)
[2016-09-02] MEDS: HEPARIN SODIUM - SQ 10,000 UNITS/ML VIAL SQ SCH ×2 (09:03→20:02)
[2016-09-02] MEDS: PANTOPRAZOLE SODIUM 40 MG VIAL IV SCH (09:03)
[2016-09-02] MEDS: ARTIFICIAL TEARS OPTH SOLN 15 ML BTL EACH EYE SCH ×3 (09:06→16:01)
--- NOTE | 2016-09-02 10:39 | HHI.IDPN ---
Subjective Subjective Remarks Notes reviewed Temps ok Extubated yesterday Doing ok on nasal O2 Not on pressors CXR with some improvement in her infiltrates Sputum G/S is not very impressive for presence of inflammatory cells Sputum prelim, with normal resp morgan Antibiotics Meropenem Vanco x 1 dose 08/31 Lines PIV Past Medical History Hypertension Hyperlipidemia Prior stroke Depression Rheumatoid arthritis Osteoporosis Fibromyalgia TBI with temporal lobe contusion following a fall Frequent falls Obesity Tobacco abuse Past Surgical History Percutaneous tracheostomy 11/24/15 (Dr. Jackson) Bilateral carotid endarterectomy (right carotid endarterectomy was performed by Dr. 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 Vital Signs Date Time Temp Pulse Resp B/P Pulse Ox O2 Delivery O2 Flow Rate FiO2 09/02/16 08:54 92 Nasal Cannula 2.00 09/02/16 06:00 92 09/02/16 04:00 98.6 81 18 128/62 94 09/02/16 04:00 81 09/02/16 02:00 81 09/02/16 00:00 99.2 85 22 118/56 93 09/02/16 00:00 85 09/01/16 22:00 96 09/01/16 21:45 97 Nasal Cannula 3.00 09/01/16 20:00 99 09/01/16 20:00 98.1 99 31 124/58 97 09/01/16 18:00 96 09/01/16 16:00 98.3 89 18 103/53 95 09/01/16 16:00 91 09/01/16 14:00 95 09/01/16 13:00 96 Venturi Mask 6.00 50 09/01/16 12:08 94 40 09/01/16 12:00 99.7 89 22 110/56 93 09/01/16 12:00 93 09/01/16 09/01/16 09/02/16 15:00 23:00 07:00 Intake Total 712 ml 100 ml 100 ml Output Total 1600 ml 300 ml 300 ml Balance -888 ml -200 ml -200 ml IV Total 312 ml 100 ml 100 ml Tube Feeding 160 ml Other 240 ml Output Urine Total 1600 ml 300 ml 300 ml # Bowel Movements 1 1 1 . Laboratory Tests Test 08/31/16 09/02/16 10:38 07:19 White Blood Count 9.8 TH/MM3 6.4 TH/MM3 Red Blood Count 4.64 MIL/MM3 3.97 MIL/MM3 Hemoglobin 11.5 GM/DL 9.8 GM/DL Hematocrit 36.4 % 31.1 % Mean Corpuscular Volume 78.6 FL 78.2 FL Mean Corpuscular Hemoglobin 24.8 PG 24.6 PG Mean Corpuscular Hemoglobin 31.6 % 31.4 % Concent Red Cell Distribution Width 16.6 % 17.2 % Platelet Count 261 TH/MM3 194 TH/MM3 Mean Platelet Volume 8.8 FL 8.9 FL Neutrophils (%) (Auto) 81.1 % 55.5 % Lymphocytes (%) (Auto) 10.5 % 28.7 % Monocytes (%) (Auto) 7.7 % 13.5 % Eosinophils (%) (Auto) 0.0 % 0.4 % Basophils (%) (Auto) 0.7 % 1.9 % Neutrophils # (Auto) 7.9 TH/MM3 3.5 TH/MM3 Lymphocytes # (Auto) 1.0 TH/MM3 1.8 TH/MM3 Monocytes # (Auto) 0.7 TH/MM3 0.9 TH/MM3 Eosinophils # (Auto) 0.0 TH/MM3 0.0 TH/MM3 Basophils # (Auto) 0.1 TH/MM3 0.1 TH/MM3 CBC Comment AUTO DIFF AUTO DIFF Differential Comment AUTO DIFF CONFIRMED Laboratory Tests Test 08/31/16 09/02/16 10:38 07:19 Sodium Level 136 MEQ/L 141 MEQ/L Potassium Level 3.7 MEQ/L 3.2 MEQ/L Chloride Level 98 MEQ/L 100 MEQ/L Carbon Dioxide Level 31.7 MEQ/L 36.6 MEQ/L Anion Gap 6 MEQ/L 4 MEQ/L Blood Urea Nitrogen 15 MG/DL 14 MG/DL Creatinine 0.77 MG/DL 0.72 MG/DL Estimat Glomerular Filtration 73 ML/MIN 79 ML/MIN Rate Random Glucose 189 MG/DL 115 MG/DL Calcium Level 8.7 MG/DL 8.4 MG/DL Magnesium Level 1.9 MG/DL 1.8 MG/DL Total Bilirubin 0.3 MG/DL 0.4 MG/DL Aspartate Amino Transf 20 U/L 17 U/L (AST/SGOT) Alanine Aminotransferase 43 U/L 27 U/L (ALT/SGPT) Alkaline Phosphatase 97 U/L 82 U/L B-Type Natriuretic Peptide 315 PG/ML Total Protein 6.4 GM/DL 6.2 GM/DL Albumin 2.5 GM/DL 2.4 GM/DL Microbiology Date/Time Procedure Status Source Growth 08/31/16 12:00 Gram Stain - Final Resulted Sputum Endotracheal 08/31/16 12:00 Sputum Culture - Preliminary Resulted Sputum Endotracheal LIGHT GROWTH NORMAL RESPIRATORY MORGAN... 08/31/16 12:07 Aerobic Blood Culture - Preliminary Resulted Blood Other NO GROWTH IN 1 DAY 08/31/16 12:07 Anaerobic Blood Culture - Preliminary Resulted Blood Other NO GROWTH IN 1 DAY 08/31/16 12:16 Aerobic Blood Culture - Preliminary Resulted Blood Other NO GROWTH IN 1 DAY 08/31/16 12:16 Anaerobic Blood Culture - Preliminary Resulted Blood Other NO GROWTH IN 1 DAY Imaging Chest X-Ray 09/02/16 0600 Signed Impressions: Service Date/Time: Friday, September 02, 2016 03:43 - CONCLUSION: No significant change has occurred. Camron Sampson MD Ankle X-Ray 08/28/16 0000 Signed Impressions: Service Date/Time: Sunday, August 28, 2016 10:37 - CONCLUSION: Soft tissue swelling without fracture. Zay Carty MD Liver Ultrasound 08/24/16 0000 Signed Impressions: Service Date/Time: Wednesday, August 24, 2016 13:39 - CONCLUSION: 1. The gallbladder wall is at the upper limits of normal in size and there is a small amount of sludge. 2. Suboptimal study. Mark Chavis MD Head CT 08/23/16 3998 Signed Impressions: Service Date/Time: August 16:01 - CONCLUSION: 1. No acute intracranial abnormalities. Delvin Arauz MD Chest X-Ray 09/01/16 0000 Signed Impressions: Service Date/Time: Thursday, September 01, 2016 08:02 - CONCLUSION: 1. Endotracheal tube tip is at the ebony and could be retracted 2-3 cm. 2. Nasogastric tube now in place with the tip below the field of view of the radiograph. 3. Mild left lung base opacity likely representing atelectasis. 4. Decrease in mild right basilar lung opacity. Nixon Cornejo MD Chest X-Ray 08/31/16 0000 Signed Impressions: Service Date/Time: Wednesday, August 31, 2016 10:12 - CONCLUSION: Bilateral infiltrates. Tube in satisfactory position. Barrett Garcia MD Physical Exam GENERAL: Awake, responding, NAD SKIN: Cool and dry. No generalized rash. HEENT: Pale conjunctivae, no petechia or hemorrhage. No scleral icterus. Moist mucosa NECK: Supple, nontender, no meningeal signs. Has scar on R side, and also has an old tracheostomy scar CARDIOVASCULAR: Regular rate and rhythm without murmurs, gallops, or rubs. RESPIRATORY: Coarse BS bilaterally GASTROINTESTINAL: Abdomen soft, slightly globular, non-tender, nondistended. Bowel sounds are present and normoactive. MUSCULOSKELETAL: Extremities without clubbing, cyanosis, or edema. No calf tenderness. NEUROLOGICAL: Non-focal PSYCH: Normal affect, calm and cooperative. LINE: PIV with no evidence of infection Assessment & Plan Remarks IMPRESSION Klebsiella UTI, on admission Respiratory failure, recurrent, reintubated today 08/31 - extubated 09/01 - has new R base infiltrate, likely aspiration, CXR better - has the L base opacity Etiology of initial decreased LOC unclear, better RECOMMENDATION Continue Meropenem Follow C/S - adjust Abx once C/S available Monitor progress Monitor Mariela Robertson MD Sep 02, 2016 10:39
[2016-09-02 11:12] LABS: OVALOCYTES 1+ (NORMAL); SCAN/DIFF AUTO DIFF CONFIRMED
[2016-09-02] MEDS: ACETAMINOPHEN 325 MG TAB PO PRN (16:00)
[2016-09-02] MEDS: ALPRAZolam 0.25 MG TAB PO PRN (16:00)
[2016-09-03] VITALS (16 sets, daily range): BP systolic 129–224; BP diastolic 60–100; PULSE 75–117; RESP 16–36; TEMP 98.1–100.5; O2SAT 87–100
[2016-09-03] MEDS: ALPRAZolam 0.25 MG TAB PO PRN ×2 (02:51→14:54)
[2016-09-03] MEDS: MEROPENEM INJ 1,000 MG in SODIUM CHLORIDE 0.9% INJ 100 ML IV SCH (02:52)
[2016-09-03] MEDS: RESP: ALBUTEROL 2.5 MG/IPRATROPIUM 0.5 MG NEB (SCH) NEB ×4 (03:58→21:23)
[2016-09-03] MEDS: CHLORHEXIDINE GLUCONATE 2 % 1 PACK (2 CLOTHS) TOP SCH (04:00)
[2016-09-03] MEDS: CHLORHEXIDINE 0.12% (ORAL KIT) 15 ML CUP MT SCH ×2 (08:00→21:12)
[2016-09-03] MEDS: DOCUSATE SODIUM 100 MG/10 ML UDC G-TUBE SCH ×2 (09:40→21:00)
[2016-09-03] MEDS: SODIUM CHLORIDE 0.9% FLUSH 5 ML FLUSH IV FLUSH SCH ×2 (09:41→21:12)
[2016-09-03] MEDS: PANTOPRAZOLE SODIUM 40 MG VIAL IV SCH (09:41)
[2016-09-03] MEDS: COLCHICINE 0.6 MG TAB PO SCH (09:41)
[2016-09-03] MEDS: PRAVASTATIN SOD 20 MG TAB PO SCH (09:42)
[2016-09-03] MEDS: amLODIPine BESYLATE 5 MG TAB TUBE SCH (09:42)
[2016-09-03] MEDS: CLOPIDOGREL 75 MG TAB PO SCH (09:42)
[2016-09-03] MEDS: HEPARIN SODIUM - SQ 10,000 UNITS/ML VIAL SQ SCH ×2 (09:42→21:12)
[2016-09-03] MEDS: ASPIRIN 81 MG CHEW TAB TUBE SCH (09:42)
[2016-09-03] MEDS: DULoxetine HCl DR 30 MG CAP PO SCH (09:42)
[2016-09-03] MEDS: METOPROLOL TARTRATE 25 MG TAB PO SCH ×2 (09:42→21:00)
[2016-09-03] MEDS: ALLOPURINOL 100 MG TAB PO SCH (09:42)
[2016-09-03] MEDS ORDERED: POTASSIUM PHOSPHATE MONOBASIC 500 MG TAB PO/TUBE PRN (10:30)
[2016-09-03] MEDS ORDERED: MAGNESIUM SULFATE INJ 4 GM in SODIUM CHLORIDE 0.9% INJ 92 ML IV PRN (10:30)
[2016-09-03] MEDS ORDERED: SODIUM PHOSPHATE INJ 30 MMOL in SODIUM CHLOR 0.9% 250 ML INJ 240 ML IV PRN (10:30)
[2016-09-03] MEDS ORDERED: POTASSIUM PHOSPHATE INJ 30 MMOL in SODIUM CHLOR 0.9% 250 ML INJ 250 ML IV PRN (10:30)
[2016-09-03] MEDS ORDERED: MAGNESIUM SULFATE INJ 2 GM in SODIUM CHLORIDE 0.9% INJ 96 ML IV PRN (10:30)
[2016-09-03] MEDS ORDERED: POTASSIUM PHOSPHATE MONOBASIC 500 MG TAB PO PRN (10:30)
[2016-09-03] MEDS ORDERED: POTASSIUM CL 40 MEQ/30 ML LIQ UDC PO/TUBE PRN ×2 (10:30)
[2016-09-03] MEDS ORDERED: POTASSIUM CHLOR 40 MEQ PREMIX 100 ML IV PRN ×2 (10:30)
[2016-09-03] MEDS ORDERED: MAGNESIUM OXIDE 400 MG TAB PO PRN (10:30)
[2016-09-03] MEDS: POTASSIUM CHLOR 20 MEQ PREMIX 100 ML IV PRN ×3 (10:41→17:05)
--- NOTE | 2016-09-03 10:46 | HHI.PR ---
Subjective Remarks On venti mask overnight. K was noted low. Replaced. patient says she was intubated 2x over the past year. Says she feels somehow improving.. Feels very tired. Feels chest is congested and can't get out. No feevr or chills. No n/v/d/c. Objective Vitals Vital Signs Date Time Temp Pulse Resp B/P Pulse Ox O2 Delivery O2 Flow Rate FiO2 09/03/16 08:23 96 Venturi Mask 50 09/03/16 08:00 82 09/03/16 06:00 79 09/03/16 04:00 77 19 141/64 98 09/03/16 04:00 77 09/03/16 02:00 85 09/03/16 01:20 94 Venturi Mask 6.00 50 09/03/16 00:00 98.1 75 18 129/60 94 09/03/16 00:00 75 09/02/16 22:00 82 09/02/16 20:53 97 Nasal Cannula 4.00 09/02/16 20:00 98.2 91 19 146/65 95 09/02/16 20:00 91 09/02/16 18:00 86 09/02/16 16:00 98.0 90 24 165/74 96 09/02/16 14:00 83 09/02/16 12:00 83 09/02/16 12:00 98.2 70 20 121/58 93 I/O 09/02/16 09/02/16 09/02/16 09/03/16 09/03/16 09/03/16 07:00 15:00 23:00 07:00 15:00 23:00 Intake Total 100 ml 360 ml 340 ml 340 ml Output Total 300 ml 300 ml 250 ml Balance -200 ml 360 ml 40 ml 90 ml Intake Oral 360 ml 240 ml 240 ml IV Total 100 ml 100 ml 100 ml Output Urine Total 300 ml 300 ml 250 ml # Voids 1 # Bowel Movements 1 1 1 Result Diagram: 09/02/1619 09/02/1619 Imaging Last Impressions Chest X-Ray 09/02/16 0600 Signed Impressions: Service Date/Time: Friday, September 02, 2016 03:43 - CONCLUSION: No significant change has occurred. Camron Sampson MD Ankle X-Ray 08/28/16 0000 Signed Impressions: Service Date/Time: Sunday, August 28, 2016 10:37 - CONCLUSION: Soft tissue swelling without fracture. Zay Carty MD Liver Ultrasound 08/24/16 0000 Signed Impressions: Service Date/Time: Wednesday, August 24, 2016 13:39 - CONCLUSION: 1. The gallbladder wall is at the upper limits of normal in size and there is a small amount of sludge. 2. Suboptimal study. Mark Chavis MD Head CT 08/23/16 1358 Signed Impressions: Service Date/Time: August 16:01 - CONCLUSION: 1. No acute intracranial abnormalities. Delvin Arauz MD Objective Remarks GENERAL: Patient is a 75 yo female, lying in bed, alert and awake, doesn't appear in acute distress. SKIN: Warm and dry. HEAD: Normocephalic. EYES: No scleral icterus. No injection or drainage. ENT: Oral cavity is moist NECK: Supple, trachea midline. No JVD or lymphadenopathy. CARDIOVASCULAR: Regular rate and rhythm without murmurs, gallops, or rubs. RESPIRATORY: Breath sounds equal bilaterally,decreased breath sounds bilaterally , scattered wheezing. GASTROINTESTINAL: Abdomen soft, non-tender, nondistended. MUSCULOSKELETAL: No cyanosis, or edema. NEURO: Alert awake and oriented. Follows commands on all 4 extremities. Procedures endotracheal intubation A/P Problem List: (1) Sepsis due to Klebsiella ICD Code: A41.4 Status: Acute (2) Urinary tract infection due to ESBL Klebsiella ICD Code: N39.0 Status: Acute (3) Metabolic encephalopathy ICD Code: G93.41 Status: Resolved (4) Acute hypoxemic respiratory failure ICD Code: J96.01 Status: Resolved (5) Gout of left ankle ICD Code: M10.9 Status: Acute (6) Chronic anemia ICD Code: D64.9 Status: Chronic (7) Diarrhea ICD Code: R19.7 Status: Acute (8) HTN (hypertension) ICD Code: I10 Status: Chronic Assessment and Plan Neurologic: Acute toxic metabolic encephalopathy-resolved H/O TBI with right temporal contusion Frequent falls Fibromyalgia Depression S/P CVA Chronic pain syndrome -Discontinue all continuous sedation -Neurochecks per ICU protocol -Continue ASA and Plavix Respiratory: Acute hypoxemic respiratory failure-resolved. Intubated now extubated 09/01 New right lower lobe infiltrate/aspiration pneumonia H/O tobacco abuse -Emergently intubated and placed on mechanical ventilation, 08/31/16 and extubated 09/01/16 -Chest x-ray shows interval improvement -Bronchodilators every 6 hours, and every 2 hours when necessary -Continue Meropenem to cover for hospital-acquired pathogens, discussed with ID -CXR 08/23 chronic appearing interstitial changes, CXR 08/31: New Right lower lobe infiltrate - Will add accapella and mucinex Cardiovascular: Uncontrolled hypertension Probable CHF Dyslipidemia Hypertension H/O CHF -Resume by mouth Lasix -Resume Lopressor 50mg Q12, hold Norvasc 5mg daily -Monitor HR and BP keep MAP>65mmHg -Continue pravastatin, ASA, Plavix -ECHO 11/04/15-EF 55-60%, no RWMA, mild aortic regurgitation. Renal: Chronic kidney disease -- Monitor renal function, I/O's, electrolytes replacement per protocol. GI: -Diet as tolerated -US liver: The gallbladder wall is at the upper limits of normal in size and there is a small amount of sludge. 2. Suboptimal study. -Monitor LFT's, -Protonix for GI prophylaxis Heme Anemia of chronic disease Leukocytosis -s/p transfusion 2u PRBC 08/24 -Monitor CBC ID: Healthcare associated pneumonia UTI- urine cx: Kleb ESBL -Continue Merrem 1 gram IV Q8, received a single dose of vancomycin to 08/31/16 -ID following- monitor for signs of infections ( Fever, WBC) -Pneumococcal, Legionella antigen negative -Negative for influenza Endocrine: Diabetes mellitus -Glucose monitoring per ICU protocol, low dose regimen SSI MSK: Osteoporosis Gout Rheumatoid arthritis -Continue allopurinol Prophylaxis: GI Prophylaxis -Protonix DVT Prophylaxis -SCDs -Heparin 5000 SQ q8 Discussed with the patient, nurse Can transfer on the med /surg floor later today if remains stable Gladis Soto MD Sep 03, 2016 10:46
--- NOTE | 2016-09-03 12:11 | HHI.IDPN ---
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 Jackson) Bilateral carotid endarterectomy (right carotid endarterectomy was performed by Dr. 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 Vital Signs Date Time Temp Pulse Resp B/P Pulse Ox O2 Delivery O2 Flow Rate FiO2 09/03/16 08:23 96 Venturi Mask 50 09/03/16 08:00 82 09/03/16 06:00 79 09/03/16 04:00 77 19 141/64 98 09/03/16 04:00 77 09/03/16 02:00 85 09/03/16 01:20 94 Venturi Mask 6.00 50 09/03/16 00:00 98.1 75 18 129/60 94 09/03/16 00:00 75 09/02/16 22:00 82 09/02/16 20:53 97 Nasal Cannula 4.00 09/02/16 20:00 98.2 91 19 146/65 95 09/02/16 20:00 91 09/02/16 18:00 86 09/02/16 16:00 98.0 90 24 165/74 96 09/02/16 14:00 83 09/02/16 09/02/16 09/03/16 15:00 23:00 07:00 Intake Total 360 ml 340 ml 340 ml Output Total 300 ml 250 ml Balance 360 ml 40 ml 90 ml Intake Oral 360 ml 240 ml 240 ml IV Total 100 ml 100 ml Output Urine Total 300 ml 250 ml # Voids 1 # Bowel Movements 1 1 . Laboratory Tests Test 09/02/16 07:19 White Blood Count 6.4 TH/MM3 Red Blood Count 3.97 MIL/MM3 Hemoglobin 9.8 GM/DL Hematocrit 31.1 % Mean Corpuscular Volume 78.2 FL Mean Corpuscular Hemoglobin 24.6 PG Mean Corpuscular Hemoglobin 31.4 % Concent Red Cell Distribution Width 17.2 % Platelet Count 194 TH/MM3 Mean Platelet Volume 8.9 FL Neutrophils (%) (Auto) 55.5 % Lymphocytes (%) (Auto) 28.7 % Monocytes (%) (Auto) 13.5 % Eosinophils (%) (Auto) 0.4 % Basophils (%) (Auto) 1.9 % Neutrophils # (Auto) 3.5 TH/MM3 Lymphocytes # (Auto) 1.8 TH/MM3 Monocytes # (Auto) 0.9 TH/MM3 Eosinophils # (Auto) 0.0 TH/MM3 Basophils # (Auto) 0.1 TH/MM3 CBC Comment AUTO DIFF Differential Comment AUTO DIFF CONFIRMED Ovalocytes 1+ Laboratory Tests Test 09/02/16 09/03/16 07:19 11:01 Sodium Level 141 MEQ/L Potassium Level 3.2 MEQ/L Chloride Level 100 MEQ/L Carbon Dioxide Level 36.6 MEQ/L Anion Gap 4 MEQ/L Blood Urea Nitrogen 14 MG/DL Creatinine 0.72 MG/DL Estimat Glomerular Filtration 79 ML/MIN Rate Random Glucose 115 MG/DL Calcium Level 8.4 MG/DL Magnesium Level 1.8 MG/DL Total Bilirubin 0.4 MG/DL Aspartate Amino Transf 17 U/L (AST/SGOT) Alanine Aminotransferase 27 U/L (ALT/SGPT) Alkaline Phosphatase 82 U/L Total Protein 6.2 GM/DL Albumin 2.4 GM/DL Phosphorus Level 2.7 MG/DL Microbiology Date/Time Procedure Status Source Growth 08/31/16 12:07 Aerobic Blood Culture - Preliminary Resulted Blood Other NO GROWTH IN 3 DAYS 08/31/16 12:07 Anaerobic Blood Culture - Preliminary Resulted Blood Other NO GROWTH IN 3 DAYS 08/31/16 12:16 Aerobic Blood Culture - Preliminary Resulted Blood Other NO GROWTH IN 3 DAYS 08/31/16 12:16 Anaerobic Blood Culture - Preliminary Resulted Blood Other NO GROWTH IN 3 DAYS Imaging Chest X-Ray 09/02/16 0600 Signed Impressions: Service Date/Time: Friday, September 02, 2016 03:43 - CONCLUSION: No significant change has occurred. Camron Sampson MD Ankle X-Ray 08/28/16 0000 Signed Impressions: Service Date/Time: Sunday, August 28, 2016 10:37 - CONCLUSION: Soft tissue swelling without fracture. Zay Carty MD Liver Ultrasound 08/24/16 0000 Signed Impressions: Service Date/Time: Wednesday, August 24, 2016 13:39 - CONCLUSION: 1. The gallbladder wall is at the upper limits of normal in size and there is a small amount of sludge. 2. Suboptimal study. Mark Chavis MD Head CT 08/23/16 1358 Signed Impressions: Service Date/Time: August 16:01 - CONCLUSION: 1. No acute intracranial abnormalities. Delvin Arauz MD Chest X-Ray 09/01/16 0000 Signed Impressions: Service Date/Time: Thursday, September 01, 2016 08:02 - CONCLUSION: 1. Endotracheal tube tip is at the ebony and could be retracted 2-3 cm. 2. Nasogastric tube now in place with the tip below the field of view of the radiograph. 3. Mild left lung base opacity likely representing atelectasis. 4. Decrease in mild right basilar lung opacity. Nixon Cornejo MD Chest X-Ray 08/31/16 0000 Signed Impressions: Service Date/Time: Wednesday, August 31, 2016 10:12 - CONCLUSION: Bilateral infiltrates. Tube in satisfactory position. Barrett Garcia MD Physical Exam GENERAL: Awake, responding, NAD SKIN: Cool and dry. No generalized rash. HEENT: Pale conjunctivae, no petechia or hemorrhage. No scleral icterus. Moist mucosa NECK: Supple, nontender, no meningeal signs. Has scar on R side, and also has an old tracheostomy scar CARDIOVASCULAR: Regular rate and rhythm without murmurs, gallops, or rubs. RESPIRATORY: Coarse BS bilaterally GASTROINTESTINAL: Abdomen soft, slightly globular, non-tender, nondistended. MUSCULOSKELETAL: Extremities without clubbing, cyanosis, or edema. No calf tenderness. NEUROLOGICAL: Non-focal PSYCH: Normal affect, calm and cooperative. LINE: PIV with no evidence of infection Assessment & Plan Remarks IMPRESSION Klebsiella UTI, on admission Respiratory failure, recurrent, reintubated today 08/31 - extubated 09/01 - has new R base infiltrate, likely aspiration, CXR better - has the L base opacity Etiology of initial decreased LOC unclear, better RECOMMENDATION Change back to Invanz - should be ok for her PNA - C/S with normal resp morgan - plan till Sep 09 (14 days Rx fro UTI, adequate for PNA) Monitor progress Monitor temps Monitor resp status D/W Mariela Del Real MD Sep 03, 2016 12:10
[2016-09-03] MEDS ORDERED: ASP: Documented ESBL, MDR A baumannii or P. aeruginosa XX PRN (12:15)
[2016-09-03] MEDS ORDERED: MISCELLANEOUS PHARMACY INFORMATION XX PRN (12:15)
[2016-09-03] MEDS: ARTIFICIAL TEARS OPTH SOLN 15 ML BTL EACH EYE SCH ×3 (12:56→18:37)
[2016-09-03] MEDS: guaiFENesin E.R. 600 MG TAB PO SCH ×2 (14:49→21:13)
[2016-09-03] MEDS: ERTAPENEM INJ 1,000 MG in SODIUM CHLORIDE 0.9% INJ 100 ML IV SCH (15:31)
[2016-09-03] MEDS ORDERED: diphenhydrAMINE HCL 50 MG/ML VIAL ONE (16:06)
[2016-09-03] MEDS ORDERED: ETOMIDATE 20 MG/10 ML VIAL ONE (16:10)
[2016-09-03] MEDS ORDERED: BUMETANIDE INJ 1 MG/4 ML VIAL ONE (16:40)
--- NOTE | 2016-09-03 16:58 | RADRPT ---
EXAM DATE/TIME: 09/03/2016 16:28 [facility] COMPARISON: CHEST SINGLE AP, September 02, 2016, 3:43. INDICATIONS : Evaluate intubation MEDICAL HISTORY : Sepsis. Pancreatitis. Congestive heart failure. A-fib SURGICAL HISTORY : None. ENCOUNTER: Subsequent ACUITY: 1 day PAIN SCORE: Non-responsive. LOCATION: Bilateral chest FINDINGS: ET tube and nasogastric tube are in good position. Consolidative changes are seen in both the right and left lung worse on the right than the left. Heart and pulmonary vascularity are normal. CONCLUSION: Consolidative changes as described above. Aditya Lyons MD FACR on September 03, 2016 at 16:51 Board Certified Radiologist. This report was verified electronically.
[2016-09-03] MEDS ORDERED: BUMETANIDE INJ 1 MG/4 ML VIAL IV PUSH STA (17:04)
[2016-09-03] MEDS: PROPOFOL 1000 MG/100 ML INJ 100 ML IV SCH ×2 (17:16→21:11)
[2016-09-03 17:20] LABS: BLOOD GAS BASE EXCESS 3.9 mmol/L (-2-2); BLOOD GAS CARBOXYHEMOGLOBIN 1.9 % (0-4); BLOOD GAS HCO3 29 mmol/L (22-26); BLOOD GAS METHEMOGLOBIN 1.2 % (0-2); BLOOD GAS O2 HGB SATURATION 89 % (90-100); BLOOD GAS OXYGEN CONTENT 13.4 Vol % (12.0-20.0); BLOOD GAS PCO2 56 mmHg (38-42); BLOOD GAS PO2 67 mmHg (61-120); BLOOD GAS TOTAL HGB 10.6 G/DL (12.0-16.0); CRITICAL VALUE YES; DRAW SITE RT RADIAL; FIO2 60 %; NUMBER OF ARTERIAL PUNCTURES 1; OXYGEN DEVICE VENTILATOR; STAT NO; TEMP CORR TO 98.6; ULNAR PULSE PRESENT
[2016-09-03] MEDS ORDERED: ALBUMIN HUMAN 25% 25 GM/100 ML BAGP IV ONE ×2 (17:21→17:30)
--- NOTE | 2016-09-03 17:52 | PD.PROCEDR ---
Procedure Note Procedure INTUBATION NOTE 08/31/15 Emergency intubation for acute hypoxemic respiratory failure INTUBATION: The patient was put in optimal position for the procedure. Rapid sequence intubation was initiated by me using 20 milligrams of etomidate IV and 50 milligrams of rocuronium IV. DL Mac 4 blade Grade 1 view. The patient was intubated with a 7.5 cuffed endotracheal tube. Tube placement was confirmed by visualization of the tube and balloon passing through the cords, capnometry and subsequent chest x-ray. Breath sounds were equal and well aerated bilaterally postintubation. No breath sounds over stomach. Patient tolerated procedure well. Cliff Hyde MD Sep 03, 2016 17:52
--- NOTE | 2016-09-03 17:54 | PD.PROCEDR ---
Procedure Note Procedure Emergently intubated for acute hypoxemic respiratory failure/possible pulmonary edema Date 09/03/16 INTUBATION: The patient was put in optimal position for the procedure. Rapid sequence intubation was initiated by me using 20 milligrams of etomidate IV and 50 milligrams of rocuronium IV. DL Mac 4 blade Grade 1 view. The patient was intubated with a 8 cuffed endotracheal tube. Tube placement was confirmed by visualization of the tube and balloon passing through the cords, capnometry and subsequent chest x-ray. Breath sounds were equal and well aerated bilaterally postintubation. No breath sounds over stomach. Patient tolerated procedure well. Cliff Hyde MD Sep 03, 2016 17:53
--- NOTE | 2016-09-03 18:20 | HHI.CCPN ---
Subjective Remarks/Hospital Course Previous history from admission on 08/23/16: 75-year-old female well-known to [facility] recently discharged in Jul 2016, with a PMH of TBI with right temporal contusion, HTN, S/P CVA, Gout, fibromyalgia,acute hyperkalemia, frequent falls that presented to the ED brought in by EMS because patient had fallen 08/22/16.The patient was found lethargic, unresponsive according to patient's roommate. She was last seen normal at 9 PM the evening before. When EMS arrived, she was noted to be tachypneic, and disoriented, not protecting her airway, and she was intubated for airway protection. Upon arrival to the ED, the patient's systolic blood pressure was noted to be in the 80's. Laboratory and imaging studies were performed. CT scan revealed no acute abnormality, the patient was noted to be hyperkalemic, with a lactate 4.0. Cultures were obtained suggestive of UTI. Local care medicine was consulted for treatment and management. 08/24 Patient is sedated with Diprivan and intubated. s/p transfusion 2u PRBC with Hgb 10.0 from 7.3. Afebrile. 08/25 No acute events overnight. Sedated and intubated. Patient tolerated CPAP x 3 hrs yesterday then became tachypneic. T:100.4 Was extubated on 08/25/1608/27 Transferred to [facility] on 08/28/16 CCM RECONSULT NOTE 08/31/16: Patient became acutely hypertensive, hypoxemic today on the floor. Apparently patient was fine in the morning got her meds, later on was found to be in acute respiratory distress with hypoxemia diaphoresis and severe hypertension. Patient received hydralazine for blood pressure and was transferred to the ICU where I immediately available evaluated her. Patient is lethargic, in respiratory extremis. On 100% nonrebreather hardly keeping saturation of 90%, tachypneic 36 breaths per minute. Emergently intubated and placed on mechanical ventilation. Chest x-ray postintubation shows right lower lobe infiltrate which is new indicating possible aspiration. Currently on Invanz for ESBL Klebsiella. I have changed it to meropenem to cover for hospital- acquired pneumonia. SUBJ 09/01: Remains intubated sedated but wakes up easily and follows commands. Chest x-ray showed interval improvement in bilateral infiltrates. Secretions are minimal. Will initiate CPAP trials 09/02: Patient extubated yesterday. Tolerating well now on nasal cannula with good oxygen saturation. Sputum cultures negative. RECONSULT/PROGRESS NOTE 09/03/16 I had signed off on this patient as of today, as she was doing very well on nasal cannula. I was emergently called to the room at 4:07 PM today as the patient became acutely hypoxemic with saturation dropping to 60%. Blood pressure was in 200s and patient was tachycardic with agonal breathing. According to the charge nurse this presentation was very similar to her presentation previously on 08/31/16, where she developed acute hypoxemic respiratory failure requiring emergency intubation. I intubated and placed on mechanical ventilation. She had bilateral crackles diffusely. Chest x-ray showed bilateral severe pulmonary edema. I believe her flash pulmonary Is cardiogenic in origin. 2-D echo done last month had shown moderate aortic regurgitation and moderate mitral valve regurgitation. I will get a repeat echo , and also consult cardiology. Careful diuresis had been ordered Objective Vital Signs Date Time Temp Pulse Resp B/P Pulse Ox O2 Delivery O2 Flow Rate FiO2 09/03/16 16:15 98 50 09/03/16 14:00 82 09/03/16 12:00 98.9 24 156/70 09/03/16 08:23 Venturi Mask 09/03/16 01:20 6.00 Intake and Output 09/02/16 09/02/16 09/03/16 08:00 16:00 00:00 Intake Total 100 ml 360 ml 340 ml Output Total 300 ml 300 ml Balance -200 ml 360 ml 40 ml Result Diagram: 09/02/16 0719 09/02/16 0719 Other Results Laboratory Tests Test 09/03/16 17:00 Blood Gas Puncture Site RT RADIAL Blood Gas Patient Temperature 98.6 Blood Gas HCO3 29 mmol/L (22-26) Blood Gas Base Excess 3.9 mmol/L (-2-2) Blood Gas Oxygen Saturation 89 % (90-100) Arterial Blood pH 7.34 (7.380-7.420) Arterial Blood Partial 56 mmHg (38-42) Pressure CO2 Arterial Blood Partial 67 mmHg Pressure O2 (61-120) Arterial Blood Oxygen Content 13.4 Vol % (12.0-20.0) Arterial Blood 1.9 % (0-4) Carboxyhemoglobin Arterial Blood Methemoglobin 1.2 % (0-2) Blood Gas Hemoglobin 10.6 G/DL (12.0-16.0) Oxygen Delivery Device VENTILATOR Blood Gas Ventilator Setting 500/15/12PEEP Blood Gas Inspired Oxygen 60 % Imaging Last Impressions Liver Ultrasound 08/24/16 0000 Signed Impressions: Service Date/Time: Wednesday, August 24, 2016 13:39 - CONCLUSION: 1. The gallbladder wall is at the upper limits of normal in size and there is a small amount of sludge. 2. Suboptimal study. Mark Chavis MD Head CT 08/23/16 1358 Signed Impressions: Service Date/Time: August 16:01 - CONCLUSION: 1. No acute intracranial abnormalities. Delvin Arauz MD Chest X-Ray 08/23/16 5698 Signed Impressions: Service Date/Time: August 14:47 - CONCLUSION: 1. Chronic appearing interstitial changes. 2. ET tube and NG tube in good position. Roc Lyons MD Objective Remarks GENERAL: Patient is lying unresponsive agonal breathing with, severe cyanosis SKIN: Warm and diaphoretic cyanotic HEAD: Normocephalic. EYES: No scleral icterus. No injection or drainage. ENT: Oral cavity is moist, airway patent NECK: Supple, trachea midline. CARDIOVASCULAR: Tachycardic rhythm without murmurs, gallops, or rubs. RESPIRATORY: Respiratory extremis, cyanotic with agonal breathing. Bilateral coarse crackles GASTROINTESTINAL: Abdomen soft, non-tender, nondistended. NEURO: Unresponsive and agonal breathing Procedures endotracheal intubation Urinary Catheter: Yes Assessment to: Continue A/P Assessment and Plan Neurologic: Acute toxic metabolic encephalopathyd H/O TBI with right temporal contusion Frequent falls Fibromyalgia Depression S/P CVA Chronic pain syndrome -Post intubation start propofol for sedation, and ventilator synchrony -Neurochecks per ICU protocol -Continue ASA and Plavix Respiratory: Acute hypoxemic respiratory failure Recurrent flash pulmonary edema Aspiration pneumonia H/O tobacco abuse -Emergently intubated and placed on mechanical ventilation, 08/31/16 and extubated 09/01/16 -With a similar presentation with flash pulmonary edema requiring emergency intubation on 09/03/16 -Chest x-ray shows bilateral pulmonary edema -Bronchodilators every 6 hours, and every 2 hours when necessary Cardiovascular: Recurrent flash pulmonary edema Moderateaortic regurgitation Uncontrolled hypertension Dyslipidemia Hypertension H/O CHF -I believe her acute hypoxemic respiratory failure is secondary to cardiogenic flash pulmonary edema -2-D echo to evaluate worsening of her moderate aortic regurgitation. Cardiology consulted, patient may need ischemic work up -IV Bumex 2 mg 1 and 1 mg every 12 -Continue Lopressor 50mg Q12, hold Norvasc 5mg daily -Continue pravastatin, ASA, Plavix -ECHO 07/10/16-EF 55-60%, moderate aortic regurgitation. Renal: Chronic kidney disease -- Monitor renal function, I/O's, electrolytes replacement per protocol. GI: -NPO, start tube feeds in 24 hours -US liver: The gallbladder wall is at the upper limits of normal in size and there is a small amount of sludge. 2. Suboptimal study. -Monitor LFT's, -Protonix for GI prophylaxis Heme Anemia of chronic disease Leukocytosis -s/p transfusion 2u PRBC 08/24 -Monitor CBC ID: Healthcare associated pneumonia UTI- urine cx: Kleb ESBL -Merrem DCd and Invanz restarted by ID, received a single dose of vancomycin to 08/31/16 -ID following- monitor for signs of infections ( Fever, WBC) -Pneumococcal, Legionella antigen negative -Negative for influenza Endocrine: Diabetes mellitus -Glucose monitoring per ICU protocol, low dose regimen SSI MSK: Osteoporosis Gout Rheumatoid arthritis -Continue allopurinol Prophylaxis: GI Prophylaxis -Protonix DVT Prophylaxis -SCDs -Heparin 5000 SQ q8 Lines: Peripheral IVs CCT 40 MIN excluding procedures Cliff Hyde MD Sep 03, 2016 18:20
[2016-09-03] MEDS: BUMETANIDE INJ 1 MG/4 ML VIAL IV PUSH SCH (18:37)
[2016-09-03 19:46] LABS: ALKALINE PHOSPHATASE 83 U/L (45-117); ALT (GPT) 22 U/L (10-53); ANION GAP 7 MEQ/L (5-15); AST (GOT) 25 U/L (15-37); BICARBONATE 28.9 MEQ/L (21.0-32.0); BLOOD UREA NITROGEN 13 MG/DL (7-18); CHLORIDE 100 MEQ/L (98-107); GLOMERULAR FILTRATION RATE 66 ML/MIN (>89); MAGNESIUM 1.9 MG/DL (1.5-2.5); POTASSIUM 4.4 MEQ/L (3.5-5.1); SODIUM (NA) 136 MEQ/L (136-145); TOTAL BILIRUBIN ADULT 0.6 MG/DL (0.2-1.0)
[2016-09-03 21:18] LABS: AUTOMATED NEUTROPHIL # 6.2 TH/MM3 (1.8-7.7); BASOPHIL # 0.1 TH/MM3 (0-0.2); BASOPHIL % 0.6 % (0.0-2.0); EOSINOPHIL % 0.1 % (0.0-4.0); HEMATOCRIT 30.5 % (35.0-46.0); HEMO FLAGS DIFF FINAL; LYMPH % 20.3 % (9.0-44.0); LYMPHOCYTE # 1.8 TH/MM3 (1.0-4.8); MEAN CELL VOLUME 77.7 FL (80.0-100.0); MEAN CORPUSCULAR HEMOGLOBIN 25.2 PG (27.0-34.0); MEAN CORPUSCULAR HGB CONC 32.4 % (32.0-36.0); MONO % 10.2 % (0.0-8.0); NEUT % 68.8 % (16.0-70.0); PLATELET COUNT 275 TH/MM3 (150-450); RED BLOOD COUNT 3.92 MIL/MM3 (4.00-5.30)
--- NOTE | 2016-09-03 21:51 | RADRPT ---
EXAM DATE/TIME: 09/03/2016 18:08 [facility] COMPARISON: CHEST SINGLE AP, September 03, 2016, 16:28. INDICATIONS : Respiratory disease MEDICAL HISTORY : Sepsis. Pancreatitis. Congestive heart failure. A-fib SURGICAL HISTORY : None. ENCOUNTER: Subsequent ACUITY: 1 day PAIN SCORE: Non-responsive. LOCATION: Bilateral chest FINDINGS: Extensive pulmonary filtration remains evident. There is been no significant improvement. Endotrachea l and nasogastric tubes remain in satisfactory position. CONCLUSION: Bilateral pulmonary infiltrate without significant improvement. Sarath Corrigan MD on September 03, 2016 at 21:49 Board Certified Radiologist. This report was verified electronically.
[2016-09-03] MEDS: fentaNYL DRIP 250 ML IV SCH (23:32)
[2016-09-04] VITALS (20 sets, daily range): BP systolic 96–164; BP diastolic 54–72; PULSE 79–91; RESP 14–18; TEMP 98.1–100; O2SAT 91–100
[2016-09-04] MEDS: PROPOFOL 1000 MG/100 ML INJ 100 ML IV SCH ×6 (03:00→21:19)
[2016-09-04] MEDS: CHLORHEXIDINE GLUCONATE 2 % 1 PACK (2 CLOTHS) TOP SCH (03:02)
[2016-09-04] MEDS: RESP: ALBUTEROL 2.5 MG/IPRATROPIUM 0.5 MG NEB (SCH) NEB ×4 (04:41→21:08)
[2016-09-04 06:14] LABS: AUTOMATED NEUTROPHIL # 3.4 TH/MM3 (1.8-7.7); BASOPHIL % 0.6 % (0.0-2.0); EOSINOPHIL % 0.1 % (0.0-4.0); HEMATOCRIT 29.5 % (35.0-46.0); HEMO FLAGS DIFF FINAL; LYMPHOCYTE # 2.4 TH/MM3 (1.0-4.8); MEAN CELL VOLUME 77.1 FL (80.0-100.0); MEAN CORPUSCULAR HGB CONC 32.4 % (32.0-36.0); MONO % 10.4 % (0.0-8.0); NEUT % 51.9 % (16.0-70.0); PLATELET COUNT 265 TH/MM3 (150-450); RED BLOOD COUNT 3.83 MIL/MM3 (4.00-5.30); WHITE BLOOD COUNT 6.5 TH/MM3 (4.0-11.0)
[2016-09-04 07:00] LABS: ALKALINE PHOSPHATASE 78 U/L (45-117); ALT (GPT) 20 U/L (10-53); ANION GAP 8 MEQ/L (5-15); AST (GOT) 17 U/L (15-37); BICARBONATE 35.3 MEQ/L (21.0-32.0); BLOOD UREA NITROGEN 12 MG/DL (7-18); CHLORIDE 96 MEQ/L (98-107); GLOMERULAR FILTRATION RATE 60 ML/MIN (>89); MAGNESIUM 1.6 MG/DL (1.5-2.5); SODIUM (NA) 139 MEQ/L (136-145); TOTAL BILIRUBIN ADULT 0.5 MG/DL (0.2-1.0)
[2016-09-04] MEDS: CHLORHEXIDINE 0.12% (ORAL KIT) 15 ML CUP MT SCH ×2 (07:35→20:00)
[2016-09-04] MEDS: POTASSIUM CHLOR 20 MEQ PREMIX 100 ML IV PRN ×4 (07:35→18:22)
[2016-09-04] MEDS: guaiFENesin E.R. 600 MG TAB PO SCH ×2 (09:00→21:20)
[2016-09-04] MEDS: DOCUSATE SODIUM 100 MG/10 ML UDC G-TUBE SCH ×2 (09:00→21:00)
[2016-09-04] MEDS: SODIUM CHLORIDE 0.9% FLUSH 5 ML FLUSH IV FLUSH SCH ×2 (09:00→21:20)
[2016-09-04] MEDS: ARTIFICIAL TEARS OPTH SOLN 15 ML BTL EACH EYE SCH ×3 (09:45→17:35)
[2016-09-04] MEDS: DULoxetine HCl DR 30 MG CAP PO SCH (09:46)
[2016-09-04] MEDS: PANTOPRAZOLE SODIUM 40 MG VIAL IV SCH (09:46)
[2016-09-04] MEDS: BUMETANIDE INJ 1 MG/4 ML VIAL IV PUSH SCH ×2 (09:46→17:35)
[2016-09-04] MEDS: COLCHICINE 0.6 MG TAB PO SCH (09:46)
[2016-09-04] MEDS: ALLOPURINOL 100 MG TAB PO SCH (09:47)
[2016-09-04] MEDS: CLOPIDOGREL 75 MG TAB PO SCH (09:47)
[2016-09-04] MEDS: ASPIRIN 81 MG CHEW TAB TUBE SCH (09:47)
[2016-09-04] MEDS: PRAVASTATIN SOD 20 MG TAB PO SCH (09:47)
[2016-09-04] MEDS: HEPARIN SODIUM - SQ 10,000 UNITS/ML VIAL SQ SCH ×2 (09:47→21:20)
[2016-09-04] MEDS: METOPROLOL TARTRATE 25 MG TAB PO SCH ×2 (10:09→21:00)
[2016-09-04] MEDS: amLODIPine BESYLATE 5 MG TAB TUBE SCH (10:09)
--- NOTE | 2016-09-04 11:23 | HHI.CCPN ---
Subjective Remarks/Hospital Course Previous history from admission on 08/23/16: 75-year-old female well-known to [facility] recently discharged in Jul 2016, with a PMH of TBI with right temporal contusion, HTN, S/P CVA, Gout, fibromyalgia,acute hyperkalemia, frequent falls that presented to the ED brought in by EMS because patient had fallen 08/22/16.The patient was found lethargic, unresponsive according to patient's roommate. She was last seen normal at 9 PM the evening before. When EMS arrived, she was noted to be tachypneic, and disoriented, not protecting her airway, and she was intubated for airway protection. Upon arrival to the ED, the patient's systolic blood pressure was noted to be in the 80's. Laboratory and imaging studies were performed. CT scan revealed no acute abnormality, the patient was noted to be hyperkalemic, with a lactate 4.0. Cultures were obtained suggestive of UTI. Local care medicine was consulted for treatment and management. 08/24 Patient is sedated with Diprivan and intubated. s/p transfusion 2u PRBC with Hgb 10.0 from 7.3. Afebrile. 08/25 No acute events overnight. Sedated and intubated. Patient tolerated CPAP x 3 hrs yesterday then became tachypneic. T:100.4 Was extubated on 08/25/1608/[address] [facility] on 08/28/16 CCM RECONSULT NOTE 08/31/16: Patient became acutely hypertensive, hypoxemic today on the floor. Apparently patient was fine in the morning got her meds, later on was found to be in acute respiratory distress with hypoxemia diaphoresis and severe hypertension. Patient received hydralazine for blood pressure and was transferred to the ICU where I immediately available evaluated her. Patient is lethargic, in respiratory extremis. On 100% nonrebreather hardly keeping saturation of 90%, tachypneic 36 breaths per minute. Emergently intubated and placed on mechanical ventilation. Chest x-ray postintubation shows right lower lobe infiltrate which is new indicating possible aspiration. Currently on Invanz for ESBL Klebsiella. I have changed it to meropenem to cover for hospital- acquired pneumonia. SUBJ 09/01: Remains intubated sedated but wakes up easily and follows commands. Chest x-ray showed interval improvement in bilateral infiltrates. Secretions are minimal. Will initiate CPAP trials 09/02: Patient extubated yesterday. Tolerating well now on nasal cannula with good oxygen saturation. Sputum cultures negative. RECONSULT/PROGRESS NOTE 09/03/16 I had signed off on this patient as of today, as she was doing very well on nasal cannula. I was emergently called to the room at 4:07 PM today as the patient became acutely hypoxemic with saturation dropping to 60%. Blood pressure was in 200s and patient was tachycardic with agonal breathing. According to the charge nurse this presentation was very similar to her presentation previously on 08/31/16, where she developed acute hypoxemic respiratory failure requiring emergency intubation. I intubated and placed on mechanical ventilation. She had bilateral crackles diffusely. Chest x-ray showed bilateral severe pulmonary edema. I believe her flash pulmonary Is cardiogenic in origin. 2-D echo done last month had shown moderate aortic regurgitation and moderate mitral valve regurgitation. I will get a repeat echo , and also consult cardiology. Careful diuresis had been ordered Afebrile. 09/04 Patient is sedated with Diprivan and Fentanyl. Afebrile. Objective Vital Signs Date Time Temp Pulse Resp B/P Pulse Ox O2 Delivery O2 Flow Rate FiO2 09/04/16 08:32 99 50 09/04/16 08:00 99.2 79 16 157/70 09/03/16 08:23 Venturi Mask 09/03/16 01:20 6.00 Intake and Output 09/03/16 09/03/16 09/04/16 08:00 16:00 00:00 Intake Total 340 ml 416 ml 126 ml Output Total 250 ml 1450 ml Balance 90 ml 416 ml -1324 ml Result Diagram: 09/04/16 0506 09/04/16 0506 Other Results Laboratory Tests Test 09/03/16 09/03/16 09/03/16 09/04/16 17:00 18:15 19:08 05:06 Blood Gas Puncture Site RT RADIAL Blood Gas Patient Temperature 98.6 Blood Gas HCO3 29 mmol/L Blood Gas Base Excess 3.9 mmol/L Blood Gas Oxygen Saturation 89 % Arterial Blood pH 7.34 Arterial Blood Partial 56 mmHg Pressure CO2 Arterial Blood Partial 67 mmHg Pressure O2 Arterial Blood Oxygen Content 13.4 Vol % Arterial Blood 1.9 % Carboxyhemoglobin Arterial Blood Methemoglobin 1.2 % Blood Gas Hemoglobin 10.6 G/DL Oxygen Delivery Device VENTILATOR Blood Gas Ventilator Setting 500/15/12PEEP Blood Gas Inspired Oxygen 60 % Troponin I LESS THAN 0.02 NG/ML White Blood Count 9.0 TH/MM3 6.5 TH/MM3 Red Blood Count 3.92 MIL/MM3 3.83 MIL/MM3 Hemoglobin 9.9 GM/DL 9.6 GM/DL Hematocrit 30.5 % 29.5 % Mean Corpuscular Volume 77.7 FL 77.1 FL Mean Corpuscular Hemoglobin 25.2 PG 25.0 PG Mean Corpuscular Hemoglobin 32.4 % 32.4 % Concent Red Cell Distribution Width 17.0 % 17.0 % Platelet Count 275 TH/MM3 265 TH/MM3 Mean Platelet Volume 8.6 FL 8.9 FL Neutrophils (%) (Auto) 68.8 % 51.9 % Lymphocytes (%) (Auto) 20.3 % 37.0 % Monocytes (%) (Auto) 10.2 % 10.4 % Eosinophils (%) (Auto) 0.1 % 0.1 % Basophils (%) (Auto) 0.6 % 0.6 % Neutrophils # (Auto) 6.2 TH/MM3 3.4 TH/MM3 Lymphocytes # (Auto) 1.8 TH/MM3 2.4 TH/MM3 Monocytes # (Auto) 0.9 TH/MM3 0.7 TH/MM3 Eosinophils # (Auto) 0.0 TH/MM3 0.0 TH/MM3 Basophils # (Auto) 0.1 TH/MM3 0.0 TH/MM3 CBC Comment DIFF FINAL DIFF FINAL Differential Comment Sodium Level 136 MEQ/L 139 MEQ/L Potassium Level 4.4 MEQ/L 3.0 MEQ/L Chloride Level 100 MEQ/L 96 MEQ/L Carbon Dioxide Level 28.9 MEQ/L 35.3 MEQ/L Anion Gap 7 MEQ/L 8 MEQ/L Blood Urea Nitrogen 13 MG/DL 12 MG/DL Creatinine 0.84 MG/DL 0.92 MG/DL Estimat Glomerular Filtration 66 ML/MIN 60 ML/MIN Rate Random Glucose 124 MG/DL 77 MG/DL Calcium Level 8.7 MG/DL 8.7 MG/DL Magnesium Level 1.9 MG/DL 1.6 MG/DL Total Bilirubin 0.6 MG/DL 0.5 MG/DL Aspartate Amino Transf 25 U/L 17 U/L (AST/SGOT) Alanine Aminotransferase 22 U/L 20 U/L (ALT/SGPT) Alkaline Phosphatase 83 U/L 78 U/L B-Type Natriuretic Peptide 346 PG/ML Total Protein 6.8 GM/DL 6.4 GM/DL Albumin 2.9 GM/DL 3.1 GM/DL Imaging Last Impressions Chest X-Ray 09/03/16 0000 Signed Impressions: Service Date/Time: Saturday, September 03, 2016 18:08 - CONCLUSION: Bilateral pulmonary infiltrate without significant improvement. Sarath Corrigan MD Ankle X-Ray 08/28/16 0000 Signed Impressions: Service Date/Time: Sunday, August 28, 2016 10:37 - CONCLUSION: Soft tissue swelling without fracture. aZy Carty MD Liver Ultrasound 08/24/16 0000 Signed Impressions: Service Date/Time: Wednesday, August 24, 2016 13:39 - CONCLUSION: 1. The gallbladder wall is at the upper limits of normal in size and there is a small amount of sludge. 2. Suboptimal study. Mark Chavis MD Head CT 08/23/16 1358 Signed Impressions: Service Date/Time: August 16:01 - CONCLUSION: 1. No acute intracranial abnormalities. Delvin Arauz MD Objective Remarks GENERAL: Patient is 75yo intubated and sedated SKIN: Warm and dry.. HEAD: Normocephalic. EYES: No scleral icterus. No injection or drainage. NECK: Supple, trachea midline. No JVD or lymphadenopathy. CARDIOVASCULAR: Regular rate and rhythm without murmurs, gallops, or rubs. RESPIRATORY: Breath sounds equal bilaterally. No accessory muscle use. GASTROINTESTINAL: Abdomen soft, non-tender, nondistended. MUSCULOSKELETAL: No cyanosis, or edema. Neuro: Sedated and intubated A/P Assessment and Plan Neurologic: Acute toxic metabolic encephalopathy H/O TBI with right temporal contusion Frequent falls Fibromyalgia Depression S/P CVA Chronic pain syndrome On Diprivan/Fentanyl infusion for sedation, and ventilator synchrony -Neurochecks per ICU protocol -Continue ASA and Plavix Respiratory: Acute hypoxemic respiratory failure Recurrent flash pulmonary edema Aspiration pneumonia H/O tobacco abuse -Emergently intubated and placed on mechanical ventilation, 08/31/16 and extubated 09/01/16 -With a similar presentation with flash pulmonary edema requiring emergency intubation on 09/03/16 -Continue with vent support keep sat >92%,. On ACV with RR 16, TV 500, PEEP: 12 , FIO2 40%, decrease PEEP: as godfrey. -Bronchodilators every 6 hours, and every 2 hours when necessary Cardiovascular: Recurrent flash pulmonary edema Moderate Aortic regurgitation Uncontrolled hypertension Dyslipidemia Hypertension H/O CHF -Monitor HR and BP keep MAP>65mmHg -IV Bumex 1 mg every 12 -Continue [id number] Q12, Norvasc 5mg daily -Continue pravastatin, ASA, Pravachol, Plavix -ECHO 07/10/16-EF 55-60%, moderate aortic regurgitation. Renal: Chronic kidney disease -- Monitor renal function, I/O's, electrolytes replacement per protocol. Will need K replacement today -Continue with diuretics- on Bumex 1mg Q12 GI: -Start TF-Glucerna 1.5 with goal rate 45ml/hr -US liver: The gallbladder wall is at the upper limits of normal in size and there is a small amount of sludge. -Protonix for GI prophylaxis Heme Anemia of chronic disease -s/p transfusion 2u PRBC 08/24 -Monitor CBC ID: Healthcare associated pneumonia UTI- urine cx: Kleb ESBL -Continue abx per ID ( Invanz) -ID following- monitor for signs of infections ( Fever, WBC) -Pneumococcal, Legionella antigen negative -Negative for influenza Endocrine: Diabetes mellitus -low dose regimen SSI MSK: Osteoporosis Gout Rheumatoid arthritis -Continue allopurinol Prophylaxis: GI Prophylaxis -Protonix DVT Prophylaxis -SCDs -Heparin 5000 SQ q8 Lines: Peripheral IVs CCT 30 MIN excluding procedures Colin Babcock MD Sep 04, 2016 11:23
--- NOTE | 2016-09-04 11:53 | EC ---
Study Study Date:09/04/2016 STUDY CONCLUSIONS SUMMARY - Left ventricle: The cavity size was normal. Wall thickness was increased in a pattern of mild LVH. Systolic function was normal. The estimated ejection fraction was in the range of 55% to 60%. Wall motion was normal; there were no regional wall motion abnormalities. - Aortic valve: Transvalvular velocity was increased. There was mild to moderate stenosis. Mild to moderate regurgitation. Valve area: 1.42cm^2(VTI). Valve area: 0.97cm^2 (Vmax). - Mitral valve: Mild regurgitation. Valve area by continuity equation (using LVOT flow): 2.35cm^2. If LV function is below 40, please consider prescribing an ACEI or ARB or document rationale for non-use. PROCEDURE DATA STUDY STATUS: Elective. Procedure: Transthoracic echocardiography. Image quality was good. Scanning was performed from the parasternal, apical, and subcostal acoustic windows. Study completion: The patient tolerated the procedure well. Transthoracic echocardiography. M-mode, complete 2D, complete spectral Doppler, and color Doppler. Patient status: Inpatient. CARDIAC ANATOMY LEFT VENTRICLE: The cavity size was normal. Wall thickness was increased in a pattern of mild LVH. Systolic function was normal. The estimated ejection fraction was in the range of 55% to 60%. Wall motion was normal; there were no regional wall motion abnormalities. AORTIC VALVE: Probably trileaflet; mildly thickened, moderately calcified leaflets. Doppler: Transvalvular velocity was increased. There was mild to moderate stenosis. Mild to moderate regurgitation. Valve area: 1.42cm^2(VTI). Valve area: 0.97cm^2 (Vmax). Mean gradient: 21mm Hg (S). Peak gradient: 41mm Hg (S). AORTA: Aortic root: The aortic root was poorly visualized and normal in size. MITRAL VALVE: Structurally normal valve. Doppler: Transvalvular velocity was within the normal range. There was no evidence for stenosis. Mild regurgitation. Valve area by continuity equation (using LVOT flow): 2.35cm^2. Mean gradient: 2mm Hg (D). Peak gradient: 8mm Hg (D). LEFT ATRIUM: The atrium was normal in size. RIGHT VENTRICLE: The cavity size was normal. Wall thickness was normal. PULMONIC VALVE: Doppler: Transvalvular velocity was within the normal range. There was no evidence for stenosis. No regurgitation. TRICUSPID VALVE: Structurally normal valve. Doppler: Transvalvular velocity was within the normal range. Trace to mild regurgitation. PULMONARY ARTERY: The main pulmonary artery was normal-sized. Systolic pressure was within the normal range. RIGHT ATRIUM: The atrium was normal in size. PERICARDIUM: There was no pericardial effusion. SYSTEMIC VEINS: Inferior vena cava: The vessel was normal in size. BASIC MEASUREMENTS ADULT Normal Left ventricle LV internal dimension, ED, chordal level, *40.8 mm 43-52 PLAX LV internal dimension, ES, chordal level, 32.2 mm 23-38 PLAX Fractional shortening, chordal level, PLAX *21 % >29 LV posterior wall thickness, ED 7.67 mm IVS/LVPW ratio, ED 1.16 <1.3 Ventricular septum Septal thickness, ED 8.89 mm Left atrium Anterior-posterior dimension 31 mm Right ventricle RV internal dimension, ED, PLAX 19.7 mm 19-38 DOPPLER MEASUREMENTS ADULT Normal Aortic valve Peak velocity, S 322 cm/s Mean velocity, S 213 cm/s VTI, S 40.7 cm Mean gradient, S 21 mm Hg Peak gradient, S 41 mm Hg Valve area, VTI 1.42 cm^2 Valve area, Vmax 0.97 cm^2 Mitral valve Peak E-wave velocity 105 cm/s Peak A-wave velocity 123 cm/s Mean velocity, D 66.5 cm/s Mean gradient, D 2 mm Hg Peak gradient, D 8 mm Hg Peak E/A ratio 0.9 Valve area, LVOT continuity 2.35 cm^2 Maximal regurgitant velocity 486 cm/s Tricuspid valve Regurgitant peak velocity 265 cm/s Peak RV-RA gradient, S 28 mm Hg Maximal regurgitant velocity 265 cm/s LEGEND: Mean values are shown as u=mean value. Asterisk (*) hernandez values outside specified normal range. Prepared and signed by Víctor Mckeon [id number]
--- NOTE | 2016-09-04 12:16 | HHI.IDPN ---
Subjective Subjective Remarks Notes reviewed D/W RN Had acute onset of SOB, desat while she was getting her Invanz Ended up getting intubated Similar symptoms when she got intubated last week CXR worse infiltrates Temps ok Antibiotics Invanz Lines PIV Past Medical History Hypertension Hyperlipidemia Prior stroke Depression Rheumatoid arthritis Osteoporosis Fibromyalgia TBI with temporal lobe contusion following a fall Frequent falls Obesity Tobacco abuse Past Surgical History Percutaneous tracheostomy 11/24/15 (Dr. Jackson) Bilateral carotid endarterectomy (right carotid endarterectomy was performed by Dr. 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 Vital Signs Date Time Temp Pulse Resp B/P Pulse Ox O2 Delivery O2 Flow Rate FiO2 09/04/16 11:50 96 40 09/04/16 11:41 40 09/04/16 10:00 85 09/04/16 08:32 99 50 09/04/16 08:00 99.2 79 16 157/70 100 09/04/16 08:00 79 09/04/16 06:00 84 09/04/16 04:42 100 50 09/04/16 04:00 99.3 83 16 96/54 98 09/04/16 04:00 83 09/04/16 02:00 88 09/04/16 00:23 99 50 09/04/16 00:00 91 09/04/16 00:00 100.0 91 17 164/72 100 09/03/16 22:00 87 09/03/16 21:24 100 60 09/03/16 20:00 83 09/03/16 20:00 100.5 83 16 147/65 100 09/03/16 18:00 80 09/03/16 16:15 98 50 09/03/16 16:00 98.8 117 36 224/100 87 09/03/16 16:00 117 09/03/16 14:00 82 09/03/16 09/03/16 09/04/16 15:00 23:00 07:00 Intake Total 416 ml 126 ml 217 ml Output Total 1450 ml 575 ml Balance 416 ml -1324 ml -358 ml Intake Oral 222 ml IV Total 194 ml 126 ml 217 ml Output Urine Total 1450 ml 575 ml # Voids 2 # Bowel Movements 1 . Laboratory Tests Test 09/03/16 09/04/16 19:08 05:06 White Blood Count 9.0 TH/MM3 6.5 TH/MM3 Red Blood Count 3.92 MIL/MM3 3.83 MIL/MM3 Hemoglobin 9.9 GM/DL 9.6 GM/DL Hematocrit 30.5 % 29.5 % Mean Corpuscular Volume 77.7 FL 77.1 FL Mean Corpuscular Hemoglobin 25.2 PG 25.0 PG Mean Corpuscular Hemoglobin 32.4 % 32.4 % Concent Red Cell Distribution Width 17.0 % 17.0 % Platelet Count 275 TH/MM3 265 TH/MM3 Mean Platelet Volume 8.6 FL 8.9 FL Neutrophils (%) (Auto) 68.8 % 51.9 % Lymphocytes (%) (Auto) 20.3 % 37.0 % Monocytes (%) (Auto) 10.2 % 10.4 % Eosinophils (%) (Auto) 0.1 % 0.1 % Basophils (%) (Auto) 0.6 % 0.6 % Neutrophils # (Auto) 6.2 TH/MM3 3.4 TH/MM3 Lymphocytes # (Auto) 1.8 TH/MM3 2.4 TH/MM3 Monocytes # (Auto) 0.9 TH/MM3 0.7 TH/MM3 Eosinophils # (Auto) 0.0 TH/MM3 0.0 TH/MM3 Basophils # (Auto) 0.1 TH/MM3 0.0 TH/MM3 CBC Comment DIFF FINAL DIFF FINAL Differential Comment Laboratory Tests Test 09/03/16 09/03/16 09/03/16 09/04/16 11:01 18:15 19:08 05:06 Phosphorus Level 2.7 MG/DL Troponin I LESS THAN 0.02 NG/ML Sodium Level 136 MEQ/L 139 MEQ/L Potassium Level 4.4 MEQ/L 3.0 MEQ/L Chloride Level 100 MEQ/L 96 MEQ/L Carbon Dioxide Level 28.9 MEQ/L 35.3 MEQ/L Anion Gap 7 MEQ/L 8 MEQ/L Blood Urea Nitrogen 13 MG/DL 12 MG/DL Creatinine 0.84 MG/DL 0.92 MG/DL Estimat Glomerular Filtration 66 ML/MIN 60 ML/MIN Rate Random Glucose 124 MG/DL 77 MG/DL Calcium Level 8.7 MG/DL 8.7 MG/DL Magnesium Level 1.9 MG/DL 1.6 MG/DL Total Bilirubin 0.6 MG/DL 0.5 MG/DL Aspartate Amino Transf 25 U/L 17 U/L (AST/SGOT) Alanine Aminotransferase 22 U/L 20 U/L (ALT/SGPT) Alkaline Phosphatase 83 U/L 78 U/L B-Type Natriuretic Peptide 346 PG/ML Total Protein 6.8 GM/DL 6.4 GM/DL Albumin 2.9 GM/DL 3.1 GM/DL Microbiology Date/Time Procedure Status Source Growth 09/03/16 15:29 Aerobic Blood Culture - Preliminary Resulted Blood Peripheral NO GROWTH IN 1 DAY 09/03/16 15:29 Anaerobic Blood Culture - Preliminary Resulted Blood Peripheral NO GROWTH IN 1 DAY 09/04/16 00:25 Gram Stain - Final Resulted Sputum Endotracheal 09/04/16 00:25 Sputum Culture Resulted Sputum Endotracheal Pending Imaging Chest X-Ray 09/02/16 0600 Signed Impressions: Service Date/Time: Friday, September 02, 2016 03:43 - CONCLUSION: No significant change has occurred. Camron Sampson MD Ankle X-Ray 08/28/16 0000 Signed Impressions: Service Date/Time: Sunday, August 28, 2016 10:37 - CONCLUSION: Soft tissue swelling without fracture. Zay Carty MD Liver Ultrasound 08/24/16 0000 Signed Impressions: Service Date/Time: Wednesday, August 24, 2016 13:39 - CONCLUSION: 1. The gallbladder wall is at the upper limits of normal in size and there is a small amount of sludge. 2. Suboptimal study. Mark Chavis MD Head CT 08/23/16 1358 Signed Impressions: Service Date/Time: August 16:01 - CONCLUSION: 1. No acute intracranial abnormalities. Delvin Arauz MD Chest X-Ray 09/01/16 0000 Signed Impressions: Service Date/Time: Thursday, September 01, 2016 08:02 - CONCLUSION: 1. Endotracheal tube tip is at the ebony and could be retracted 2-3 cm. 2. Nasogastric tube now in place with the tip below the field of view of the radiograph. 3. Mild left lung base opacity likely representing atelectasis. 4. Decrease in mild right basilar lung opacity. Nixon Cornejo MD Chest X-Ray 08/31/16 0000 Signed Impressions: Service Date/Time: Wednesday, August 31, 2016 10:12 - CONCLUSION: Bilateral infiltrates. Tube in satisfactory position. Barrett Garcia MD Physical Exam GENERAL: Opens eyes when stimulated, on the vent, NAD SKIN: Cool and dry. No generalized rash. HEENT: Pale conjunctivae, no petechia or hemorrhage. No scleral icterus. Moist mucosa NECK: Supple, nontender, no meningeal signs. Has scar on R side, and also has an old tracheostomy scar CARDIOVASCULAR: Regular rate and rhythm without murmurs, gallops, or rubs. RESPIRATORY: Coarse rales bilaterally GASTROINTESTINAL: Abdomen soft, slightly globular, non-tender, nondistended. MUSCULOSKELETAL: Extremities without clubbing, cyanosis, or edema. No calf tenderness. NEUROLOGICAL: Non-focal PSYCH: Normal affect, calm and cooperative. LINE: PIV with no evidence of infection Assessment & Plan Remarks IMPRESSION Klebsiella UTI, on admission Respiratory failure, recurrent, reintubated today 08/31, extubated and now reintubated - very rapid deterioration more C/W pulmonary edema, fluid shift Etiology of initial decreased LOC unclear, better RECOMMENDATION Continue Invanz - should be ok for her PNA - C/S with normal resp morgan - plan till Sep 09 (14 days Rx fro UTI, adequate for PNA) Cardiology has been consulted, last echo with valvular disease Monitor progress Monitor giana D/W Mariela Del Real MD Sep 04, 2016 12:16
[2016-09-04 12:40] LABS: BLOOD GAS BASE EXCESS 10.6 mmol/L (-2-2); BLOOD GAS CARBOXYHEMOGLOBIN 1.6 % (0-4); BLOOD GAS HCO3 34 mmol/L (22-26); BLOOD GAS O2 HGB SATURATION 93 % (90-100); BLOOD GAS OXYGEN CONTENT 13.8 Vol % (12.0-20.0); BLOOD GAS PCO2 38 mmHg (38-42); BLOOD GAS PO2 69 mmHg (61-120); BLOOD GAS TOTAL HGB 10.5 G/DL (12.0-16.0); TEMP CORR TO 98.6
[2016-09-04 12:41] LABS: CRITICAL VALUE YES; DRAW SITE RT RADIAL; FIO2 50 %; NUMBER OF ARTERIAL PUNCTURES 1; OXYGEN DEVICE VENTILATOR; STAT NO; ULNAR PULSE PRESENT; VENT SETTINGS A/C 500/16/5PEEP
[2016-09-04] MEDS: ERTAPENEM INJ 1,000 MG in SODIUM CHLORIDE 0.9% INJ 100 ML IV SCH (14:16)
--- NOTE | 2016-09-04 19:16 | MB ---
cc: VANITA LIM MD DATE OF CONSULTATION 09/04/16 HISTORY OF PRESENT ILLNESS Ms. Roque is a 75 year old white female with a history of hypertension, cerebrovascular accident, acute hyperkalemia, frequent falls and atrial fibrillation. She was found lethargic, unresponsive and was brought to the emergency room. She was found to be tachypneic and was intubated for airway protection. She was found to have hyperkalemia. She was eventually extubated, but subsequently developed episode of tachycardia and severe hypertension and had to be intubated for acute pulmonary edema. PAST MEDICAL HISTORY 1. Congestive heart failure 2. Atrial fibrillation 3. Hypertension 4. Cerebrovascular accident 5. Right spiritism contusion 6. Gout 7. Fibromyalgia 8. Acute hyperkalemia 9. Frequent falls 10. Diminished hearing 11. Vertebral fractures 12. Arthritis 13. Left knee torn muscle 14. Panic attacks 15. Hysterectomy 16. Pneumonia 17. Left carotid endarterectomy 18. Bilateral cataract removal 19. Appendectomy MEDICATIONS At home, 1. Hydrocodone 2. Prednisone 3. Pantoprazole 4. Metoprolol 5. Levaquin 6. Furosemide 7. Norvasc 8. Xanax 9. Allopurinol 10. Plavix 11. Pravastatin 12. Aspirin 13. Duloxetine ALLERGIES CONTRAST KEFLEX SOCIAL HISTORY The patient is a smoker. She drinks alcohol occasionally. FAMILY HISTORY Negative for heart disease REVIEW OF SYSTEMS Otherwise negative. PHYSICAL EXAMINATION VITAL SIGNS: Blood pressure 115/56, pulse 82 and regular. HEENT: Patent is intubated but awake. LUNGS: Clear. No shortness of breath. HEART: Denies any chest pain regular with no murmurs, rubs or gallops. ABDOMEN: Soft, no bruits. EXTREMITIES: Without edema, 1+ distal pulses. NEUROLOGIC: Grossly nonfocal. CARDIOLOGY STUDIES Electrocardiogram was reviewed and showed normal sinus rhythm with normal axis and intervals, no acute changes. Echocardiogram showed preserved left ventricular systolic function with an ejection fraction of 55-60%. No wall motion abnormalities. Mild to moderate aortic stenosis, mild to moderate aortic insufficiency, mild mitral regurgitation. LABORATORY DATA Hemoglobin 9.6, potassium 3.0, creatinine 0.9, troponin less than 0.02. BNP 346. DIAGNOSES 1. Acute respiratory failure 2. Flash pulmonary edema (recurrent) 3. Severe hypertension 4. Preserved left ventricular systolic function 5. Mild to moderate aortic stenosis 6. Mild to moderate aortic insufficiency 7. Metabolic encephalopathy 8. History of traumatic brain injury with right temporal contusion 9. History of cerebrovascular accident 10. Chronic kidney disease 11. Pneumonia 12. Diabetes mellitus 13. Anemia. DISPOSITION Ms. Roque will be monitored in the Intensive Care Unit. I recommend to wean ventilator and extubate her when ready. I recommend to continue and titrate aggressively her blood pressure control. Her severe hypertension might have contributed to her flash pulmonary edema. Her echocardiogram showed preserved left ventricular systolic function. I will follow her for cardiology during her hospitalization. MD BRYAN Prasad/ /6:27 PM /6:47 PM MTDD
[2016-09-05] VITALS (14 sets, daily range): BP systolic 115–145; BP diastolic 54–66; PULSE 80–92; RESP 14–25; TEMP 98.2–100; O2SAT 92–95
[2016-09-05] MEDS: PROPOFOL 1000 MG/100 ML INJ 100 ML IV SCH (01:05)
[2016-09-05 01:26] LABS: BICARBONATE 34.2 MEQ/L (21.0-32.0); MAGNESIUM 1.8 MG/DL (1.5-2.5); POTASSIUM 3.9 MEQ/L (3.5-5.1)
[2016-09-05] MEDS: RESP: ALBUTEROL 2.5 MG/IPRATROPIUM 0.5 MG NEB (SCH) NEB ×4 (03:33→20:50)
[2016-09-05] MEDS: CHLORHEXIDINE GLUCONATE 2 % 1 PACK (2 CLOTHS) TOP SCH (04:00)
[2016-09-05 05:55] LABS: BASOPHIL # 0.1 TH/MM3 (0-0.2); BASOPHIL % 0.9 % (0.0-2.0); EOSINOPHIL % 0.1 % (0.0-4.0); HEMATOCRIT 30.4 % (35.0-46.0); LYMPH % 30.7 % (9.0-44.0); LYMPHOCYTE # 2.2 TH/MM3 (1.0-4.8); MEAN CELL VOLUME 76.9 FL (80.0-100.0); MEAN CORPUSCULAR HEMOGLOBIN 24.7 PG (27.0-34.0); MEAN CORPUSCULAR HGB CONC 32.1 % (32.0-36.0); MONO % 11.9 % (0.0-8.0); NEUT % 56.4 % (16.0-70.0); PLATELET COUNT 292 TH/MM3 (150-450); RED BLOOD COUNT 3.95 MIL/MM3 (4.00-5.30); RED CELL DISTRIBUTION WIDTH 17.8 % (11.6-17.2); WHITE BLOOD COUNT 7.1 TH/MM3 (4.0-11.0)
[2016-09-05 06:05] LABS: HEMO FLAGS AUTO DIFF
[2016-09-05 06:20] LABS: BICARBONATE 32.7 MEQ/L (21.0-32.0)
[2016-09-05] MEDS: DOCUSATE SODIUM 100 MG/10 ML UDC G-TUBE SCH ×2 (08:11→20:15)
[2016-09-05] MEDS: CHLORHEXIDINE 0.12% (ORAL KIT) 15 ML CUP MT SCH ×2 (08:11→20:00)
[2016-09-05] MEDS: BUMETANIDE INJ 1 MG/4 ML VIAL IV PUSH SCH (08:11)
[2016-09-05] MEDS: ARTIFICIAL TEARS OPTH SOLN 15 ML BTL EACH EYE SCH ×3 (08:11→17:28)
[2016-09-05] MEDS: HEPARIN SODIUM - SQ 10,000 UNITS/ML VIAL SQ SCH ×2 (08:11→20:16)
[2016-09-05] MEDS: PANTOPRAZOLE SODIUM 40 MG VIAL IV SCH (08:11)
[2016-09-05] MEDS: METOPROLOL TARTRATE 25 MG TAB PO SCH ×2 (08:12→20:16)
[2016-09-05] MEDS: ACETAMINOPHEN 325 MG TAB PO PRN (08:12)
[2016-09-05] MEDS: amLODIPine BESYLATE 5 MG TAB TUBE SCH (08:12)
[2016-09-05] MEDS: ASPIRIN 81 MG CHEW TAB TUBE SCH (08:12)
[2016-09-05] MEDS: COLCHICINE 0.6 MG TAB PO SCH (08:12)
[2016-09-05] MEDS: CLOPIDOGREL 75 MG TAB PO SCH (08:12)
[2016-09-05] MEDS: ALLOPURINOL 100 MG TAB PO SCH (08:12)
[2016-09-05] MEDS: SODIUM CHLORIDE 0.9% FLUSH 5 ML FLUSH IV FLUSH SCH ×2 (08:13→20:16)
[2016-09-05] MEDS: PRAVASTATIN SOD 20 MG TAB PO SCH (08:13)
[2016-09-05] MEDS: DULoxetine HCl DR 30 MG CAP PO SCH (08:13)
[2016-09-05] MEDS: guaiFENesin E.R. 600 MG TAB PO SCH ×2 (08:13→20:16)
[2016-09-05 08:24] LABS: SCAN/DIFF AUTO DIFF CONFIRMED
[2016-09-05] MEDS ORDERED: amLODIPine BESYLATE 5 MG TAB TUBE ONE (09:30)
--- NOTE | 2016-09-05 09:39 | HHI.CCPN ---
Subjective Remarks/Hospital Course Previous history from admission on 08/23/16: 75-year-old female well-known to [facility] recently discharged in Jul 2016, with a PMH of TBI with right temporal contusion, HTN, S/P CVA, Gout, fibromyalgia,acute hyperkalemia, frequent falls that presented to the ED brought in by EMS because patient had fallen 08/22/16.The patient was found lethargic, unresponsive according to patient's roommate. She was last seen normal at 9 PM the evening before. When EMS arrived, she was noted to be tachypneic, and disoriented, not protecting her airway, and she was intubated for airway protection. Upon arrival to the ED, the patient's systolic blood pressure was noted to be in the 80's. Laboratory and imaging studies were performed. CT scan revealed no acute abnormality, the patient was noted to be hyperkalemic, with a lactate 4.0. Cultures were obtained suggestive of UTI. Local care medicine was consulted for treatment and management. 08/24 Patient is sedated with Diprivan and intubated. s/p transfusion 2u PRBC with Hgb 10.0 from 7.3. Afebrile. 08/25 No acute events overnight. Sedated and intubated. Patient tolerated CPAP x 3 hrs yesterday then became tachypneic. T:100.4 Was extubated on 08/25/1608/27 Transferred to [facility] on 08/28/16 CCM RECONSULT NOTE 08/31/16: Patient became acutely hypertensive, hypoxemic today on the floor. Apparently patient was fine in the morning got her meds, later on was found to be in acute respiratory distress with hypoxemia diaphoresis and severe hypertension. Patient received hydralazine for blood pressure and was transferred to the ICU where I immediately available evaluated her. Patient is lethargic, in respiratory extremis. On 100% nonrebreather hardly keeping saturation of 90%, tachypneic 36 breaths per minute. Emergently intubated and placed on mechanical ventilation. Chest x-ray postintubation shows right lower lobe infiltrate which is new indicating possible aspiration. Currently on Invanz for ESBL Klebsiella. I have changed it to meropenem to cover for hospital- acquired pneumonia. SUBJ 09/01: Remains intubated sedated but wakes up easily and follows commands. Chest x-ray showed interval improvement in bilateral infiltrates. Secretions are minimal. Will initiate CPAP trials 09/02: Patient extubated yesterday. Tolerating well now on nasal cannula with good oxygen saturation. Sputum cultures negative. RECONSULT/PROGRESS NOTE 09/03/16 I had signed off on this patient as of today, as she was doing very well on nasal cannula. I was emergently called to the room at 4:07 PM today as the patient became acutely hypoxemic with saturation dropping to 60%. Blood pressure was in 200s and patient was tachycardic with agonal breathing. According to the charge nurse this presentation was very similar to her presentation previously on 08/31/16, where she developed acute hypoxemic respiratory failure requiring emergency intubation. I intubated and placed on mechanical ventilation. She had bilateral crackles diffusely. Chest x-ray showed bilateral severe pulmonary edema. I believe her flash pulmonary Is cardiogenic in origin. 2-D echo done last month had shown moderate aortic regurgitation and moderate mitral valve regurgitation. I will get a repeat echo , and also consult cardiology. Careful diuresis had been ordered Afebrile. 09/04 Patient is sedated with Diprivan and Fentanyl. Afebrile. 09/05 Patient remains sedated and intubated. Afebrile. Objective Vital Signs Date Time Temp Pulse Resp B/P Pulse Ox O2 Delivery O2 Flow Rate FiO2 09/05/16 08:50 94 40 09/05/16 06:00 90 09/05/16 04:00 99.0 14 123/61 09/03/16 08:23 Venturi Mask 09/03/16 01:20 6.00 Intake and Output 09/04/16 09/04/16 09/05/16 08:00 16:00 00:00 Intake Total 217 ml 647 ml 1055 ml Output Total 575 ml 1150 ml 925 ml Balance -358 ml -503 ml 130 ml Result Diagram: 09/05/16 0523 09/05/16 0523 Other Results Laboratory Tests Test 09/04/16 09/05/16 09/05/16 12:34 00:43 05:23 Blood Gas Puncture Site RT RADIAL Blood Gas Patient Temperature 98.6 Blood Gas HCO3 34 mmol/L Blood Gas Base Excess 10.6 mmol/L Blood Gas Oxygen Saturation 93 % Arterial Blood pH 7.56 Arterial Blood Partial 38 mmHg Pressure CO2 Arterial Blood Partial 69 mmHg Pressure O2 Arterial Blood Oxygen Content 13.8 Vol % Arterial Blood 1.6 % Carboxyhemoglobin Arterial Blood Methemoglobin 1.0 % Blood Gas Hemoglobin 10.5 G/DL Oxygen Delivery Device VENTILATOR Blood Gas Ventilator Setting A/C 500/16/5PEEP Blood Gas Inspired Oxygen 50 % Sodium Level 142 MEQ/L 140 MEQ/L Potassium Level 3.9 MEQ/L 4.0 MEQ/L Chloride Level 99 MEQ/L 98 MEQ/L Carbon Dioxide Level 34.2 MEQ/L 32.7 MEQ/L Anion Gap 9 MEQ/L 9 MEQ/L Blood Urea Nitrogen 17 MG/DL 21 MG/DL Creatinine 0.93 MG/DL 1.06 MG/DL Estimat Glomerular Filtration 59 ML/MIN 51 ML/MIN Rate Random Glucose 100 MG/DL 103 MG/DL Calcium Level 8.6 MG/DL 8.6 MG/DL Phosphorus Level 2.5 MG/DL 2.8 MG/DL Magnesium Level 1.8 MG/DL 2.0 MG/DL White Blood Count 7.1 TH/MM3 Red Blood Count 3.95 MIL/MM3 Hemoglobin 9.8 GM/DL Hematocrit 30.4 % Mean Corpuscular Volume 76.9 FL Mean Corpuscular Hemoglobin 24.7 PG Mean Corpuscular Hemoglobin 32.1 % Concent Red Cell Distribution Width 17.8 % Platelet Count 292 TH/MM3 Mean Platelet Volume 8.8 FL Neutrophils (%) (Auto) 56.4 % Lymphocytes (%) (Auto) 30.7 % Monocytes (%) (Auto) 11.9 % Eosinophils (%) (Auto) 0.1 % Basophils (%) (Auto) 0.9 % Neutrophils # (Auto) 4.0 TH/MM3 Lymphocytes # (Auto) 2.2 TH/MM3 Monocytes # (Auto) 0.9 TH/MM3 Eosinophils # (Auto) 0.0 TH/MM3 Basophils # (Auto) 0.1 TH/MM3 CBC Comment AUTO DIFF Differential Comment AUTO DIFF CONFIRMED Imaging Last Impressions Chest X-Ray 09/03/16 0000 Signed Impressions: Service Date/Time: Saturday, September 03, 2016 18:08 - CONCLUSION: Bilateral pulmonary infiltrate without significant improvement. Sarath Corrigan MD Ankle X-Ray 08/28/16 0000 Signed Impressions: Service Date/Time: Sunday, August 28, 2016 10:37 - CONCLUSION: Soft tissue swelling without fracture. Zay Carty MD Liver Ultrasound 08/24/16 0000 Signed Impressions: Service Date/Time: Wednesday, August 24, 2016 13:39 - CONCLUSION: 1. The gallbladder wall is at the upper limits of normal in size and there is a small amount of sludge. 2. Suboptimal study. Mark Chavis MD Head CT 08/23/16 1358 Signed Impressions: Service Date/Time: August 16:01 - CONCLUSION: 1. No acute intracranial abnormalities. Delvin Arauz MD Objective Remarks GENERAL: Patient is 75yo intubated and sedated SKIN: Warm and dry.. HEAD: Normocephalic. EYES: No scleral icterus. No injection or drainage. NECK: Supple, trachea midline. No JVD or lymphadenopathy. CARDIOVASCULAR: Regular rate and rhythm without murmurs, gallops, or rubs. RESPIRATORY: Breath sounds equal bilaterally. No accessory muscle use. GASTROINTESTINAL: Abdomen soft, non-tender, nondistended. MUSCULOSKELETAL: No cyanosis, or edema. Neuro: Sedated and intubated A/P Assessment and Plan Neurologic: Acute toxic metabolic encephalopathy H/O TBI with right temporal contusion Frequent falls Fibromyalgia Depression S/P CVA Chronic pain syndrome On Diprivan/Fentanyl infusion for sedation, and ventilator synchrony -Neurochecks per ICU protocol -Continue ASA and Plavix Respiratory: Acute hypoxemic respiratory failure Recurrent flash pulmonary edema Aspiration pneumonia H/O tobacco abuse -Emergently intubated and placed on mechanical ventilation, 08/31/16 and extubated 09/01/16 -With a similar presentation with flash pulmonary edema requiring emergency intubation on 09/03/16 -Continue with vent support keep sat >92%,. On ACV with RR 14, TV 500, PEEP: 5, FIO2 55% -Bronchodilators every 6 hours, and every 2 hours when necessary -CPAP trials as godfrey. check CXR Cardiovascular: Recurrent flash pulmonary edema Moderate Aortic regurgitation Uncontrolled hypertension Dyslipidemia Hypertension H/O CHF -Monitor HR and BP keep MAP>65mmHg -Continue [id number] Q12, Norvasc 5mg daily -Continue pravastatin, ASA, Pravachol, Plavix -ECHO 07/10/16-EF 55-60%, moderate aortic regurgitation. Renal: Chronic kidney disease -- Monitor renal function, I/O's, electrolytes replacement per protocol. -d/c Bumex GI: -TF-Glucerna 1.5 with goal rate 45ml/hr -US liver: The gallbladder wall is at the upper limits of normal in size and there is a small amount of sludge. -Protonix for GI prophylaxis Heme Anemia of chronic disease -s/p transfusion 2u PRBC 08/24 -Monitor CBC ID: Healthcare associated pneumonia UTI- urine cx: Kleb ESBL -Continue abx per ID ( Invanz) -ID following- monitor for signs of infections ( Fever, WBC) -Pneumococcal, Legionella antigen negative -Negative for influenza Endocrine: Diabetes mellitus -low dose regimen SSI MSK: Osteoporosis Gout Rheumatoid arthritis -Continue allopurinol Prophylaxis: GI Prophylaxis -Protonix DVT Prophylaxis -SCDs -Heparin 5000 SQ q8 Lines: Peripheral IVs Level 3 Colin Babcock MD Sep 05, 2016 09:39
--- NOTE | 2016-09-05 10:47 | RADRPT ---
EXAM DATE/TIME: 09/05/2016 09:55 [place] COMPARISON: CHEST SINGLE AP, September 03, 2016, 18:08. INDICATIONS : Difficulty breathing. Vent dependant. MEDICAL HISTORY : Hypertension. Stroke Rheumatoid arthritis. Traumatic brain injury. SURGICAL HISTORY : Carotid endarterectomy. Hysterectomy. Tracheostomy. ENCOUNTER: Subsequent ACUITY: 4 - 6 days PAIN SCORE: Non-responsive. LOCATION: Bilateral chest FINDINGS: The heart is enlarged. There are bilateral effusions. The overall appearance of the parenchyma has sl ightly improved compared to previous study. There is some degree resolving edema. The endotracheal tu bes in good position. The osseous structures are intact. CONCLUSION: 1. Cardiomegaly and bilateral effusions. ET tube in good position. Improved appearance of pulmonary p arenchyma. Roc Lyons MD on September 05, 2016 at 10:44 Board Certified Radiologist. This report was verified electronically.
[2016-09-05] MEDS: ALPRAZolam 0.25 MG TAB PO PRN (12:15)
[2016-09-05 12:44] LABS: BLOOD GAS CARBOXYHEMOGLOBIN 1.9 % (0-4); BLOOD GAS HCO3 31 mmol/L (22-26); BLOOD GAS METHEMOGLOBIN 1.1 % (0-2); BLOOD GAS O2 HGB SATURATION 92 % (90-100); BLOOD GAS OXYGEN CONTENT 12.7 Vol % (12.0-20.0); BLOOD GAS PCO2 48 mmHg (38-42); BLOOD GAS PO2 77 mmHg (61-120); BLOOD GAS TOTAL HGB 9.8 G/DL (12.0-16.0); CRITICAL VALUE NO; OXYGEN DEVICE VENTILATOR; TEMP CORR TO 98.6
[2016-09-05 12:45] LABS: DRAW SITE RT RADIAL; FIO2 40 %; NUMBER OF ARTERIAL PUNCTURES 1; STAT NO; ULNAR PULSE PRESENT; VENT SETTINGS CPAP+5/PS+10
[2016-09-05] MEDS: ERTAPENEM INJ 1,000 MG in SODIUM CHLORIDE 0.9% INJ 100 ML IV SCH (14:00)
--- NOTE | 2016-09-05 14:43 | HHI.IDPN ---
Subjective Subjective Remarks Notes reviewed D/W RN Extubated today On 4L NC Cardiology evaluation reviewed Temps ok Breathing ok CXR better Antibiotics Invanz Lines PIV Past Medical History Hypertension Hyperlipidemia Prior stroke Depression Rheumatoid arthritis Osteoporosis Fibromyalgia TBI with temporal lobe contusion following a fall Frequent falls Obesity Tobacco abuse Past Surgical History Percutaneous tracheostomy 11/24/15 (Dr. Jackson) Bilateral carotid endarterectomy (right carotid endarterectomy was performed by Dr. 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 Vital Signs Date Time Temp Pulse Resp B/P Pulse Ox O2 Delivery O2 Flow Rate FiO2 09/05/16 13:45 94 Nasal Cannula 4 36 09/05/16 12:00 40 09/05/16 09:00 40 09/05/16 08:50 94 40 09/05/16 08:00 50 09/05/16 06:00 90 09/05/16 04:29 92 55 09/05/16 04:00 99.0 90 14 123/61 93 09/05/16 04:00 90 09/05/16 04:00 50 09/05/16 02:00 88 09/05/16 01:10 92 50 09/05/16 00:00 100.0 86 14 138/62 92 09/05/16 00:00 50 09/05/16 00:00 86 09/04/16 22:28 96 45 09/04/16 22:00 86 09/04/16 20:25 93 50 09/04/16 20:00 85 09/04/16 20:00 99.5 85 14 129/60 94 09/04/16 20:00 50 09/04/16 18:00 79 09/04/16 16:00 99.8 82 14 115/56 93 09/04/16 16:00 82 09/04/16 16:00 50 09/04/16 15:32 95 50 09/04/16 09/04/16 09/05/16 15:00 23:00 07:00 Intake Total 647 ml 1055 ml 530 ml Output Total 1150 ml 925 ml 375 ml Balance -503 ml 130 ml 155 ml IV Total 566 ml 773 ml 209 ml Tube Feeding 21 ml 282 ml 321 ml Other 60 ml Output Urine Total 1150 ml 925 ml 375 ml # Bowel Movements 1 . Laboratory Tests Test 09/03/16 09/04/16 09/05/16 19:08 05:06 05:23 White Blood Count 9.0 TH/MM3 6.5 TH/MM3 7.1 TH/MM3 Red Blood Count 3.92 MIL/MM3 3.83 MIL/MM3 3.95 MIL/MM3 Hemoglobin 9.9 GM/DL 9.6 GM/DL 9.8 GM/DL Hematocrit 30.5 % 29.5 % 30.4 % Mean Corpuscular Volume 77.7 FL 77.1 FL 76.9 FL Mean Corpuscular Hemoglobin 25.2 PG 25.0 PG 24.7 PG Mean Corpuscular Hemoglobin 32.4 % 32.4 % 32.1 % Concent Red Cell Distribution Width 17.0 % 17.0 % 17.8 % Platelet Count 275 TH/MM3 265 TH/MM3 292 TH/MM3 Mean Platelet Volume 8.6 FL 8.9 FL 8.8 FL Neutrophils (%) (Auto) 68.8 % 51.9 % 56.4 % Lymphocytes (%) (Auto) 20.3 % 37.0 % 30.7 % Monocytes (%) (Auto) 10.2 % 10.4 % 11.9 % Eosinophils (%) (Auto) 0.1 % 0.1 % 0.1 % Basophils (%) (Auto) 0.6 % 0.6 % 0.9 % Neutrophils # (Auto) 6.2 TH/MM3 3.4 TH/MM3 4.0 TH/MM3 Lymphocytes # (Auto) 1.8 TH/MM3 2.4 TH/MM3 2.2 TH/MM3 Monocytes # (Auto) 0.9 TH/MM3 0.7 TH/MM3 0.9 TH/MM3 Eosinophils # (Auto) 0.0 TH/MM3 0.0 TH/MM3 0.0 TH/MM3 Basophils # (Auto) 0.1 TH/MM3 0.0 TH/MM3 0.1 TH/MM3 CBC Comment DIFF FINAL DIFF FINAL AUTO DIFF Differential Comment AUTO DIFF CONFIRMED Laboratory Tests Test 09/03/16 09/03/16 09/04/16 09/05/16 18:15 19:08 05:06 00:43 Troponin I LESS THAN 0.02 NG/ML Sodium Level 136 MEQ/L 139 MEQ/L 142 MEQ/L Potassium Level 4.4 MEQ/L 3.0 MEQ/L 3.9 MEQ/L Chloride Level 100 MEQ/L 96 MEQ/L 99 MEQ/L Carbon Dioxide Level 28.9 MEQ/L 35.3 MEQ/L 34.2 MEQ/L Anion Gap 7 MEQ/L 8 MEQ/L 9 MEQ/L Blood Urea Nitrogen 13 MG/DL 12 MG/DL 17 MG/DL Creatinine 0.84 MG/DL 0.92 MG/DL 0.93 MG/DL Estimat Glomerular Filtration 66 ML/MIN 60 ML/MIN 59 ML/MIN Rate Random Glucose 124 MG/DL 77 MG/DL 100 MG/DL Calcium Level 8.7 MG/DL 8.7 MG/DL 8.6 MG/DL Magnesium Level 1.9 MG/DL 1.6 MG/DL 1.8 MG/DL Total Bilirubin 0.6 MG/DL 0.5 MG/DL Aspartate Amino Transf 25 U/L 17 U/L (AST/SGOT) Alanine Aminotransferase 22 U/L 20 U/L (ALT/SGPT) Alkaline Phosphatase 83 U/L 78 U/L B-Type Natriuretic Peptide 346 PG/ML Total Protein 6.8 GM/DL 6.4 GM/DL Albumin 2.9 GM/DL 3.1 GM/DL Phosphorus Level 2.5 MG/DL Test 09/05/16 05:23 Sodium Level 140 MEQ/L Potassium Level 4.0 MEQ/L Chloride Level 98 MEQ/L Carbon Dioxide Level 32.7 MEQ/L Anion Gap 9 MEQ/L Blood Urea Nitrogen 21 MG/DL Creatinine 1.06 MG/DL Estimat Glomerular Filtration 51 ML/MIN Rate Random Glucose 103 MG/DL Calcium Level 8.6 MG/DL Phosphorus Level 2.8 MG/DL Magnesium Level 2.0 MG/DL Microbiology Date/Time Procedure Status Source Growth 09/03/16 15:29 Aerobic Blood Culture - Preliminary Resulted Blood Peripheral NO GROWTH IN 2 DAYS 09/03/16 15:29 Anaerobic Blood Culture - Preliminary Resulted Blood Peripheral NO GROWTH IN 2 DAYS 09/04/16 00:25 Gram Stain - Final Resulted Sputum Endotracheal 09/04/16 00:25 Sputum Culture - Preliminary Resulted Sputum Endotracheal NO GROWTH IN 24 HOURS. Imaging Chest X-Ray 09/05/16 0000 Signed Impressions: Service Date/Time: Monday, September 05, 2016 09:55 - CONCLUSION: 1. Cardiomegaly and bilateral effusions. ET tube in good position. Improved appearance of pulmonary parenchyma. Roc Lyons MD Chest X-Ray 09/03/16 0000 Signed Impressions: Service Date/Time: Saturday, September 03, 2016 18:08 - CONCLUSION: Bilateral pulmonary infiltrate without significant improvement. Sarath Corrigan MD Chest X-Ray 09/03/16 0000 Signed Impressions: Service Date/Time: Saturday, September 03, 2016 16:28 - CONCLUSION: Consolidative changes as described above. Aditya Lyons MD FACR Chest X-Ray 09/02/16 0600 Signed Impressions: Service Date/Time: Friday, September 02, 2016 03:43 - CONCLUSION: No significant change has occurred. Camron Sampson MD Ankle X-Ray 08/28/16 0000 Signed Impressions: Service Date/Time: Sunday, August 28, 2016 10:37 - CONCLUSION: Soft tissue swelling without fracture. Zay Carty MD Liver Ultrasound 08/24/16 0000 Signed Impressions: Service Date/Time: Wednesday, August 24, 2016 13:39 - CONCLUSION: 1. The gallbladder wall is at the upper limits of normal in size and there is a small amount of sludge. 2. Suboptimal study. Mark Chavis MD Head CT 08/23/16 1358 Signed Impressions: Service Date/Time: August 16:01 - CONCLUSION: 1. No acute intracranial abnormalities. Delvin Arauz MD Chest X-Ray 09/01/16 0000 Signed Impressions: Service Date/Time: Thursday, September 01, 2016 08:02 - CONCLUSION: 1. Endotracheal tube tip is at the ebony and could be retracted 2-3 cm. 2. Nasogastric tube now in place with the tip below the field of view of the radiograph. 3. Mild left lung base opacity likely representing atelectasis. 4. Decrease in mild right basilar lung opacity. Nixon Cornejo MD Chest X-Ray 08/31/16 0000 Signed Impressions: Service Date/Time: Wednesday, August 31, 2016 10:12 - CONCLUSION: Bilateral infiltrates. Tube in satisfactory position. Barrett Garcia MD Physical Exam GENERAL: Awake,, following, NAD SKIN: Cool and dry. No generalized rash. HEENT: No scleral icterus. Moist mucosa NECK: Supple, nontender, no meningeal signs. Has scar on R side, and also has an old tracheostomy scar CARDIOVASCULAR: Regular rate and rhythm without murmurs, gallops, or rubs. RESPIRATORY: Coarse rales bilaterally, decreased BS at bases GASTROINTESTINAL: Abdomen soft, slightly globular, non-tender, nondistended. MUSCULOSKELETAL: Extremities without clubbing, cyanosis, or edema. No calf tenderness. NEUROLOGICAL: Non-focal PSYCH: Normal affect, calm and cooperative. LINE: PIV with no evidence of infection Assessment & Plan Remarks IMPRESSION Klebsiella UTI, on admission Respiratory failure, recurrent, reintubated today 08/31, extubated and now reintubated - very rapid deterioration more C/W pulmonary edema, fluid shift Etiology of initial decreased LOC unclear, better RECOMMENDATION Continue Invanz - plan till Sep 09 (14 days Rx fro UTI, adequate for PNA) Monitor progress Monitor temps D/W Mariela Del Real MD Sep 05, 2016 14:43
--- NOTE | 2016-09-05 17:39 | PD.CARD.PN ---
Subjective Subjective Remarks intubated, awake Objective Medications Current Medications Medications (Trade) Dose Ordered Sig/Hill Route Start Time Stop Time Status Last Admin (NS Flush) 2 ml UNSCH PRN IV FLUSH 08/23/16 18:15 (NS Flush) 2 ml BID IV FLUSH 08/23/16 21:00 09/05/16 08:13 (Tylenol) 650 mg Q6H PRN PO 08/23/16 18:15 09/05/16 08:12 (Protonix Inj) 40 mg DAILY IV 08/24/16 09:00 09/05/16 08:11 (Tears Naturale Opth Soln) 1 drop TID EACH EYE 08/24/16 09:00 09/05/16 17:28 (Zofran Inj) 4 mg Q6H PRN IV 08/23/16 18:15 09/03/16 13:03 (Colace Liq) 100 mg Q12H G-TUBE 08/23/16 21:00 09/03/16 09:40 (Senna Liq) 17.6 mg Q12H PRN G-TUBE 08/23/16 18:15 (Heparin Inj) 5,000 units Q12H SQ 08/23/16 21:00 09/05/16 08:11 Miscellaneous Information 1 Q361D XX 08/23/16 18:30 (Chlorhexidine 2% Cloth) Taper DAILY@04 TOP 08/24/16 04:00 08/20/17 03:59 09/05/16 04:00 (Chlorhexidine 2% Cloth) 3 pack UNSCH PRN TOP 08/23/16 18:30 (Zyloprim) 100 mg DAILY PO 08/24/16 09:00 09/05/16 08:12 (Plavix) 75 mg DAILY PO 08/24/16 09:00 09/05/16 08:12 (Cymbalta Dr) 30 mg DAILY PO 08/24/16 09:00 09/05/16 08:13 (Pravachol) 20 mg DAILY PO 08/24/16 09:00 09/05/16 08:13 (Aspirin Chew) 81 mg DAILY TUBE 08/24/16 09:00 09/05/16 08:12 (Xanax) 0.125 mg Q12H PRN PO 08/27/16 10:45 09/05/16 12:15 (Robitussin Ac 200-20 Mg/10 ml Liq) 10 ml Q6H PRN PO 08/27/16 13:15 09/02/16 23:44 (Lopressor) 75 mg Q12HR PO 08/28/16 21:00 09/05/16 08:12 (Guthrie 5-325 Mg) 1 tab Q4H PRN PO 08/29/16 10:15 09/02/16 23:45 Colchicine 0.6 mg 0.6 mg DAILY PO 08/30/16 09:00 09/05/16 08:12 Potassium Chloride 100 ml @ 50 mls/hr Q2H PRN IV 09/03/16 10:30 (KCl 20 Meq Premix Inj) 100 ml @ 50 mls/hr Q2H PRN IV 09/03/16 10:30 09/04/16 18:22 Potassium Chloride 40 meq 40 meq UNSCH PRN PO/TUBE 09/03/16 10:30 Potassium Chloride 100 ml @ 25 mls/hr UNSCH PRN IV 09/03/16 10:30 Potassium Chloride 100 ml @ 50 mls/hr Q2H PRN IV 09/03/16 10:30 (Magnesium Sulfate Inj/NS Inj) 100 ml @ 50 mls/hr UNSCH PRN IV 09/03/16 10:30 Magnesium Oxide 800 mg 800 mg UNSCH PRN PO 09/03/16 10:30 (Magnesium Sulfate Inj/NS Inj) 100 ml @ 50 mls/hr UNSCH PRN IV 09/03/16 10:30 Potassium Phosphate 2000 mg 2,000 mg Q4H PRN PO 09/03/16 10:30 (Sodium Phosphate Inj/NS 250 ml Inj) 250 ml @ 42 mls/hr UNSCH PRN IV 09/03/16 10:30 (KCl 40 Meq/30 ml Liq) 40 meq UNSCH PRN PO/TUBE 09/03/16 10:30 Potassium Phosphate 2000 mg 2,000 mg UNSCH PRN PO/TUBE 09/03/16 10:30 Potassium Phosphate 30 mmol/ Sodium Chloride 260 ml @ 42 mls/hr UNSCH PRN IV 09/03/16 10:30 (INVanz INJ/NS Inj) 100 ml @ 200 mls/hr Q24H IV 09/03/16 14:00 09/09/16 13:59 09/05/16 14:00 (Mucinex Er) 600 mg BID PO 09/03/16 14:00 09/05/16 08:13 (Peridex 0.12% Liq) 15 ml BID@08,20 MT 09/03/16 20:00 09/05/16 08:11 (Norvasc) 10 mg DAILY PO 09/06/16 09:00 Vital Signs / I&O Vital Signs Date Time Temp Pulse Resp B/P Pulse Ox O2 Delivery O2 Flow Rate FiO2 09/05/16 16:00 98.2 91 20 145/66 95 09/05/16 13:45 94 Nasal Cannula 4 36 09/05/16 12:00 40 09/05/16 12:00 98.8 87 18 117/60 95 09/05/16 09:00 40 09/05/16 08:50 94 40 09/05/16 08:00 99.6 86 14 115/54 93 09/05/16 08:00 50 09/05/16 06:00 90 09/05/16 04:29 92 55 09/05/16 04:00 99.0 90 14 123/61 93 09/05/16 04:00 90 09/05/16 04:00 50 09/05/16 02:00 88 09/05/16 01:10 92 50 09/05/16 00:00 100.0 86 14 138/62 92 09/05/16 00:00 50 09/05/16 00:00 86 09/04/16 22:28 96 45 09/04/16 22:00 86 09/04/16 20:25 93 50 09/04/16 20:00 85 09/04/16 20:00 99.5 85 14 129/60 94 09/04/16 20:00 50 09/04/16 18:00 79 I/O 09/04/16 09/04/16 09/04/16 09/05/16 09/05/16 09/05/16 07:00 15:00 23:00 07:00 15:00 23:00 Intake Total 217 ml 647 ml 1055 ml 530 ml 420 ml Output Total 575 ml 1150 ml 925 ml 375 ml 1300 ml Balance -358 ml -503 ml 130 ml 155 ml -880 ml IV Total 217 ml 566 ml 773 ml 209 ml 150 ml Tube Feeding 21 ml 282 ml 321 ml 270 ml Other 60 ml Output Urine Total 575 ml 1150 ml 925 ml 375 ml 1300 ml # Bowel Movements 1 2 Physical Exam GENERAL: Intubated, on the vent SKIN: Warm and dry. HEAD: Normocephalic. EYES: No scleral icterus. No injection or drainage. NECK: Supple, trachea midline. No JVD or lymphadenopathy. CARDIOVASCULAR: Regular rate and rhythm without murmurs, gallops, or rubs. RESPIRATORY: Breath sounds equal bilaterally. No accessory muscle use. GASTROINTESTINAL: Abdomen soft, non-tender, nondistended. MUSCULOSKELETAL: No cyanosis, trace edema Laboratory Laboratory Tests Test 09/05/16 09/05/16 09/05/16 00:43 05:23 12:33 Sodium Level 142 MEQ/L 140 MEQ/L Potassium Level 3.9 MEQ/L 4.0 MEQ/L Chloride Level 99 MEQ/L 98 MEQ/L Carbon Dioxide Level 34.2 MEQ/L 32.7 MEQ/L Anion Gap 9 MEQ/L 9 MEQ/L Blood Urea Nitrogen 17 MG/DL 21 MG/DL Creatinine 0.93 MG/DL 1.06 MG/DL Estimat Glomerular Filtration 59 ML/MIN 51 ML/MIN Rate Random Glucose 100 MG/DL 103 MG/DL Calcium Level 8.6 MG/DL 8.6 MG/DL Phosphorus Level 2.5 MG/DL 2.8 MG/DL Magnesium Level 1.8 MG/DL 2.0 MG/DL White Blood Count 7.1 TH/MM3 Red Blood Count 3.95 MIL/MM3 Hemoglobin 9.8 GM/DL Hematocrit 30.4 % Mean Corpuscular Volume 76.9 FL Mean Corpuscular Hemoglobin 24.7 PG Mean Corpuscular Hemoglobin 32.1 % Concent Red Cell Distribution Width 17.8 % Platelet Count 292 TH/MM3 Mean Platelet Volume 8.8 FL Neutrophils (%) (Auto) 56.4 % Lymphocytes (%) (Auto) 30.7 % Monocytes (%) (Auto) 11.9 % Eosinophils (%) (Auto) 0.1 % Basophils (%) (Auto) 0.9 % Neutrophils # (Auto) 4.0 TH/MM3 Lymphocytes # (Auto) 2.2 TH/MM3 Monocytes # (Auto) 0.9 TH/MM3 Eosinophils # (Auto) 0.0 TH/MM3 Basophils # (Auto) 0.1 TH/MM3 CBC Comment AUTO DIFF Differential Comment AUTO DIFF CONFIRMED Blood Gas Puncture Site RT RADIAL Blood Gas Patient Temperature 98.6 Blood Gas HCO3 31 mmol/L Blood Gas Base Excess 7.0 mmol/L Blood Gas Oxygen Saturation 92 % Arterial Blood pH 7.43 Arterial Blood Partial 48 mmHg Pressure CO2 Arterial Blood Partial 77 mmHg Pressure O2 Arterial Blood Oxygen Content 12.7 Vol % Arterial Blood 1.9 % Carboxyhemoglobin Arterial Blood Methemoglobin 1.1 % Blood Gas Hemoglobin 9.8 G/DL Oxygen Delivery Device VENTILATOR Blood Gas Ventilator Setting CPAP+5/PS+10 Blood Gas Inspired Oxygen 40 % Imaging Last Impressions Chest X-Ray 09/05/16 0000 Signed Impressions: Service Date/Time: Monday, September 05, 2016 09:55 - CONCLUSION: 1. Cardiomegaly and bilateral effusions. ET tube in good position. Improved appearance of pulmonary parenchyma. Roc Lyons MD Ankle X-Ray 08/28/16 0000 Signed Impressions: Service Date/Time: Sunday, August 28, 2016 10:37 - CONCLUSION: Soft tissue swelling without fracture. Zay Carty MD Liver Ultrasound 08/24/16 0000 Signed Impressions: Service Date/Time: Wednesday, August 24, 2016 13:39 - CONCLUSION: 1. The gallbladder wall is at the upper limits of normal in size and there is a small amount of sludge. 2. Suboptimal study. Mark Chavis MD Head CT 08/23/16 1358 Signed Impressions: Service Date/Time: August 16:01 - CONCLUSION: 1. No acute intracranial abnormalities. Delvin Arauz MD Assessment and Plan Problem List: (1) CHF (congestive heart failure) (2) Acute hypoxemic respiratory failure (3) Hypertension (4) Endotracheally intubated (5) PNA (pneumonia) Assessment and Plan Continue ICU monitoring. Wean vent as tolerated. Aggressive BP control, suspect acute pulm edema due to diast dysfunction due to severe HTN. Echo shows nl LV systolic fx. Problem Qualifiers (1) CHF (congestive heart failure): Qualified Code: I50.31 - Acute diastolic congestive heart failure (2) Hypertension: Qualified Code: I10 - Essential hypertension Nael Carr MD Sep 05, 2016 17:39 Nael Carr MD Sep 05, 2016 17:39
[2016-09-05] MEDS: guaiFENesin/CODEINE SYRUP 200 MG/20 MG/10 ML CUP PO PRN (22:42)
[2016-09-06] VITALS (11 sets, daily range): BP systolic 125–157; BP diastolic 58–72; PULSE 70–89; RESP 21–25; TEMP 98.7–99.5; O2SAT 86–98
[2016-09-06] MEDS: CHLORHEXIDINE GLUCONATE 2 % 1 PACK (2 CLOTHS) TOP SCH (00:10)
[2016-09-06] MEDS: ALPRAZolam 0.25 MG TAB PO PRN ×2 (00:10→21:34)
[2016-09-06] MEDS: RESP: ALBUTEROL 2.5 MG/IPRATROPIUM 0.5 MG NEB (SCH) NEB ×4 (04:50→21:04)
[2016-09-06 05:42] LABS: AUTOMATED NEUTROPHIL # 3.4 TH/MM3 (1.8-7.7); BASOPHIL # 0.1 TH/MM3 (0-0.2); EOSINOPHIL % 0.2 % (0.0-4.0); HEMATOCRIT 29.6 % (35.0-46.0); LYMPH % 34.9 % (9.0-44.0); LYMPHOCYTE # 2.2 TH/MM3 (1.0-4.8); MEAN CELL VOLUME 77.4 FL (80.0-100.0); MEAN CORPUSCULAR HEMOGLOBIN 24.9 PG (27.0-34.0); MEAN CORPUSCULAR HGB CONC 32.2 % (32.0-36.0); MONO % 11.7 % (0.0-8.0); NEUT % 52.2 % (16.0-70.0); PLATELET COUNT 278 TH/MM3 (150-450); RED BLOOD COUNT 3.82 MIL/MM3 (4.00-5.30); RED CELL DISTRIBUTION WIDTH 17.3 % (11.6-17.2); WHITE BLOOD COUNT 6.4 TH/MM3 (4.0-11.0)
[2016-09-06 05:57] LABS: HEMO FLAGS AUTO DIFF
[2016-09-06 06:14] LABS: BICARBONATE 35.4 MEQ/L (21.0-32.0); POTASSIUM 3.4 MEQ/L (3.5-5.1)
[2016-09-06] MEDS: POTASSIUM CHLOR 20 MEQ PREMIX 100 ML IV PRN ×2 (06:22→08:57)
[2016-09-06 07:56] LABS: SCAN/DIFF AUTO DIFF CONFIRMED
[2016-09-06] MEDS: CHLORHEXIDINE 0.12% (ORAL KIT) 15 ML CUP MT SCH ×2 (08:00→20:00)
[2016-09-06] MEDS: PRAVASTATIN SOD 20 MG TAB PO SCH (08:56)
[2016-09-06] MEDS: DULoxetine HCl DR 30 MG CAP PO SCH (08:56)
[2016-09-06] MEDS: guaiFENesin E.R. 600 MG TAB PO SCH (08:56)
[2016-09-06] MEDS: ASPIRIN 81 MG CHEW TAB TUBE SCH (08:56)
[2016-09-06] MEDS: METOPROLOL TARTRATE 25 MG TAB PO SCH ×2 (08:56→20:10)
[2016-09-06] MEDS: ALLOPURINOL 100 MG TAB PO SCH (08:56)
[2016-09-06] MEDS: COLCHICINE 0.6 MG TAB PO SCH (08:56)
[2016-09-06] MEDS: CLOPIDOGREL 75 MG TAB PO SCH (08:57)
[2016-09-06] MEDS: PANTOPRAZOLE SODIUM 40 MG VIAL IV SCH (08:58)
[2016-09-06] MEDS: ARTIFICIAL TEARS OPTH SOLN 15 ML BTL EACH EYE SCH ×3 (08:58→18:28)
[2016-09-06] MEDS: DOCUSATE SODIUM 100 MG/10 ML UDC G-TUBE SCH ×2 (08:58→20:09)
[2016-09-06] MEDS: HEPARIN SODIUM - SQ 10,000 UNITS/ML VIAL SQ SCH ×2 (08:58→20:10)
[2016-09-06] MEDS: SODIUM CHLORIDE 0.9% FLUSH 5 ML FLUSH IV FLUSH SCH ×2 (09:00→20:10)
--- NOTE | 2016-09-06 10:11 | HHI.CCPN ---
Subjective Remarks/Hospital Course Previous history from admission on 08/23/16: 75-year-old female well-known to [facility] recently discharged in Jul 2016, with a PMH of TBI with right temporal contusion, HTN, S/P CVA, Gout, fibromyalgia,acute hyperkalemia, frequent falls that presented to the ED brought in by EMS because patient had fallen 08/22/16.The patient was found lethargic, unresponsive according to patient's roommate. She was last seen normal at 9 PM the evening before. When EMS arrived, she was noted to be tachypneic, and disoriented, not protecting her airway, and she was intubated for airway protection. Upon arrival to the ED, the patient's systolic blood pressure was noted to be in the 80's. Laboratory and imaging studies were performed. CT scan revealed no acute abnormality, the patient was noted to be hyperkalemic, with a lactate 4.0. Cultures were obtained suggestive of UTI. Local care medicine was consulted for treatment and management. 08/24 Patient is sedated with Diprivan and intubated. s/p transfusion 2u PRBC with Hgb 10.0 from 7.3. Afebrile. 08/25 No acute events overnight. Sedated and intubated. Patient tolerated CPAP x 3 hrs yesterday then became tachypneic. T:100.4 Was extubated on 08/25/1608/27 Transferred to [facility] on 08/28/16 CCM RECONSULT NOTE 08/31/16: Patient became acutely hypertensive, hypoxemic today on the floor. Apparently patient was fine in the morning got her meds, later on was found to be in acute respiratory distress with hypoxemia diaphoresis and severe hypertension. Patient received hydralazine for blood pressure and was transferred to the ICU where I immediately available evaluated her. Patient is lethargic, in respiratory extremis. On 100% nonrebreather hardly keeping saturation of 90%, tachypneic 36 breaths per minute. Emergently intubated and placed on mechanical ventilation. Chest x-ray postintubation shows right lower lobe infiltrate which is new indicating possible aspiration. Currently on Invanz for ESBL Klebsiella. I have changed it to meropenem to cover for hospital- acquired pneumonia. SUBJ 09/01: Remains intubated sedated but wakes up easily and follows commands. Chest x-ray showed interval improvement in bilateral infiltrates. Secretions are minimal. Will initiate CPAP trials 09/02: Patient extubated yesterday. Tolerating well now on nasal cannula with good oxygen saturation. Sputum cultures negative. RECONSULT/PROGRESS NOTE 09/03/16 I had signed off on this patient as of today, as she was doing very well on nasal cannula. I was emergently called to the room at 4:07 PM today as the patient became acutely hypoxemic with saturation dropping to 60%. Blood pressure was in 200s and patient was tachycardic with agonal breathing. According to the charge nurse this presentation was very similar to her presentation previously on 08/31/16, where she developed acute hypoxemic respiratory failure requiring emergency intubation. I intubated and placed on mechanical ventilation. She had bilateral crackles diffusely. Chest x-ray showed bilateral severe pulmonary edema. I believe her flash pulmonary Is cardiogenic in origin. 2-D echo done last month had shown moderate aortic regurgitation and moderate mitral valve regurgitation. I will get a repeat echo , and also consult cardiology. Careful diuresis had been ordered Afebrile. 09/04 Patient is sedated with Diprivan and Fentanyl. Afebrile. 09/05 Patient remains sedated and intubated. Afebrile. 09/06 Patient was extubated yesterday on 6L oxygen with good sats. Objective Vital Signs Date Time Temp Pulse Resp B/P Pulse Ox O2 Delivery O2 Flow Rate FiO2 09/06/16 08:41 97 Simple Mask 6.00 09/06/16 06:00 79 09/06/16 04:00 98.8 23 153/69 09/05/16 13:45 36 Intake and Output 09/05/16 09/05/16 09/06/16 08:00 16:00 00:00 Intake Total 530 ml 420 ml 75 ml Output Total 375 ml 1300 ml 300 ml Balance 155 ml -880 ml -225 ml Result Diagram: 09/06/16 0509 09/06/16 0509 Other Results Laboratory Tests Test 09/05/16 09/06/16 12:33 05:09 Blood Gas Puncture Site RT RADIAL Blood Gas Patient Temperature 98.6 Blood Gas HCO3 31 mmol/L Blood Gas Base Excess 7.0 mmol/L Blood Gas Oxygen Saturation 92 % Arterial Blood pH 7.43 Arterial Blood Partial 48 mmHg Pressure CO2 Arterial Blood Partial 77 mmHg Pressure O2 Arterial Blood Oxygen Content 12.7 Vol % Arterial Blood 1.9 % Carboxyhemoglobin Arterial Blood Methemoglobin 1.1 % Blood Gas Hemoglobin 9.8 G/DL Oxygen Delivery Device VENTILATOR Blood Gas Ventilator Setting CPAP+5/PS+10 Blood Gas Inspired Oxygen 40 % White Blood Count 6.4 TH/MM3 Red Blood Count 3.82 MIL/MM3 Hemoglobin 9.5 GM/DL Hematocrit 29.6 % Mean Corpuscular Volume 77.4 FL Mean Corpuscular Hemoglobin 24.9 PG Mean Corpuscular Hemoglobin 32.2 % Concent Red Cell Distribution Width 17.3 % Platelet Count 278 TH/MM3 Mean Platelet Volume 8.7 FL Neutrophils (%) (Auto) 52.2 % Lymphocytes (%) (Auto) 34.9 % Monocytes (%) (Auto) 11.7 % Eosinophils (%) (Auto) 0.2 % Basophils (%) (Auto) 1.0 % Neutrophils # (Auto) 3.4 TH/MM3 Lymphocytes # (Auto) 2.2 TH/MM3 Monocytes # (Auto) 0.7 TH/MM3 Eosinophils # (Auto) 0.0 TH/MM3 Basophils # (Auto) 0.1 TH/MM3 CBC Comment AUTO DIFF Differential Comment AUTO DIFF CONFIRMED Sodium Level 142 MEQ/L Potassium Level 3.4 MEQ/L Chloride Level 100 MEQ/L Carbon Dioxide Level 35.4 MEQ/L Anion Gap 7 MEQ/L Blood Urea Nitrogen 14 MG/DL Creatinine 0.71 MG/DL Estimat Glomerular Filtration 80 ML/MIN Rate Random Glucose 89 MG/DL Calcium Level 8.9 MG/DL Imaging Last Impressions Chest X-Ray 09/05/16 0000 Signed Impressions: Service Date/Time: Monday, September 05, 2016 09:55 - CONCLUSION: 1. Cardiomegaly and bilateral effusions. ET tube in good position. Improved appearance of pulmonary parenchyma. Roc Lyons MD Ankle X-Ray 08/28/16 0000 Signed Impressions: Service Date/Time: Sunday, August 28, 2016 10:37 - CONCLUSION: Soft tissue swelling without fracture. Zay Carty MD Liver Ultrasound 08/24/16 0000 Signed Impressions: Service Date/Time: Wednesday, August 24, 2016 13:39 - CONCLUSION: 1. The gallbladder wall is at the upper limits of normal in size and there is a small amount of sludge. 2. Suboptimal study. Mark Chavis MD Head CT 08/23/16 1358 Signed Impressions: Service Date/Time: August 16:01 - CONCLUSION: 1. No acute intracranial abnormalities. Delvin Arauz MD Objective Remarks GENERAL: Patient is lying in bed in NAD SKIN: Warm and dry. HEAD: Normocephalic. EYES: No scleral icterus. No injection or drainage. NECK: Supple, trachea midline. No JVD or lymphadenopathy. CARDIOVASCULAR: Regular rate and rhythm without murmurs, gallops, or rubs. RESPIRATORY: Breath sounds equal bilaterally. No accessory muscle use. GASTROINTESTINAL: Abdomen soft, non-tender, nondistended. MUSCULOSKELETAL: No cyanosis, or edema. Neuro: Awake and alert A/P Assessment and Plan Neurologic: Acute toxic metabolic encephalopathy- improving H/O TBI with right temporal contusion Frequent falls Fibromyalgia Depression S/P CVA Chronic pain syndrome -Awake and alert -Continue ASA and Plavix Respiratory: Acute hypoxemic respiratory failure Recurrent flash pulmonary edema Aspiration pneumonia H/O tobacco abuse -Emergently intubated and placed on mechanical ventilation, 08/31/16 and extubated 09/01/16 -With a similar presentation with flash pulmonary edema requiring emergency intubation on 09/03/16, extubated 09/05 -Continue with oxygen keep sat >92% -Bronchodilators , NIPPV PRN for resp distress Cardiovascular: Recurrent flash pulmonary edema Moderate Aortic regurgitation Uncontrolled hypertension Dyslipidemia Hypertension H/O CHF -Monitor HR and BP keep MAP>65mmHg -Continue [id number] Q12, Norvasc 10 mg daily, add Hydralazine 50mg Q8 -Continue pravastatin, ASA, Pravachol, Plavix -ECHO 07/10/16-EF 55-60%, moderate aortic regurgitation. Renal: Chronic kidney disease -- Monitor renal function, I/O's, electrolytes replacement per protocol. --Will need K replacement today GI: -On Po diet -US liver: The gallbladder wall is at the upper limits of normal in size and there is a small amount of sludge. -Protonix for GI prophylaxis Heme Anemia of chronic disease -s/p transfusion 2u PRBC 08/24 -Monitor CBC ID: Healthcare associated pneumonia UTI- urine cx: Kleb ESBL -Continue abx per ID ( Invanz) -ID following- monitor for signs of infections ( Fever, WBC) -Pneumococcal, Legionella antigen negative -Negative for influenza Endocrine: Diabetes mellitus -low dose regimen SSI MSK: Osteoporosis Gout Rheumatoid arthritis -Continue allopurinol Prophylaxis: GI Prophylaxis -Protonix DVT Prophylaxis -SCDs -Heparin 5000 SQ q8 Lines: Peripheral IVs Will sign of and transfer care to [facility] Level 2 Colin Babcock MD Sep 06, 2016 10:10
[2016-09-06] MEDS: hydrALAZINE HCL 50 MG TAB PO SCH ×2 (14:19→21:34)
[2016-09-06] MEDS: ERTAPENEM INJ 1,000 MG in SODIUM CHLORIDE 0.9% INJ 100 ML IV SCH (14:20)
--- NOTE | 2016-09-06 14:50 | HHI.IDPN ---
Subjective Subjective Remarks Notes reviewed D/W RN Doing well post extubation On nasal O2 Not SOB Not coughing, no chest pain Cardiology adjusting BP meds Temps ok Breathing ok CXR better Antibiotics Invanz Lines PIV Past Medical History Hypertension Hyperlipidemia Prior stroke Depression Rheumatoid arthritis Osteoporosis Fibromyalgia TBI with temporal lobe contusion following a fall Frequent falls Obesity Tobacco abuse Past Surgical History Percutaneous tracheostomy 11/24/15 (Dr. Jackson) Bilateral carotid endarterectomy (right carotid endarterectomy was performed by Dr. 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 Vital Signs Date Time Temp Pulse Resp B/P Pulse Ox O2 Delivery O2 Flow Rate FiO2 09/06/16 14:05 95 Nasal Cannula 5.00 09/06/16 08:41 97 Simple Mask 6.00 09/06/16 06:00 79 09/06/16 04:00 98.8 86 23 153/69 95 09/06/16 04:00 86 09/06/16 03:15 Simple Mask 6.00 09/06/16 02:00 70 09/06/16 00:00 98.7 72 21 150/67 93 09/06/16 00:00 72 09/05/16 22:00 80 09/05/16 20:52 95 Nasal Cannula 4.00 09/05/16 20:00 98.5 92 25 119/59 92 09/05/16 20:00 92 09/05/16 16:00 98.2 91 20 145/66 95 09/05/16 09/05/16 09/06/16 15:00 23:00 07:00 Intake Total 420 ml 75 ml 75 ml Output Total 1300 ml 300 ml 400 ml Balance -880 ml -225 ml -325 ml Intake Oral 50 ml 50 ml IV Total 150 ml 25 ml 25 ml Tube Feeding 270 ml Output Urine Total 1300 ml 300 ml 400 ml # Bowel Movements 2 2 0 . Laboratory Tests Test 09/05/16 09/06/16 05:23 05:09 White Blood Count 7.1 TH/MM3 6.4 TH/MM3 Red Blood Count 3.95 MIL/MM3 3.82 MIL/MM3 Hemoglobin 9.8 GM/DL 9.5 GM/DL Hematocrit 30.4 % 29.6 % Mean Corpuscular Volume 76.9 FL 77.4 FL Mean Corpuscular Hemoglobin 24.7 PG 24.9 PG Mean Corpuscular Hemoglobin 32.1 % 32.2 % Concent Red Cell Distribution Width 17.8 % 17.3 % Platelet Count 292 TH/MM3 278 TH/MM3 Mean Platelet Volume 8.8 FL 8.7 FL Neutrophils (%) (Auto) 56.4 % 52.2 % Lymphocytes (%) (Auto) 30.7 % 34.9 % Monocytes (%) (Auto) 11.9 % 11.7 % Eosinophils (%) (Auto) 0.1 % 0.2 % Basophils (%) (Auto) 0.9 % 1.0 % Neutrophils # (Auto) 4.0 TH/MM3 3.4 TH/MM3 Lymphocytes # (Auto) 2.2 TH/MM3 2.2 TH/MM3 Monocytes # (Auto) 0.9 TH/MM3 0.7 TH/MM3 Eosinophils # (Auto) 0.0 TH/MM3 0.0 TH/MM3 Basophils # (Auto) 0.1 TH/MM3 0.1 TH/MM3 CBC Comment AUTO DIFF AUTO DIFF Differential Comment AUTO DIFF AUTO DIFF CONFIRMED CONFIRMED Laboratory Tests Test 09/05/16 09/05/16 09/06/16 00:43 05:23 05:09 Sodium Level 142 MEQ/L 140 MEQ/L 142 MEQ/L Potassium Level 3.9 MEQ/L 4.0 MEQ/L 3.4 MEQ/L Chloride Level 99 MEQ/L 98 MEQ/L 100 MEQ/L Carbon Dioxide Level 34.2 MEQ/L 32.7 MEQ/L 35.4 MEQ/L Anion Gap 9 MEQ/L 9 MEQ/L 7 MEQ/L Blood Urea Nitrogen 17 MG/DL 21 MG/DL 14 MG/DL Creatinine 0.93 MG/DL 1.06 MG/DL 0.71 MG/DL Estimat Glomerular Filtration 59 ML/MIN 51 ML/MIN 80 ML/MIN Rate Random Glucose 100 MG/DL 103 MG/DL 89 MG/DL Calcium Level 8.6 MG/DL 8.6 MG/DL 8.9 MG/DL Phosphorus Level 2.5 MG/DL 2.8 MG/DL Magnesium Level 1.8 MG/DL 2.0 MG/DL Microbiology Date/Time Procedure Status Source Growth 09/03/16 15:29 Aerobic Blood Culture - Preliminary Resulted Blood Peripheral NO GROWTH IN 3 DAYS 09/03/16 15:29 Anaerobic Blood Culture - Preliminary Resulted Blood Peripheral NO GROWTH IN 3 DAYS 09/04/16 00:25 Gram Stain - Final Complete Sputum Endotracheal 09/04/16 00:25 Sputum Culture - Final Complete Sputum Endotracheal NO GROWTH IN 48 HOURS. Imaging Chest X-Ray 09/05/16 0000 Signed Impressions: Service Date/Time: Monday, September 05, 2016 09:55 - CONCLUSION: 1. Cardiomegaly and bilateral effusions. ET tube in good position. Improved appearance of pulmonary parenchyma. Roc Lyons MD Chest X-Ray 09/03/16 0000 Signed Impressions: Service Date/Time: Saturday, September 03, 2016 18:08 - CONCLUSION: Bilateral pulmonary infiltrate without significant improvement. Sarath Corrigan MD Chest X-Ray 09/03/16 0000 Signed Impressions: Service Date/Time: Saturday, September 03, 2016 16:28 - CONCLUSION: Consolidative changes as described above. Aditya Lyons MD FACR Chest X-Ray 09/02/16 0600 Signed Impressions: Service Date/Time: Friday, September 02, 2016 03:43 - CONCLUSION: No significant change has occurred. Camron Sampson MD Ankle X-Ray 08/28/16 0000 Signed Impressions: Service Date/Time: Sunday, August 28, 2016 10:37 - CONCLUSION: Soft tissue swelling without fracture. Zay Carty MD Liver Ultrasound 08/24/16 0000 Signed Impressions: Service Date/Time: Wednesday, August 24, 2016 13:39 - CONCLUSION: 1. The gallbladder wall is at the upper limits of normal in size and there is a small amount of sludge. 2. Suboptimal study. Mark Chavis MD Head CT 08/23/16 1358 Signed Impressions: Service Date/Time: August 16:01 - CONCLUSION: 1. No acute intracranial abnormalities. Delvin Arauz MD Chest X-Ray 09/01/16 0000 Signed Impressions: Service Date/Time: Thursday, September 01, 2016 08:02 - CONCLUSION: 1. Endotracheal tube tip is at the ebony and could be retracted 2-3 cm. 2. Nasogastric tube now in place with the tip below the field of view of the radiograph. 3. Mild left lung base opacity likely representing atelectasis. 4. Decrease in mild right basilar lung opacity. Nixon Cornejo MD Chest X-Ray 08/31/16 0000 Signed Impressions: Service Date/Time: Wednesday, August 31, 2016 10:12 - CONCLUSION: Bilateral infiltrates. Tube in satisfactory position. Barrett Garcia MD Physical Exam GENERAL: Awake,, following, NAD SKIN: Cool and dry. No generalized rash. HEENT: No scleral icterus. Moist mucosa NECK: Supple, nontender, no meningeal signs. CARDIOVASCULAR: Regular rate and rhythm without murmurs, gallops, or rubs. RESPIRATORY: Coarse rales bilaterally, decreased BS at bases, worse on L than R GASTROINTESTINAL: Abdomen soft, slightly globular, non-tender, nondistended. MUSCULOSKELETAL: Extremities without clubbing, cyanosis, or edema. No calf tenderness. NEUROLOGICAL: Non-focal PSYCH: Normal affect, calm and cooperative. LINE: PIV with no evidence of infection Assessment & Plan Remarks IMPRESSION Klebsiella UTI, on admission Respiratory failure, recurrent, reintubated today 08/31, extubated and now reintubated - very rapid deterioration more C/W pulmonary edema, fluid shift Etiology of initial decreased LOC unclear, better RECOMMENDATION Continue Invanz - plan till Sep 09 (14 days Rx fro UTI, adequate for PNA) Monitor progress Monitor temps BP control per cardiology D/W Mariela Del Real MD Sep 06, 2016 14:50
--- NOTE | 2016-09-06 17:58 | PD.CARD.PN ---
Subjective Subjective Remarks Extubated, no CP or SOB Objective Medications Current Medications Medications (Trade) Dose Ordered Sig/Hill Route Start Time Stop Time Status Last Admin (NS Flush) 2 ml UNSCH PRN IV FLUSH 08/23/16 18:15 (NS Flush) 2 ml BID IV FLUSH 08/23/16 21:00 09/06/16 09:00 (Tylenol) 650 mg Q6H PRN PO 08/23/16 18:15 09/05/16 08:12 (Protonix Inj) 40 mg DAILY IV 08/24/16 09:00 09/06/16 08:58 (Tears Naturale Opth Soln) 1 drop TID EACH EYE 08/24/16 09:00 09/06/16 14:20 (Zofran Inj) 4 mg Q6H PRN IV 08/23/16 18:15 09/03/16 13:03 (Colace Liq) 100 mg Q12H G-TUBE 08/23/16 21:00 09/03/16 09:40 (Senna Liq) 17.6 mg Q12H PRN G-TUBE 08/23/16 18:15 (Heparin Inj) 5,000 units Q12H SQ 08/23/16 21:00 09/06/16 08:58 Miscellaneous Information 1 Q361D XX 08/23/16 18:30 (Chlorhexidine 2% Cloth) Taper DAILY@04 TOP 08/24/16 04:00 08/20/17 03:59 09/05/16 04:00 (Chlorhexidine 2% Cloth) 3 pack UNSCH PRN TOP 08/23/16 18:30 (Zyloprim) 100 mg DAILY PO 08/24/16 09:00 09/06/16 08:56 (Plavix) 75 mg DAILY PO 08/24/16 09:00 09/06/16 08:57 (Cymbalta Dr) 30 mg DAILY PO 08/24/16 09:00 09/06/16 08:56 (Pravachol) 20 mg DAILY PO 08/24/16 09:00 09/06/16 08:56 (Aspirin Chew) 81 mg DAILY TUBE 08/24/16 09:00 09/06/16 08:56 (Xanax) 0.125 mg Q12H PRN PO 08/27/16 10:45 09/06/16 00:10 (Robitussin Ac 200-20 Mg/10 ml Liq) 10 ml Q6H PRN PO 08/27/16 13:15 09/05/16 22:42 (Lopressor) 75 mg Q12HR PO 08/28/16 21:00 09/06/16 08:56 ([place] 5-325 Mg) 1 tab Q4H PRN PO 08/29/16 10:15 09/02/16 23:45 Colchicine 0.6 mg 0.6 mg DAILY PO 08/30/16 09:00 09/06/16 08:56 Potassium Chloride 100 ml @ 50 mls/hr Q2H PRN IV 09/03/16 10:30 (KCl 20 Meq Premix Inj) 100 ml @ 50 mls/hr Q2H PRN IV 09/03/16 10:30 09/04/16 18:22 Potassium Chloride 40 meq 40 meq UNSCH PRN PO/TUBE 09/03/16 10:30 Potassium Chloride 100 ml @ 25 mls/hr UNSCH PRN IV 09/03/16 10:30 Potassium Chloride 100 ml @ 50 mls/hr Q2H PRN IV 09/03/16 10:30 09/06/16 08:57 (Magnesium Sulfate Inj/NS Inj) 100 ml @ 50 mls/hr UNSCH PRN IV 09/03/16 10:30 Magnesium Oxide 800 mg 800 mg UNSCH PRN PO 09/03/16 10:30 (Magnesium Sulfate Inj/NS Inj) 100 ml @ 50 mls/hr UNSCH PRN IV 09/03/16 10:30 Potassium Phosphate 2000 mg 2,000 mg Q4H PRN PO 09/03/16 10:30 (Sodium Phosphate Inj/NS 250 ml Inj) 250 ml @ 42 mls/hr UNSCH PRN IV 09/03/16 10:30 (KCl 40 Meq/30 ml Liq) 40 meq UNSCH PRN PO/TUBE 09/03/16 10:30 Potassium Phosphate 2000 mg 2,000 mg UNSCH PRN PO/TUBE 09/03/16 10:30 Potassium Phosphate 30 mmol/ Sodium Chloride 260 ml @ 42 mls/hr UNSCH PRN IV 09/03/16 10:30 (INVanz INJ/NS Inj) 100 ml @ 200 mls/hr Q24H IV 09/03/16 14:00 09/09/16 13:59 09/06/16 14:20 (Peridex 0.12% Liq) 15 ml BID@08,20 MT 09/03/16 20:00 09/05/16 08:11 (Norvasc) 10 mg DAILY PO 09/06/16 09:00 09/06/16 08:56 (Apresoline) 50 mg Q8HR PO 09/06/16 14:00 09/06/16 14:19 Vital Signs / I&O Vital Signs Date Time Temp Pulse Resp B/P Pulse Ox O2 Delivery O2 Flow Rate FiO2 09/06/16 16:00 99.3 89 25 154/67 97 09/06/16 14:05 95 Nasal Cannula 5.00 09/06/16 12:00 99.5 82 22 144/72 86 09/06/16 08:41 97 Simple Mask 6.00 09/06/16 08:00 98.7 79 22 125/58 98 09/06/16 06:00 79 09/06/16 04:00 98.8 86 23 153/69 95 09/06/16 04:00 86 09/06/16 03:15 Simple Mask 6.00 09/06/16 02:00 70 09/06/16 00:00 98.7 72 21 150/67 93 09/06/16 00:00 72 09/05/16 22:00 80 09/05/16 20:52 95 Nasal Cannula 4.00 09/05/16 20:00 98.5 92 25 119/59 92 09/05/16 20:00 92 I/O 09/05/16 09/05/16 09/05/16 09/06/16 09/06/16 09/06/16 07:00 15:00 23:00 07:00 15:00 23:00 Intake Total 530 ml 420 ml 75 ml 75 ml 535 ml Output Total 375 ml 1300 ml 300 ml 400 ml 325 ml Balance 155 ml -880 ml -225 ml -325 ml 210 ml Intake Oral 50 ml 50 ml 300 ml IV Total 209 ml 150 ml 25 ml 25 ml 235 ml Tube Feeding 321 ml 270 ml Output Urine Total 375 ml 1300 ml 300 ml 400 ml 325 ml # Bowel Movements 1 2 2 0 0 Physical Exam GENERAL: Extubated, in NAD SKIN: Warm and dry. HEAD: Normocephalic. EYES: No scleral icterus. No injection or drainage. NECK: Supple, trachea midline. No JVD or lymphadenopathy. CARDIOVASCULAR: Regular rate and rhythm without murmurs, gallops, or rubs. RESPIRATORY: Breath sounds equal bilaterally. No accessory muscle use. GASTROINTESTINAL: Abdomen soft, non-tender, nondistended. MUSCULOSKELETAL: No cyanosis, trace edema Laboratory Laboratory Tests Test 09/06/16 05:09 White Blood Count 6.4 TH/MM3 Red Blood Count 3.82 MIL/MM3 Hemoglobin 9.5 GM/DL Hematocrit 29.6 % Mean Corpuscular Volume 77.4 FL Mean Corpuscular Hemoglobin 24.9 PG Mean Corpuscular Hemoglobin 32.2 % Concent Red Cell Distribution Width 17.3 % Platelet Count 278 TH/MM3 Mean Platelet Volume 8.7 FL Neutrophils (%) (Auto) 52.2 % Lymphocytes (%) (Auto) 34.9 % Monocytes (%) (Auto) 11.7 % Eosinophils (%) (Auto) 0.2 % Basophils (%) (Auto) 1.0 % Neutrophils # (Auto) 3.4 TH/MM3 Lymphocytes # (Auto) 2.2 TH/MM3 Monocytes # (Auto) 0.7 TH/MM3 Eosinophils # (Auto) 0.0 TH/MM3 Basophils # (Auto) 0.1 TH/MM3 CBC Comment AUTO DIFF Differential Comment AUTO DIFF CONFIRMED Sodium Level 142 MEQ/L Potassium Level 3.4 MEQ/L Chloride Level 100 MEQ/L Carbon Dioxide Level 35.4 MEQ/L Anion Gap 7 MEQ/L Blood Urea Nitrogen 14 MG/DL Creatinine 0.71 MG/DL Estimat Glomerular Filtration 80 ML/MIN Rate Random Glucose 89 MG/DL Calcium Level 8.9 MG/DL Imaging Last Impressions Chest X-Ray 09/05/16 0000 Signed Impressions: Service Date/Time: Monday, September 05, 2016 09:55 - CONCLUSION: 1. Cardiomegaly and bilateral effusions. ET tube in good position. Improved appearance of pulmonary parenchyma. Roc Lyons MD Ankle X-Ray 08/28/16 0000 Signed Impressions: Service Date/Time: Sunday, August 28, 2016 10:37 - CONCLUSION: Soft tissue swelling without fracture. Zay Carty MD Liver Ultrasound 08/24/16 0000 Signed Impressions: Service Date/Time: Wednesday, August 24, 2016 13:39 - CONCLUSION: 1. The gallbladder wall is at the upper limits of normal in size and there is a small amount of sludge. 2. Suboptimal study. Mark Chavis MD Head CT 08/23/16 9105 Signed Impressions: Service Date/Time: August 16:01 - CONCLUSION: 1. No acute intracranial abnormalities. Delvin Arauz MD Assessment and Plan Problem List: (1) CHF (congestive heart failure) (2) Acute hypoxemic respiratory failure (3) Hypertension (4) Endotracheally intubated (5) PNA (pneumonia) Assessment and Plan Continue ICU monitoring. BP still elevated. Continue and titrate aggressive BP control, suspect acute pulm edema due to diast dysfunction due to severe HTN. Echo shows nl LV systolic fx. Problem Qualifiers (1) CHF (congestive heart failure): Qualified Code: I50.31 - Acute diastolic congestive heart failure (2) Hypertension: Qualified Code: I10 - Essential hypertension Nael Carr MD Sep 06, 2016 17:58
[2016-09-06] MEDS: ACETAMINOPHEN/HYDROcodone 325 MG/5 MG TAB PO PRN (20:10)
[2016-09-07] VITALS (14 sets, daily range): BP systolic 121–149; BP diastolic 57–73; PULSE 63–86; RESP 12–27; TEMP 98.6–99.2; O2SAT 93–97
[2016-09-07] MEDS: RESP: ALBUTEROL 2.5 MG/IPRATROPIUM 0.5 MG NEB (SCH) NEB ×4 (03:32→20:38)
[2016-09-07] MEDS: CHLORHEXIDINE GLUCONATE 2 % 1 PACK (2 CLOTHS) TOP SCH (04:00)
[2016-09-07] MEDS: hydrALAZINE HCL 50 MG TAB PO SCH ×3 (05:13→21:44)
[2016-09-07 06:06] LABS: AUTOMATED NEUTROPHIL # 3.4 TH/MM3 (1.8-7.7); BASOPHIL # 0.1 TH/MM3 (0-0.2); BASOPHIL % 0.9 % (0.0-2.0); EOSINOPHIL % 0.2 % (0.0-4.0); HEMATOCRIT 28.9 % (35.0-46.0); HEMO FLAGS DIFF FINAL; LYMPH % 30.9 % (9.0-44.0); LYMPHOCYTE # 1.9 TH/MM3 (1.0-4.8); MEAN CELL VOLUME 77.6 FL (80.0-100.0); MEAN CORPUSCULAR HEMOGLOBIN 25.3 PG (27.0-34.0); MEAN CORPUSCULAR HGB CONC 32.6 % (32.0-36.0); MONO % 11.5 % (0.0-8.0); NEUT % 56.5 % (16.0-70.0); PLATELET COUNT 299 TH/MM3 (150-450); RED BLOOD COUNT 3.73 MIL/MM3 (4.00-5.30); RED CELL DISTRIBUTION WIDTH 17.5 % (11.6-17.2); WHITE BLOOD COUNT 6.1 TH/MM3 (4.0-11.0)
[2016-09-07 06:33] LABS: BICARBONATE 32.3 MEQ/L (21.0-32.0); POTASSIUM 3.6 MEQ/L (3.5-5.1)
[2016-09-07] MEDS: CHLORHEXIDINE 0.12% (ORAL KIT) 15 ML CUP MT SCH ×2 (08:00→20:00)
[2016-09-07] MEDS: DOCUSATE SODIUM 100 MG/10 ML UDC G-TUBE SCH ×2 (09:00→20:24)
[2016-09-07] MEDS: ARTIFICIAL TEARS OPTH SOLN 15 ML BTL EACH EYE SCH ×3 (09:00→18:00)
[2016-09-07] MEDS: PANTOPRAZOLE SODIUM 40 MG VIAL IV SCH (10:33)
[2016-09-07] MEDS: ASPIRIN 81 MG CHEW TAB TUBE SCH (10:34)
[2016-09-07] MEDS: PRAVASTATIN SOD 20 MG TAB PO SCH (10:34)
[2016-09-07] MEDS: METOPROLOL TARTRATE 25 MG TAB PO SCH ×2 (10:34→20:23)
[2016-09-07] MEDS: HEPARIN SODIUM - SQ 10,000 UNITS/ML VIAL SQ SCH ×2 (10:34→20:23)
[2016-09-07] MEDS: DULoxetine HCl DR 30 MG CAP PO SCH (10:34)
[2016-09-07] MEDS: COLCHICINE 0.6 MG TAB PO SCH (10:35)
[2016-09-07] MEDS: SODIUM CHLORIDE 0.9% FLUSH 5 ML FLUSH IV FLUSH SCH ×2 (10:35→20:24)
[2016-09-07] MEDS: ALLOPURINOL 100 MG TAB PO SCH (10:35)
[2016-09-07] MEDS: CLOPIDOGREL 75 MG TAB PO SCH (10:36)
--- NOTE | 2016-09-07 13:59 | HHI.IDPN ---
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 Jackson) Bilateral carotid endarterectomy (right carotid endarterectomy was performed by Dr. 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 Vital Signs Date Time Temp Pulse Resp B/P Pulse Ox O2 Delivery O2 Flow Rate FiO2 09/07/16 12:00 63 09/07/16 12:00 98.7 63 20 135/61 96 09/07/16 10:00 84 09/07/16 09:05 95 Nasal Cannula 4.00 09/07/16 08:00 82 09/07/16 08:00 98.6 82 21 121/60 93 09/07/16 06:00 81 09/07/16 04:00 82 09/07/16 04:00 99.2 82 23 149/70 97 09/07/16 02:00 73 09/07/16 00:00 98.8 81 27 146/73 97 09/07/16 00:00 81 09/06/16 22:00 85 09/06/16 21:07 Nasal Cannula 3.00 09/06/16 20:00 86 09/06/16 20:00 98.7 86 25 157/71 97 09/06/16 16:00 99.3 89 25 154/67 97 09/06/16 14:05 95 Nasal Cannula 5.00 09/06/16 09/06/16 09/07/16 15:00 23:00 07:00 Intake Total 535 ml 150 ml 100 ml Output Total 325 ml 500 ml 300 ml Balance 210 ml -350 ml -200 ml Intake Oral 300 ml 150 ml 100 ml IV Total 235 ml 0 ml Output Urine Total 325 ml 500 ml 300 ml # Bowel Movements 0 1 0 . Laboratory Tests Test 09/06/16 09/07/16 05:09 05:09 White Blood Count 6.4 TH/MM3 6.1 TH/MM3 Red Blood Count 3.82 MIL/MM3 3.73 MIL/MM3 Hemoglobin 9.5 GM/DL 9.4 GM/DL Hematocrit 29.6 % 28.9 % Mean Corpuscular Volume 77.4 FL 77.6 FL Mean Corpuscular Hemoglobin 24.9 PG 25.3 PG Mean Corpuscular Hemoglobin 32.2 % 32.6 % Concent Red Cell Distribution Width 17.3 % 17.5 % Platelet Count 278 TH/MM3 299 TH/MM3 Mean Platelet Volume 8.7 FL 8.8 FL Neutrophils (%) (Auto) 52.2 % 56.5 % Lymphocytes (%) (Auto) 34.9 % 30.9 % Monocytes (%) (Auto) 11.7 % 11.5 % Eosinophils (%) (Auto) 0.2 % 0.2 % Basophils (%) (Auto) 1.0 % 0.9 % Neutrophils # (Auto) 3.4 TH/MM3 3.4 TH/MM3 Lymphocytes # (Auto) 2.2 TH/MM3 1.9 TH/MM3 Monocytes # (Auto) 0.7 TH/MM3 0.7 TH/MM3 Eosinophils # (Auto) 0.0 TH/MM3 0.0 TH/MM3 Basophils # (Auto) 0.1 TH/MM3 0.1 TH/MM3 CBC Comment AUTO DIFF DIFF FINAL Differential Comment AUTO DIFF CONFIRMED Laboratory Tests Test 09/06/16 09/07/16 05:09 05:09 Sodium Level 142 MEQ/L 142 MEQ/L Potassium Level 3.4 MEQ/L 3.6 MEQ/L Chloride Level 100 MEQ/L 101 MEQ/L Carbon Dioxide Level 35.4 MEQ/L 32.3 MEQ/L Anion Gap 7 MEQ/L 9 MEQ/L Blood Urea Nitrogen 14 MG/DL 16 MG/DL Creatinine 0.71 MG/DL 0.79 MG/DL Estimat Glomerular Filtration 80 ML/MIN 71 ML/MIN Rate Random Glucose 89 MG/DL 86 MG/DL Calcium Level 8.9 MG/DL 9.1 MG/DL Phosphorus Level 3.4 MG/DL Magnesium Level 2.0 MG/DL Imaging Chest X-Ray 09/05/16 0000 Signed Impressions: Service Date/Time: Monday, September 05, 2016 09:55 - CONCLUSION: 1. Cardiomegaly and bilateral effusions. ET tube in good position. Improved appearance of pulmonary parenchyma. Roc Lyons MD Chest X-Ray 09/03/16 0000 Signed Impressions: Service Date/Time: Saturday, September 03, 2016 18:08 - CONCLUSION: Bilateral pulmonary infiltrate without significant improvement. Sarath Corrigan MD Chest X-Ray 09/03/16 0000 Signed Impressions: Service Date/Time: Saturday, September 03, 2016 16:28 - CONCLUSION: Consolidative changes as described above. Aditya Lyons MD FACR Chest X-Ray 09/02/16 0600 Signed Impressions: Service Date/Time: Friday, September 02, 2016 03:43 - CONCLUSION: No significant change has occurred. Camron Sampson MD Ankle X-Ray 08/28/16 0000 Signed Impressions: Service Date/Time: Sunday, August 28, 2016 10:37 - CONCLUSION: Soft tissue swelling without fracture. Zay Carty MD Liver Ultrasound 08/24/16 0000 Signed Impressions: Service Date/Time: Wednesday, August 24, 2016 13:39 - CONCLUSION: 1. The gallbladder wall is at the upper limits of normal in size and there is a small amount of sludge. 2. Suboptimal study. Mark Chavis MD Head CT 08/23/16 1358 Signed Impressions: Service Date/Time: August 16:01 - CONCLUSION: 1. No acute intracranial abnormalities. Delvin Arauz MD Chest X-Ray 09/01/16 0000 Signed Impressions: Service Date/Time: Thursday, September 01, 2016 08:02 - CONCLUSION: 1. Endotracheal tube tip is at the ebony and could be retracted 2-3 cm. 2. Nasogastric tube now in place with the tip below the field of view of the radiograph. 3. Mild left lung base opacity likely representing atelectasis. 4. Decrease in mild right basilar lung opacity. Nixon Cornejo MD Chest X-Ray 08/31/16 0000 Signed Impressions: Service Date/Time: Wednesday, August 31, 2016 10:12 - CONCLUSION: Bilateral infiltrates. Tube in satisfactory position. Barrett Garcia MD Physical Exam GENERAL: Awake, following, NAD SKIN: Cool and dry. No generalized rash. HEENT: No scleral icterus. Moist mucosa NECK: Supple, nontender CARDIOVASCULAR: Regular rate and rhythm without murmurs, gallops, or rubs. RESPIRATORY: Coarse rales bilaterally, decreased BS at bases GASTROINTESTINAL: Abdomen soft, slightly globular, non-tender, nondistended. MUSCULOSKELETAL: Extremities without clubbing, cyanosis, or edema. No calf tenderness. NEUROLOGICAL: Non-focal PSYCH: Normal affect, calm and cooperative. LINE: PIV with no evidence of infection Assessment & Plan Remarks IMPRESSION Klebsiella UTI, on admission Respiratory failure, recurrent, reintubated today 08/31, extubated and now reintubated - very rapid deterioration more C/W pulmonary edema, fluid shift Etiology of initial decreased LOC unclear, better RECOMMENDATION Continue Invanz - plan till Sep 09 (14 days Rx fro UTI, adequate for PNA) Monitor progress Monitor temps Clinically stable and doing well Mariela Barragan MD Sep 07, 2016 13:59
--- NOTE | 2016-09-07 14:42 | PD.CARD.PN ---
Subjective Subjective Remarks No CP or SOB, feels tired after sitting in the chair Objective Medications Current Medications Medications (Trade) Dose Ordered Sig/Hill Route Start Time Stop Time Status Last Admin (NS Flush) 2 ml UNSCH PRN IV FLUSH 08/23/16 18:15 (NS Flush) 2 ml BID IV FLUSH 08/23/16 21:00 09/07/16 10:35 (Tylenol) 650 mg Q6H PRN PO 08/23/16 18:15 09/05/16 08:12 (Protonix Inj) 40 mg DAILY IV 08/24/16 09:00 09/07/16 10:33 (Tears Naturale Opth Soln) 1 drop TID EACH EYE 08/24/16 09:00 09/06/16 18:28 (Zofran Inj) 4 mg Q6H PRN IV 08/23/16 18:15 09/03/16 13:03 (Colace Liq) 100 mg Q12H G-TUBE 08/23/16 21:00 09/03/16 09:40 (Senna Liq) 17.6 mg Q12H PRN G-TUBE 08/23/16 18:15 (Heparin Inj) 5,000 units Q12H SQ 08/23/16 21:00 09/07/16 10:34 Miscellaneous Information 1 Q361D XX 08/23/16 18:30 (Chlorhexidine 2% Cloth) Taper DAILY@04 TOP 08/24/16 04:00 08/20/17 03:59 09/05/16 04:00 (Chlorhexidine 2% Cloth) 3 pack UNSCH PRN TOP 08/23/16 18:30 (Zyloprim) 100 mg DAILY PO 08/24/16 09:00 09/07/16 10:35 (Plavix) 75 mg DAILY PO 08/24/16 09:00 09/07/16 10:36 (Cymbalta Dr) 30 mg DAILY PO 08/24/16 09:00 09/07/16 10:34 (Pravachol) 20 mg DAILY PO 08/24/16 09:00 09/07/16 10:34 (Aspirin Chew) 81 mg DAILY TUBE 08/24/16 09:00 09/07/16 10:34 (Xanax) 0.125 mg Q12H PRN PO 08/27/16 10:45 09/06/16 21:34 (Robitussin Ac 200-20 Mg/10 ml Liq) 10 ml Q6H PRN PO 08/27/16 13:15 09/05/16 22:42 (Lopressor) 75 mg Q12HR PO 08/28/16 21:00 09/07/16 10:34 ([place] 5-325 Mg) 1 tab Q4H PRN PO 08/29/16 10:15 09/06/16 20:10 Colchicine 0.6 mg 0.6 mg DAILY PO 08/30/16 09:00 09/07/16 10:35 Potassium Chloride 100 ml @ 50 mls/hr Q2H PRN IV 09/03/16 10:30 (KCl 20 Meq Premix Inj) 100 ml @ 50 mls/hr Q2H PRN IV 09/03/16 10:30 09/04/16 18:22 Potassium Chloride 40 meq 40 meq UNSCH PRN PO/TUBE 09/03/16 10:30 Potassium Chloride 100 ml @ 25 mls/hr UNSCH PRN IV 09/03/16 10:30 Potassium Chloride 100 ml @ 50 mls/hr Q2H PRN IV 09/03/16 10:30 09/06/16 08:57 (Magnesium Sulfate Inj/NS Inj) 100 ml @ 50 mls/hr UNSCH PRN IV 09/03/16 10:30 Magnesium Oxide 800 mg 800 mg UNSCH PRN PO 09/03/16 10:30 (Magnesium Sulfate Inj/NS Inj) 100 ml @ 50 mls/hr UNSCH PRN IV 09/03/16 10:30 Potassium Phosphate 2000 mg 2,000 mg Q4H PRN PO 09/03/16 10:30 (Sodium Phosphate Inj/NS 250 ml Inj) 250 ml @ 42 mls/hr UNSCH PRN IV 09/03/16 10:30 (KCl 40 Meq/30 ml Liq) 40 meq UNSCH PRN PO/TUBE 09/03/16 10:30 Potassium Phosphate 2000 mg 2,000 mg UNSCH PRN PO/TUBE 09/03/16 10:30 Potassium Phosphate 30 mmol/ Sodium Chloride 260 ml @ 42 mls/hr UNSCH PRN IV 09/03/16 10:30 (INVanz INJ/NS Inj) 100 ml @ 200 mls/hr Q24H IV 09/03/16 14:00 09/09/16 13:59 09/06/16 14:20 (Peridex 0.12% Liq) 15 ml BID@08,20 MT 09/03/16 20:00 09/05/16 08:11 (Norvasc) 10 mg DAILY PO 09/06/16 09:00 09/07/16 10:34 (Apresoline) 50 mg Q8HR PO 09/06/16 14:00 09/07/16 05:13 Vital Signs / I&O Vital Signs Date Time Temp Pulse Resp B/P Pulse Ox O2 Delivery O2 Flow Rate FiO2 09/07/16 14:00 85 09/07/16 12:00 63 09/07/16 12:00 98.7 63 20 135/61 96 09/07/16 10:00 84 09/07/16 09:05 95 Nasal Cannula 4.00 09/07/16 08:00 82 09/07/16 08:00 98.6 82 21 121/60 93 09/07/16 06:00 81 09/07/16 04:00 82 09/07/16 04:00 99.2 82 23 149/70 97 09/07/16 02:00 73 09/07/16 00:00 98.8 81 27 146/73 97 09/07/16 00:00 81 09/06/16 22:00 85 09/06/16 21:07 Nasal Cannula 3.00 09/06/16 20:00 86 09/06/16 20:00 98.7 86 25 157/71 97 09/06/16 16:00 99.3 89 25 154/67 97 I/O 09/06/16 09/06/16 09/06/16 09/07/16 09/07/16 09/07/16 07:00 15:00 23:00 07:00 15:00 23:00 Intake Total 75 ml 535 ml 150 ml 100 ml 400 ml Output Total 400 ml 325 ml 500 ml 300 ml 500 ml Balance -325 ml 210 ml -350 ml -200 ml -100 ml Intake Oral 50 ml 300 ml 150 ml 100 ml 400 ml IV Total 25 ml 235 ml 0 ml 0 ml Output Urine Total 400 ml 325 ml 500 ml 300 ml 500 ml # Bowel Movements 0 0 1 0 1 Physical Exam GENERAL: Resting, in NAD SKIN: Warm and dry. HEAD: Normocephalic. EYES: No scleral icterus. No injection or drainage. NECK: Supple, trachea midline. No JVD or lymphadenopathy. CARDIOVASCULAR: Regular rate and rhythm without murmurs, gallops, or rubs. RESPIRATORY: Breath sounds equal bilaterally. No accessory muscle use. GASTROINTESTINAL: Abdomen soft, non-tender, nondistended. MUSCULOSKELETAL: No cyanosis, trace edema Laboratory Laboratory Tests Test 09/07/16 05:09 White Blood Count 6.1 TH/MM3 Red Blood Count 3.73 MIL/MM3 Hemoglobin 9.4 GM/DL Hematocrit 28.9 % Mean Corpuscular Volume 77.6 FL Mean Corpuscular Hemoglobin 25.3 PG Mean Corpuscular Hemoglobin 32.6 % Concent Red Cell Distribution Width 17.5 % Platelet Count 299 TH/MM3 Mean Platelet Volume 8.8 FL Neutrophils (%) (Auto) 56.5 % Lymphocytes (%) (Auto) 30.9 % Monocytes (%) (Auto) 11.5 % Eosinophils (%) (Auto) 0.2 % Basophils (%) (Auto) 0.9 % Neutrophils # (Auto) 3.4 TH/MM3 Lymphocytes # (Auto) 1.9 TH/MM3 Monocytes # (Auto) 0.7 TH/MM3 Eosinophils # (Auto) 0.0 TH/MM3 Basophils # (Auto) 0.1 TH/MM3 CBC Comment DIFF FINAL Differential Comment Sodium Level 142 MEQ/L Potassium Level 3.6 MEQ/L Chloride Level 101 MEQ/L Carbon Dioxide Level 32.3 MEQ/L Anion Gap 9 MEQ/L Blood Urea Nitrogen 16 MG/DL Creatinine 0.79 MG/DL Estimat Glomerular Filtration 71 ML/MIN Rate Random Glucose 86 MG/DL Calcium Level 9.1 MG/DL Phosphorus Level 3.4 MG/DL Magnesium Level 2.0 MG/DL Imaging Last Impressions Chest X-Ray 09/05/16 0000 Signed Impressions: Service Date/Time: Monday, September 05, 2016 09:55 - CONCLUSION: 1. Cardiomegaly and bilateral effusions. ET tube in good position. Improved appearance of pulmonary parenchyma. Roc Lyons MD Ankle X-Ray 08/28/16 0000 Signed Impressions: Service Date/Time: Sunday, August 28, 2016 10:37 - CONCLUSION: Soft tissue swelling without fracture. Zay Carty MD Liver Ultrasound 08/24/16 0000 Signed Impressions: Service Date/Time: Wednesday, August 24, 2016 13:39 - CONCLUSION: 1. The gallbladder wall is at the upper limits of normal in size and there is a small amount of sludge. 2. Suboptimal study. Mark Chavis MD Head CT 08/23/16 1358 Signed Impressions: Service Date/Time: August 16:01 - CONCLUSION: 1. No acute intracranial abnormalities. Delvin Arauz MD Assessment and Plan Problem List: (1) CHF (congestive heart failure) (2) Acute hypoxemic respiratory failure (3) Hypertension (4) Endotracheally intubated (5) PNA (pneumonia) Assessment and Plan Continue ICU monitoring. BP much better. Continue and titrate aggressive BP control, suspect acute pulm edema was due to diast dysfunction due to severe HTN. Echo shows nl LV systolic fx, c/w diastolic dysfunction. Much improved. Increase activities. Problem Qualifiers (1) CHF (congestive heart failure): Qualified Code: I50.31 - Acute diastolic congestive heart failure (2) Hypertension: Qualified Code: I10 - Essential hypertension Nael Carr MD Sep 07, 2016 14:42
--- NOTE | 2016-09-07 14:57 | HHI.PR ---
Subjective Remarks No shortness of breath. Doing okay. Objective Vitals Vital Signs Date Time Temp Pulse Resp B/P Pulse Ox O2 Delivery O2 Flow Rate FiO2 09/07/16 14:00 85 09/07/16 12:00 63 09/07/16 12:00 98.7 63 20 135/61 96 09/07/16 10:00 84 09/07/16 09:05 95 Nasal Cannula 4.00 09/07/16 08:00 82 09/07/16 08:00 98.6 82 21 121/60 93 09/07/16 06:00 81 09/07/16 04:00 82 09/07/16 04:00 99.2 82 23 149/70 97 09/07/16 02:00 73 09/07/16 00:00 98.8 81 27 146/73 97 09/07/16 00:00 81 09/06/16 22:00 85 09/06/16 21:07 Nasal Cannula 3.00 09/06/16 20:00 86 09/06/16 20:00 98.7 86 25 157/71 97 09/06/16 16:00 99.3 89 25 154/67 97 I/O 09/06/16 09/06/16 09/06/16 09/07/16 09/07/16 09/07/16 07:00 15:00 23:00 07:00 15:00 23:00 Intake Total 75 ml 535 ml 150 ml 100 ml 400 ml Output Total 400 ml 325 ml 500 ml 300 ml 500 ml Balance -325 ml 210 ml -350 ml -200 ml -100 ml Intake Oral 50 ml 300 ml 150 ml 100 ml 400 ml IV Total 25 ml 235 ml 0 ml 0 ml Output Urine Total 400 ml 325 ml 500 ml 300 ml 500 ml # Bowel Movements 0 0 1 0 1 Result Diagram: 09/07/16 0509 09/07/16 0509 Other Results Microbiology Date/Time Procedure Status Source Growth 09/04/16 00:25 Gram Stain - Final Complete Sputum Endotracheal 09/04/16 00:25 Sputum Culture - Final Complete Sputum Endotracheal NO GROWTH IN 48 HOURS. 09/03/16 15:29 Aerobic Blood Culture - Preliminary Resulted Blood Peripheral NO GROWTH IN 4 DAYS 09/03/16 15:29 Anaerobic Blood Culture - Preliminary Resulted Blood Peripheral NO GROWTH IN 4 DAYS Objective Remarks GENERAL: This is a well-nourished, well-developed patient, in no apparent distress. CARDIOVASCULAR: Regular rate and rhythm Lungs, relatively clear with diminished breath sounds at the bases GASTROINTESTINAL: Abdomen soft, non-tender, nondistended. Normal active bowel sounds MUSCULOSKELETAL: Extremities without clubbing, cyanosis, or edema with bilateral SCDs. NEURO: Alert & Oriented x 3 to person, place, time. Moves all ext x4 A/P Problem List: (1) Sepsis due to Klebsiella ICD Code: A41.4 Status: Acute (2) Urinary tract infection due to ESBL Klebsiella ICD Code: N39.0 Status: Acute (3) Metabolic encephalopathy ICD Code: G93.41 Status: Resolved (4) Acute hypoxemic respiratory failure ICD Code: J96.01 Status: Resolved (5) Gout of left ankle ICD Code: M10.9 Status: Acute (6) Chronic anemia ICD Code: D64.9 Status: Chronic (7) Diarrhea ICD Code: R19.7 Status: Acute (8) HTN (hypertension) ICD Code: I10 Status: Chronic Assessment and Plan Acute toxic metabolic encephalopathy- improving H/O TBI with right temporal contusion Frequent falls Fibromyalgia Depression S/P CVAcontinue aspirin and Plavix Chronic pain syndrome Acute hypoxemic respiratory failure Recurrent flash pulmonary edema Aspiration pneumonia with a history of tobacco abusecontinue IV Invanz through September 09 per ID -Emergently intubated and placed on mechanical ventilation, 08/31/16 and extubated 09/01/16 -With a similar presentation with flash pulmonary edema requiring emergency intubation on 09/03/16, extubated 09/05 by intensive care service -Continue with oxygen keep sat >92%, currently on 4 L and will continue to wean as tolerated. -Bronchodilators , NIPPV PRN for respiatory distress Moderate Aortic regurgitation - maximum medication Uncontrolled hypertension, essential Dyslipidemia Previous acute on chronic diastolic CHF exacerbation -Monitor HR and BP keep MAP>65mmHg -Continue [id number] Q12, Norvasc 10 mg daily, add Hydralazine 50mg Q8 -Continue pravastatin, ASA, Pravachol, Plavix -ECHO 07/10/16-EF 55-60%, moderate aortic regurgitation. Chronic kidney disease stage II -- Monitor renal function, I/O's, electrolytes replacement per protocol. Avoid nephrotoxin Anemia of chronic disease -s/p transfusion 2u PRBC 08/24 -Monitor CBC, hemoglobin has remained stable. ID: Healthcare associated pneumonia UTI- urine cx: Kleb ESBL -Continue abx per ID ( Invanz) through September 09 -ID following- monitor for signs of infections ( Fever, WBC) -Pneumococcal, Legionella antigen negative -Negative for influenza Discontinue Jones catheter in a.m. the patient's respiratory status and fluid balance continues to maintain stable Diabetes mellitus2 -low dose regimen SSI Osteoporosis Gout Rheumatoid arthritis -Continue allopurinol GI ProphylaxisProtonix: DVT Prophylaxis -SCDs Heparin 5000 SQ q8 Discharge Planning Will need rehabilitation placement. Marta Calvillo MD Sep 07, 2016 14:57
[2016-09-07] MEDS: ERTAPENEM INJ 1,000 MG in SODIUM CHLORIDE 0.9% INJ 100 ML IV SCH (17:21)
[2016-09-07] MEDS: ACETAMINOPHEN/HYDROcodone 325 MG/5 MG TAB PO PRN (17:35)
[2016-09-07] MEDS: ALPRAZolam 0.25 MG TAB PO PRN (21:44)
[2016-09-08] VITALS (14 sets, daily range): BP systolic 115–143; BP diastolic 58–64; PULSE 77–89; RESP 12–21; TEMP 98.3–98.9; O2SAT 92–97
[2016-09-08] MEDS: RESP: ALBUTEROL 2.5 MG/IPRATROPIUM 0.5 MG NEB (SCH) NEB ×4 (03:43→20:38)
[2016-09-08] MEDS: CHLORHEXIDINE GLUCONATE 2 % 1 PACK (2 CLOTHS) TOP SCH (04:00)
[2016-09-08] MEDS: hydrALAZINE HCL 50 MG TAB PO SCH ×3 (05:42→19:50)
[2016-09-08] MEDS: PANTOPRAZOLE SODIUM 40 MG VIAL IV SCH (08:27)
[2016-09-08] MEDS: DOCUSATE SODIUM 100 MG/10 ML UDC G-TUBE SCH ×2 (08:27→19:48)
[2016-09-08] MEDS: METOPROLOL TARTRATE 25 MG TAB PO SCH ×2 (08:28→19:48)
[2016-09-08] MEDS: ASPIRIN 81 MG CHEW TAB TUBE SCH (08:28)
[2016-09-08] MEDS: DULoxetine HCl DR 30 MG CAP PO SCH (08:28)
[2016-09-08] MEDS: COLCHICINE 0.6 MG TAB PO SCH (08:28)
[2016-09-08] MEDS: HEPARIN SODIUM - SQ 10,000 UNITS/ML VIAL SQ SCH ×2 (08:28→19:47)
[2016-09-08] MEDS: ALLOPURINOL 100 MG TAB PO SCH (08:28)
[2016-09-08] MEDS: CLOPIDOGREL 75 MG TAB PO SCH (08:28)
[2016-09-08] MEDS: PRAVASTATIN SOD 20 MG TAB PO SCH (08:30)
[2016-09-08] MEDS: SODIUM CHLORIDE 0.9% FLUSH 5 ML FLUSH IV FLUSH SCH ×2 (09:00→19:49)
[2016-09-08] MEDS: ARTIFICIAL TEARS OPTH SOLN 15 ML BTL EACH EYE SCH ×3 (09:00→18:00)
[2016-09-08] MEDS: ERTAPENEM INJ 1,000 MG in SODIUM CHLORIDE 0.9% INJ 100 ML IV SCH (14:00)
[2016-09-08] MEDS: CHLORHEXIDINE 0.12% (ORAL KIT) 15 ML CUP MT SCH (19:48)
[2016-09-08] MEDS: ACETAMINOPHEN/HYDROcodone 325 MG/5 MG TAB PO PRN (19:49)
[2016-09-08] MEDS: ALPRAZolam 0.25 MG TAB PO PRN (19:50)
[2016-09-08] MEDS ORDERED: LOSARTAN 25 MG TAB PO ONE (22:00)
--- NOTE | 2016-09-08 22:00 | HHI.PR ---
Subjective Remarks Patient seen today around noon. She reports feeling much better than admission , however still weak. Denies any chest pain or shortness of breath. Objective Vital Signs Date Time Temp Pulse Resp B/P Pulse Ox O2 Delivery O2 Flow Rate FiO2 09/08/16 20:38 95 Nasal Cannula 5.00 09/08/16 20:00 89 09/08/16 20:00 98.9 89 21 143/64 92 09/08/16 18:00 83 09/08/16 16:00 98.8 84 20 130/61 97 09/08/16 16:00 83 09/08/16 14:00 83 09/08/16 12:00 98.4 80 18 115/58 94 09/08/16 12:00 85 09/08/16 10:00 85 09/08/16 08:53 95 Nasal Cannula 2.00 09/08/16 08:00 85 09/08/16 08:00 98.4 85 18 127/60 94 09/08/16 06:00 84 09/08/16 04:00 78 09/08/16 04:00 78 12 132/60 94 09/08/16 02:00 77 09/08/16 00:00 98.3 82 16 136/62 93 09/08/16 00:00 82 09/07/16 22:00 86 I/O 09/07/16 09/07/16 09/07/16 09/08/16 09/08/16 09/08/16 07:00 15:00 23:00 07:00 15:00 23:00 Intake Total 100 ml 400 ml 346 ml 10 ml 330 ml Output Total 300 ml 500 ml 300 ml 300 ml 425 ml Balance -200 ml -100 ml 46 ml -290 ml -95 ml Intake Oral 100 ml 400 ml 200 ml 320 ml IV Total 0 ml 146 ml 10 ml 10 ml Output Urine Total 300 ml 500 ml 300 ml 300 ml 425 ml # Voids 2 # Bowel Movements 0 1 0 0 1 Result Diagram: 09/07/16 0509 09/07/16 0509 Objective Remarks GENERAL: Lying in bed. Appears comfortable. SKIN: Warm and dry. HEAD: Normocephalic. EYES: No scleral icterus. No injection or drainage. NECK: Supple, trachea midline. No JVD. CARDIOVASCULAR: Regular rate and rhythm without murmurs, gallops, or rubs. RESPIRATORY: Breath sounds equal bilaterally. No accessory muscle use. GASTROINTESTINAL: Abdomen soft, non-tender, nondistended. MUSCULOSKELETAL: No cyanosis, or edema. BACK: Nontender without obvious deformity. No CVA tenderness. A/P Assessment and Plan =====09/08/16 Add losartan for better afterload control. //Acute toxic metabolic encephalopathy- improving //H/O TBI with right temporal contusion //Frequent falls //Fibromyalgia //Depression //S/P CVAcontinue aspirin and Plavix //Chronic pain syndrome //Acute hypoxemic respiratory failure //Recurrent flash pulmonary edema //Aspiration pneumonia with a history of tobacco abusecontinue IV Invanz through September 09 per ID -Emergently intubated and placed on mechanical ventilation, 08/31/16 and extubated 09/01/16 -With a similar presentation with flash pulmonary edema requiring emergency intubation on 09/03/16, extubated 09/05 by intensive care service -Continue with oxygen keep sat >92%, currently on 4 L and will continue to wean as tolerated. -Bronchodilators , NIPPV PRN for respiatory distress Moderate Aortic regurgitation - maximum medication Uncontrolled hypertension, essential Dyslipidemia Previous acute on chronic diastolic CHF exacerbation -Monitor HR and BP keep MAP>65mmHg -Continue [id number] Q12, Norvasc 10 mg daily, add Hydralazine 50mg Q8 -Continue pravastatin, ASA, Pravachol, Plavix -ECHO 07/10/16-EF 55-60%, moderate aortic regurgitation. -3/4. Add losartan for afterload reduction in the setting of aortic regurgitation. Continue to monitor. //Chronic kidney disease stage II -- Monitor renal function, I/O's, electrolytes replacement per protocol. Avoid nephrotoxin //Anemia of chronic disease -s/p transfusion 2u PRBC 08/24 -Monitor CBC, hemoglobin has remained stable. //Healthcare associated pneumonia //UTI- urine cx: Kleb ESBL -Continue abx per ID ( Invanz) through September 09 -ID following- monitor for signs of infections ( Fever, WBC) -Pneumococcal, Legionella antigen negative -Negative for influenza Discontinue Jones catheter in a.m. the patient's respiratory status and fluid balance continues to maintain stable -Continue ertapenem until 09/10 (08/27-09/09). //Diabetes mellitus2 -Recent A1c's acceptable. Diet-controlled. No need for insulin. //Osteoporosis //Gout //Rheumatoid arthritis -Continue allopurinol //GI ProphylaxisProtonix: //DVT Prophylaxis -SCDs Heparin 5000 SQ q8 Discharge Planning -Finishes IV ertapenem 09/09. -Continuing to adjust BP meds in the setting of aortic regurgitation. -Will need rehabilitation placement. Ladarius Bravo MD Sep 08, 2016 22:00
[2016-09-09] VITALS (15 sets, daily range): BP systolic 112–140; BP diastolic 56–80; PULSE 60–88; RESP 20–35; TEMP 98–98.7; O2SAT 92–97
[2016-09-09] MEDS: RESP: ALBUTEROL 2.5 MG/IPRATROPIUM 0.5 MG NEB (SCH) NEB ×4 (03:32→20:57)
[2016-09-09] MEDS: CHLORHEXIDINE GLUCONATE 2 % 1 PACK (2 CLOTHS) TOP SCH (04:00)
[2016-09-09] MEDS: hydrALAZINE HCL 50 MG TAB PO SCH ×3 (05:22→19:51)
[2016-09-09] MEDS: CHLORHEXIDINE 0.12% (ORAL KIT) 15 ML CUP MT SCH ×2 (08:00→19:54)
[2016-09-09] MEDS: DULoxetine HCl DR 30 MG CAP PO SCH (08:51)
[2016-09-09] MEDS: METOPROLOL TARTRATE 25 MG TAB PO SCH ×2 (08:51→19:52)
[2016-09-09] MEDS: COLCHICINE 0.6 MG TAB PO SCH (08:51)
[2016-09-09] MEDS: ALLOPURINOL 100 MG TAB PO SCH (08:52)
[2016-09-09] MEDS: LOSARTAN 25 MG TAB PO SCH (08:52)
[2016-09-09] MEDS: PRAVASTATIN SOD 20 MG TAB PO SCH (08:52)
[2016-09-09] MEDS: CLOPIDOGREL 75 MG TAB PO SCH (08:52)
[2016-09-09] MEDS: HEPARIN SODIUM - SQ 10,000 UNITS/ML VIAL SQ SCH ×2 (08:52→19:54)
[2016-09-09] MEDS: PANTOPRAZOLE SODIUM 40 MG VIAL IV SCH (08:52)
[2016-09-09] MEDS: DOCUSATE SODIUM 100 MG/10 ML UDC G-TUBE SCH ×2 (08:52→19:52)
[2016-09-09] MEDS: ASPIRIN 81 MG CHEW TAB TUBE SCH (08:52)
[2016-09-09] MEDS: ARTIFICIAL TEARS OPTH SOLN 15 ML BTL EACH EYE SCH ×3 (09:00→18:00)
[2016-09-09] MEDS: SODIUM CHLORIDE 0.9% FLUSH 5 ML FLUSH IV FLUSH SCH ×2 (09:00→19:53)
[2016-09-09 09:14] LABS: BASOPHIL # 0.1 TH/MM3 (0-0.2); BASOPHIL % 1.3 % (0.0-2.0); EOSINOPHIL % 0.1 % (0.0-4.0); HEMATOCRIT 30.4 % (35.0-46.0); LYMPH % 32.4 % (9.0-44.0); LYMPHOCYTE # 1.8 TH/MM3 (1.0-4.8); MEAN CELL VOLUME 78.2 FL (80.0-100.0); MEAN CORPUSCULAR HEMOGLOBIN 24.8 PG (27.0-34.0); MEAN CORPUSCULAR HGB CONC 31.7 % (32.0-36.0); MONO % 10.7 % (0.0-8.0); NEUT % 55.5 % (16.0-70.0); PLATELET COUNT 321 TH/MM3 (150-450); RED BLOOD COUNT 3.89 MIL/MM3 (4.00-5.30); RED CELL DISTRIBUTION WIDTH 17.7 % (11.6-17.2); WHITE BLOOD COUNT 5.4 TH/MM3 (4.0-11.0)
[2016-09-09 09:22] LABS: HEMO FLAGS AUTO DIFF
[2016-09-09 09:27] LABS: BICARBONATE 27.4 MEQ/L (21.0-32.0); POTASSIUM 3.8 MEQ/L (3.5-5.1)
[2016-09-09 10:07] LABS: PLATELET ESTIMATE SMEAR NORMAL (NORMAL); PLATELET MORPHOLOGY ENLARGED (NORMAL); SCAN/DIFF AUTO DIFF CONFIRMED
[2016-09-09] MEDS: ACETAMINOPHEN/HYDROcodone 325 MG/5 MG TAB PO PRN (19:52)
[2016-09-09] MEDS: ALPRAZolam 0.25 MG TAB PO PRN (19:52)
--- NOTE | 2016-09-09 23:51 | HHI.PR ---
Subjective Remarks patient seen today around noon. Lying in bed. Says she feels well. Denies any shortness of breath. Objective Vital Signs Date Time Temp Pulse Resp B/P Pulse Ox O2 Delivery O2 Flow Rate FiO2 09/09/16 22:00 85 09/09/16 20:57 95 Nasal Cannula 3.00 09/09/16 20:00 98.2 85 35 140/80 93 09/09/16 20:00 85 09/09/16 18:00 60 09/09/16 16:00 98.3 87 20 134/64 97 09/09/16 16:00 60 09/09/16 14:00 60 09/09/16 12:00 98.3 87 20 112/56 97 09/09/16 12:00 60 09/09/16 10:00 88 09/09/16 08:36 96 Nasal Cannula 3.00 09/09/16 08:01 98.2 84 21 126/58 92 09/09/16 08:00 88 09/09/16 06:00 88 09/09/16 04:00 80 09/09/16 04:00 98.0 80 29 138/63 94 09/09/16 02:00 78 09/09/16 00:00 75 09/09/16 00:00 98.7 75 21 125/59 95 I/O 09/08/16 09/08/16 09/08/16 09/09/16 09/09/16 09/09/16 07:00 15:00 23:00 07:00 15:00 23:00 Intake Total 10 ml 330 ml 120 ml 330 ml 120 ml Output Total 300 ml 425 ml 400 ml 400 ml 450 ml 175 ml Balance -290 ml -95 ml -280 ml -400 ml -120 ml -55 ml Intake Oral 320 ml 120 ml 320 ml 120 ml IV Total 10 ml 10 ml 10 ml Output Urine Total 300 ml 425 ml 400 ml 400 ml 450 ml 175 ml # Voids 2 2 # Bowel Movements 0 1 1 1 Result Diagram: 09/09/16 0850 09/09/16 0850 Objective Remarks GENERAL: Lying in bed. Appears comfortable.no changes on exam. SKIN: Warm and dry. HEAD: Normocephalic. EYES: No scleral icterus. No injection or drainage. NECK: Supple, trachea midline. No JVD. CARDIOVASCULAR: Regular rate and rhythm without murmurs, gallops, or rubs. RESPIRATORY: Breath sounds equal bilaterally. No accessory muscle use. GASTROINTESTINAL: Abdomen soft, non-tender, nondistended. MUSCULOSKELETAL: No cyanosis, or edema. BACK: Nontender without obvious deformity. No CVA tenderness. A/P Assessment and Plan ===== 09/09/16 Blood pressure control improved with addition of losartan -finish IV ertapenem. //Acute toxic metabolic encephalopathy- improving //H/O TBI with right temporal contusion //Frequent falls //Fibromyalgia //Depression //S/P CVAcontinue aspirin and Plavix //Chronic pain syndrome //Acute hypoxemic respiratory failure //Recurrent flash pulmonary edema //Aspiration pneumonia with a history of tobacco abusecontinue IV Invanz through September 09 per ID -Emergently intubated and placed on mechanical ventilation, 08/31/16 and extubated 09/01/16 -With a similar presentation with flash pulmonary edema requiring emergency intubation on 09/03/16, extubated 09/05 by intensive care service -Continue with oxygen keep sat >92%, currently on 4 L and will continue to wean as tolerated. -Bronchodilators , NIPPV PRN for respiatory distress Moderate Aortic regurgitation - maximum medication Uncontrolled hypertension, essential Dyslipidemia Previous acute on chronic diastolic CHF exacerbation -Monitor HR and BP keep MAP>65mmHg -Continue [id number] Q12, Norvasc 10 mg daily, add Hydralazine 50mg Q8 -Continue pravastatin, ASA, Pravachol, Plavix -ECHO 07/10/16-EF 55-60%, moderate aortic regurgitation. -09/08. Add losartan for afterload reduction in the setting of aortic regurgitation. Continue to monitor. //Chronic kidney disease stage II -- Monitor renal function, I/O's, electrolytes replacement per protocol. Avoid nephrotoxin //Anemia of chronic disease -s/p transfusion 2u PRBC 08/24 -Monitor CBC, hemoglobin has remained stable. //Healthcare associated pneumonia //UTI- urine cx: Kleb ESBL -Continue abx per ID ( Invanz) through September 09 -ID following- monitor for signs of infections ( Fever, WBC) -Pneumococcal, Legionella antigen negative -Negative for influenza Discontinue Jones catheter in a.m. the patient's respiratory status and fluid balance continues to maintain stable -Continue ertapenem until 09/10 (08/27-09/09). //Diabetes mellitus2 -Recent A1c's acceptable. Diet-controlled. No need for insulin. //Osteoporosis //Gout //Rheumatoid arthritis -Continue allopurinol //GI ProphylaxisProtonix: //DVT Prophylaxis -SCDs Heparin 5000 SQ q8 Discharge Planning -Finished IV ertapenem 09/09. -Continuing to adjust BP meds in the setting of aortic regurgitation. -Will need rehabilitation placement. Ladarius Bravo MD Sep 09, 2016 23:51
[2016-09-10] VITALS (15 sets, daily range): BP systolic 94–139; BP diastolic 56–65; PULSE 57–96; RESP 19–24; TEMP 98–98.6; O2SAT 93–96
[2016-09-10] MEDS: CHLORHEXIDINE GLUCONATE 2 % 1 PACK (2 CLOTHS) TOP SCH (03:08)
[2016-09-10] MEDS: RESP: ALBUTEROL 2.5 MG/IPRATROPIUM 0.5 MG NEB (SCH) NEB ×3 (03:26→16:12)
[2016-09-10] MEDS: hydrALAZINE HCL 50 MG TAB PO SCH ×2 (04:27→14:00)
[2016-09-10 06:25] LABS: AUTOMATED NEUTROPHIL # 2.3 TH/MM3 (1.8-7.7); BASOPHIL % 0.9 % (0.0-2.0); EOSINOPHIL % 0.5 % (0.0-4.0); HEMO FLAGS DIFF FINAL; LYMPH % 38.3 % (9.0-44.0); LYMPHOCYTE # 1.9 TH/MM3 (1.0-4.8); MEAN CELL VOLUME 76.8 FL (80.0-100.0); MEAN CORPUSCULAR HEMOGLOBIN 25.2 PG (27.0-34.0); MEAN CORPUSCULAR HGB CONC 32.8 % (32.0-36.0); MONO % 14.2 % (0.0-8.0); NEUT % 46.1 % (16.0-70.0); PLATELET COUNT 331 TH/MM3 (150-450); RED CELL DISTRIBUTION WIDTH 17.5 % (11.6-17.2)
[2016-09-10 06:39] LABS: BICARBONATE 31.1 MEQ/L (21.0-32.0); MAGNESIUM 1.9 MG/DL (1.5-2.5); POTASSIUM 3.6 MEQ/L (3.5-5.1)
[2016-09-10] MEDS: CHLORHEXIDINE 0.12% (ORAL KIT) 15 ML CUP MT SCH (08:00)
[2016-09-10] MEDS: ARTIFICIAL TEARS OPTH SOLN 15 ML BTL EACH EYE SCH (09:00)
[2016-09-10] MEDS: CLOPIDOGREL 75 MG TAB PO SCH (09:31)
[2016-09-10] MEDS: DOCUSATE SODIUM 100 MG/10 ML UDC G-TUBE SCH (09:31)
[2016-09-10] MEDS: ALPRAZolam 0.25 MG TAB PO PRN (09:31)
[2016-09-10] MEDS: PRAVASTATIN SOD 20 MG TAB PO SCH (09:31)
[2016-09-10] MEDS: METOPROLOL TARTRATE 25 MG TAB PO SCH (09:31)
[2016-09-10] MEDS: ALLOPURINOL 100 MG TAB PO SCH (09:31)
[2016-09-10] MEDS: DULoxetine HCl DR 30 MG CAP PO SCH (09:31)
[2016-09-10] MEDS: PANTOPRAZOLE SODIUM 40 MG VIAL IV SCH (09:32)
[2016-09-10] MEDS: ASPIRIN 81 MG CHEW TAB TUBE SCH (09:32)
[2016-09-10] MEDS: COLCHICINE 0.6 MG TAB PO SCH (09:32)
[2016-09-10] MEDS: LOSARTAN 25 MG TAB PO SCH (09:32)
[2016-09-10] MEDS: ACETAMINOPHEN/HYDROcodone 325 MG/5 MG TAB PO PRN (09:32)
[2016-09-10] MEDS: HEPARIN SODIUM - SQ 10,000 UNITS/ML VIAL SQ SCH (09:34)
[2016-09-10] MEDS: SODIUM CHLORIDE 0.9% FLUSH 5 ML FLUSH IV FLUSH SCH (09:36)
--- NOTE | 2016-09-10 10:05 | HHI.IDPN ---
Subjective Subjective Remarks Notes reviewed Doing well post extubation On nasal O2 Not SOB BP better controlled Temps ok Finished course of INvanz Up in chair Antibiotics Invanz - finished 3/5 Lines PIV Past Medical History Hypertension Hyperlipidemia Prior stroke Depression Rheumatoid arthritis Osteoporosis Fibromyalgia TBI with temporal lobe contusion following a fall Frequent falls Obesity Tobacco abuse Past Surgical History Percutaneous tracheostomy 11/24/15 (Dr. Jackson) Bilateral carotid endarterectomy (right carotid endarterectomy was performed by Dr. 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 Vital Signs Date Time Temp Pulse Resp B/P Pulse Ox O2 Delivery O2 Flow Rate FiO2 09/10/16 08:14 96 Nasal Cannula 3.00 09/10/16 08:00 75 24 139/65 96 09/10/16 06:00 81 09/10/16 04:00 98.0 75 19 130/61 94 09/10/16 04:00 75 09/10/16 02:00 77 09/10/16 00:00 98.2 77 23 136/62 94 09/10/16 00:00 77 09/09/16 22:00 85 09/09/16 20:57 95 Nasal Cannula 3.00 09/09/16 20:00 98.2 85 35 140/80 93 09/09/16 20:00 85 09/09/16 18:00 60 09/09/16 16:00 98.3 87 20 134/64 97 09/09/16 16:00 60 09/09/16 14:00 60 09/09/16 12:00 98.3 87 20 112/56 97 09/09/16 12:00 60 09/09/16 09/09/16 09/10/16 15:00 23:00 07:00 Intake Total 330 ml 120 ml 240 ml Output Total 450 ml 175 ml 700 ml Balance -120 ml -55 ml -460 ml Intake Oral 320 ml 120 ml 240 ml IV Total 10 ml Output Urine Total 450 ml 175 ml 700 ml # Voids 2 # Bowel Movements 1 1 . Laboratory Tests Test 09/09/16 09/10/16 08:50 05:54 White Blood Count 5.4 TH/MM3 5.0 TH/MM3 Red Blood Count 3.89 MIL/MM3 3.90 MIL/MM3 Hemoglobin 9.7 GM/DL 9.8 GM/DL Hematocrit 30.4 % 30.0 % Mean Corpuscular Volume 78.2 FL 76.8 FL Mean Corpuscular Hemoglobin 24.8 PG 25.2 PG Mean Corpuscular Hemoglobin 31.7 % 32.8 % Concent Red Cell Distribution Width 17.7 % 17.5 % Platelet Count 321 TH/MM3 331 TH/MM3 Mean Platelet Volume 8.6 FL 8.7 FL Neutrophils (%) (Auto) 55.5 % 46.1 % Lymphocytes (%) (Auto) 32.4 % 38.3 % Monocytes (%) (Auto) 10.7 % 14.2 % Eosinophils (%) (Auto) 0.1 % 0.5 % Basophils (%) (Auto) 1.3 % 0.9 % Neutrophils # (Auto) 3.0 TH/MM3 2.3 TH/MM3 Lymphocytes # (Auto) 1.8 TH/MM3 1.9 TH/MM3 Monocytes # (Auto) 0.6 TH/MM3 0.7 TH/MM3 Eosinophils # (Auto) 0.0 TH/MM3 0.0 TH/MM3 Basophils # (Auto) 0.1 TH/MM3 0.0 TH/MM3 CBC Comment AUTO DIFF DIFF FINAL Differential Comment AUTO DIFF CONFIRMED Platelet Estimate NORMAL Platelet Morphology Comment ENLARGED Laboratory Tests Test 09/09/16 09/10/16 08:50 05:04 Sodium Level 139 MEQ/L 139 MEQ/L Potassium Level 3.8 MEQ/L 3.6 MEQ/L Chloride Level 100 MEQ/L 101 MEQ/L Carbon Dioxide Level 27.4 MEQ/L 31.1 MEQ/L Anion Gap 12 MEQ/L 7 MEQ/L Blood Urea Nitrogen 13 MG/DL 13 MG/DL Creatinine 0.72 MG/DL 0.61 MG/DL Estimat Glomerular Filtration 79 ML/MIN 96 ML/MIN Rate Random Glucose 99 MG/DL 87 MG/DL Calcium Level 8.8 MG/DL 9.0 MG/DL Phosphorus Level 3.6 MG/DL 3.1 MG/DL Magnesium Level 2.0 MG/DL 1.9 MG/DL Albumin 2.8 GM/DL 3.0 GM/DL Imaging Chest X-Ray 09/05/16 0000 Signed Impressions: Service Date/Time: Monday, September 05, 2016 09:55 - CONCLUSION: 1. Cardiomegaly and bilateral effusions. ET tube in good position. Improved appearance of pulmonary parenchyma. Roc Lyons MD Chest X-Ray 09/03/16 0000 Signed Impressions: Service Date/Time: Saturday, September 03, 2016 18:08 - CONCLUSION: Bilateral pulmonary infiltrate without significant improvement. Sarath Corrigan MD Chest X-Ray 09/03/16 0000 Signed Impressions: Service Date/Time: Saturday, September 03, 2016 16:28 - CONCLUSION: Consolidative changes as described above. Aditya Lyons MD FACR Chest X-Ray 09/02/16 0600 Signed Impressions: Service Date/Time: Friday, September 02, 2016 03:43 - CONCLUSION: No significant change has occurred. Camron Sampson MD Ankle X-Ray 08/28/16 0000 Signed Impressions: Service Date/Time: Sunday, August 28, 2016 10:37 - CONCLUSION: Soft tissue swelling without fracture. Zay Carty MD Liver Ultrasound 08/24/16 0000 Signed Impressions: Service Date/Time: Wednesday, August 24, 2016 13:39 - CONCLUSION: 1. The gallbladder wall is at the upper limits of normal in size and there is a small amount of sludge. 2. Suboptimal study. Mark Cahvis MD Head CT 08/23/16 1358 Signed Impressions: Service Date/Time: August 16:01 - CONCLUSION: 1. No acute intracranial abnormalities. Delvin Arauz MD Chest X-Ray 09/01/16 0000 Signed Impressions: Service Date/Time: Thursday, September 01, 2016 08:02 - CONCLUSION: 1. Endotracheal tube tip is at the ebony and could be retracted 2-3 cm. 2. Nasogastric tube now in place with the tip below the field of view of the radiograph. 3. Mild left lung base opacity likely representing atelectasis. 4. Decrease in mild right basilar lung opacity. Nixon Cornejo MD Chest X-Ray 08/31/16 0000 Signed Impressions: Service Date/Time: Wednesday, August 31, 2016 10:12 - CONCLUSION: Bilateral infiltrates. Tube in satisfactory position. Barrett Garcia MD Physical Exam GENERAL: Awake, following, NAD SKIN: Cool and dry. No generalized rash. HEENT: No scleral icterus. Moist mucosa NECK: Supple, nontender CARDIOVASCULAR: Regular rate and rhythm without murmurs, gallops, or rubs. RESPIRATORY: decreased BS at bases GASTROINTESTINAL: Abdomen soft, slightly globular, non-tender, nondistended. MUSCULOSKELETAL: Extremities without clubbing, cyanosis, or edema. No calf tenderness. NEUROLOGICAL: Non-focal PSYCH: Normal affect, calm and cooperative. LINE: PIV with no evidence of infection Assessment & Plan Remarks IMPRESSION Klebsiella UTI, on admission Respiratory failure, recurrent, reintubated today 08/31, extubated and now reintubated - very rapid deterioration more C/W pulmonary edema, fluid shift Etiology of initial decreased LOC unclear, better RECOMMENDATION Monitor progress Monitor temps Monitor off Abx Clinically stable and doing well Mariela Barragan MD Sep 10, 2016 10:05
[2016-09-10] MEDS ORDERED: COZA25TA PO (11:16)
[2016-09-10] MEDS ORDERED: COLC1TAB15 PO (11:16)
[2016-09-10] MEDS ORDERED: IPRASOL INH (11:16)
[2016-09-10] MEDS ORDERED: METO25TA3 PO (11:16)
[2016-09-10] MEDS ORDERED: AMLO10 PO (11:16)
[2016-09-10] MEDS ORDERED: HYDR-3516 PO (11:16)
[2016-09-10] MEDS ORDERED: HYDR50TA15 PO (11:22)
[2016-09-10] MEDS ORDERED: POTA-163 PO (11:22)
[2016-09-10] MEDS ORDERED: HYDROCHLOROTHIAZIDE 25 MG TAB PO ONE (11:30)
[2016-09-10] MEDS ORDERED: POTASSIUM CHLORIDE 10 MEQ CONTROLLED RELEASE TAB PO ONE (11:30)
[2016-09-10] MEDS ORDERED: ALPR.25 PO (15:50)
[2016-09-11] MEDS ORDERED: POTASSIUM CHLORIDE 20 MEQ CONTROLLED RELEASE TAB PO SCH (09:00)
[2016-09-11] MEDS ORDERED: HYDROCHLOROTHIAZIDE 25 MG TAB PO SCH (09:00)
--- NOTE | 2016-09-17 10:26 | PQ ---
Physician Query Response Document PATIENT: VIVI SMITH : 1940 ADMIT DATE: 08/23/2016 3:41 PM DISCH DATE: 09/10/2016 4:20 PM RESPONDING PROVIDER #: tiffani QUERY TEXT: Clarification of Clinical Diagnostic Findings Please clarify documentation or clinical relevance for the clinical / diagnostic findings or whether those are insignificant or unable to be further specified. Based on your medical judgment, can you further clarify which, if any, of the following condition( s) is/are responsible for these findings: ?Chronic Respiratory Failure ?Acute Respiratory Failure ?Acute on Chronic Respiratory Failure ?Chronic COPD ?Acute exacerbation COPD ?Hypoxia ?Other Specify ?Unable to determine (*please explain) The patient's Clinical Indicators include: PER H When EMS arrived, she was noted to be tachypneic, and disoriented, not protecting her airway, and she was intubated for airway protection. Assessment and Plan Respiratory insufficiency PATIENT INTUBATED IN THE FIELD PER EMS ON 08/22/16 AND REMAINS ON VENTILATOR 08/24/16 Query created by: Abbey Crandall on 08/24/2016 11:47 AM RESPONSE TEXT: Acute on Chronic Renal Failure QUERY TEXT: Sepsis Query Based on your medical judgment, can you further clarify the followin. Sepsis (SIRS due to an infection) 2. Severe sepsis with Septic Shock 3. Severe sepsis without Septic Shock 4. Another condition - please specify 5. Unable to determine - please explain. The patient's Clinical Indicators include: PER ER NOTE: SEVERE SEPSIS WITH SEPTIC SHOCK PER H Sepsis Criteria SIRS Criteria (2 or more): RR > 20 or PaCO2 < 32 Severe Sepsis (+one): Lactate >2 Septic Shock Criteria: Lactic acid >=4 CLINICAL FINDINGS:ON ADMISSION WBCs=13.4, LACTIC ACID =4.2, TEMP =95.7 , PULSE =76, RR=10, B/P=118/91-86/40 U/A INDICATES UTI Query created by: Abbey Crandall on 08/24/2016 11:59 AM RESPONSE TEXT: Sepsis QUERY TEXT: CHF Acuity and Type Congestive Heart Failure is documented in the Medical Record. Please document the type and acuity (in cludes probable or suspected) Such as: Type: -- Systolic -- Diastolic -- Combined -- Other, please specify Acuity: -- Acute -- Chronic -- Acute on chronic -- Other, please specify The patient's Clinical Indicators include: PER H H/O CHF -Resume home antihypertensive medications, Norvasc, Metoprolol when clinically indicated -Continue pravastatin -ECHO 11/04/15-EF 55-60%, no RWMA, mild aortic regurgitation. NO BNP AVAILABLE IN MEDICAL RECORD Query created by: Abbey Crandall on 08/24/2016 12:33 PM RESPONSE TEXT: Chronic Systolic CHF Electronically signed by: Divina Agarwal MD 09/17/2016 10:22 AM
--- NOTE | 2016-09-21 16:12 | HHI.PR ---
Subjective Remarks date of service 09/10/16. Patient says she is feeling well. Denies any chest pain or shortness of breath. Objective Objective Remarks GENERAL: Lying in bed. Appears comfortable.no change on exam from day prior. SKIN: Warm and dry. HEAD: Normocephalic. EYES: No scleral icterus. No injection or drainage. NECK: Supple, trachea midline. No JVD. CARDIOVASCULAR: Regular rate and rhythm without murmurs, gallops, or rubs. RESPIRATORY: Breath sounds equal bilaterally. No accessory muscle use. GASTROINTESTINAL: Abdomen soft, non-tender, nondistended. MUSCULOSKELETAL: No cyanosis, or edema. BACK: Nontender without obvious deformity. No CVA tenderness. A/P Assessment and Plan ===== 09/10/16 Replace potassium. Add hydrochlorothiazide for blood pressure control. Add daily potassium replacement. //Acute toxic metabolic encephalopathy- improving //H/O TBI with right temporal contusion //Frequent falls //Fibromyalgia //Depression //S/P CVAcontinue aspirin and Plavix //Chronic pain syndrome //Acute hypoxemic respiratory failure //Recurrent flash pulmonary edema //Aspiration pneumonia with a history of tobacco abusecontinue IV Invanz through September 09 per ID -Emergently intubated and placed on mechanical ventilation, 08/31/16 and extubated 09/01/16 -With a similar presentation with flash pulmonary edema requiring emergency intubation on 09/03/16, extubated 09/05 by intensive care service -Continue with oxygen keep sat >92%, currently on 4 L and will continue to wean as tolerated. -Bronchodilators , NIPPV PRN for respiatory distress Moderate Aortic regurgitation - maximum medication Uncontrolled hypertension, essential Dyslipidemia Previous acute on chronic diastolic CHF exacerbation -Monitor HR and BP keep MAP>65mmHg -Continue [id number] Q12, Norvasc 10 mg daily, add Hydralazine 50mg Q8 -Continue pravastatin, ASA, Pravachol, Plavix -ECHO 07/10/16-EF 55-60%, moderate aortic regurgitation. -3/4. Add losartan for afterload reduction in the setting of aortic regurgitation. Continue to monitor. -09/10. Add daily hydrochlorothiazide for blood pressure control. //Chronic kidney disease stage II -- Monitor renal function, I/O's, electrolytes replacement per protocol. Avoid nephrotoxin //Anemia of chronic disease -s/p transfusion 2u PRBC 08/24 -Monitor CBC, hemoglobin has remained stable. //Healthcare associated pneumonia //UTI- urine cx: Kleb ESBL -Continue abx per ID ( Invanz) through September 09 -ID following- monitor for signs of infections ( Fever, WBC) -Pneumococcal, Legionella antigen negative -Negative for influenza Discontinue Jones catheter in a.m. the patient's respiratory status and fluid balance continues to maintain stable -Continue ertapenem until 09/10 (08/27-09/09). //Diabetes mellitus2 -Recent A1c's acceptable. Diet-controlled. No need for insulin. //Osteoporosis //Gout //Rheumatoid arthritis -Continue allopurinol //GI ProphylaxisProtonix: //DVT Prophylaxis -SCDs Heparin 5000 SQ q8 Discharge Planning -Discharged to SNF. Ladarius Bravo MD Sep 21, 2016 16:12
--- NOTE | 2016-09-21 16:14 | HHI.DS ---
Discharge Summary Admission Date Aug 23, 2016 at 15:41 Discharge Date: Sep 10, 2016 Admitting Diagnosis intubated/severe sepsis/UTI (1) Sepsis due to Klebsiella ICD Code: A41.4 (2) Urinary tract infection due to ESBL Klebsiella ICD Code: N39.0 (3) Metabolic encephalopathy ICD Code: G93.41 (4) Acute hypoxemic respiratory failure ICD Code: J96.01 (5) Gout of left ankle ICD Code: M10.9 (6) Chronic anemia ICD Code: D64.9 (7) Diarrhea ICD Code: R19.7 (8) HTN (hypertension) ICD Code: I10 Procedures Intubated, extubated. Brief History - From Admission 75-year-old female well-known to [facility] recently discharged in Jul 2016, with a PMH of TBI with right temporal contusion, HTN, S/P CVA, Gout, fibromyalgia,acute hyperkalemia, frequent falls that presented to the ED brought in by EMS because patient had fallen yesterday.The patient was found lethargic, unresponsive according to patient's roommate. She was last seen normal at 9 PM the evening before. When EMS arrived, she was noted to be tachypneic, and disoriented, not protecting her airway, and she was intubated for airway protection. Upon arrival to the ED, the patient's systolic blood pressure was noted to be in the 80's. Laboratory and imaging studies were performed. CT scan revealed no acute abnormality, the patient was noted to be hyperkalemic, with a lactate 4.0. Cultures were obtained suggestive of UTI. Local care medicine was consulted for treatment and management. History PFSH Past Medical History Hx Anticoagulant Therapy: Yes (PLAVIX) Arthritis: Yes Asthma: No Autoimmune Disease: Yes (FIBROMYALGIA) Blood Disorders: No Anxiety: Yes Depression: Yes (MILD DEPRESSION) Heart Rhythm Problems: Yes (TACHYCARDIA/AFIB) Cancer: No Cardiac Catheterization: Yes (1989) Cardiovascular Problems: Yes (CHF, AFIB ) High Cholesterol: Yes Chemotherapy: No Chest Pain: No Congestive Heart Failure: Yes COPD: No Cerebrovascular Accident: Yes Diabetes: Yes Diminished Hearing: Yes (DIMINISHED) Endocrine: Yes Fibromyalgia: Yes Gastrointestinal Disorders: Yes (GERD, HX OF ABDOMINAL PAIN) GERD: Yes (GERD) Genitourinary: No Hiatal Hernia: No Heparin Induced Thrombocytopen: No Hypertension: Yes Immune Disorder: Yes Implanted Vascular Access Dvce: No Musculoskeletal: Yes ("TORN MUSCLE L.KNEE", FRACTURED L3 L4 L5 06/15., arthritis,) Neurologic: Yes (FIBROMYALGIA, ENCEPHALOPATHY, CVA) Psychiatric: Yes (PANIC ATTACKS) Reproductive: Yes (HYSTERECTOMY DUE TO BLEEDING INTO PERITONEAL CAVITY) Respiratory: Yes (PNEUMONIA) Immunizations Current: No Migraines: No Pancreatitis: Yes Seizures: No Sickle Cell Disease: No Sleep Apnea: No Thyroid Disease: No Ulcer: No Menopausal: Yes : 3 Para: 2 Miscarriage: 1 Past Surgical History Abdominal Surgery: No AICD: No Appendectomy: Yes (1975) Arteriovenous Shunt: No Cardiac Surgery: Yes (L ENDARDECTOMY ) Coronary Artery Bypass Graft: No Ear Surgery: No Endocrine Surgery: No Eye Surgery: Yes (BL CATARACT REMOVAL) Genitourinary Surgery: No Gynecologic Surgery: Yes (HYSTERECTOMY 1975) Hysterectomy: Yes Insulin Pump: No Oral Surgery: No Pacemaker: No Thoracic Surgery: No Other Surgery: Yes (HYSTERECTOMY, LEFT & RIG CAROTID ARTERY REPAIR) Social History Alcohol Use: Yes (OCCAS.) Tobacco Use: Yes Substance Use: No Allergies-Medications Allergies-Medications (Allergen,Severity, Reaction): Coded Allergies: Contrast Media (Verified Allergy, Severe, "throat closes up", 08/23/16) states that reaction used to occur but no longer does Keflex (Verified Adverse Reaction, Severe, "burning sensation,body red", ) *MDRO Multi-Drug Resistant Organism (Verified Adverse Reaction, Unknown, VRE, ESBL, 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 (urine-01/30/16) Reported Meds & Prescriptions Reported Meds & Active Scripts Active Hydrocodone-Acetaminophen 5-325 mg Tab 1 Tab PO Q8HR PRN Prednisone 5 Mg Tab 5 Mg PO BID 2 tabs bid x 2 days, 1 tab po bid x 2 days then 1 tab po daily x 3 days then DC Pantoprazole (Pantoprazole Sodium) 40 Mg Tab 40 Mg PO DAILY Metoprolol Tartrate 25 Mg Tab 50 Mg PO Q12HR Levaquin (Levofloxacin) 500 Mg Tab 500 Mg PO DAILY Furosemide 20 Mg Tab 20 Mg PO DAILY Norvasc (Amlodipine Besylate) 5 Mg Tab 5 Mg PO DAILY Xanax (Alprazolam) 0.25 Mg Tab 0.125 Mg PO Q12HR PRN Reported Allopurinol 100 Mg Tab 100 Mg PO DAILY Clopidogrel (Clopidogrel Bisulfate) 75 Mg Tab 75 Mg PO DAILY Pravastatin 20 Mg Tab 20 Mg PO DAILY Alexandra Aspirin EC Low Dose (Aspirin) [address] (Duloxetine HCl) 30 Mg Capdr 30 Mg PO TENZIN Imaging Last Impressions Chest X-Ray 09/05/16 0000 Signed Impressions: Service Date/Time: Monday, September 05, 2016 09:55 - CONCLUSION: 1. Cardiomegaly and bilateral effusions. ET tube in good position. Improved appearance of pulmonary parenchyma. Roc Lyons MD Ankle X-Ray 08/28/16 0000 Signed Impressions: Service Date/Time: Sunday, August 28, 2016 10:37 - CONCLUSION: Soft tissue swelling without fracture. Zay Carty MD Liver Ultrasound 08/24/16 0000 Signed Impressions: Service Date/Time: Wednesday, August 24, 2016 13:39 - CONCLUSION: 1. The gallbladder wall is at the upper limits of normal in size and there is a small amount of sludge. 2. Suboptimal study. Mark Chavis MD Head CT 08/23/16 1358 Signed Impressions: Service Date/Time: August 16:01 - CONCLUSION: 1. No acute intracranial abnormalities. Delvin Arauz MD PE at Discharge GENERAL: This is a well-nourished, well-developed patient, in no apparent distress. CARDIOVASCULAR: Regular rate and rhythm Lungs, relatively clear with diminished breath sounds at the bases GASTROINTESTINAL: Abdomen soft, non-tender, nondistended. Normal active bowel sounds MUSCULOSKELETAL: Extremities without clubbing, cyanosis, or edema with bilateral SCDs. NEURO: Alert & Oriented x 3 to person, place, time. Moves all ext x4 Hospital Course Patient was intubated for respiratory failure, sepsis, however subsequently extubated after improvement with treatment. Patient was treated for UTI with broad-spectrum antibiotics for healthcare associated pneumonia due to recent admissions. Infectious disease was consuled, and patient received ertapenem until 09/10. She was discharged to SNF in good condition. Blood pressure was found to be elevated, and medications were adjusted. For problem-based summary from most recent progress note, please see below. //Acute toxic metabolic encephalopathy- improving //H/O TBI with right temporal contusion //Frequent falls //Fibromyalgia //Depression //S/P CVAcontinue aspirin and Plavix //Chronic pain syndrome //Acute hypoxemic respiratory failure //Recurrent flash pulmonary edema //Aspiration pneumonia with a history of tobacco abusecontinue IV Invanz through September 09 per ID -Emergently intubated and placed on mechanical ventilation, 08/31/16 and extubated 09/01/16 -With a similar presentation with flash pulmonary edema requiring emergency intubation on 09/03/16, extubated 09/05 by intensive care service -Continue with oxygen keep sat >92%, currently on 4 L and will continue to wean as tolerated. -Bronchodilators , NIPPV PRN for respiatory distress Moderate Aortic regurgitation - maximum medication Uncontrolled hypertension, essential Dyslipidemia Previous acute on chronic diastolic CHF exacerbation -Monitor HR and BP keep MAP>65mmHg -Continue [id number] Q12, Norvasc 10 mg daily, add Hydralazine 50mg Q8 -Continue pravastatin, ASA, Pravachol, Plavix -ECHO 07/10/16-EF 55-60%, moderate aortic regurgitation. -09/08. Add losartan for afterload reduction in the setting of aortic regurgitation. Continue to monitor. -09/10. Add daily hydrochlorothiazide for blood pressure control. //Chronic kidney disease stage II -- Monitor renal function, I/O's, electrolytes replacement per protocol. Avoid nephrotoxin //Anemia of chronic disease -s/p transfusion 2u PRBC 08/24 -Monitor CBC, hemoglobin has remained stable. //Healthcare associated pneumonia //UTI- urine cx: Kleb ESBL -Continue abx per ID ( Invanz) through September 09 -ID following- monitor for signs of infections ( Fever, WBC) -Pneumococcal, Legionella antigen negative -Negative for influenza Discontinue Jones catheter in a.m. the patient's respiratory status and fluid balance continues to maintain stable -Continue ertapenem until 09/10 (08/27-09/09). //Diabetes mellitus2 -Recent A1c's acceptable. Diet-controlled. No need for insulin. //Osteoporosis //Gout //Rheumatoid arthritis -Continue allopurinol //GI ProphylaxisProtonix: //DVT Prophylaxis -SCDs Heparin 5000 SQ q8 Discharge Planning -Discharged to SNF. Pt Condition on Discharge: Good Discharge Disposition: Discharge to SNF Discharge Time: <= 30 minutes Discharge Instructions DIET: Follow Instructions for: Diabetic Diet Activities you can perform: Regular-No Restrictions Follow up Referrals: Cardiology - 1 Week with Nael Carr MD PCP Follow-up - 2-3 Days New Medications: Potassium Chloride ER (Potassium Chloride ER) 20 Meq Tab 20 MEQ PO DAILY Electrolyte Replacement #30 Ref 0 TAB Amlodipine (Norvasc) 10 Mg Tab 10 MG PO DAILY Blood Pressure Management Days 30 TAB Colchicine (Colchicine) 0.6 Mg Tab 0.4 MG PO DAILY gout Days 30 TAB Hydralazine (Hydralazine) 50 Mg Tab 50 MG PO Q8HR Blood Pressure Management Days 30 TAB Ipratropium-Albuterol Neb (Duoneb) 0.5-2.5 Mg/3 Ml Neb 1 AMPULE INH Q2HR NEB PRN WHEEZING Days 30 ML Losartan (Cozaar) 25 Mg Tab 25 MG PO DAILY Blood Pressure Management Days 30 TAB Metoprolol Tartrate (Metoprolol Tartrate) 25 Mg Tab 75 MG PO Q12HR Blood Pressure Management Days 30 TAB Continued Medications: Allopurinol (Allopurinol) 100 Mg Tab 100 MG PO DAILY Gout #30 Ref 0 TAB Alprazolam (Xanax) 0.25 Mg Tab 0.125 MG PO Q12HR PRN ANXIETY #10 TAB (This prescription has been renewed) Aspirin DR (Alexandra Aspirin EC Low Dose) 81 Mg Tabdr Clopidogrel (Clopidogrel) 75 Mg Tab 75 MG PO DAILY Blood Clot Prevention #[address] Ref [address] (Duloxetine [address]) 30 Mg Capdr 30 MG PO DAILY #30 Ref 0 CAP Furosemide (Furosemide) 20 Mg Tab 20 MG PO DAILY CARD #30 TAB Hydrocodone-Acetaminophen (Hydrocodone-Acetaminophen) 5-325 mg Tab 1 TAB PO Q8HR PRN pain #20 TAB (This prescription has been renewed) Pantoprazole (Pantoprazole) 40 Mg Tab 40 MG PO DAILY GI #30 TAB Pravastatin (Pravastatin) 20 Mg Tab 20 MG PO DAILY Cholesterol Management #30 Ref 0 TAB Discontinued Medications: Amlodipine (Norvasc) 5 Mg Tab 5 MG PO DAILY CARd #30 TAB Levofloxacin (Levaquin) 500 Mg Tab 500 MG PO DAILY Infection #5 TAB Metoprolol Tartrate (Metoprolol Tartrate) 25 Mg Tab 50 MG PO Q12HR CARD #60 TAB Prednisone (Prednisone) 5 Mg Tab 5 MG PO BID 2 tabs bid x 2 days, 1 tab po bid x 2 days then 1 tab po daily x 3 days then DC ResFAI #15 Ref 0 TAB Ladarius Bravo MD Sep 21, 2016 16:14
== END 2016-09-10 16:20 | DRG 871 ==
LOC: NEPE 13:49 → NEDH 15:41 → HIME 20:45 → N04A 08-29 21:15 → HIMN 08-31 09:35
PROVIDERS: ADMIT Anesthesiology; ATTEND Internal Medicine
PROC: 06HM33Z Insertion of Infusion Device into Right Femoral Vein, Percutaneous Approach (ICD-10-PCS; principal; 2016-08-23)
PROC: 5A1945Z Respiratory Ventilation, 24-96 Consecutive Hours (ICD-10-PCS; 2016-08-23)
PROC: 30233N1 Transfusion of Nonautologous Red Blood Cells into Peripheral Vein, Percutaneous Approach (ICD-10-PCS; 2016-08-23)
PROC: 0BH17EZ Insertion of Endotracheal Airway into Trachea, Via Natural or Artificial Opening (ICD-10-PCS; 2016-08-31)
PROC: 0BH17EZ Insertion of Endotracheal Airway into Trachea, Via Natural or Artificial Opening (ICD-10-PCS; 2016-09-03)
PROC: 5A1945Z Respiratory Ventilation, 24-96 Consecutive Hours (ICD-10-PCS; 2016-09-03)
DX: A41.59 Other Gram-negative sepsis (principal); G92 Toxic encephalopathy; J96.01 Acute respiratory failure with hypoxia; K72.00 Acute and subacute hepatic failure without coma; J69.0 Pneumonitis due to inhalation of food and vomit; I50.33 Acute on chronic diastolic (congestive) heart failure; N39.0 Urinary tract infection, site not specified; I13.0 Hypertensive heart and chronic kidney disease with heart failure and stage 1 through stage 4 chronic kidney disease, or unspecified chronic kidney disease; E11.22 Type 2 diabetes mellitus with diabetic chronic kidney disease; B96.1 Klebsiella pneumoniae [K. pneumoniae] as the cause of diseases classified elsewhere; M06.9 Rheumatoid arthritis, unspecified; M10.9 Gout, unspecified; M81.0 Age-related osteoporosis without current pathological fracture; I12.9 Hypertensive chronic kidney disease with stage 1 through stage 4 chronic kidney disease, or unspecified chronic kidney disease; N18.2 Chronic kidney disease, stage 2 (mild); M79.7 Fibromyalgia; R29.6 Repeated falls; Z16.12 Extended spectrum beta lactamase (ESBL) resistance; G89.4 Chronic pain syndrome; I08.0 Rheumatic disorders of both mitral and aortic valves; E87.5 Hyperkalemia; R19.7 Diarrhea, unspecified; D63.8 Anemia in other chronic diseases classified elsewhere; E78.5 Hyperlipidemia, unspecified; E86.0 Dehydration; F32.9 Major depressive disorder, single episode, unspecified; F17.210 Nicotine dependence, cigarettes, uncomplicated; K21.9 Gastro-esophageal reflux disease without esophagitis; Z91.81 History of falling; Z87.820 Personal history of traumatic brain injury; Z86.73 Personal history of transient ischemic attack (TIA), and cerebral infarction without residual deficits; Z88.1 Allergy status to other antibiotic agents; Z91.041 Radiographic dye allergy status; Y95 Nosocomial condition
CPT/HCPCS: 31500; 36430; 36556; 36600; 51702; 70450; 71010; 73610; 76705; 76937; 80048; 80053; 80069; 80074; 80076; 81001; 82140; 82550; 82805; 82948; 83605; 83735; 83880; 84100; 84132; 84443; 84484; 85014; 85018; 85025; 85610; 85730; 86850; 86900; 86901; 86920; 87040; 87070; 87077; 87086; 87186; 87205; 87449; 87641; 87804; 93005; 93306; 94002; 94003; 94150; 94640; 94664; 94667; 96365; C9113; J0360; J0610; J1200; J1335; J1644; J1815; J1940; J1956; J2185; J2250; J2405; J2543; J3010; J3370; J3480; J7030; J7040; J7050; P9016; P9047

== ENCOUNTER 2016-09-25 15:58 | Observation (INO) | payer MEDICAID, MEDICARE, OTHER ==
[~2016-09-25] VITALS: Ht 162.6 cm; Wt 66.9 kg
[~2016-09-25 15:58] MED LIST changes: +AMLO10 PO; -AMLO5 PO; +COLC1TAB15 PO; +COZA25TA PO; +HYDR50TA15 PO; +IPRASOL INH; -LEVA500T PO; +POTA-163 PO; -PRED5TAB PO
[2016-09-25 16:08] VITALS: BP 95/45; PULSE 63; RESP 16; TEMP 98.3; O2SAT 90
[2016-09-25 16:10] VITALS: BP 116/54; PULSE 70; RESP 16; O2SAT 98
--- NOTE | 2016-09-25 17:13 | PD ---
HPI Chief Complaint: Fall Time Seen by Provider: 17:09 Travel History International Travel<30 days: No Contact w/Intl Traveler<30days: No Traveled to known affect area: No PFSH Past Medical History Hx Anticoagulant Therapy: Yes (PLAVIX) Arthritis: Yes Asthma: No Autoimmune Disease: Yes (FIBROMYALGIA) Blood Disorders: No Anxiety: Yes Depression: Yes (MILD DEPRESSION) Heart Rhythm Problems: Yes (TACHYCARDIA/AFIB) Cancer: No Cardiac Catheterization: Yes (1989) Cardiovascular Problems: Yes High Cholesterol: Yes Chemotherapy: No Chest Pain: No Congestive Heart Failure: Yes COPD: No Cerebrovascular Accident: Yes Diabetes: Yes Patient Takes Glucophage: No Diminished Hearing: Yes (DIMINISHED) Endocrine: Yes Fibromyalgia: Yes Gastrointestinal Disorders: Yes (GERD, ABDOMINAL PAIN) GERD: Yes (GERD) Genitourinary: No Headaches: No Hiatal Hernia: No Heparin Induced Thrombocytopen: No Hypertension: Yes Immune Disorder: Yes Implanted Vascular Access Dvce: No Musculoskeletal: Yes ("TORN MUSCLE L.KNEE", FRACTURED L3 L4 L5 06/15., arthritis,) Neurologic: Yes (FIBROMYALGIA, ENCEPHALOPATHY, CVA) Psychiatric: Yes (PANIC ATTACKS) Reproductive: Yes (HYSTERECTOMY DUE TO BLEEDING INTO PERITONEAL CAVITY) Respiratory: Yes (PNEUMONIA) Immunizations Current: No Migraines: No Pancreatitis: Yes Seizures: No Sickle Cell Disease: No Sleep Apnea: No Thyroid Disease: No Ulcer: No ?: Not Menopausal: Yes : 3 Para: 2 Miscarriage: 1 Past Surgical History Abdominal Surgery: No AICD: No Appendectomy: Yes (1975) Arteriovenous Shunt: No Cardiac Surgery: Yes (L ENDARDECTOMY ) Coronary Artery Bypass Graft: No Ear Surgery: No Endocrine Surgery: No Eye Surgery: Yes (BL CATARACT REMOVAL) Genitourinary Surgery: No Gynecologic Surgery: Yes (HYSTERECTOMY 1975) Hysterectomy: Yes Insulin Pump: No Neurologic Surgery: No Oral Surgery: No Pacemaker: No Thoracic Surgery: No Other Surgery: Yes (HYSTERECTOMY, LEFT & RIGHT CAROTID ARTERY REPAIR) Family History Family Myocardial Infarction: Yes (DAD) Social History Alcohol Use: Yes (OCCAS.) Tobacco Use: No Substance Use: No Allergies-Medications (Allergen,Severity, Reaction): Coded Allergies: Contrast Media (Verified Allergy, Severe, "throat closes up", 09/25/16) states that reaction used to occur but no longer does Keflex (Verified Adverse Reaction, Severe, "burning sensation,body red", ) *MDRO Multi-Drug Resistant Organism (Verified Adverse Reaction, Unknown, VRE, ESBL, 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 (urine-01/30/16) Reported Meds & Prescriptions Reported Meds & Active Scripts Active Xanax (Alprazolam) 0.25 Mg Tab 0.125 Mg PO Q12HR PRN Potassium Chloride ER (Potassium Chloride) 20 Meq Tab 20 Meq PO DAILY Hydralazine (Hydralazine HCl) 50 Mg Tab 50 Mg PO Q8HR 30 Days Cozaar (Losartan Potassium) 25 Mg Tab 25 Mg PO DAILY 30 Days Colchicine 0.6 Mg Tab 0.4 Mg PO DAILY 30 Days Norvasc (Amlodipine Besylate) 10 Mg Tab 10 Mg PO DAILY 30 Days Metoprolol Tartrate 25 Mg Tab 75 Mg PO Q12HR 30 Days Hydrocodone-Acetaminophen 5-325 mg Tab 1 Tab PO Q8HR PRN Pantoprazole (Pantoprazole Sodium) 40 Mg Tab 40 Mg PO DAILY Furosemide 20 Mg Tab 20 Mg PO DAILY Reported Allopurinol 100 Mg Tab 100 Mg PO DAILY Clopidogrel (Clopidogrel Bisulfate) 75 Mg Tab 75 Mg PO DAILY Pravastatin 20 Mg Tab 20 Mg PO DAILY Alexandra Aspirin EC Low Dose (Aspirin) [address] (Duloxetine HCl) 30 Mg Capdr 30 Mg PO DAILY Data Data Last Documented VS Vital Signs Date Time Temp Pulse Resp B/P Pulse Ox O2 Delivery O2 Flow Rate FiO2 09/25/16 16:10 70 16 116/54 98 Room Air 09/25/16 16:08 98.3 Janette Cannon Sep 25, 2016 17:12
--- NOTE | 2016-09-25 18:14 | PD ---
HPI Chief Complaint: Fall Time Seen by Provider: 17:13 Travel History International Travel<30 days: No Contact w/Intl Traveler<30days: No Traveled to known affect area: No History of Present Illness HPI 75-year-old female with history of COPD, hypertension, high cholesterol, gouty arthritis, with recent history of pneumonia for which she had been admitted to the hospital and had been released to rehabilitation, got out of rehabilitation on , presents to the ER today brought in by her sister because overnight , patient states that she lost balance and fell. She admits that she has been weak, but denies any loss of consciousness, head injury, or other serious injuries. She denies any fevers, chest pains, shortness of breath, or other symptoms. She apparently was initially evaluated by EMS but had refused to come to the hospital earlier at this morning. She was told by them that she could be having a TIA. She reports no numbness or weakness in the leg or and arm. She remembers the events. Her sister states that she thinks she may be a little disoriented. Modifying Factors: None Associated Signs & Symptoms: Fall, general weakness, disorientation Risk Factors: Elderly with multiple medical issues, recently released from rehabilitation [facility] Past Medical History Hx Anticoagulant Therapy: Yes (PLAVIX) Arthritis: Yes Asthma: No Autoimmune Disease: Yes (FIBROMYALGIA) Blood Disorders: No Anxiety: Yes Depression: Yes (MILD DEPRESSION) Heart Rhythm Problems: Yes (TACHYCARDIA/AFIB) Cancer: No Cardiac Catheterization: Yes (1989) Cardiovascular Problems: Yes High Cholesterol: Yes Chemotherapy: No Chest Pain: No Congestive Heart Failure: Yes COPD: No Cerebrovascular Accident: Yes Diabetes: Yes Patient Takes Glucophage: No Diminished Hearing: Yes (DIMINISHED) Endocrine: Yes Fibromyalgia: Yes Gastrointestinal Disorders: Yes (GERD, ABDOMINAL PAIN) GERD: Yes (GERD) Genitourinary: No Headaches: No Hiatal Hernia: No Heparin Induced Thrombocytopen: No Hypertension: Yes Immune Disorder: Yes Implanted Vascular Access Dvce: No Musculoskeletal: Yes ("TORN MUSCLE L.KNEE", FRACTURED L3 L4 L5 06/15., arthritis,) Neurologic: Yes (FIBROMYALGIA, ENCEPHALOPATHY, CVA) Psychiatric: Yes (PANIC ATTACKS) Reproductive: Yes (HYSTERECTOMY DUE TO BLEEDING INTO PERITONEAL CAVITY) Respiratory: Yes (PNEUMONIA) Immunizations Current: No Migraines: No Pancreatitis: Yes Seizures: No Sickle Cell Disease: No Sleep Apnea: No Thyroid Disease: No Ulcer: No ?: Not Menopausal: Yes : 3 Para: 2 Miscarriage: 1 Past Surgical History Abdominal Surgery: No AICD: No Appendectomy: Yes (1975) Arteriovenous Shunt: No Cardiac Surgery: Yes (L ENDARDECTOMY ) Coronary Artery Bypass Graft: No Ear Surgery: No Endocrine Surgery: No Eye Surgery: Yes (BL CATARACT REMOVAL) Genitourinary Surgery: No Gynecologic Surgery: Yes (HYSTERECTOMY 1975) Hysterectomy: Yes Insulin Pump: No Neurologic Surgery: No Oral Surgery: No Pacemaker: No Thoracic Surgery: No Other Surgery: Yes (HYSTERECTOMY, LEFT & RIGHT CAROTID ARTERY REPAIR) Family History Family Myocardial Infarction: Yes (DAD) Social History Alcohol Use: Yes (OCCAS.) Tobacco Use: No Substance Use: No Allergies-Medications (Allergen,Severity, Reaction): Coded Allergies: Contrast Media (Verified Allergy, Severe, "throat closes up", 09/25/16) states that reaction used to occur but no longer does Keflex (Verified Adverse Reaction, Severe, "burning sensation,body red", ) *MDRO Multi-Drug Resistant Organism (Verified Adverse Reaction, Unknown, VRE, ESBL, 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 (urine-01/30/16) Reported Meds & Prescriptions Reported Meds & Active Scripts Active Xanax (Alprazolam) 0.25 Mg Tab 0.125 Mg PO Q12HR PRN Potassium Chloride ER (Potassium Chloride) 20 Meq Tab 20 Meq PO DAILY Hydralazine (Hydralazine HCl) 50 Mg Tab 50 Mg PO Q8HR 30 Days Cozaar (Losartan Potassium) 25 Mg Tab 25 Mg PO DAILY 30 Days Colchicine 0.6 Mg Tab 0.4 Mg PO DAILY 30 Days Norvasc (Amlodipine Besylate) 10 Mg Tab 10 Mg PO DAILY 30 Days Metoprolol Tartrate 25 Mg Tab 75 Mg PO Q12HR 30 Days Hydrocodone-Acetaminophen 5-325 mg Tab 1 Tab PO Q8HR PRN Pantoprazole (Pantoprazole Sodium) 40 Mg Tab 40 Mg PO DAILY Furosemide 20 Mg Tab 20 Mg PO DAILY Reported Allopurinol 100 Mg Tab 100 Mg PO DAILY Clopidogrel (Clopidogrel Bisulfate) 75 Mg Tab 75 Mg PO DAILY Pravastatin 20 Mg Tab 20 Mg PO DAILY Alexandra Aspirin EC Low Dose (Aspirin) [address] (Duloxetine HCl) 30 Mg Capdr 30 Mg PO DAILY Review of Systems Except as stated in HPI: all other systems reviewed are Neg Physical Exam Narrative GENERAL: Well-developed elderly white female patient currently awake, alert, oriented 3, 9 acute distress. SKIN: Warm and dry. She has small ecchymotic patches on both arms and legs as well as different parts of her trunk. Nontender to palpation in these areas. HEAD: Atraumatic. Normocephalic. EYES: Pupils equal and round. No scleral icterus. No injection or drainage. ENT: No nasal bleeding or discharge. Mucous membranes pink and moist. NECK: Trachea midline. No JVD. CARDIOVASCULAR: Regular rate and rhythm. No murmur appreciated. RESPIRATORY: No accessory muscle use. Clear to auscultation. Breath sounds equal bilaterally. GASTROINTESTINAL: Abdomen soft, non-tender, nondistended. Hepatic and splenic margins not palpable. MUSCULOSKELETAL: No obvious deformities. No clubbing. No cyanosis. No edema. NEUROLOGICAL: Awake and alert. No obvious cranial nerve deficits. Motor grossly within normal limits. Normal speech. No pronator drift. PSYCHIATRIC: Appropriate mood and affect; insight and judgment normal. Data Data Last Documented VS Vital Signs Date Time Temp Pulse Resp B/P Pulse Ox O2 Delivery O2 Flow Rate FiO2 09/25/16 16:10 70 16 116/54 98 Room Air 09/25/16 16:08 98.3 Orders Electrocardiogram (09/25/16 18:08) Complete Blood Count With Diff (09/25/16 18:08) Comprehensive Metabolic Panel (09/25/16 18:08) Magnesium (Mg) (09/25/16 18:08) Ckmb (Isoenzyme) Profile (09/25/16 18:08) Troponin I (09/25/16 18:08) Act Partial Throm Time (Ptt) (09/25/16 18:08) Prothrombin Time / Inr (Pt) (09/25/16 18:08) Urinalysis - C+S If Indicated (09/25/16 18:08) Chest, Single Ap (09/25/16 18:08) Ct Brain W/O Iv Contrast(Rout) (09/25/16 18:08) Ecg Monitoring (09/25/16 18:08) Iv Access Insert/Monitor (09/25/16 18:08) Oximetry (09/25/16 18:08) Sodium Chloride 0.9% Flush (Ns Flush) (09/25/16 18:15) Sodium Chlorid 0.9% 500 Ml Inj (Ns 500 M (09/25/16 18:15) Pelvis, Ap Only (Routine) (09/25/16 ) Urine Culture (09/25/16 18:10) CKMB (09/25/16 18:40) CKMB% (09/25/16 18:40) Blood Culture (09/25/16 19:23) Lactic Acid Sepsis Protocol (09/25/16 19:23) Piperacil-Tazo 4.5 Gm Premix (Zosyn 4.5 (09/25/16 19:23) Potassium, Serum (K) (09/25/16 19:23) Labs Laboratory Tests Test 09/25/16 09/25/16 18:10 18:40 Urine Color YELLOW Urine Turbidity CLEAR Urine pH 6.0 Urine Specific [place] 1.007 Urine Protein NEG mg/dL Urine Glucose (UA) NEG mg/dL Urine Ketones NEG mg/dL Urine Occult Blood TRACE Urine Nitrite NEG Urine Bilirubin NEG Urine Leukocyte Esterase MOD Urine RBC 0-3 /hpf Urine WBC 25-49 /hpf Urine Squamous Epithelial 0-5 /hpf Cells Urine Bacteria MOD /hpf Microscopic Urinalysis Comment CULTURE INDICATED White Blood Count 7.8 TH/MM3 Red Blood Count 3.91 MIL/MM3 Hemoglobin 9.7 GM/DL Hematocrit 30.5 % Mean Corpuscular Volume 78.0 FL Mean Corpuscular Hemoglobin 24.8 PG Mean Corpuscular Hemoglobin 31.8 % Concent Red Cell Distribution Width 18.4 % Platelet Count 176 TH/MM3 Mean Platelet Volume 9.2 FL Neutrophils (%) (Auto) 72.6 % Lymphocytes (%) (Auto) 17.6 % Monocytes (%) (Auto) 8.4 % Eosinophils (%) (Auto) 0.6 % Basophils (%) (Auto) 0.8 % Neutrophils # (Auto) 5.6 TH/MM3 Lymphocytes # (Auto) 1.4 TH/MM3 Monocytes # (Auto) 0.7 TH/MM3 Eosinophils # (Auto) 0.0 TH/MM3 Basophils # (Auto) 0.1 TH/MM3 CBC Comment AUTO DIFF Prothrombin Time 10.4 SEC Prothromb Time International 0.9 RATIO Ratio Activated Partial 24.0 SEC Thromboplast Time Sodium Level 135 MEQ/L Potassium Level 6.3 MEQ/L Chloride Level 101 MEQ/L Carbon Dioxide Level 25.4 MEQ/L Anion Gap 9 MEQ/L Blood Urea Nitrogen 46 MG/DL Creatinine 1.60 MG/DL Estimat Glomerular Filtration 31 ML/MIN Rate Random Glucose 118 MG/DL Calcium Level 8.6 MG/DL Magnesium Level 2.2 MG/DL Total Bilirubin 0.4 MG/DL Aspartate Amino Transf 47 U/L (AST/SGOT) Alanine Aminotransferase 17 U/L (ALT/SGPT) Alkaline Phosphatase 79 U/L Total Creatine Kinase 112 U/L Creatine Kinase MB 1.0 NG/ML Troponin I LESS THAN 0.02 NG/ML Total Protein 6.9 GM/DL Albumin 3.0 GM/DL MDM Medical Decision Making Medical Screen Exam Complete: Yes Emergency Medical Condition: Yes Medical Record Reviewed: Yes Interpretation(s) EKG shows NSR, no ST elevation or depression, and no arrhythmias. No significant T-wave inversions. Laboratory Tests Test 09/25/16 09/25/16 18:10 18:40 Urine Occult Blood TRACE (NEG) Urine Leukocyte Esterase MOD (NEG) Urine WBC 25-49 /hpf (0-5) Urine Bacteria MOD /hpf (NONE) Red Blood Count 3.91 MIL/MM3 (4.00-5.30) Hemoglobin 9.7 GM/DL (11.6-15.3) Hematocrit 30.5 % (35.0-46.0) Mean Corpuscular Volume 78.0 FL (80.0-100.0) Mean Corpuscular Hemoglobin 24.8 PG (27.0-34.0) Mean Corpuscular Hemoglobin 31.8 % Concent (32.0-36.0) Red Cell Distribution Width 18.4 % (11.6-17.2) Neutrophils (%) (Auto) 72.6 % (16.0-70.0) Monocytes (%) (Auto) 8.4 % (0.0-8.0) Activated Partial 24.0 SEC Thromboplast Time (24.3-30.1) Sodium Level 135 MEQ/L (136-145) Potassium Level 6.3 MEQ/L (3.5-5.1) Blood Urea Nitrogen 46 MG/DL (7-18) Creatinine 1.60 MG/DL (0.50-1.00) Estimat Glomerular Filtration 31 ML/MIN (>89) Rate Random Glucose 118 MG/DL (74-106) Aspartate Amino Transf 47 U/L (15-37) (AST/SGOT) Troponin I LESS THAN 0.02 NG/ML (0.02-0.05) Albumin 3.0 GM/DL (3.4-5.0) Differential Diagnosis Fall, general weakness, mild disorientationdehydration versus metabolic issues versus sepsis versus acute intracranial injuries Narrative Course Lab work significant for UTI and her pressure is low. IV fluids, IV antibiotics , were initiated in the ER after cultures were drawn. CAT scan did not reveal any signs of acute cranial processes. I do not see any focal neurological deficits. However, I suspect that she has underlying sepsis and will need to be admitted to the hospital. Lab work shows hypokalemia and repeat potassium was done due to the fact that her potassium was hemolyzed on lab work. Physician Communication Physician Communication Case is signed out at 7:30 PM pending repeat potassium and admission to Dr. Monique. Diagnosis Primary Impression: UTI (urinary tract infection) Additional Impressions: Altered mental status Sepsis Admitting Information Admitting Physician Requests: Admit Chio Bauer MD Sep 25, 2016 18:14
[2016-09-25] MEDS ORDERED: SODIUM CHLORIDE 0.9% FLUSH 10 ML FLUSH IVF PRN (18:15)
[2016-09-25] MEDS ORDERED: SODIUM CHLORID 0.9% 500 ML INJ 500 ML IV ONE ×2 (18:15→23:45)
[2016-09-25 18:48] LABS: BLOOD, URINE TRACE (NEG); GLUCOSE,URINE NEG (NEG); KETONE, URINE NEG (NEG); NITRITE,URINE NEG (NEG)
[2016-09-25 18:51] LABS: AUTOMATED NEUTROPHIL # 5.6 TH/MM3 (1.8-7.7); BASOPHIL # 0.1 TH/MM3 (0-0.2); BASOPHIL % 0.8 % (0.0-2.0); EOSINOPHIL % 0.6 % (0.0-4.0); HEMATOCRIT 30.5 % (35.0-46.0); LYMPH % 17.6 % (9.0-44.0); LYMPHOCYTE # 1.4 TH/MM3 (1.0-4.8); MEAN CORPUSCULAR HEMOGLOBIN 24.8 PG (27.0-34.0); MEAN CORPUSCULAR HGB CONC 31.8 % (32.0-36.0); MONO % 8.4 % (0.0-8.0); NEUT % 72.6 % (16.0-70.0); PLATELET COUNT 176 TH/MM3 (150-450); RED BLOOD COUNT 3.91 MIL/MM3 (4.00-5.30); RED CELL DISTRIBUTION WIDTH 18.4 % (11.6-17.2); WHITE BLOOD COUNT 7.8 TH/MM3 (4.0-11.0)
[2016-09-25 18:54] LABS: URINE COLOR YELLOW (YELLW/STRAW)
[2016-09-25 18:55] LABS: BACTERIA, URINE MOD /hpf; RBC, URINE 0-3 /hpf (0-3); SQUAMOUS EPITHELIAL CELL URINE 0-5 /hpf (0-5)
[2016-09-25 18:56] LABS: COMMENT (UR) CULTURE INDICATED; CULTURE IF INDICATED CULTURE INDICATED
[2016-09-25 19:03] LABS: CHLORIDE 101 MEQ/L (98-107); SODIUM (NA) 135 MEQ/L (136-145)
[2016-09-25 19:04] LABS: HEMO FLAGS AUTO DIFF
[2016-09-25 19:07] LABS: ANION GAP 9 MEQ/L (5-15); BICARBONATE 25.4 MEQ/L (21.0-32.0); BLOOD UREA NITROGEN 46 MG/DL (7-18); MAGNESIUM 2.2 MG/DL (1.5-2.5)
[2016-09-25 19:09] LABS: INTERNATIONAL NORMALIZED RATIO 0.9 RATIO; PROTHROMBIN TIME - PATIENT 10.4 SEC (9.8-11.6)
[2016-09-25 19:10] LABS: ALT (GPT) 17 U/L (10-53); AST (GOT) 47 U/L (15-37); GLOMERULAR FILTRATION RATE 31 ML/MIN (>89)
[2016-09-25 19:11] LABS: TOTAL BILIRUBIN ADULT 0.4 MG/DL (0.2-1.0)
[2016-09-25 19:13] LABS: ALKALINE PHOSPHATASE 79 U/L (45-117); CREATINE KINASE 112 U/L (26-192)
--- NOTE | 2016-09-25 19:14 | RADHPO ---
EXAM DATE/TIME: 09/25/2016 18:49 [facility] COMPARISON: CT BRAIN W/O CONTRAST, August 23, 2016, 16:01. INDICATIONS : Dizziness. Fall. RADIATION DOSE: 61.85 CTDIvol (mGy) MEDICAL HISTORY : Cerebrovascular disease. Diabetes mellitus type 2. Hypertension. SURGICAL HISTORY : Carotid endarterectomy. ENCOUNTER: Initial ACUITY: 1 day PAIN SCALE: 9/10 LOCATION: cranial TECHNIQUE: Multiple contiguous axial images were obtained of the head. Using automated exposure control and adj ustment of the mA and/or kV according to patient size, radiation dose was kept as low as reasonably a chievable to obtain optimal diagnostic quality images. FINDINGS: There is no evidence for intracranial hemorrhage, mass effect, mass lesions, or edema. The visualize d bony structures appear intact. Slight degree of brain atrophy is seen. Slight periventricular whit e matter changes are seen nonspecific mostly consistent with chronic small vessel ischemic changes. There are no signs of acute infarction for technique. CONCLUSION: Slight atrophic and small vessel ischemic changes without any evidence for acute hemorrhage or mass effect. Olvin Krishna MD on September 25, 2016 at 19:11 Board Certified Radiologist. This report was verified electronically.
[2016-09-25 19:18] LABS: POTASSIUM 6.3 MEQ/L (3.5-5.1)
[2016-09-25] MEDS ORDERED: PIPERACIL-TAZO 4.5 GM PREMIX 100 ML IV STA (19:23)
--- NOTE | 2016-09-25 19:38 | RADHPO ---
EXAM DATE/TIME: 09/25/2016 19:01 [facility] COMPARISON: CT ABDOMEN & PELVIS W/O CONTRAST, January 30, 2016, 13:03. PELVIS AP ONLY, October 30, 2015, 12:53. PELV IS AP ONLY, March 26, 2015, 16:42. ABDOMEN SINGLE VIEW, November 22, 2015, 15:00. INDICATIONS : Fall, complains of left hip pain. MEDICAL HISTORY : Stroke. Hypertension SURGICAL HISTORY : Tracheostomy, hysterectomy ENCOUNTER: Initial ACUITY: 1 day PAIN SCORE: 8/10 LOCATION: Left pelvis FINDINGS: There is diffuse osteopenia an old healed fracture of left inferior pubic ramus identified on the edith or CT from 01/2016. No definite acute fracture is seen for technique. CONCLUSION: No evidence of acute fracture for technique. Olvin Krishna MD on September 25, 2016 at 19:33 Board Certified Radiologist. This report was verified electronically.
--- NOTE | 2016-09-25 19:42 | RADHPO ---
EXAM DATE/TIME: 09/25/2016 19:04 [facility] COMPARISON: CHEST SINGLE AP, September 05, 2016, 9:55. INDICATIONS : Fall, complains of back pain. MEDICAL HISTORY : Stroke. Hypertension SURGICAL HISTORY : Hysterectomy, tracheostomy ENCOUNTER: Initial ACUITY: 1 day PAIN SCORE: 8/10 LOCATION: Bilateral chest FINDINGS: The lungs are clear without infiltrate, nodule, or mass. There is no appreciable pleural effusion fo r technique. Heart and mediastinum are unremarkable. There are atherosclerotic calcifications of the aorta due to chronic atherosclerotic disease. CONCLUSION: No acute cardiopulmonary disease. lOvin Krishna MD on September 25, 2016 at 19:36 Board Certified Radiologist. This report was verified electronically.
[2016-09-25 19:47] LABS: SCAN/DIFF AUTO DIFF CONFIRMED
[2016-09-25 20:09] VITALS: BP 124/45; PULSE 102; RESP 20; O2SAT 100
[2016-09-25 20:30] VITALS: RESP 16; O2SAT 100
[2016-09-25] MEDS ORDERED: ACETAMINOPHEN/HYDROcodone 325 MG/5 MG TAB PO ONE (20:30)
[2016-09-25] MEDS ORDERED: SODIUM CHLORIDE 0.9% FLUSH 10 ML FLUSH IV FLUSH PRN (21:15)
[2016-09-25] MEDS ORDERED: NALOXONE HCL 0.4 MG/ML AMP IV PRN (21:15)
--- NOTE | 2016-09-25 21:17 | PD ---
Physical Exam Time Seen by Provider: 21:[address] Laughlin left this patient with me to check the lab and make a disposition. Dr. Piedra indicated that she felt the patient needed to be admitted. Data Data Last Documented VS Vital Signs Date Time Temp Pulse Resp B/P Pulse Ox O2 Delivery O2 Flow Rate FiO2 09/25/16 20:30 16 100 Room Air 09/25/16 20:09 102 124/45 09/25/16 16:08 98.3 Orders Electrocardiogram (09/25/16 18:08) Complete Blood Count With Diff (09/25/16 18:08) Comprehensive Metabolic Panel (09/25/16 18:08) Magnesium (Mg) (09/25/16 18:08) Ckmb (Isoenzyme) Profile (09/25/16 18:08) Troponin I (09/25/16 18:08) Act Partial Throm Time (Ptt) (09/25/16 18:08) Prothrombin Time / Inr (Pt) (09/25/16 18:08) Urinalysis - C+S If Indicated (09/25/16 18:08) Chest, Single Ap (09/25/16 18:08) Ct Brain W/O Iv Contrast(Rout) (09/25/16 18:08) Ecg Monitoring (09/25/16 18:08) Iv Access Insert/Monitor (09/25/16 18:08) Oximetry (09/25/16 18:08) Sodium Chloride 0.9% Flush (Ns Flush) (09/25/16 18:15) Sodium Chlorid 0.9% 500 Ml Inj (Ns 500 M (09/25/16 18:15) Pelvis, Ap Only (Routine) (09/25/16 ) Urine Culture (09/25/16 18:10) CKMB (09/25/16 18:40) CKMB% (09/25/16 18:40) Blood Culture (09/25/16 19:23) Lactic Acid Sepsis Protocol (09/25/16 19:23) Piperacil-Tazo 4.5 Gm Premix (Zosyn 4.5 (09/25/16 19:23) Potassium, Serum (K) (09/25/16 19:23) Acetamin-Hydrocod 325-5 Mg ([place] 5-325 (3/21/17 20:30) Labs Laboratory Tests Test 09/25/16 09/25/16 09/25/16 18:10 18:40 19:47 Urine Color YELLOW Urine Turbidity CLEAR Urine pH 6.0 Urine Specific [place] 1.007 Urine Protein NEG mg/dL Urine Glucose (UA) NEG mg/dL Urine Ketones NEG mg/dL Urine Occult Blood TRACE Urine Nitrite NEG Urine Bilirubin NEG Urine Leukocyte Esterase MOD Urine RBC 0-3 /hpf Urine WBC 25-49 /hpf Urine Squamous Epithelial 0-5 /hpf Cells Urine Bacteria MOD /hpf Microscopic Urinalysis Comment CULTURE INDICATED White Blood Count 7.8 TH/MM3 Red Blood Count 3.91 MIL/MM3 Hemoglobin 9.7 GM/DL Hematocrit 30.5 % Mean Corpuscular Volume 78.0 FL Mean Corpuscular Hemoglobin 24.8 PG Mean Corpuscular Hemoglobin 31.8 % Concent Red Cell Distribution Width 18.4 % Platelet Count 176 TH/MM3 Mean Platelet Volume 9.2 FL Neutrophils (%) (Auto) 72.6 % Lymphocytes (%) (Auto) 17.6 % Monocytes (%) (Auto) 8.4 % Eosinophils (%) (Auto) 0.6 % Basophils (%) (Auto) 0.8 % Neutrophils # (Auto) 5.6 TH/MM3 Lymphocytes # (Auto) 1.4 TH/MM3 Monocytes # (Auto) 0.7 TH/MM3 Eosinophils # (Auto) 0.0 TH/MM3 Basophils # (Auto) 0.1 TH/MM3 CBC Comment AUTO DIFF Differential Comment AUTO DIFF CONFIRMED Prothrombin Time 10.4 SEC Prothromb Time International 0.9 RATIO Ratio Activated Partial 24.0 SEC Thromboplast Time Sodium Level 135 MEQ/L Potassium Level 6.3 MEQ/L 4.5 MEQ/L Chloride Level 101 MEQ/L Carbon Dioxide Level 25.4 MEQ/L Anion Gap 9 MEQ/L Blood Urea Nitrogen 46 MG/DL Creatinine 1.60 MG/DL Estimat Glomerular Filtration 31 ML/MIN Rate Random Glucose 118 MG/DL Calcium Level 8.6 MG/DL Magnesium Level 2.2 MG/DL Total Bilirubin 0.4 MG/DL Aspartate Amino Transf 47 U/L (AST/SGOT) Alanine Aminotransferase 17 U/L (ALT/SGPT) Alkaline Phosphatase 79 U/L Total Creatine Kinase 112 U/L Creatine Kinase MB 1.0 NG/ML Troponin I LESS THAN 0.02 NG/ML Total Protein 6.9 GM/DL Albumin 3.0 GM/DL Lactic Acid Level 1.0 mmol/L [facility] Medical Record Reviewed: Yes Supervised Visit with NYDIA: Yes Interpretation(s) EKG is normal with a normal sinus rhythm rate of 89. The complete metabolic profile shows a sodium of 135, creatinine 1.6, GFR of 31, glucose 118, AST of 47 , albumin of 3.0 but is otherwise normal. The cardiac enzymes are normal. The lactic acid is normal. The repeat potassium on a separate draws 4.5, the initial potassium was from a hemolyzed blood sample. The chest x-ray shows no acute cardiopulmonary disease and the pelvis x-ray shows no evidence of acute fracture. The CBC shows a hemoglobin of 9.7, hematocrit of 30.5, platelet count of 176,000 with 73% neutrophils but is otherwise unremarkable. Differential Diagnosis Generalized weakness with inability to ambulate, altered mental status, sepsis, urinary tract infection, electrolyte disorder, dehydration Narrative Course The patient appears to have dehydration, inability to ambulate with generalized weakness and a urinary tract infection Plan: The patient cannot walk she will be [address] Wood. Sepsis Criteria Sepsis Criteria (SIRS+source): Infect source susp/known Severe Sepsis (+one): Hypotension Physician Communication Physician Communication I discussed the patient with Dr. Wood, the patient will be 23 hour observation to her. Diagnosis Primary Impression: UTI (urinary tract infection) Additional Impressions: Altered mental status Generalized weakness Dehydration, mild Ruled Out: Sepsis Admitting Information Admitting Physician Requests: Observation Stuart Monique MD Sep 25, 2016 21:17
[2016-09-25 23:08] VITALS: BP 84/44; PULSE 88; RESP 20; O2SAT 92
[2016-09-26] VITALS (9 sets, daily range): BP systolic 95–121; BP diastolic 38–58; PULSE 85–108; RESP 18–25; TEMP 97.9–98.8; O2SAT 95–100
[2016-09-26 04:36] LABS: AUTOMATED NEUTROPHIL # 3.2 TH/MM3 (1.8-7.7); BASOPHIL % 0.5 % (0.0-2.0); EOSINOPHIL % 0.3 % (0.0-4.0); HEMATOCRIT 27.9 % (35.0-46.0); LYMPH % 29.5 % (9.0-44.0); LYMPHOCYTE # 1.6 TH/MM3 (1.0-4.8); MEAN CELL VOLUME 78.6 FL (80.0-100.0); MEAN CORPUSCULAR HEMOGLOBIN 24.9 PG (27.0-34.0); MEAN CORPUSCULAR HGB CONC 31.7 % (32.0-36.0); MONO % 12.8 % (0.0-8.0); NEUT % 56.9 % (16.0-70.0); PLATELET COUNT 158 TH/MM3 (150-450); RED BLOOD COUNT 3.55 MIL/MM3 (4.00-5.30); RED CELL DISTRIBUTION WIDTH 18.9 % (11.6-17.2); WHITE BLOOD COUNT 5.5 TH/MM3 (4.0-11.0)
[2016-09-26 05:07] LABS: HEMO FLAGS AUTO DIFF
[2016-09-26 05:09] LABS: POTASSIUM 4.3 MEQ/L (3.5-5.1)
[2016-09-26 05:13] LABS: BICARBONATE 27.6 MEQ/L (21.0-32.0)
[2016-09-26 06:26] LABS: OVALOCYTES 1+ (NORMAL); PLATELET ESTIMATE SMEAR NORMAL (NORMAL); PLATELET MORPHOLOGY NORMAL (NORMAL); SCAN/DIFF AUTO DIFF CONFIRMED
[2016-09-26] MEDS: SODIUM CHLORIDE 0.9% FLUSH 10 ML FLUSH IV FLUSH SCH ×2 (09:00→20:12)
[2016-09-26] MEDS: ENOXAPARIN SODIUM 40 MG/0.4 ML SYRINGE SQ SCH (10:00)
[2016-09-26] MEDS: CIPROFLOXACIN 400 MG PREMIX 200 ML IV SCH ×2 (10:00→20:10)
--- NOTE | 2016-09-26 10:15 | EKG ---
Date Performed: 09/25/2016 Time Performed: 18:14:08 PTAGE: 75 years EKG: Sinus rhythm Normal ECG PREVIOUS TRACING : 08/23/2016 14.09 DOCTOR: Víctor Mckeon Interpretating Date/Time 09/26/2016 10:14:44
--- NOTE | 2016-09-26 17:31 | HHI.HP ---
cc: Karis Roblero MD [facility] Service [facility] Primary Care Physician Karis Roblero MD Admission Diagnosis UTI, generalized weakness, inability to ambulate, dehydration Diagnoses: (1) UTI (urinary tract infection) Diagnosis: Principal (2) DUC (acute kidney injury) Diagnosis: Principal (3) inability to ambulate Diagnosis: Principal Chief Complaint: fall Travel History International Travel<30 Days: No Contact w/Intl Traveler <30 Da: No Traveled to Known Affected Are: No History of Present Illness 75-year-old female with history of carotid endarterectomy on Plavix, hyperlipidemia, hypertension, CHF, diet-controlled diabetes, GERD, arthritis, anxiety and depression is admitted for inability to ambulate. The patient was recently admitted on 08/23/16 for septic shock and UTI. The patient apparently at that time had been lethargic and unable to protect her airway and required intubation. When she was discharged she went to a rehabilitation facility and according to RN was only released a few days ago. The patient states she was at her primary care physician's office yesterday when she moved backward and slid down falling onto her buttocks. She states she lost her balance and denies any syncope, lightheadedness, or dizziness prior to the fall. She denies any altered speech, numbness/tingling, or focal extremity weakness. She states she had a headache after the fall, but denies any head injury. She denies any chest pain or shortness of breath at that time. Denies any abdominal pain, nausea, vomiting, diarrhea, or constipation. She denies any dysuria, increased urgency or frequency of urination, or hematuria. She did have chills yesterday. Denies any fevers, cold or cough symptoms. She initially denied any neck or back pain but upon movement on exam she states she has pain in the paracervical region and coccyx. RN states patient has-been sleepy but according to family this is her norm. Review of Systems Constitutional: COMPLAINS OF: Chills, DENIES: Fever, Dizziness Eyes: DENIES: Blurred vision Ears, nose, mouth, throat: DENIES: Hoarseness, Ear Pain, Running Nose Respiratory: DENIES: Cough, Shortness of breath Cardiovascular: DENIES: Chest pain Gastrointestinal: DENIES: Abdominal pain, Constipation, Diarrhea, Nausea, Vomiting Genitourinary: DENIES: Urinary frequency, Urgency, Hematuria, Dysuria Musculoskeletal: DENIES: Back pain, Neck pain Integumentary: DENIES: Rash Neurologic: COMPLAINS OF: Headache, DENIES: Localized weakness, Paresthesias, Speech Problems Past Family Social History Past Medical History Arthritis Fibromyalgia Anxiety Depression Hyperlipidemia Hypertension CHF Diet-controlled diabetes GERD Hard of hearing Left knee injury Encephalopathy Pneumonia Pancreatitis Compression fractures EMR indicates history of CVA and A. fib but patient denies this. M1 Past Surgical History Hysterectomy 1975 due to bleeding into the peritoneal cavity Bilateral carotid endarterectomy Appendectomy Bilateral cataract removal Reported Medications Xanax (Alprazolam) 0.25 Mg Tab 0.125 Mg PO Q12HR PRN Potassium Chloride ER (Potassium Chloride) 20 Meq Tab 20 Meq PO DAILY Hydralazine (Hydralazine HCl) 50 Mg Tab 50 Mg PO Q8HR 30 Days Cozaar (Losartan Potassium) 25 Mg Tab 25 Mg PO DAILY 30 Days Colchicine 0.6 Mg Tab 0.4 Mg PO DAILY 30 Days Norvasc (Amlodipine Besylate) 10 Mg Tab 10 Mg PO DAILY 30 Days Metoprolol Tartrate 25 Mg Tab 75 Mg PO Q12HR 30 Days Hydrocodone-Acetaminophen 5-325 mg Tab 1 Tab PO Q8HR PRN Pantoprazole (Pantoprazole Sodium) 40 Mg Tab 40 Mg PO DAILY Furosemide 20 Mg Tab 20 Mg PO DAILY Reported Allopurinol 100 Mg Tab 100 Mg PO DAILY Clopidogrel (Clopidogrel Bisulfate) 75 Mg Tab 75 Mg PO DAILY Pravastatin 20 Mg Tab 20 Mg PO DAILY Alexandra Aspirin EC Low Dose (Aspirin) [address] (Duloxetine HCl) 30 Mg Capdr 30 Mg PO DAILY Allergies: Coded Allergies: Contrast Media (Verified Allergy, Severe, "throat closes up", 09/25/16) states that reaction used to occur but no longer does Keflex (Verified Adverse Reaction, Severe, "burning sensation,body red", ) *MDRO Multi-Drug Resistant Organism (Verified Adverse Reaction, Unknown, VRE, ESBL, 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 Patient rarely drinks alcohol. Denies any history of illicit drug use. Physical Exam Vital Signs Vital Signs Date Time Temp Pulse Resp B/P Pulse Ox O2 Delivery O2 Flow Rate FiO2 09/26/16 12:00 88 09/26/16 12:00 98.5 104 22 121/54 100 09/26/16 08:00 95 Nasal Cannula 2.00 09/26/16 08:00 108 09/26/16 04:00 97.9 88 18 113/55 98 09/26/16 04:00 88 09/26/16 03:57 99 Nasal Cannula 2.00 09/26/16 01:15 89 100/49 09/26/16 00:15 85 09/26/16 00:15 98.2 85 18 95/38 98 09/25/16 23:08 88 20 84/44 92 Nasal Cannula 2 09/25/16 20:30 16 100 Room Air 09/25/16 20:09 102 20 124/45 100 Room Air Physical Exam GENERAL: This is a well-nourished, well-developed patient, in no apparent distress. SKIN: Ecchymosis over the forearms. Warm and dry. HEAD: Atraumatic. Normocephalic. EYES: Pupils equal round. Extraocular motions intact. No scleral icterus. No injection or drainage. ENT: MMM. Airway patent. NECK: Tender over bilateral paracervical muscles. No midline cervical spine tenderness. CARDIOVASCULAR: Regular rate and rhythm. Grade 2 murmur. RESPIRATORY: Clear to auscultation. Breath sounds equal bilaterally. No wheezes , rales, or rhonchi. GASTROINTESTINAL: Abdomen soft, non-tender, nondistended. No hepato-splenomegaly , or palpable masses. No guarding. MUSCULOSKELETAL: No lower extremity edema bilaterally. BACK: No CVA tenderness bilaterally. Tender over coccyx. NEUROLOGICAL: Sleeping but arouses to voice and is awake and alert. Patient is fully oriented to place, city, month, year, and president. No obvious cranial nerve deficits. Motor and sensory grossly within normal limits. Five out of 5 muscle strength in B/L arms and legs. Normal speech. Laboratory Laboratory Tests Test 09/25/16 09/25/16 09/25/16 09/26/16 18:10 18:40 19:47 04:23 Urine Color YELLOW Urine Turbidity CLEAR Urine pH 6.0 Urine Specific [place] 1.007 Urine Protein NEG Urine Glucose (UA) NEG Urine Ketones NEG Urine Occult Blood TRACE Urine Nitrite NEG Urine Bilirubin NEG Urine Leukocyte Esterase MOD Urine RBC 0-3 Urine WBC 25-49 Urine Squamous Epithelial 0-5 Cells Urine Bacteria MOD Microscopic Urinalysis Comment CULTURE INDICATED Prothrombin Time 10.4 Prothromb Time International 0.9 Ratio Activated Partial 24.0 Thromboplast Time Sodium Level 135 141 Potassium Level 6.3 4.5 4.3 Chloride Level 101 105 Carbon Dioxide Level 25.4 27.6 Anion Gap 9 8 Blood Urea Nitrogen 46 37 Creatinine 1.60 1.30 Estimat Glomerular Filtration 31 40 Rate Random Glucose 118 92 Calcium Level 8.6 8.5 Magnesium Level 2.2 Total Bilirubin 0.4 Aspartate Amino Transf 47 (AST/SGOT) Alanine Aminotransferase 17 (ALT/SGPT) Alkaline Phosphatase 79 Total Creatine Kinase 112 Creatine Kinase MB 1.0 Troponin I LESS THAN 0.02 Total Protein 6.9 Albumin 3.0 White Blood Count 7.8 5.5 Red Blood Count 3.91 3.55 Hemoglobin 9.7 8.9 Hematocrit 30.5 27.9 Mean Corpuscular Volume 78.0 78.6 Mean Corpuscular Hemoglobin 24.8 24.9 Mean Corpuscular Hemoglobin 31.8 31.7 Concent Red Cell Distribution Width 18.4 18.9 Platelet Count 176 158 Mean Platelet Volume 9.2 8.3 Neutrophils (%) (Auto) 72.6 56.9 Lymphocytes (%) (Auto) 17.6 29.5 Monocytes (%) (Auto) 8.4 12.8 Eosinophils (%) (Auto) 0.6 0.3 Basophils (%) (Auto) 0.8 0.5 Neutrophils # (Auto) 5.6 3.2 Lymphocytes # (Auto) 1.4 1.6 Monocytes # (Auto) 0.7 0.7 Eosinophils # (Auto) 0.0 0.0 Basophils # (Auto) 0.1 0.0 CBC Comment AUTO DIFF AUTO DIFF Differential Comment AUTO DIFF AUTO DIFF CONFIRMED CONFIRMED Lactic Acid Level 1.0 Platelet Estimate NORMAL Platelet Morphology Comment NORMAL Ovalocytes 1+ Date/Time Procedure Status Source Growth 09/25/16 19:54 Aerobic Blood Culture - Preliminary Resulted Blood Peripheral NO GROWTH IN 1 DAY 09/25/16 19:54 Anaerobic Blood Culture - Preliminary Resulted Blood Peripheral NO GROWTH IN 1 DAY 09/25/16 18:10 Urine Culture - Preliminary Resulted Urine Clean Catch Gram Negative Jarrod Result Diagram: 09/26/16 0423 09/26/16 0423 Imaging Last Impressions Head CT 09/25/168 Signed Impressions: Service Date/Time: Sunday, September 25, 2016 18:49 - CONCLUSION: Slight atrophic and small vessel ischemic changes without any evidence for acute hemorrhage or mass effect. Olvin Krishna MD Chest X-Ray 09/25/168 Signed Impressions: Service Date/Time: Sunday, September 25, 2016 19:04 - CONCLUSION: No acute cardiopulmonary disease. Olvin Krishna MD Pelvis X-Ray 09/25/16 0000 Signed Impressions: Service Date/Time: Sunday, September 25, 2016 19:01 - CONCLUSION: No evidence of acute fracture for technique. Olvin Krishna MD Assessment and Plan Assessment and Plan 75-year-old female with: Inability to ambulate: Patient had loss of balance and fall yesterday likely attributed to UTI. She denies any other associated symptoms prior to the fall. RN indicates the patient only required one person assist to get to the commode. The patient denies any further weakness. She does have some pain in her neck and coccyx were she fell. -Tylenol for pain prn -PT evaluated and recommends rehabilitation vs home health care PT. Patient states she has not been recently using a walker or cane but has used these in the past. UTI: UA personally interpreted with trace occult blood, moderate leukocyte esterase, 25-49 white blood cells and moderate bacteria indicating infection. Preliminary urine culture with gram-negative rods. White blood cell count normal. Patient afebrile. -Continue Cipro -Await final urine culture DUC: BUN/creatinine 46/1.6-->37/1.3 improved after 1 L of fluids. -EMR indicates history of CHF. Will continue IV normal saline at low rate 50 mL /hr -Repeat am BMP -Avoid nephrotoxins Hyperkalemia: 6.3 on initial lab but repeat was 4.5 without intervention. This was likely not accurate. Anemia: Appears chronic. Hemoglobin 9.7-->8.9. No report of bleeding. -Repeat am CBC Chronic medical problems include previous endarterectomy, hyperlipidemia, CHF: Continue home medications. Patient has been on the hypotensive side today. She is on several blood pressure medications. Will continue metoprolol for with hold parameters but hold other antihypertensives for now. DVT prevention: TEDs/SCDs. Will avoid pharmacologic prophylaxis due to Plavix use and increased risk of bleeding with advanced age. Case management following. Patient will likely need to go back to rehabilitation. Discussed Condition With Dr. Pagan Patient seen and examined agree with above Karen Albarado Sep 26, 2016 17:31 Jenaro Pagan MD Sep 26, 2016 19:52
[2016-09-26] MEDS ORDERED: ACETAMINOPHEN 325 MG TAB PO PRN (19:15)
[2016-09-26] MEDS ORDERED: PILL SPLITTER OTHER PRN (19:30)
[2016-09-26] MEDS: SODIUM CHLOR 0.9% 1000 ML INJ 1,000 ML IV SCH (20:11)
[2016-09-26] MEDS: PRAVASTATIN SOD 20 MG TAB PO SCH (20:11)
[2016-09-26] MEDS: METOPROLOL TARTRATE 25 MG TAB PO SCH (20:11)
[2016-09-26] MEDS: ALPRAZolam 0.25 MG TAB PO PRN (20:49)
[2016-09-26] MEDS ORDERED: ACETAMINOPHEN/HYDROcodone 325 MG/5 MG TAB PO ONE (23:00)
[2016-09-27] VITALS (13 sets, daily range): BP systolic 83–148; BP diastolic 53–84; PULSE 56–84; RESP 16–41; TEMP 97.7–98.2; O2SAT 75–100
[2016-09-27 04:38] LABS: AUTOMATED NEUTROPHIL # 3.3 TH/MM3 (1.8-7.7); BASOPHIL % 0.7 % (0.0-2.0); EOSINOPHIL % 0.5 % (0.0-4.0); HEMATOCRIT 28.8 % (35.0-46.0); LYMPH % 33.3 % (9.0-44.0); MEAN CELL VOLUME 78.6 FL (80.0-100.0); MEAN CORPUSCULAR HEMOGLOBIN 24.9 PG (27.0-34.0); MEAN CORPUSCULAR HGB CONC 31.7 % (32.0-36.0); NEUT % 53.5 % (16.0-70.0); PLATELET COUNT 167 TH/MM3 (150-450); RED BLOOD COUNT 3.66 MIL/MM3 (4.00-5.30)
[2016-09-27 04:42] LABS: HEMO FLAGS DIFF FINAL
[2016-09-27 04:45] LABS: POTASSIUM 4.8 MEQ/L (3.5-5.1)
[2016-09-27 04:48] LABS: BICARBONATE 31.2 MEQ/L (21.0-32.0)
[2016-09-27] MEDS: ENOXAPARIN SODIUM 40 MG/0.4 ML SYRINGE SQ SCH (08:55)
[2016-09-27] MEDS: METOPROLOL TARTRATE 25 MG TAB PO SCH ×2 (08:56→20:55)
[2016-09-27] MEDS: DULoxetine HCl DR 30 MG CAP PO SCH (08:56)
[2016-09-27] MEDS: PANTOPRAZOLE SOD 40 MG DELAYED RELEASE TAB PO SCH (08:56)
[2016-09-27] MEDS: POTASSIUM CHLORIDE 20 MEQ CONTROLLED RELEASE TAB PO SCH (08:56)
[2016-09-27] MEDS: FUROSEMIDE 20 MG TAB PO SCH (08:56)
[2016-09-27] MEDS: CIPROFLOXACIN 400 MG PREMIX 200 ML IV SCH ×2 (08:56→15:03)
[2016-09-27] MEDS: CLOPIDOGREL 75 MG TAB PO SCH (08:56)
[2016-09-27] MEDS: SODIUM CHLORIDE 0.9% FLUSH 10 ML FLUSH IV FLUSH SCH ×2 (08:57→20:56)
[2016-09-27] MEDS ORDERED: PADIMATE (CHAPSTICK) 4.5 GM TUBE TOP PRN (09:00)
[2016-09-27] MEDS ORDERED: ALLOPURINOL 100 MG TAB PO SCH (09:00)
--- NOTE | 2016-09-27 09:02 | HHI.PR ---
Subjective Remarks Follow-up for inability to ambulate, UTI. Patient admits to a headache, but she denies any blurred vision. Also admits to back pain from a fall. Denies any chest pain, shortness of breath, cough, nausea, vomiting. Denies any numbness/tingling or weakness. Patient's O2 saturation was noted to drop to 84 % at midnight and she is now 93% on 2 L nasal cannula. Also hypotensive this morning. Objective Vitals Vital Signs Date Time Temp Pulse Resp B/P Pulse Ox O2 Delivery O2 Flow Rate FiO2 09/27/16 08:33 93 Nasal Cannula 2.00 09/27/16 04:00 56 09/27/16 04:00 97.9 56 16 83/53 09/27/16 00:00 98.2 81 22 135/84 84 09/27/16 00:00 84 09/26/16 21:49 25 09/26/16 21:15 100 Nasal Cannula 2.00 09/26/16 20:00 100 09/26/16 20:00 98.6 100 25 116/54 98 09/26/16 16:00 98.8 96 22 118/58 99 09/26/16 16:00 93 09/26/16 12:00 88 09/26/16 12:00 98.5 104 22 121/54 100 I/O 09/26/16 09/26/16 09/26/16 09/27/16 09/27/16 09/27/16 07:00 15:00 23:00 07:00 15:00 23:00 Output Total 700 ml Balance -700 ml Output Urine Total 700 ml # Voids 1 Result Diagram: 09/27/16 0427 09/27/16 0427 Objective Remarks GENERAL: Elderly pleasant well-nourished, well-developed patient in no apparent distress HEAD: Atraumatic. Normocephalic. CARDIOVASCULAR: Regular rate and rhythm. Murmur noted likely aortic stenosis. RESPIRATORY: No accessory muscle use. Clear to auscultation. Breath sounds equal bilaterally. GASTROINTESTINAL: Abdomen soft, non-tender, nondistended. MUSCULOSKELETAL: No lower extremity edema bilaterally. NEUROLOGICAL: Awake and alert. Normal speech. PSYCHIATRIC: Appropriate mood and affect; insight and judgment normal. Urinary Catheter: No Vascular Central Line Catheter: No A/P Problem List: (1) inability to ambulate Status: Acute (2) UTI (urinary tract infection) ICD Code: N39.0 Status: Acute (3) DUC (acute kidney injury) ICD Code: N17.9 Status: Acute (4) Hypotension ICD Code: I95.9 Status: Acute (5) Hypoxia ICD Code: R09.02 Status: Acute Assessment and Plan 75-year-old female with: Inability to ambulate: Patient had loss of balance and fall likely attributed to UTI. She denies any other associated symptoms prior to the fall. RN indicates the patient only required one person assist to get to the commode. The patient denies any further weakness. She does have some pain in her neck and coccyx were she fell. -Tylenol for pain 1-5. Add Otis 5/325 prn pain 6-10. -PT evaluated and recommends rehabilitation vs home health care PT. Patient states she has not been recently using a walker or cane but has used these in the past. Continue PT. UTI: UA personally interpreted with trace occult blood, moderate leukocyte esterase, 25-49 white blood cells and moderate bacteria indicating infection. Urine culture with Klebsiella Oxytoca susceptible to Cipro. White blood cell count normal. Patient afebrile. -Continue Cipro DUC: Improved. BUN/creatinine 46/1.6-->25/0.83 s/p IVF. -Monitor BMP -Avoid nephrotoxins Hypotension: Patient has been hypotensive. She is on several blood pressure medications. Metoprolol was the only one continued yesterday. BP at 0400 of 83/ 53 (63) but improved to 135/59 (85) at 0900. -Stop IVF -Continue metoprolol with hold parameters. Hold remaining home antihypertensives unless BP becomes uncontrolled; steadily reintroduce as needed. Hypoxia: Acute. O2 saturation 84% at midnight and documented as 93% on 2 L at 0830. Lung exam benign. Patient was only on low rate fluids. Repeat chest x- ray. Hyperkalemia: 6.3 on initial lab but repeat was 4.5 without intervention. 4.8 this morning. This was likely not accurate. Anemia: Appears chronic. Hemoglobin stable at 9.1. No report of bleeding. Chronic medical problems include previous endarterectomy, hyperlipidemia, CHF: Continue home medications unless otherwise stated above. DVT prevention: TEDs/SCDs. Will avoid pharmacologic prophylaxis due to Plavix use and increased risk of bleeding with advanced age. Written by Karen Albarado PA-C acting as scribe for Dr. Ba on 09/27/16 at 0845. All or portions of this note were transcribed by scribe Karen Albarado PA-C. I , Dr. Andrey Ba personally performed the history, physical exam, and medical decision making; and confirmed the accuracy of the information in the transcribed note. Authenticated by Dr. Andrey Ba on 09/27/16 at 13:18. Discharge Planning Case management following. Plan is to send patient to [facility] once improved. Son unable to take care of patient at home. Karen Albarado Sep 27, 2016 09:02 Andrey Ba MD Sep 27, 2016 13:19
[2016-09-27] MEDS: ACETAMINOPHEN/HYDROcodone 325 MG/5 MG TAB PO PRN ×3 (09:52→21:42)
--- NOTE | 2016-09-27 11:07 | RADHPO ---
EXAM DATE/TIME: 09/27/2016 10:34 [facility] COMPARISON: CHEST SINGLE AP, September 25, 2016, 19:04. INDICATIONS : Short of breath. MEDICAL HISTORY : Hypertension. Congestive heart failure. Cardiovascular disease. SURGICAL HISTORY : cardiac cath ENCOUNTER: Subsequent ACUITY: 3 days PAIN SCORE: 0/10 LOCATION: Bilateral chest FINDINGS: A single view of the chest demonstrates the lungs to be symmetrically aerated without evidence of mas s, infiltrate or effusion. The cardiomediastinal contours are unremarkable. Osseous structures are intact. CONCLUSION: No acute disease. Kranthi Nova MD on September 27, 2016 at 11:06 Board Certified Radiologist. This report was verified electronically.
[2016-09-27] MEDS: SODIUM CHLOR 0.9% 1000 ML INJ 1,000 ML IV SCH (15:00)
[2016-09-27] MEDS: ALPRAZolam 0.25 MG TAB PO PRN (15:01)
[2016-09-27] MEDS: LOSARTAN 25 MG TAB PO SCH (18:44)
[2016-09-27] MEDS: PRAVASTATIN SOD 20 MG TAB PO SCH (20:55)
[2016-09-28] VITALS (11 sets, daily range): BP systolic 132–161; BP diastolic 62–84; PULSE 70–87; RESP 16–41; TEMP 97.9–98.2; O2SAT 91–97
[2016-09-28] MEDS: ALPRAZolam 0.25 MG TAB PO PRN ×2 (02:30→22:37)
[2016-09-28] MEDS: CIPROFLOXACIN 400 MG PREMIX 200 ML IV SCH ×2 (07:42→22:38)
[2016-09-28] MEDS: DULoxetine HCl DR 30 MG CAP PO SCH (07:43)
[2016-09-28] MEDS: FUROSEMIDE 20 MG TAB PO SCH (07:44)
[2016-09-28] MEDS: CLOPIDOGREL 75 MG TAB PO SCH (07:44)
[2016-09-28] MEDS: METOPROLOL TARTRATE 25 MG TAB PO SCH ×2 (07:44→22:38)
[2016-09-28] MEDS: ACETAMINOPHEN/HYDROcodone 325 MG/5 MG TAB PO PRN ×2 (07:44→22:38)
[2016-09-28] MEDS: PANTOPRAZOLE SOD 40 MG DELAYED RELEASE TAB PO SCH (07:45)
[2016-09-28] MEDS: ENOXAPARIN SODIUM 40 MG/0.4 ML SYRINGE SQ SCH (07:45)
[2016-09-28] MEDS: LOSARTAN 25 MG TAB PO SCH (07:45)
[2016-09-28] MEDS: POTASSIUM CHLORIDE 20 MEQ CONTROLLED RELEASE TAB PO SCH (07:46)
--- NOTE | 2016-09-28 09:26 | HHI.PR ---
Subjective Remarks Follow-up for UTI. Discussed patient with RN who states the patient's oxygen saturation drops into the 80s on room air. Patient denies any chest pain, shortness of breath, dyspnea on exertion, cough, nausea, vomiting, diarrhea, constipation. Patient denies any known history of lung disease although she does have a history of cigarette smoking. Objective Vitals Vital Signs Date Time Temp Pulse Resp B/P Pulse Ox O2 Delivery O2 Flow Rate FiO2 09/28/16 04:00 98.1 74 24 137/84 97 09/28/16 04:00 74 09/28/16 00:00 98.2 70 20 137/62 09/28/16 00:00 70 09/27/16 22:42 26 09/27/16 20:00 75 09/27/16 20:00 98.1 75 22 145/65 75 09/27/16 19:29 93 Nasal Cannula 2.00 09/27/16 16:01 98.0 66 27 148/65 98 09/27/16 16:01 66 09/27/16 15:01 68 09/27/16 15:01 68 27 138/59 99 09/27/16 14:58 68 36 131/58 99 09/27/16 14:58 68 09/27/16 13:00 66 09/27/16 13:00 97.7 66 28 123/59 100 09/27/16 12:00 62 09/27/16 12:00 62 20 121/55 99 09/27/16 10:01 78 09/27/16 10:01 97.7 78 41 148/62 100 I/O 09/27/16 09/27/16 09/27/16 09/28/16 09/28/16 09/28/16 06:59 14:59 22:59 06:59 14:59 22:59 Intake Total 690 ml 240 ml 60 ml 0 ml Balance 690 ml 240 ml 60 ml 0 ml Intake Oral 360 ml 240 ml 60 ml 0 ml IV Total 330 ml # Voids 3 3 # Bowel Movements 0 1 Result Diagram: 09/27/167 09/27/16 0427 Imaging Last Impressions Chest X-Ray 09/27/16 1030 Signed Impressions: Service Date/Time: September 10:34 - CONCLUSION: No acute disease. Kranthi Nova MD Head CT 09/25/16 1808 Signed Impressions: Service Date/Time: Sunday, September 25, 2016 18:49 - CONCLUSION: Slight atrophic and small vessel ischemic changes without any evidence for acute hemorrhage or mass effect. Olvin Krishna MD Pelvis X-Ray 09/25/16 0000 Signed Impressions: Service Date/Time: Sunday, September 25, 2016 19:01 - CONCLUSION: No evidence of acute fracture for technique. Olvin Krishna MD Objective Remarks GENERAL: Elderly pleasant well-nourished, well-developed patient in no apparent distress. SKIN: Ecchymosis over bilateral dorsal forearms. CARDIOVASCULAR: Regular rate and rhythm. Murmur noted likely aortic stenosis. RESPIRATORY: No accessory muscle use. Clear to auscultation. Breath sounds equal bilaterally. O2 via NC. GASTROINTESTINAL: Abdomen soft, non-tender, nondistended. MUSCULOSKELETAL: No lower extremity edema bilaterally. NEUROLOGICAL: Awake and alert. Normal speech. PSYCHIATRIC: Appropriate mood and affect; insight and judgment normal. Urinary Catheter: No Vascular Central Line Catheter: No A/P Problem List: (1) inability to ambulate Status: Acute (2) UTI (urinary tract infection) ICD Code: N39.0 Status: Acute (3) DUC (acute kidney injury) ICD Code: N17.9 Status: Acute (4) Hypotension ICD Code: I95.9 Status: Resolved (5) Hypoxia ICD Code: R09.02 Status: Acute Assessment and Plan 75-year-old female with: Inability to ambulate: Patient had loss of balance and fall likely attributed to UTI. She denies any other associated symptoms prior to the fall. RN indicates the patient only required one person assist to get to the commode. The patient denies any further weakness. She does have some pain in her neck and coccyx from the fall. She informed the rn field case manager she had fallen twice prior to this hospitalization. -Tylenol for pain 1-5. Tenstrike 5/325 prn pain 6-10 added yesterday. -PT evaluated and recommends rehabilitation vs home health care PT. Patient states she has not been recently using a walker or cane but has used these in the past. Continue PT. UTI: UA with trace occult blood, moderate leukocyte esterase, 25-49 white blood cells and moderate bacteria indicating infection. Urine culture with Klebsiella Oxytoca susceptible to Cipro. White blood cell count normal. Patient afebrile. -Continue Cipro DUC: Improved. BUN/creatinine 46/1.6-->25/0.83 s/p IVF. -Repeat BMP today -Avoid nephrotoxins Hypotension: Resolved. Patient was initially hypotensive. She is on several blood pressure medications. Metoprolol and Losartan were reintroduced as BP was increasing yesterday. She received these medications at 0745 this morning and BP at 1000 is 152/72. -Restart home Amlodipine -Patient also on hydralazine at home but will continue to hold at this time. Hypoxia: Acute. Lung exam clear. Repeat chest x-ray yesterday personally interpreted and normal. Hypoxia occurred prior to starting Tenstrike. -Continue O2. Patient may have underlying undiagnosed COPD. -Walk test Hyperkalemia: 6.3 on initial lab but repeat was 4.5 without intervention. 4.8 this morning. This was likely not accurate. Anemia: Appears chronic. Hemoglobin stable at 9.1. No report of bleeding. Chronic medical problems include previous endarterectomy, hyperlipidemia, CHF: Continue home medications unless otherwise stated above. DVT prevention: TEDs/SCDs. Will avoid pharmacologic prophylaxis due to Plavix use and increased risk of bleeding with advanced age. Written by Karen Albarado PA-C acting as scribe for Dr. Ba on 09/28/16 at 0910. All or portions of this note were transcribed by scribe Karen Albarado PA-C. I , Dr. Andrey Ba personally performed the history, physical exam, and medical decision making; and confirmed the accuracy of the information in the transcribed note. Authenticated by Dr. Andrey Ba on 09/28/16 at 13:20. Discharge Planning Case management following. Plan is to send patient to [facility] once improved. Son unable to take care of patient at home per ALONSO. Karen Albarado Sep 28, 2016 09:26 Andrey Ba MD Sep 28, 2016 13:21
[2016-09-28 13:05] LABS: BICARBONATE 35.2 MEQ/L (21.0-32.0); POTASSIUM 5.1 MEQ/L (3.5-5.1)
[2016-09-28] MEDS: SODIUM CHLORIDE 0.9% FLUSH 10 ML FLUSH IV FLUSH SCH ×2 (15:52→21:00)
[2016-09-28] MEDS: PRAVASTATIN SOD 20 MG TAB PO SCH (22:38)
[2016-09-29 00:12] VITALS: BP 139/61; PULSE 80; RESP 14; TEMP 97.5; O2SAT 96
[2016-09-29 08:00] VITALS: BP 125/65; PULSE 73; RESP 18; TEMP 97.6; O2SAT 94
[2016-09-29] MEDS: FUROSEMIDE 20 MG TAB PO SCH (08:51)
[2016-09-29] MEDS: CLOPIDOGREL 75 MG TAB PO SCH (08:51)
[2016-09-29] MEDS: PANTOPRAZOLE SOD 40 MG DELAYED RELEASE TAB PO SCH (08:51)
[2016-09-29] MEDS: ENOXAPARIN SODIUM 40 MG/0.4 ML SYRINGE SQ SCH (08:51)
[2016-09-29] MEDS: SODIUM CHLORIDE 0.9% FLUSH 10 ML FLUSH IV FLUSH SCH (08:52)
[2016-09-29] MEDS: POTASSIUM CHLORIDE 20 MEQ CONTROLLED RELEASE TAB PO SCH (08:52)
[2016-09-29] MEDS: CIPROFLOXACIN 400 MG PREMIX 200 ML IV SCH (08:52)
[2016-09-29] MEDS: LOSARTAN 25 MG TAB PO SCH (08:52)
[2016-09-29] MEDS: DULoxetine HCl DR 30 MG CAP PO SCH (08:52)
[2016-09-29] MEDS: METOPROLOL TARTRATE 25 MG TAB PO SCH (08:52)
--- NOTE | 2016-09-29 10:36 | HHI.PR ---
Subjective Remarks This report is in ERROR Please disregard this report and all prior copies ! This report is in ERROR Please disregard this report and all prior copies ! This report is in ERROR Please disregard this report and all prior copies ! Objective Vitals Vital Signs Date Time Temp Pulse Resp B/P Pulse Ox O2 Delivery O2 Flow Rate FiO2 09/29/16 08:00 97.6 73 18 125/65 94 09/29/16 00:12 97.5 80 14 139/61 96 09/28/16 20:12 98.1 87 16 159/67 91 09/28/16 20:05 95 Nasal Cannula 2.00 09/28/16 15:20 98.0 77 18 132/68 96 09/28/16 12:00 72 09/28/16 12:00 98.0 72 41 134/63 I/O 09/28/16 09/28/16 09/28/16 09/29/16 09/29/16 09/29/16 07:00 15:00 23:00 07:00 15:00 23:00 Intake Total 0 ml Balance 0 ml Intake Oral 0 ml # Voids 2 2 Result Diagram: 09/27/16 0427 09/28/16 1212 Objective Remarks GENERAL: Elderly pleasant well-nourished, well-developed patient in no apparent distress. SKIN: Ecchymosis over bilateral dorsal forearms. CARDIOVASCULAR: Regular rate and rhythm. Murmur noted likely aortic stenosis. RESPIRATORY: No accessory muscle use. Clear to auscultation. Breath sounds equal bilaterally. O2 via NC. GASTROINTESTINAL: Abdomen soft, non-tender, nondistended. MUSCULOSKELETAL: No lower extremity edema bilaterally. NEUROLOGICAL: Awake and alert. Normal speech. PSYCHIATRIC: Appropriate mood and affect; insight and judgment normal. A/P Problem List: (1) inability to ambulate Status: Acute (2) UTI (urinary tract infection) ICD Code: N39.0 Status: Acute (3) DUC (acute kidney injury) ICD Code: N17.9 Status: Acute (4) Hypotension ICD Code: I95.9 Status: Resolved (5) Hypoxia ICD Code: R09.02 Status: Acute Discharge Planning Case management following. Plan is to send patient to [facility] once improved. Son unable to take care of patient at home per CM. Karen Albarado Sep 29, 2016 10:36 DUC: Improved. BUN/creatinine 46/1.6-->25/0.83 s/p IVF. -Repeat BMP today -Avoid nephrotoxins Hypotension: Resolved. Patient was initially hypotensive. She is on several blood pressure medications. Metoprolol and Losartan were reintroduced as BP was increasing yesterday. She received these medications at 0745 this morning and BP at 1000 is 152/72. -Restart home Amlodipine -Patient also on hydralazine at home but will continue to hold at this time. Hypoxia: Acute. Lung exam clear. Repeat chest x-ray yesterday personally interpreted and normal. Hypoxia occurred prior to starting [place]. -Continue O2. Patient may have underlying undiagnosed COPD. -Walk test Hyperkalemia: 6.3 on initial lab but repeat was 4.5 without intervention. 4.8 this morning. This was likely not accurate. Anemia: Appears chronic. Hemoglobin stable at 9.1. No report of bleeding. Chronic medical problems include previous endarterectomy, hyperlipidemia, CHF: Continue home medications unless otherwise stated above. DVT prevention: TEDs/SCDs. Will avoid pharmacologic prophylaxis due to Plavix use and increased risk of bleeding with advanced age. Written by Karen Albarado PA-C acting as scribe for Dr. Ba on 09/29/16 at 1035. Discharge Planning Case management following. Plan is to send patient to [facility] N&R once improved. Son unable to take care of patient at home per CM. Karen Albarado Sep 29, 2016 10:36
[2016-09-29 12:00] VITALS: BP 142/66; PULSE 80; RESP 16; TEMP 97.8; O2SAT 95
--- NOTE | 2016-09-29 12:24 | HHI.FF ---
Face to Face Verification Diagnosis: (1) inability to ambulate (2) UTI (urinary tract infection) (3) DUC (acute kidney injury) (4) Hypoxia (5) Hypotension Physical Therapy Order: Evaluate and Treat, Improve ambulation, Strength and gait training Home Health Nursing Order: Medical education Medication education-adverse effect Nursing assessment with vital signs Home Health Aide Order: To Assist In: Bathing and personal care, copra processor and meal prep Billing Coordinator Order: To Evaluate: Living conditions/environment, Support services I have seen patient Kanchan Roque on 09/29/16. My clinical findings support the need for the requested home health care services because: High risk of falls I certify that my clinical findings support that this patient is homebound because: Unsteady gait/balance Unsafe to leave home unassisted Karen Albarado Sep 29, 2016 12:24
--- NOTE | 2016-09-29 13:41 | HHI.DCPOC ---
Discharge Care Plan Diagnosis: (1) inability to ambulate (2) UTI (urinary tract infection) (3) DUC (acute kidney injury) (4) Hypotension (5) Hypoxia Goals to Promote Your Health * To prevent worsening of your condition and complications * To maintain your health at the optimal level Directions to Meet Your Goals Take your medications as prescribed Follow your dietary instruction Follow activity as directed Keep your appointments as scheduled Take your immunizations and boosters as scheduled If your symptoms worsen call your PCP, if no PCP go to Urgent Care Center or Emergency Room Smoking is Dangerous to Your Health. Avoid second hand smoke Call the 24-hour hour crisis hotline for domestic abuse at Karen Albarado Sep 29, 2016 13:41
--- NOTE | 2016-09-29 18:29 | HHI.DS ---
cc: Karis Roblero MD Discharge Summary Admission Date Sep 25, 2016 at 21:19 Discharge Date: Sep 29, 2016 Admitting Diagnosis UTI, generalized weakness, inability to ambulate, dehydration (1) inability to ambulate Diagnosis: Principal (2) UTI (urinary tract infection) ICD Code: N39.0 Diagnosis: Principal (3) DUC (acute kidney injury) ICD Code: N17.9 Diagnosis: Principal (4) Hypotension ICD Code: I95.9 Diagnosis: Principal (5) Hypoxia ICD Code: R09.02 Diagnosis: Principal Procedures None Brief History - From Admission 75-year-old female with history of carotid endarterectomy on Plavix, hyperlipidemia, hypertension, CHF, diet-controlled diabetes, GERD, arthritis, anxiety and depression is admitted for inability to ambulate. The patient was recently admitted on 08/23/16 for septic shock and UTI. The patient apparently at that time had been lethargic and unable to protect her airway and required intubation. When she was discharged she went to a rehabilitation facility and according to RN was only released a few days ago. The patient states she was at her primary care physician's office yesterday when she moved backward and slid down falling onto her buttocks. She states she lost her balance and denies any syncope, lightheadedness, or dizziness prior to the fall. She denies any altered speech, numbness/tingling, or focal extremity weakness. She states she had a headache after the fall, but denies any head injury. She denies any chest pain or shortness of breath at that time. Denies any abdominal pain, nausea, vomiting, diarrhea, or constipation. She denies any dysuria, increased urgency or frequency of urination, or hematuria. She did have chills yesterday. Denies any fevers, cold or cough symptoms. She initially denied any neck or back pain but upon movement on exam she states she has pain in the paracervical region and coccyx. RN states patient has-been sleepy but according to family this is her norm. CBC/BMP: 09/27/16 0427 09/28/16 1212 Significant Findings Laboratory Tests Test 3/23/17 3/24/17 04:27 12:12 Red Blood Count 3.66 MIL/MM3 (4.00-5.30) Hemoglobin 9.1 GM/DL (11.6-15.3) Hematocrit 28.8 % (35.0-46.0) Mean Corpuscular Volume 78.6 FL (80.0-100.0) Mean Corpuscular Hemoglobin 24.9 PG (27.0-34.0) Mean Corpuscular Hemoglobin 31.7 % Concent (32.0-36.0) Red Cell Distribution Width 18.0 % (11.6-17.2) Monocytes (%) (Auto) 12.0 % (0.0-8.0) Blood Urea Nitrogen 25 MG/DL (7-18) Estimat Glomerular Filtration 67 ML/MIN (>89) 75 ML/MIN (>89) Rate Chloride Level 97 MEQ/L (98-107) Carbon Dioxide Level 35.2 MEQ/L (21.0-32.0) Imaging Last Impressions Chest X-Ray 09/27/16 1030 Signed Impressions: Service Date/Time: September 10:34 - CONCLUSION: No acute disease. Kranthi Nova MD Head CT 09/25/16 1808 Signed Impressions: Service Date/Time: Sunday, September 25, 2016 18:49 - CONCLUSION: Slight atrophic and small vessel ischemic changes without any evidence for acute hemorrhage or mass effect. Olvin Krishna MD Pelvis X-Ray 09/25/16 0000 Signed Impressions: Service Date/Time: Sunday, September 25, 2016 19:01 - CONCLUSION: No evidence of acute fracture for technique. Olvin Krishna MD PE at Discharge GENERAL: Elderly pleasant well-nourished, well-developed patient in no apparent distress. CARDIOVASCULAR: Regular rate and rhythm. Murmur noted. RESPIRATORY: No accessory muscle use. Clear to auscultation. Breath sounds equal bilaterally. GASTROINTESTINAL: Abdomen soft, non-tender, nondistended. MUSCULOSKELETAL: No lower extremity edema bilaterally. NEUROLOGICAL: Awake and alert. Normal speech. PSYCHIATRIC: Appropriate mood and affect; insight and judgment normal. Pt update on day of discharge Patient evaluated this morning. No acute complaints. Hospital Course 75-year-old female had loss of balance and fall. She was found to have a UTI and was treated with IV Cipro. Patient additionally was found have acute kidney injury which improved with IV fluids. She was initially hypotensive but her home medications were gradually introduced as her blood pressure started to elevate. Her hydralazine was never restarted as her BP was stable without it and there is concern that the patient may have been taking too many blood pressure medications which may have caused her to fall although she states she just lost her balance and denies any pre-syncopal symptoms. She did experience some muscular pain in her neck and pain over the coccyx from the fall and was treated with Tylenol and [place]. Patient was found to be hypoxic on a couple occasions prior to ever starting [place] and required O2 via nasal cannula. The patient has no known lung disease but does have a history of cigarette smoking so likely has underlying COPD. Chest x-ray was performed without acute abnormality. A walk test was performed and the patient did well and did not require oxygen. Patient denied dyspnea at any point time. Patient improved and denied further weakness. Initially we were trying to place the patient at a rehabilitation facility because we were informed that the son was unable to take care of the patient and PT recommended rehabilitation versus home health care. Upon PT's evaluation of the patient yesterday, rehabilitation is not recommended. The sample case porter brought to our attention that there was a possible DCF involvement regarding the patient's home situation but this was not confirmed. It is felt the patient is safe to return home to live with her son and the sample case porter will arrange for social work administrator to evaluate her living condition. [facility] nursing, PT, aide, and social work administrator to be arranged prior to discharge. Patient received 7 doses of IV Cipro which is likely adequate for the patient's UTI. She will not be discharged on antibiotics. Pt Condition on Discharge: Fair Discharge Disposition: Disch w/ Home Health Serv Discharge Time: <= 30 minutes Discharge Instructions DIET: Follow Instructions for: Heart Healthy Diet, Diabetic Diet, Gastroesophageal Reflux Activities you can perform: See Additionl Instruction Activities to Avoid: Driving Other Activity Instructions: Use walker to ambulate Follow up Referrals: PCP Follow-up - 2-3 Days with Karis Roblero MD Continued Medications: Allopurinol (Allopurinol) 100 Mg Tab 100 MG PO DAILY Gout #30 Ref 0 TAB Alprazolam (Xanax) 0.25 Mg Tab 0.125 MG PO Q12HR PRN ANXIETY #10 TAB Amlodipine (Norvasc) 10 Mg Tab 10 MG PO DAILY Blood Pressure Management Days [address] (Alexandra Aspirin EC Low Dose) 81 Mg Tabdr Clopidogrel (Clopidogrel) 75 Mg Tab 75 MG PO DAILY Blood Clot Prevention #30 Ref [address] (Dul[address]etine DR) 30 Mg Capdr 30 MG PO DAILY #30 Ref 0 CAP Furosemide (Furosemide) 20 Mg Tab 20 MG PO DAILY CARD #30 TAB Losartan (Cozaar) 25 Mg Tab 25 MG PO DAILY Blood Pressure Management Days 30 TAB Metoprolol Tartrate (Metoprolol Tartrate) 25 Mg Tab 75 MG PO Q12HR Blood Pressure Management Days 30 TAB Pantoprazole (Pantoprazole) 40 Mg Tab 40 MG PO DAILY GI #30 TAB Potassium Chloride ER (Potassium Chloride ER) 20 Meq Tab 20 MEQ PO DAILY Electrolyte Replacement #30 Ref 0 TAB Pravastatin (Pravastatin) 20 Mg Tab 20 MG PO DAILY Cholesterol Management #30 Ref 0 TAB Discontinued Medications: Colchicine (Colchicine) 0.6 Mg Tab 0.4 MG PO DAILY gout Days 30 TAB Hydralazine (Hydralazine) 50 Mg Tab 50 MG PO Q8HR Blood Pressure Management Days 30 TAB Hydrocodone-Acetaminophen (Hydrocodone-Acetaminophen) 5-325 mg Tab 1 TAB PO Q8HR PRN pain #20 TAB Additional Information Written by Karen Albarado PA-C acting as scribe for Dr. Ba on 09/29/16 at 1035. All or portions of this note were transcribed by scribe Karen Albarado PA-C. I , Dr. Andery Ba personally performed the history, physical exam, and medical decision making; and confirmed the accuracy of the information in the transcribed note. Authenticated by Dr. Andrey Ba on 09/30/16 at 07:33. Karen Albarado Sep 29, 2016 18:29 Andrey Ba MD Sep 30, 2016 07:33
== END 2016-09-29 15:30 | disposition home or self-care (01) ==
LOC: PHEFT 15:58 → PHEDA 21:19 → PHICU 09-26 00:02 → PH3B 09-28 13:09
PROVIDERS: ADMIT Family Medicine; ATTEND Family Medicine
DX: N39.0 Urinary tract infection, site not specified (principal); N17.9 Acute kidney failure, unspecified; K21.9 Gastro-esophageal reflux disease without esophagitis; E78.5 Hyperlipidemia, unspecified; E11.9 Type 2 diabetes mellitus without complications; M19.90 Unspecified osteoarthritis, unspecified site; I11.0 Hypertensive heart disease with heart failure; I50.9 Heart failure, unspecified; B96.1 Klebsiella pneumoniae [K. pneumoniae] as the cause of diseases classified elsewhere; E87.5 Hyperkalemia; D64.9 Anemia, unspecified; I48.91 Unspecified atrial fibrillation; E78.00 Pure hypercholesterolemia, unspecified; R09.02 Hypoxemia; M79.7 Fibromyalgia; F32.9 Major depressive disorder, single episode, unspecified; H91.90 Unspecified hearing loss, unspecified ear; Z79.02 Long term (current) use of antithrombotics/antiplatelets; Z86.73 Personal history of transient ischemic attack (TIA), and cerebral infarction without residual deficits; Z87.891 Personal history of nicotine dependence; W01.0XXA Fall on same level from slipping, tripping and stumbling without subsequent striking against object, initial encounter; Z87.01 Personal history of pneumonia (recurrent)
CPT/HCPCS: 70450; 71010; 72170; 80048; 80053; 81001; 82550; 82552; 83605; 83735; 84132; 84484; 85025; 85610; 85730; 87040; 87077; 87086; 87186; 93005; 94620; 96361; 96365; G0378; G8987-GP; G8988-GP; J0744; J1650; J2543; J7030; J7040

== ENCOUNTER 2016-10-07 18:03 | Inpatient (IN) | payer OTHER, MEDICARE ==
[~2016-10-07] VITALS: Ht 165.1 cm; Wt 62.2 kg
[~2016-10-07 18:03] MED LIST changes: -COLC1TAB15 PO; -HYDR-3516 PO; -HYDR50TA15 PO; -IPRASOL INH
[2016-10-07 18:08] VITALS: BP 136/87; PULSE 89; RESP 24; TEMP 98.7; O2SAT 86
[2016-10-07] MEDS ORDERED: FUROSEMIDE 100 MG/10 ML VIAL IVP ONE (18:30)
[2016-10-07] MEDS ORDERED: SODIUM CHLORIDE 0.9% FLUSH 10 ML FLUSH IVF PRN (18:30)
--- NOTE | 2016-10-07 18:32 | PD ---
HPI . Shortness of breath Chief Complaint: Respiratory Symptoms Time Seen by Provider: 18:17 Travel History International Travel<30 days: No Contact w/Intl Traveler<30days: No Traveled to known affect area: No History of Present Illness HPI Patient presents with shortness of breath which started yesterday. It has been getting progressively worse since that time. She noticed orthopnea today. She denies any chest pain. She denies fever. She denies sputum production. She does state that she has some nausea. Patient states that she was recently hospitalized her UTI and was on oxygen the entire time that she was here. She states that she is not sure why she needed oxygen while she was here. She denies any history of asthma or emphysema. She also denies any history of CHF. On review of her record, she was on oxygen. She does have a history of CHF. She has no proven history of COPD but is a smoker. Therefore, the diagnosis of COPD was entertained. She did pass a walking test prior to discharge and was discharged to home off of oxygen. [id number]: Chest DURATION: 24 hour TIMING: Gradually worsening CONTEXT: History of CHF although the patient denies this MODIFYING FACTORS: Exacerbated by laying down ASSOCIATED SYMPTOMS: Nausea PFSH Past Medical History Hx Anticoagulant Therapy: Yes (PLAVIX) Arthritis: Yes Asthma: No Autoimmune Disease: Yes (FIBROMYALGIA) Blood Disorders: No Anxiety: Yes Depression: Yes (MILD DEPRESSION) Heart Rhythm Problems: Yes (TACHYCARDIA/AFIB) Cancer: No Cardiac Catheterization: Yes (1989) Cardiovascular Problems: Yes High Cholesterol: Yes Chemotherapy: No Chest Pain: No Congestive Heart Failure: Yes COPD: No Cerebrovascular Accident: Yes Diabetes: Yes Patient Takes Glucophage: Yes Diminished Hearing: Yes (DIMINISHED) Endocrine: Yes Fibromyalgia: Yes Gastrointestinal Disorders: Yes (GERD, ABDOMINAL PAIN) GERD: Yes (GERD) Genitourinary: No Headaches: No Hiatal Hernia: No Heparin Induced Thrombocytopen: No Hypertension: Yes Immune Disorder: Yes Implanted Vascular Access Dvce: No Musculoskeletal: Yes ("TORN MUSCLE L.KNEE", FRACTURED L3 L4 L5 06/15., arthritis,) Neurologic: Yes (FIBROMYALGIA, ENCEPHALOPATHY, CVA) Psychiatric: Yes (PANIC ATTACKS) Reproductive: Yes (HYSTERECTOMY DUE TO BLEEDING INTO PERITONEAL CAVITY) Respiratory: Yes (PNEUMONIA) Immunizations Current: No Migraines: No Pancreatitis: Yes Seizures: No Sickle Cell Disease: No Sleep Apnea: No Thyroid Disease: No Ulcer: No ?: Not Menopausal: Yes : 3 Para: 2 Miscarriage: 1 Past Surgical History Abdominal Surgery: No AICD: No Appendectomy: Yes (1975) Arteriovenous Shunt: No Cardiac Surgery: Yes (L ENDARDECTOMY ) Coronary Artery Bypass Graft: No Ear Surgery: No Endocrine Surgery: No Eye Surgery: Yes (BL CATARACT REMOVAL) Genitourinary Surgery: No Gynecologic Surgery: Yes (HYSTERECTOMY 1975) Hysterectomy: Yes Insulin Pump: No Neurologic Surgery: No Oral Surgery: No Pacemaker: No Thoracic Surgery: No Other Surgery: Yes (HYSTERECTOMY, LEFT & RIGHT CAROTID ARTERY REPAIR) Family History Family Myocardial Infarction: Yes (DAD) Social History Alcohol Use: Yes (OCCAS.) Tobacco Use: No Substance Use: No Allergies-Medications (Allergen,Severity, Reaction): Coded Allergies: Contrast Media (Verified Allergy, Severe, "throat closes up", 10/07/16) states that reaction used to occur but no longer does Keflex (Verified Adverse Reaction, Severe, "burning sensation,body red", ) *MDRO Multi-Drug Resistant Organism (Verified Adverse Reaction, Unknown, VRE, ESBL, 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/16) Reported Meds & Prescriptions Reported Meds & Active Scripts Active Xanax (Alprazolam) 0.25 Mg Tab 0.125 Mg PO Q12HR PRN Potassium Chloride ER (Potassium Chloride) 20 Meq Tab 20 Meq PO DAILY Cozaar (Losartan Potassium) 25 Mg Tab 25 Mg PO DAILY 30 Days Norvasc (Amlodipine Besylate) 10 Mg Tab 10 Mg PO DAILY 30 Days Metoprolol Tartrate 25 Mg Tab 75 Mg PO Q12HR 30 Days Pantoprazole (Pantoprazole Sodium) 40 Mg Tab 40 Mg PO DAILY Furosemide 20 Mg Tab 20 Mg PO DAILY Reported Allopurinol 100 Mg Tab 100 Mg PO DAILY Clopidogrel (Clopidogrel Bisulfate) 75 Mg Tab 75 Mg PO DAILY Pravastatin 20 Mg Tab 20 Mg PO DAILY Alexandra Aspirin EC Low Dose (Aspirin) [address] (Duloxetine HCl) 30 Mg Capdr 30 Mg PO DAILY Review of Systems Except as stated in HPI: all other systems reviewed are Neg General / Constitutional: No: Fever, Chills Cardiovascular: No: Chest Pain or Discomfort, Dyspnea on exertion, Edema Respiratory: Positive: Cough, Shortness of Breath, Orthopnea Gastrointestinal: Positive: Nausea, No: Vomiting, Diarrhea Genitourinary: No: Urgency, Frequency, Dysuria Physical Exam Narrative GENERAL: Patient is awake and alert and in no acute distress. SKIN: Warm and dry. HEAD: Atraumatic. Normocephalic. EYES: Pupils equal and round. Extraocular movements are intact. ENT: No nasal bleeding or discharge. Mucous membranes pink and moist. NECK: Trachea midline. Neck is supple. She does have worst compatible with bilateral endarterectomy. CARDIOVASCULAR: Regular rate and rhythm. Heart sounds are normal. RESPIRATORY: No accessory muscle use. Lungs have diffuse rales GASTROINTESTINAL: Abdomen soft, non-tender, nondistended. MUSCULOSKELETAL: No obvious deformities. No edema. NEUROLOGICAL: Awake and alert. No obvious cranial nerve deficits. Motor grossly within normal limits. Normal speech. PSYCHIATRIC: Appropriate mood and affect; insight and judgment normal. Data Data Last Documented VS Vital Signs Date Time Temp Pulse Resp B/P Pulse Ox O2 Delivery O2 Flow Rate FiO2 10/07/16 19:14 56 18 137/60 94 Nasal Cannula 3 10/07/16 18:08 98.7 Orders Complete Blood Count With Diff (10/07/16 18:21) Comprehensive Metabolic Panel (10/07/16 18:21) B-Type Natriuretic Peptide (10/07/16 18:21) Magnesium (Mg) (10/07/16 18:21) Ckmb (Isoenzyme) Profile (10/07/16 18:21) Troponin I (10/07/16 18:21) Urinalysis - C+S If Indicated (10/07/16 18:21) Iv Access Insert/Monitor (10/07/16 18:21) Electrocardiogram (10/07/16 18:21) Ecg Monitoring (10/07/16 18:21) Oximetry (10/07/16 18:21) Oxygen Administration (10/07/16 18:21) Chest, Single Ap (10/07/16 18:21) Sodium Chloride 0.9% Flush (Ns Flush) (10/07/16 18:30) Furosemide Inj (Lasix Inj) (10/07/16 18:30) Nitroglycerin 2% Oint (Nitroglycerin 2% (10/07/16 19:30) Labs Laboratory Tests Test 10/07/16 10/07/16 18:25 19:00 White Blood Count 13.0 TH/MM3 Red Blood Count 4.42 MIL/MM3 Hemoglobin 11.0 GM/DL Hematocrit 34.2 % Mean Corpuscular Volume 77.4 FL Mean Corpuscular Hemoglobin 24.9 PG Mean Corpuscular Hemoglobin 32.2 % Concent Red Cell Distribution Width 17.9 % Platelet Count 316 TH/MM3 Mean Platelet Volume 8.2 FL Neutrophils (%) (Auto) 79.2 % Lymphocytes (%) (Auto) 14.0 % Monocytes (%) (Auto) 6.3 % Eosinophils (%) (Auto) 0.2 % Basophils (%) (Auto) 0.3 % Neutrophils # (Auto) 10.4 TH/MM3 Lymphocytes # (Auto) 1.8 TH/MM3 Monocytes # (Auto) 0.8 TH/MM3 Eosinophils # (Auto) 0.0 TH/MM3 Basophils # (Auto) 0.0 TH/MM3 CBC Comment AUTO DIFF Differential Comment AUTO DIFF CONFIRMED Platelet Estimate NORMAL Platelet Morphology Comment NORMAL Sodium Level 137 MEQ/L Potassium Level 4.8 MEQ/L Chloride Level 99 MEQ/L Carbon Dioxide Level 28.5 MEQ/L Anion Gap 10 MEQ/L Blood Urea Nitrogen 32 MG/DL Creatinine 1.00 MG/DL Estimat Glomerular Filtration 54 ML/MIN Rate Random Glucose 130 MG/DL Calcium Level 9.0 MG/DL Magnesium Level 2.2 MG/DL Total Bilirubin 0.2 MG/DL Aspartate Amino Transf 11 U/L (AST/SGOT) Alanine Aminotransferase 13 U/L (ALT/SGPT) Alkaline Phosphatase 120 U/L Total Creatine Kinase 17 U/L Troponin I LESS THAN 0.02 NG/ML B-Type Natriuretic Peptide 530 PG/ML Total Protein 7.9 GM/DL Albumin 3.5 GM/DL Urine Collection Type CLEAN CATCH Urine Color YELLOW Urine Turbidity CLEAR Urine pH 5.5 Urine Specific [place] 1.007 Urine Protein NEG mg/dL Urine Glucose (UA) NEG mg/dL Urine Ketones NEG mg/dL Urine Occult Blood NEG Urine Nitrite NEG Urine Bilirubin NEG Urine Leukocyte Esterase NEG Urine RBC 0-3 /hpf Urine WBC 0-2 /hpf Urine Squamous Epithelial 0-5 /hpf Cells Urine Hyaline Casts 3-5 /lpf Urine Mucus OCC /lpf Microscopic Urinalysis Comment CULT NOT INDICATED MDM Medical Decision Making Medical Screen Exam Complete: Yes Emergency Medical Condition: Yes Medical Record Reviewed: Yes (please see the history of present illness for, is reporting her recent medical records) Interpretation(s) EKG shows a sinus rhythm with a ventricular rate of 58. No ST segment elevation or depression. Differential Diagnosis Differential diagnosis of dyspnea includes but is not limited to congestive heart failure, pneumonia, wheezing, pneumothorax, pulmonary embolism Narrative Course Patient presents with dyspnea. O2 sats are in the high 80s on room air. She has rales on exam. I will go ahead and give her a dose of Lasix while awaiting her workup. Chest x-ray to my interpretation shows pulmonary edema. I have added Nitropaste to her meds. She already takes aspirin daily. CBC & BMP Diagram 10/07/16 18:25 BNP is 530. Cardiac enzymes are negative. Last Impressions Chest X-Ray 10/07/16 1821 Signed Impressions: Service Date/Time: Friday, October 07, 2016 18:37 - CONCLUSION: 1. Basilar and perihilar airspace disease which has developed since prior exam. This may represent mild congestive heart failure. Delvin Arauz MD Physician Communication Physician Communication Dr. Lucas will admit. Diagnosis Primary Impression: Pulmonary edema Qualified Code: J81.0 - Acute pulmonary edema Admitting Information Admitting Physician Requests: Admit Condition: Stable Ana Finn MD Oct 07, 2016 18:32
[2016-10-07 18:40] VITALS: RESP 17; O2SAT 96
[2016-10-07 18:40] LABS: AUTOMATED NEUTROPHIL # 10.4 TH/MM3 (1.8-7.7); BASOPHIL % 0.3 % (0.0-2.0); EOSINOPHIL % 0.2 % (0.0-4.0); HEMATOCRIT 34.2 % (35.0-46.0); LYMPHOCYTE # 1.8 TH/MM3 (1.0-4.8); MEAN CELL VOLUME 77.4 FL (80.0-100.0); MEAN CORPUSCULAR HEMOGLOBIN 24.9 PG (27.0-34.0); MEAN CORPUSCULAR HGB CONC 32.2 % (32.0-36.0); MONO % 6.3 % (0.0-8.0); NEUT % 79.2 % (16.0-70.0); PLATELET COUNT 316 TH/MM3 (150-450); RED BLOOD COUNT 4.42 MIL/MM3 (4.00-5.30); RED CELL DISTRIBUTION WIDTH 17.9 % (11.6-17.2)
[2016-10-07 18:50] LABS: CHLORIDE 99 MEQ/L (98-107); POTASSIUM 4.8 MEQ/L (3.5-5.1); SODIUM (NA) 137 MEQ/L (136-145)
[2016-10-07 18:53] LABS: ANION GAP 10 MEQ/L (5-15); BICARBONATE 28.5 MEQ/L (21.0-32.0); BLOOD UREA NITROGEN 32 MG/DL (7-18); MAGNESIUM 2.2 MG/DL (1.5-2.5)
[2016-10-07 18:54] LABS: HEMO FLAGS AUTO DIFF
[2016-10-07 18:56] LABS: ALT (GPT) 13 U/L (10-53); AST (GOT) 11 U/L (15-37); GLOMERULAR FILTRATION RATE 54 ML/MIN (>89)
[2016-10-07 18:58] LABS: TOTAL BILIRUBIN ADULT 0.2 MG/DL (0.2-1.0)
[2016-10-07 18:59] LABS: ALKALINE PHOSPHATASE 120 U/L (45-117)
[2016-10-07 19:14] VITALS: BP 137/60; PULSE 56; RESP 18; O2SAT 94
[2016-10-07 19:14] LABS: BLOOD, URINE NEG (NEG); GLUCOSE,URINE NEG (NEG); KETONE, URINE NEG (NEG); NITRITE,URINE NEG (NEG); PH, URINE 5.5 (5.0-8.5)
[2016-10-07 19:17] LABS: CREATINE KINASE 17 U/L (26-192)
[2016-10-07 19:19] LABS: PLATELET ESTIMATE SMEAR NORMAL (NORMAL); PLATELET MORPHOLOGY NORMAL (NORMAL); SCAN/DIFF AUTO DIFF CONFIRMED
--- NOTE | 2016-10-07 19:24 | RADHPO ---
EXAM DATE/TIME: 10/07/2016 18:37 [facility] COMPARISON: CHEST SINGLE AP, September 27, 2016, 10:34. INDICATIONS : Short of breath, cough MEDICAL HISTORY : Congestive heart failure. Cardiovascular disease. Hypertension. SURGICAL HISTORY : None. ENCOUNTER: Initial ACUITY: 1 day PAIN SCORE: 0/10 LOCATION: Bilateral chest FINDINGS: A single view of the chest demonstrates bilateral mostly basilar and perihilar airspace disease which has developed since September 27. No pneumothorax. No significant effusion. CONCLUSION: 1. Basilar and perihilar airspace disease which has developed since prior exam. This may represent mi ld congestive heart failure. Delvin Arauz MD on October 07, 2016 at 19:22 Board Certified Radiologist. This report was verified electronically.
[2016-10-07] MEDS ORDERED: NITROGLYCERIN 2% OINT 1 GM PACKET TOPICAL ONE (19:30)
[2016-10-07 19:32] LABS: METHOD OF COLLECTION CLEAN CATCH; URINE COLOR YELLOW (YELLW/STRAW)
[2016-10-07 19:33] LABS: SQUAMOUS EPITHELIAL CELL URINE 0-5 /hpf (0-5)
[2016-10-07 19:34] LABS: MUCUS URINE OCC /lpf (OCC); WBC, URINE 0-2 /hpf (0-5)
[2016-10-07 19:37] LABS: COMMENT (UR) CULT NOT INDICATED; CULTURE IF INDICATED CULT NOT INDICATED; RBC, URINE 0-3 /hpf (0-3)
[2016-10-07] MEDS ORDERED: ACETAMINOPHEN/HYDROcodone 325 MG/5 MG TAB PO PRN (20:00)
[2016-10-07] MEDS ORDERED: SODIUM CHLORIDE 0.9% FLUSH 10 ML FLUSH IV FLUSH PRN (20:00)
[2016-10-07] MEDS ORDERED: NITROGLYCERIN 2% OINT 1 GM PACKET TOPICAL PRN (20:00)
[2016-10-07] MEDS ORDERED: ONDANSETRON HCL 4 MG/2 ML VIAL IVP PRN (20:00)
[2016-10-07] MEDS ORDERED: RESP: ALBUTEROL 2.5 MG/IPRATROPIUM 0.5 MG NEB (PRN) NEB (20:00)
[2016-10-07] MEDS ORDERED: BISACODYL 10 MG SUPP RECTAL PRN (20:00)
[2016-10-07] MEDS ORDERED: ALPRAZolam 0.25 MG TAB PO PRN (20:00)
[2016-10-07] MEDS ORDERED: MORPHINE SULFATE 4 MG/ML INJ IV PRN (20:00)
[2016-10-07] MEDS ORDERED: ACETAMINOPHEN 325 MG TAB PO PRN (20:00)
[2016-10-07 21:36] VITALS: BP 128/50; PULSE 60; RESP 18; O2SAT 94
[2016-10-07] MEDS: SODIUM CHLORIDE 0.9% FLUSH 10 ML FLUSH IV FLUSH SCH (21:47)
[2016-10-07] MEDS: METOPROLOL TARTRATE 25 MG TAB PO SCH (21:47)
[2016-10-07 23:38] VITALS: BP 132/58; PULSE 66; RESP 18; O2SAT 94
[2016-10-08] VITALS (20 sets, daily range): BP systolic 78–147; BP diastolic 37–70; PULSE 58–88; RESP 18–32; TEMP 97.3–98.4; O2SAT 91–99
[2016-10-08 08:11] LABS: AUTOMATED NEUTROPHIL # 4.7 TH/MM3 (1.8-7.7); BASOPHIL % 0.4 % (0.0-2.0); EOSINOPHIL % 0.3 % (0.0-4.0); HEMATOCRIT 32.2 % (35.0-46.0); LYMPH % 30.4 % (9.0-44.0); LYMPHOCYTE # 2.3 TH/MM3 (1.0-4.8); MEAN CELL VOLUME 78.1 FL (80.0-100.0); MEAN CORPUSCULAR HEMOGLOBIN 24.5 PG (27.0-34.0); MEAN CORPUSCULAR HGB CONC 31.4 % (32.0-36.0); MONO % 8.7 % (0.0-8.0); NEUT % 60.2 % (16.0-70.0); PLATELET COUNT 248 TH/MM3 (150-450); RED BLOOD COUNT 4.12 MIL/MM3 (4.00-5.30); RED CELL DISTRIBUTION WIDTH 18.1 % (11.6-17.2); WHITE BLOOD COUNT 7.7 TH/MM3 (4.0-11.0)
[2016-10-08 08:15] LABS: HEMO FLAGS DIFF FINAL
[2016-10-08] MEDS: ASPIRIN EC 81 MG TABEC PO SCH (08:27)
[2016-10-08] MEDS: PANTOPRAZOLE SOD 40 MG DELAYED RELEASE TAB PO SCH (08:27)
[2016-10-08] MEDS: FUROSEMIDE 20 MG TAB PO SCH (08:27)
[2016-10-08] MEDS: ALLOPURINOL 100 MG TAB PO SCH (08:27)
[2016-10-08] MEDS: DULoxetine HCl DR 30 MG CAP PO SCH (08:28)
[2016-10-08] MEDS: PRAVASTATIN SOD 20 MG TAB PO SCH (08:28)
[2016-10-08] MEDS: SODIUM CHLORIDE 0.9% FLUSH 10 ML FLUSH IV FLUSH SCH ×2 (08:28→21:00)
[2016-10-08] MEDS: CLOPIDOGREL 75 MG TAB PO SCH (08:28)
[2016-10-08] MEDS: METOPROLOL TARTRATE 25 MG TAB PO SCH ×2 (08:29→21:00)
[2016-10-08 08:38] LABS: CHLORIDE 98 MEQ/L (98-107); POTASSIUM 4.6 MEQ/L (3.5-5.1); SODIUM (NA) 140 MEQ/L (136-145)
[2016-10-08 08:43] LABS: ANION GAP 7 MEQ/L (5-15); BICARBONATE 35.3 MEQ/L (21.0-32.0); BLOOD UREA NITROGEN 31 MG/DL (7-18)
[2016-10-08 08:46] LABS: ALT (GPT) 11 U/L (10-53); AST (GOT) 9 U/L (15-37); GLOMERULAR FILTRATION RATE 48 ML/MIN (>89)
[2016-10-08 08:49] LABS: ALKALINE PHOSPHATASE 104 U/L (45-117)
[2016-10-08 08:53] LABS: TOTAL BILIRUBIN ADULT 0.4 MG/DL (0.2-1.0)
--- NOTE | 2016-10-08 09:04 | HHI.HP ---
[facility] Primary [facility] Physician Karis Roblero MD Admission Diagnosis chf Diagnoses: (1) Dyspnea Diagnosis: Secondary (2) CHF (congestive heart failure) Diagnosis: Principal (3) Weakness generalized Chief Complaint: Ongoing dyspnea and orthopnea with associated cough Travel History International Travel<30 Days: No Contact w/Intl Traveler <30 Da: No Traveled to Known Affected Are: No History of Present Illness Ms. Roque is a 75-year-old female with a known extensive history of congestive heart failure, hypertension, hyperlipidemia, COPD, history of right carotid endarterectomy on Plavix, multiple falls, tobacco abuse and multiple hospitalizations. Patient had presented to the ED with complaints of worsening shortness of breath for the past three days with associated dry cough. She said she initially thought it was associated with her seasonal allergies but does admit the shortness of breath worsening with exertion and eventually affected her day to day activities. Patient admits to using an additional pillow to sleep at night in order to relieve the orthopnea. Patient has recognized increased swelling in her lower extremities on and off. Does admit to some nausea without vomiting. Denies any chest pain, fever, chills, or diarrhea. Patient also denies drinking any excessive fluids, is compliant with medications and denies any excessive sodium intake. Does admit to continuing tobacco use. At this time, patient is lying comfortably in bed in no apparent distress. Patient is awake and alert, oriented to self and time, with some confusion to situation. She does admit to feeling much better since presentation and "just wants to figure out what is wrong with her". Afebrile at this time. Vitals stable. CXR showing basilar and perihilar airspace disease indicative of mild congestive heart failure. BNP 530. Per medical records patient was admitted early last year with a prolonged hospitalization due to a fall, complicated by pseudomembranous colitis, aspiration pneumonia and need for intubation and eventual tracheostomy and PEG placement. Furthermore, in July of this year she presented with similar symptoms of shortness of breath at rest, requiring hospitalization. Another hospitalization is noted in August for fall, septic shock and UTI requiring another intubation. Additionally, in September patient was admitted after loosing her balance and falling in her PCP's office. She was eventually discharged home with her son, roommate, and home health care. Review of Systems Endocrine: DENIES: Abnorml menstrual pattern, Heat/cold intolerance, Polydipsia , Polyuria, Polyphagia Eyes: DENIES: Blurred vision, Diplopia, Eye inflammation, Eye pain, Vision loss , Photosensitivity, Double Vision Ears, nose, mouth, throat: DENIES: Tinnitus, Hearing loss, Vertigo, Nasal discharge, Oral lesions, Throat pain, Hoarseness, Ear Pain, Running Nose, Epistaxis, Sinus Pain, Toothache, Odynophagia Respiratory: COMPLAINS OF: Cough, Shortness of breath, DENIES: Apneas, Snoring , Wheezing, Hemoptysis, Sputum production Cardiovascular: COMPLAINS OF: Dyspnea on Exertion, Lower Extremity Edema, Orthopnea Gastrointestinal: DENIES: Abdominal pain, Black stools, Bloody stools, Constipation, Diarrhea, Nausea, Vomiting, Difficulty Swallowing, Anorexia Genitourinary: DENIES: Abnormal vaginal bleeding, Dysmenorrhea, Dyspareunia, Sexual dysfunction, Urinary frequency, Urinary incontinence, Urgency, Hematuria , Dysuria, Nocturia, Vaginal discharge Musculoskeletal: DENIES: Joint pain, Muscle aches, Stiffness, Joint Swelling, Back pain, Neck pain Integumentary: DENIES: Abnormal pigmentation, Pruritus, Rash, Nail changes, Breast masses, Breast skin changes, Nipple discharge Hematologic/lymphatic: DENIES: Bruising, Lymphadenopathy Immunologic/allergic: DENIES: Eczema, Urticaria Neurologic: DENIES: Abnormal gait, Headache, Localized weakness, Paresthesias, Seizures, Speech Problems, Tremor, Poor Balance Psychiatric: COMPLAINS OF: Anxiety, DENIES: Confusion, Mood changes, Depression, Hallucinations, Agitation, Suicidal Ideation, Homicidal Ideation, Delusions Past Family Social History Past Medical History Hypertension Hyperlipidemia Rheumatoid arthritis Osteoporosis Fibromyalgia 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 fib but patient denies this. M1 Past Surgical History Percutaneous tracheostomy 11/24/15 (Dr. Jackson) Hysterectomy 1975 due to bleeding into the peritoneal cavity Bilateral carotid endarterectomy (right carotid endarterectomy was performed by Dr. Moreau) Appendectomy Bilateral cataract removal Reported Medications Reported Meds & Active Scripts Active Xanax (Alprazolam) 0.25 Mg Tab 0.125 Mg PO Q12HR PRN Potassium Chloride ER (Potassium Chloride) 20 Meq Tab 20 Meq PO DAILY Cozaar (Losartan Potassium) 25 Mg Tab 25 Mg PO DAILY 30 Days Norvasc (Amlodipine Besylate) 10 Mg Tab 10 Mg PO DAILY 30 Days Metoprolol Tartrate 25 Mg Tab 75 Mg PO Q12HR 30 Days Pantoprazole (Pantoprazole Sodium) 40 Mg Tab 40 Mg PO DAILY Furosemide 20 Mg Tab 20 Mg PO DAILY Reported Allopurinol 100 Mg Tab 100 Mg PO DAILY Clopidogrel (Clopidogrel Bisulfate) 75 Mg Tab 75 Mg PO DAILY Pravastatin 20 Mg Tab 20 Mg PO DAILY Alexandra Aspirin EC Low Dose (Aspirin) [address] (Duloxetine HCl) 30 Mg Capdr 30 Mg PO DAILY Allergies: Coded Allergies: Contrast Media (Verified Allergy, Severe, "throat closes up", 10/07/16) states that reaction used to occur but no longer does Keflex (Verified Adverse Reaction, Severe, "burning sensation,body red", ) *MDRO Multi-Drug Resistant Organism (Verified Adverse Reaction, Unknown, VRE, ESBL, 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 She smokes 3-4 cigarettes per day. Drinks wine on holidays. Denies use of illicit drugs She lives with a female friend of hers Physical Exam Vital Signs Vital Signs Date Time Temp Pulse Resp B/P Pulse Ox O2 Delivery O2 Flow Rate FiO2 10/08/16 05:03 65 18 98 10/08/16 05:00 97.8 67 18 135/56 94 10/08/16 05:00 67 10/08/16 03:57 71 18 147/63 99 Nasal Cannula 3 10/08/16 02:00 62 18 140/61 98 Nasal Cannula 3 10/08/16 01:35 94 Nasal Cannula 3.00 10/07/16 23:38 66 18 132/58 94 Nasal Cannula 3 10/07/16 21:36 60 18 128/50 94 Nasal Cannula 3 10/07/16 19:14 56 18 137/60 94 Nasal Cannula 3 10/07/16 18:40 17 96 Nasal Cannula 3 10/07/16 18:40 96 Nasal Cannula 3 10/07/16 18:11 24 86 Nasal Cannula 3 10/07/16 18:08 98.7 89 24 136/87 86 Physical Exam GENERAL: This is a well-nourished, well-developed patient, in no apparent distress. Lying comfortably in bed. SKIN: No rashes, ecchymoses or lesions. Cool and dry. HEAD: Atraumatic. Normocephalic. No temporal or scalp tenderness. EYES: Pupils equal round and reactive. Extraocular motions intact. No scleral icterus. No injection or drainage. ENT: Nose without bleeding, purulent drainage or septal hematoma. Throat without erythema, tonsillar hypertrophy or exudate. Uvula midline. Airway patent. NECK: Trachea midline. No JVD or lymphadenopathy. Supple, nontender, no meningeal signs. CARDIOVASCULAR: Regular rate and rhythm without murmurs, gallops, or rubs. RESPIRATORY: Clear to auscultation. Breath sounds equal bilaterally. No wheezes , rales, or rhonchi. GASTROINTESTINAL: Abdomen soft, non-tender, nondistended. No hepato-splenomegaly , or palpable masses. No guarding. MUSCULOSKELETAL: Extremities without clubbing, cyanosis, or edema. No joint tenderness, effusion, or edema noted. No calf tenderness. Negative Homans sign bilaterally. NEUROLOGICAL: Awake and alert. Cranial nerves II through XII intact. Motor and sensory grossly within normal limits. Five out of 5 muscle strength in all muscle groups. Normal speech. Laboratory Laboratory Tests Test 10/07/16 10/07/16 10/08/16 10/08/16 18:25 19:00 00:30 07:40 White Blood Count 13.0 7.7 Red Blood Count 4.42 4.12 Hemoglobin 11.0 10.1 Hematocrit 34.2 32.2 Mean Corpuscular Volume 77.4 78.1 Mean Corpuscular Hemoglobin 24.9 24.5 Mean Corpuscular Hemoglobin 32.2 31.4 Concent Red Cell Distribution Width 17.9 18.1 Platelet Count 316 248 Mean Platelet Volume 8.2 8.5 Neutrophils (%) (Auto) 79.2 60.2 Lymphocytes (%) (Auto) 14.0 30.4 Monocytes (%) (Auto) 6.3 8.7 Eosinophils (%) (Auto) 0.2 0.3 Basophils (%) (Auto) 0.3 0.4 Neutrophils # (Auto) 10.4 4.7 Lymphocytes # (Auto) 1.8 2.3 Monocytes # (Auto) 0.8 0.7 Eosinophils # (Auto) 0.0 0.0 Basophils # (Auto) 0.0 0.0 CBC Comment AUTO DIFF DIFF FINAL Differential Comment AUTO DIFF CONFIRMED Platelet Estimate NORMAL Platelet Morphology Comment NORMAL Sodium Level 137 Potassium Level 4.8 Chloride Level 99 Carbon Dioxide Level 28.5 Anion Gap 10 Blood Urea Nitrogen 32 Creatinine 1.00 Estimat Glomerular Filtration 54 Rate Random Glucose 130 Calcium Level 9.0 Magnesium Level 2.2 Total Bilirubin 0.2 Aspartate Amino Transf 11 (AST/SGOT) Alanine Aminotransferase 13 (ALT/SGPT) Alkaline Phosphatase 120 Total Creatine Kinase 17 Troponin I LESS THAN 0.02 LESS THAN 0.02 B-Type Natriuretic Peptide 530 Total Protein 7.9 Albumin 3.5 Urine Collection Type CLEAN CATCH Urine Color YELLOW Urine Turbidity CLEAR Urine pH 5.5 Urine Specific [place] 1.007 Urine Protein NEG Urine Glucose (UA) NEG Urine Ketones NEG Urine Occult Blood NEG Urine Nitrite NEG Urine Bilirubin NEG Urine Leukocyte Esterase NEG Urine RBC 0-3 Urine WBC 0-2 Urine Squamous Epithelial 0-5 Cells Urine Hyaline Casts 3-5 Urine Mucus OCC Microscopic Urinalysis Comment CULT NOT INDICATED Result Diagram: 10/08/16 0740 10/07/161824 Imaging Last Impressions Chest X-Ray 10/07/161820 Signed Impressions: Service Date/Time: Friday, October 07, 2016 18:37 - CONCLUSION: 1. Basilar and perihilar airspace disease which has developed since prior exam. This may represent mild congestive heart failure. Delvin Arauz MD Assessment and Plan Assessment and Plan Ms. Roque is a 75-year-old female who presented with three day complaint of worsening shortness of breath with associated dry cough. Congestive heart failure, acute diastolic, severely elevated BP in the ED, elevated BNP 530, dyspnea - Close intake and output monitoring - Lasix 20 mg PO daily - Control pain, [place] PRN - CXR resulted and reviewed: showing basilar and perihilar airspace disease indicative of mild congestive heart failure - Continue O2 to keep O2 saturations > 92%. - Duonebs PRN Chronic medical problems to include: hypertension, hyperlipidemia, COPD, history of right carotid endarterectomy on Plavix - Continue home medications - Monitor for any changes - Advised about tobacco cessation GI Prophylaxis - Protonix 40 mg PO daily DVT prophylaxis - sequential compression devices/TEDs. - Continue Plavix and aspirin. Case management input appreciated - Discharge planning should be initiated. Patient obviously has failed home health care and most likely will need an assisted living facility or possibly hospice. Written by Andrey Monique PA-C, acting as scribe for Dr. Buenrostro on 10/08/16 at 1555. The documentation accurately reflects the work and decisions performed face-to- face by Dr. Buenrostro on 10/08/16 at 1555. Physician Certification 2 Midnight Certification Type: Admission for Inpatient Services Order for Inpatient Services The services are ordered in accordance with Medicare regulations or non- Medicare payer requirements, as applicable. In the case of services not specified as inpatient-only, they are appropriately provided as inpatient services in accordance with the 2-midnight benchmark. Estimated LOS (days): 2 days is the estimated time the patient will need to remain in the hospital, assuming treatment plan goals are met and no additional complications. Post-Hospital Plan: Not yet determined Problem Qualifiers (1) Dyspnea: Qualified Code: R06.02 - Shortness of breath Andrey Monique Oct 08, 2016 09:04 Hortencia Buenrostro MD Oct 08, 2016 16:07
--- NOTE | 2016-10-08 10:38 | EKG ---
Date Performed: 10/07/2016 Time Performed: 18:36:32 PTAGE: 75 years EKG: Sinus bradycardia with sinus arrhythmia Normal ECG except for rate PREVIOUS TRACING : 09/25/2016 18.14 DOCTOR: Camden Russo Interpretating Date/Time 10/08/2016 10:34:51
[2016-10-09] VITALS: BP 148/72; PULSE 94; RESP 18; TEMP 97.6; O2SAT 98
[2016-10-09 04:00] VITALS: BP 101/62; PULSE 72; RESP 18; TEMP 97.1; O2SAT 97
[2016-10-09 08:00] VITALS: BP 148/77; PULSE 113; RESP 17; TEMP 97.9; O2SAT 94; O2SAT 99
[2016-10-09 09:00] VITALS: PULSE 96
[2016-10-09] MEDS: DULoxetine HCl DR 30 MG CAP PO SCH (10:34)
[2016-10-09] MEDS: FUROSEMIDE 20 MG TAB PO SCH (10:34)
[2016-10-09] MEDS: SODIUM CHLORIDE 0.9% FLUSH 10 ML FLUSH IV FLUSH SCH (10:34)
[2016-10-09] MEDS: METOPROLOL TARTRATE 25 MG TAB PO SCH (10:34)
[2016-10-09] MEDS: PANTOPRAZOLE SOD 40 MG DELAYED RELEASE TAB PO SCH (10:34)
[2016-10-09] MEDS: PRAVASTATIN SOD 20 MG TAB PO SCH (10:35)
[2016-10-09] MEDS: ASPIRIN EC 81 MG TABEC PO SCH (10:35)
[2016-10-09] MEDS: CLOPIDOGREL 75 MG TAB PO SCH (10:35)
[2016-10-09] MEDS: ALLOPURINOL 100 MG TAB PO SCH (10:35)
--- NOTE | 2016-10-09 11:46 | HHI.PR ---
Subjective Remarks Patient denies any shortness of breath, pain, or other complaint other than feeling tired today. Patient today acknowledges that she needs more help than she is getting at home and agrees to go to half-way facility. Objective Vitals Vital Signs Date Time Temp Pulse Resp B/P Pulse Ox O2 Delivery O2 Flow Rate FiO2 10/09/16 08:00 97.9 113 17 148/77 99 10/09/16 04:00 97.1 72 18 101/62 97 10/09/16 00:00 97.6 94 18 148/72 98 10/08/16 21:31 100/50 10/08/16 20:27 85 10/08/16 20:10 98 Nasal Cannula 2.00 10/08/16 20:00 97.3 88 18 81/47 99 10/08/16 16:00 98.1 75 18 138/64 98 10/08/16 12:00 98.4 68 20 123/70 97 10/08/16 11:40 2.00 I/O 10/08/16 10/08/16 10/08/16 10/09/16 10/09/16 10/09/16 07:00 15:00 23:00 07:00 15:00 23:00 Intake Total 240 ml 550 ml Output Total 1800 ml Balance -1800 ml 240 ml 550 ml Intake Oral 240 ml 550 ml Output Urine Total 1800 ml # Voids 4 3 2 # Bowel Movements 1 Result Diagram: 10/08/16 0740 10/08/16 0740 Objective Remarks GENERAL: Well-nourished, well-developed pleasant elderly female patient in no apparent distress. SKIN: Warm and dry. HEAD: Normocephalic. EYES: No scleral icterus. No injection or drainage. NECK: Supple, trachea midline. No JVD or lymphadenopathy. CARDIOVASCULAR: Regular rate and rhythm without murmurs, gallops, or rubs. RESPIRATORY: Breath sounds equal and clear to auscultation bilaterally. No accessory muscle use. GASTROINTESTINAL: Abdomen soft, non-tender, nondistended. EXTREMITIES: No cyanosis, or edema. NEUROLOGICAL: Awake, alert, and oriented x 3. Non-focal. A/P Problem List: (1) Dyspnea ICD Code: R06.00 Status: Resolved (2) CHF (congestive heart failure) ICD Code: I50.9 Status: Acute (3) Weakness generalized ICD Code: R53.1 Status: Acute Assessment and Plan Ms. Roque is a 75-year-old female who presented with three day complaint of worsening shortness of breath with associated dry cough. Congestive heart failure, acute diastolic, severely elevated BP in the ED, elevated BNP 530, dyspnea - Improved. - Resumed on Lasix by mouth. -Blood pressure control improved. -Recent 2-D echocardiogram in August 2016 showing mild hearing stenosis, preserved ejection fraction. - Close intake and output monitoring - Continue O2 to keep O2 saturations > 92%. - Duonebs PRN Chronic medical problems to include: hypertension, hyperlipidemia, COPD, history of right carotid endarterectomy on Plavix, previous TBI with hx metabolic encephalopathy, frequent falls, intermittent hypoxia, flash pulmonary edema - Continue home medications - Monitor for any changes - Advised about tobacco cessation GI Prophylaxis - Protonix 40 mg PO daily DVT prophylaxis - sequential compression devices/TEDs. - Continue Plavix and aspirin. Case management input appreciated - Discharge planning should be initiated. Patient obviously has failed home health care and most likely will need an assisted living facility. She has been readmitted. Has history of recurrent readmissions, flash pulmonary edema. Evaluating for half-way facility. Problem Qualifiers (1) Dyspnea: Qualified Code: R06.02 - Shortness of breath Hortencia Buenrostro MD Oct 09, 2016 11:46
[2016-10-09] MEDS ORDERED: ALPR.25 PO (11:51)
[2016-10-09 12:00] VITALS: BP 133/79; PULSE 100; RESP 18; TEMP 97.1; O2SAT 98
[2016-10-09 14:53] VITALS: RESP 18
== END 2016-10-09 19:39 | DRG 293 ==
LOC: PHED 18:03 → PHEDA 19:57 → PHEDH 23:57 → PHICU 10-08 04:53 → PH3A 10-08 16:15
PROVIDERS: ADMIT Family Medicine; ATTEND Family Medicine
DX: I11.0 Hypertensive heart disease with heart failure (principal); J44.9 Chronic obstructive pulmonary disease, unspecified; E11.9 Type 2 diabetes mellitus without complications; M79.7 Fibromyalgia; I50.31 Acute diastolic (congestive) heart failure; E78.5 Hyperlipidemia, unspecified; Z79.84 Long term (current) use of oral hypoglycemic drugs; K21.9 Gastro-esophageal reflux disease without esophagitis; F41.0 Panic disorder [episodic paroxysmal anxiety]; Z72.0 Tobacco use; M06.9 Rheumatoid arthritis, unspecified; M81.0 Age-related osteoporosis without current pathological fracture
CPT/HCPCS: 71010; 80053; 81001; 82550; 83735; 83880; 84484; 85025; 93005; 94620; 96374; J1940